=== PATIENT | male | born 1935 | race Caucasian/White ===

== ENCOUNTER → 2017-01-17 | Outpatient (CLI) | payer OTHER ==
[~2017-01-17] MED LIST: ADVIN25/60 INH; ALBUAER19 INH; ASPEC81 PO; ATOR80TA PO; ATV/1 PO; CALCTAB5 PO; CHOL1000 PO; CLX20 PO; CMD/25 PO; CMD5 PO; CRDCD120 PO; CYAN100020 PO; DOCU-94 PO; GLIP5TAB11 PO; GLUCTAB7 PO; HYDC25 PO; LISI-461 PO; LVQ750 PO; METO50TA16 PO; MULT-513 PO; OPTIRAY 320 IV PRN; OXGN; PRD20 PO; PRLSR20 PO
--- NOTE | 2017-01-17 12:42 | DIAGNOSTIC IMAGING REPORT ---
CT OF THE CHEST WITH IV CONTRAST CLINICAL HISTORY: COPD with emphysema. COMPARISON STUDY: Chest CT September 05, 2015 and chest radiograph November 08, 2015. TECHNIQUE: Following IV administration of 120 mL of Optiray-320, helical axial images of the chest were obtained. Sagittal and coronal reconstructions were viewed as well as maximal intensity projections on an independent 3-D workstation. A dose lowering technique was utilized adhering to the principles of ALARA. CT DOSE: 1386.00 mGy.cm FINDINGS: The heart is moderately enlarged. Mild dilatation of the ascending aorta, measuring 4.2 cm is unchanged. There is no thoracic aortic dissection. There is extensive coronary artery calcification. A few prominent aortopulmonary window lymph nodes measuring up to 1.2 cm are noted. These are unchanged. No pneumothorax or pleural effusion is present. Lungs are suboptimally assessed due to respiratory motion. Groundglass left lower lobe opacity favors atelectasis although a mild infectious process could appear similar. There is diffuse bronchial wall thickening with extensive secretions throughout the airways, most prevalent within the left mainstem bronchus and left lower lobe segmental bronchi with multifocal mucus plugging. Bony thorax is unremarkable. Several left renal cysts are noted. There is probable fatty infiltration of the liver. A sebaceous cyst within the right lower back is noted. IMPRESSION: 1. Diffuse bronchial wall thickening with multifocal secretions throughout the airways, most extensive within the left mainstem bronchus and left lower lobe segmental bronchi. Airway wall thickening, most evident with the left mainstem bronchus is nonspecific. 2. Mild left lower lobe opacity which favors atelectasis. 3. Moderate cardiomegaly and extensive coronary artery calcification. Electronically signed by: Victoriano Valiente M.D. 01/17/2017 12:41 PM Dictated Date/Time: 01/17/2017 10:19 AM
== END | disposition home or self-care (01) ==
LOC: C.CTS 09:41
PROVIDERS: ATTEND Internal Medicine Pulmonary Disease
DX: J43.9 Emphysema, unspecified (principal); I51.7 Cardiomegaly; I25.10 Atherosclerotic heart disease of native coronary artery without angina pectoris

== ENCOUNTER 2017-02-04 13:57 | Emergency (ER) | payer OTHER ==
[~2017-02-04] VITALS: Ht 182.9 cm; Wt 143.0 kg
[~2017-02-04 13:57] MED LIST changes: -OPTIRAY 320 IV PRN
[2017-02-04 14:00] VITALS: Ht 182.9 cm; Wt 143.0 kg
--- NOTE | 2017-02-04 15:43 | EMERGENCY ROOM VISIT NOTE ---
History First contact with patient: 15:33 Chief Complaint: SWELLING TO EXTREMITY Stated Complaint: LEFT FOOT/ANKLE SEVERELY SWOLLEN, SEEPING BLISTER History of Present Illness The patient is a 81 year old male who presents to the Emergency Room by private vehicle with left foot pain for the last 1-2 days. He denies any trauma but noticed intermittent aching/sharp pain on the lateral side of his distal fibula with associated ecchymosis. 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 His daughter called his orthopedic surgeon who recommended calling his PCP who recommended going to the ER because it was purple. His apparently saw some seeping of his ankle with a blister but this was not noted by other family members who are currently here in the ER. His ankle is normally swollen and he is unclear whether it is worse than normal. His usual mobility is poor and he used furniture around the house to help him get around. Uses wheelchair outside the house. Lives with his . They have an aid that helps out around 6 hour/day. Gets his INR checked at home and his daughter mentions they frequently need to change his dose. Review of Systems Constitutional: No fever, No chills ENT: No hearing loss Respiratory: + cough, + dyspnea on exertion (chronic), No sputum, No wheezing Cardiovascular: + edema (worse on left than right), No chest pain, No orthopnea, No PND, No claudication, No palpitations Abdomen: + nausea, + diarrhea, No pain, No vomiting, No constipation, No GI bleeding Musculoskeletal: + joint pain (as per HPI) Genitourinary - Male: No hematuria, No dysuria, No urinary frequency, No urinary urgency, No urinary retention Neurologic: + memory loss (for years), No balance problems Integumentary: + rash (dry skin on arms with sebhorreic keratosis), + color change (purple ankle) Past Medical/Surgical History Medical Problems: (1) Anxiety (2) CAD (coronary artery disease) (3) Current use of director long term care anticoagulation (4) Dementia (5) DM2 (diabetes mellitus, type 2) (6) HLD (hyperlipidemia) (7) HTN (hypertension) (8) Irritable Bowel Syndrome (9) Pulmonary embolism Surgical Problems: (1) H/O angioplasty (2) H/O hernia repair (3) S/P surgical manipulation of ankle joint Family History Hypertension Social History Smoking Status: Never Smoker Alcohol Use: occasionally Marital Status: Housing Status: lives with significant other () Occupation Status: retired Current/Historical Medications Scheduled Albuterol Inhaler (Ventolin Inhaler), 2 PUFFS INH QID Aspirin (Aspirin EC Low Dose), 81 MG PO DAILY Atorvastatin Calcium (Lipitor), 1 TAB PO HS Calcium (Caltrate), 600 MG PO DAILY Cholecalciferol (Vitamin D3), 5,000 UNITS PO DAILY Citalopram (Celexa *), 20 MG PO DAILY Cyanocobalamin (Vitamin B12), 1 TAB PO DAILY Diltiazem Hcl Cd (Cardizem Cd *), 120 MG PO DAILY Docusate Sodium (Colace), 1 CAP PO BID Fluticasone Prop/Salmeterol (Advair Diskus 250/50 60 Dose), 1 PUFFS INH BID Glipizide (Glucotrol), 0.5 TAB PO BIDM Vvgaicisfby-Msqlzylffoa-Csb C- (Glucosamine Chondroitin), 1 TAB PO DAILY Home O2 Therapy (Oxygen), 3 LITER NA CONTINOUS Hydrochlorothiazide (Hctz *), 12.5 MG PO DAILY Levofloxacin (Levofloxacin), 750 MG PO DAILY@22 Lisinopril (Zestril), 10 MG PO DAILY Metoprolol Tartrate (Lopressor) (Lopressor), 50 MG PO BID Multivitamins/Minerals (Mvi With Minerals), 1 TAB PO DAILY Omeprazole (Prilosec), 20 MG PO BID Prednisone (Prednisone), 20 MG PO UD Warfarin Sod (Coumadin), 2.5 MG PO WK Warfarin Sod (Coumadin), 5 MG PO 6XWK Scheduled PRN Lorazepam (Ativan), 1 MG PO BID PRN for Anxiety/Agitation Physical Exam Vital Signs Date Time Temp Pulse Resp B/P (MAP) Pulse Ox O2 Delivery O2 Flow Rate FiO2 02/04/17 18:18 36.7 81 18 140/89 93 02/04/17 17:57 81 18 140/89 93 Room Air 02/04/17 17:18 69 20 113/82 96 Nasal Cannula 2.5 02/04/17 14:00 36.7 103 22 150/110 89 Room Air Physical Exam General Appearance: no apparent distress, + obese Eyes: normal inspection, PERRL, EOMI Neck: supple Respiratory/Chest: chest non-tender, lungs clear, normal breath sounds, no respiratory distress, no accessory muscle use Cardiovascular: regular rate, rhythm, no murmur, normal peripheral pulses ( left PT/DP confirmed on doppler) Abdomen / GI: normal bowel sounds, non tender, soft Back: no CVA tenderness Extremities: normal capillary refill, + pedal edema (marked peripheral pitting edema L (3+) > R (1+)), + pertinent finding (ecchymosis and pain on palpation over 7-8cm distal lateral fibula) Neurologic/Psych: counseling services manager II-XII nml as tested, alert, oriented x 3, + sensory deficit (stocking sensation loss (below knees b/l)), + pertinent finding (hip/ knee/ankle flexion and extension power 5/5 bilaterally) Medical Decision & Procedures ER Provider Diagnostic Interpretation: LEFT LOWER EXTREMITY VENOUS DOPPLER CLINICAL HISTORY: Left leg pain and swelling. COMPARISON STUDY: Bilateral lower extremity venous Doppler August 14, 2007. TECHNIQUE: Sonography of the deep venous system of the left lower extremity was performed. Compression and augmentation were evaluated. FINDINGS: The common femoral, superficial femoral and popliteal veins were compressible. Augmentation was normal. Flow was shown within the deep calf vessels although calf vessels were suboptimally assessed on this exam. IMPRESSION: No evidence of deep venous thrombus within the left lower extremity although calf vessels suboptimally assessed on this exam. Electronically signed by: Victoriano Valiente M.D. 02/04/2017 5:06 PM Dictated Date/Time: 02/04/2017 5:05 PM LEFT TIBIA/FIBULA 2 VIEWS ROUTINE, LEFT ANKLE MIN 3 VIEWS ROUTINE HISTORY: 81 years-old Male lower third lateral left leg pain and ecchymosis COMPARISON: None available TECHNIQUE: 2 views of the left tibia and fibula and 3 views of the left ankle FINDINGS: TIBIA/FIBULA: Chondrocalcinosis involves the medial, lateral and patellofemoral compartments. 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 There is no acute fracture or dislocation. The bones are mildly demineralized. Dense material is noted within the suprapatellar region with small moderate joint effusion. Soft tissue edema involves the entire imaged lower extremity. ANKLE: Lateral plate and screw fusion hardware involves the distal fibula with 2 cannulated screws present within the medial malleolus. Hardware appears intact without complication. No acute fracture or dislocation is identified. Mild to moderate generative changes involve the tibiotalar joint with dorsal spurring of the talonavicular articulation. There is extensive soft tissue swelling involving the imaged lower extremity and ankle with small ankle joint effusion. IMPRESSION: 1. No acute bony abnormality of the left tibia/fibula or ankle. 2. Extensive soft tissue swelling of the imaged left lower extremity with small to moderate knee joint effusion. 3. Prior ORIF of the left ankle with degenerative changes of the left knee and ankle. The above report was generated using voice recognition software. It may contain grammatical, syntax or spelling errors. Electronically signed by: Edmundo Delgadillo M.D. 02/04/2017 4:59 PM Dictated Date/Time: 02/04/2017 4:55 PM Laboratory Results 02/04/17 15:55 Red Blood Count 4.71, Mean Corpuscular Volume 93.6, Mean Corpuscular Hemoglobin 29.9, Mean Corpuscular Hemoglobin Concent 32.0, Mean Platelet Volume 11.1, Neutrophils (%) (Auto) 49.4, Lymphocytes (%) (Auto) 37.3, Monocytes (%) (Auto) 7.4, Eosinophils (%) (Auto) 5.1, Basophils (%) (Auto) 0.6, Neutrophils # (Auto) 4.92, Lymphocytes # (Auto) 3.72, Monocytes # (Auto) 0.74, Eosinophils # (Auto) 0.51, Basophils # (Auto) 0.06 02/04/17 15:55 Test 02/04/17 15:55 White Blood Count 9.97 K/uL (4.8-10.8) Red Blood Count 4.71 M/uL (4.7-6.1) Hemoglobin 14.1 g/dL (14.0-18.0) Hematocrit 44.1 % (42-52) Mean Corpuscular Volume 93.6 fL (80-100) Mean Corpuscular Hemoglobin 29.9 pg (25-34) Mean Corpuscular Hemoglobin Concent 32.0 g/dl (32-36) Platelet Count 230 K/uL (130-400) Mean Platelet Volume 11.1 fL (7.4-10.4) Neutrophils (%) (Auto) 49.4 % Lymphocytes (%) (Auto) 37.3 % Monocytes (%) (Auto) 7.4 % Eosinophils (%) (Auto) 5.1 % Basophils (%) (Auto) 0.6 % Neutrophils # (Auto) 4.92 K/uL (1.4-6.5) Lymphocytes # (Auto) 3.72 K/uL (1.2-3.4) Monocytes # (Auto) 0.74 K/uL (0.11-0.59) Eosinophils # (Auto) 0.51 K/uL (0-0.5) Basophils # (Auto) 0.06 K/uL (0-0.2) RDW Standard Deviation 53.9 fL (36.4-46.3) RDW Coefficient of Variation 15.7 % (11.5-14.5) Immature Granulocyte % (Auto) 0.2 % Immature Granulocyte # (Auto) 0.02 K/uL (0.00-0.02) Erythrocyte Sedimentation Rate 48 mm/hr (0-14) Prothrombin Time 31.0 SECONDS (9.0-12.0) Prothromb Time International Ratio 2.8 (0.9-1.1) Activated Partial Thromboplast Time 43.7 SECONDS (21.0-31.0) Partial Thromboplastin Ratio 1.7 Anion Gap 6.0 mmol/L (3-11) Est Creatinine Clear Calc Drug Dose 60.7 ml/min Estimated GFR () 54.2 Estimated GFR (Non- 46.8 BUN/Creatinine Ratio 16.4 (10-20) Calcium Level 10.0 mg/dl (8.5-10.1) Total Bilirubin 0.2 mg/dl (0.2-1) Aspartate Amino Transf (AST/SGOT) 23 U/L (15-37) Alanine Aminotransferase (ALT/SGPT) 25 U/L (12-78) Alkaline Phosphatase 66 U/L (45-117) C-Reactive Protein 2.31 mg/dl (0-0.29) Total Protein 7.7 gm/dl (6.4-8.2) Albumin 3.1 gm/dl (3.4-5.0) Globulin 4.6 gm/dl (2.5-4.0) Albumin/Globulin Ratio 0.7 (0.9-2) ED Course 15:35 History and physical examination was performed by myself 16:10 Patient was discussed with Dr Khanna who separately performed history and examination 17:25 Patient re-examined - he was pain free and did not wish any medication. Labs and Imaging were reviewed with the patient, his daughter and aid. All questions were answered and they were happy with the plan to discharge home. Medical Decision Prior records reviewed and summarized as above. Triage Nursing notes reviewed. Additional history obtained from patient. The patient's history was concerning for swelling and redness of the skin. Differential diagnosis: Etiologies such as cellulitis, abscess, osteomyelitis, MRSA infection, DVT, necrotizing fasciitis, dermatitis, drug eruption, as well as others were entertained.. Physical examination: The physical examination was consistent soft tissue injury / ankle sprain. ER treatment provided: None On reassessment the patient had no pain Diagnostics interpreted by me: The labs revealed elevated inflammatory markers but otherwise were unremarkable. Imaging studies: X-rays as above revealed no fracture. Small to moderate knee effusion is likely chronic as his knee examination was benign US doppler of left leg did not reveal a DVT This appears to be isolated soft tissue injury or ankle sprain. His elevated inflammatory markers are unlikely related to his presenting complaint but were taken as a baseline in case he becomes worse or develops an infection. Given a normal WBC, no fevers and examination is not consistent with cellulitis this is thought to be less likely at this time but he was advised to follow up with his PCP. By the evaluation outlined above emergent etiologies such as abscess, osteomyelitis, necrotizing fasciitis, DVT, as well as others were deemed relatively unlikely. The patient and his daughter were informed about the findings as listed above. All questions were answered and they were pleased with the treatment. Return instructions were outlined and the patient was discharged in stable condition. Referral: The patient was referred back to his primary care physician for follow-up in 3 to 5 days for a recheck of the current condition. Medication Reconcilliation Current Medication List: was personally reviewed by me Blood Pressure Screening Patient's blood pressure: Elevated blood pressure Blood pressure disposition: Elevated BP felt to be situational, Referred to PCP Impression Primary Impression: Left ankle sprain Additional Impression: HTN (hypertension) Departure Information Dispostion Home / Self-Care Condition FAIR Referrals Matthew Payne M.D. (PCP) Patient Instructions My [facility] Additional Instructions Take Tylenol as directed and as needed for pain. Use rest, ice and elevation. Begin to slowly put more weight on your foot and increase your activity as tolerated. Please follow up with your PCP in the next 3-5 days for a recheck of your condition. Resident Tracking Resident Involvement: Resident Care Provided Care Provided: Adult ED Problem Qualifiers Primary Impression: Left ankle sprain Encounter type: initial encounter Involved ligament of ankle: unspecified ligament Qualified Codes: S93.402A - Sprain of unspecified ligament of left ankle, initial encounter Additional Impression: HTN (hypertension) Hypertension type: essential hypertension Qualified Codes: I10 - Essential ( primary) hypertension
[2017-02-04 16:16] LABS: BASO % 0.6 %; BASO ABS # 0.06 K/uL (0-0.2); COMPLETE YES; EOS % 5.1 %; HEMATOCRIT 44.1 % (42-52); IG% 0.2 %; LYMPH % 37.3 %; LYMPH ABS # 3.72 K/uL (1.2-3.4); MEAN CELL VOLUME 93.6 fL (80-100); MEAN CORPUSCULAR HEMOGLOBIN 29.9 pg (25-34); MEAN PLATELET VOLUME 11.1 fL (7.4-10.4); MONO % 7.4 %; NEUT % 49.4 %; PLATELET COUNT 230 K/uL (130-400); RED BLOOD COUNT 4.71 M/uL (4.7-6.1); WHITE BLOOD COUNT 9.97 K/uL (4.8-10.8)
[2017-02-04 16:30] LABS: INR 2.8 (0.9-1.1); PARTIAL THROMBOPLASTIN RATIO 1.7
[2017-02-04 16:36] LABS: BUN/CREATININE RATIO 16.4 (10-20); CREATININE 1.4 mg/dl (0.60-1.40); POTASSIUM 4.2 mmol/L (3.5-5.1)
[2017-02-04 16:39] LABS: ALB/GLOB RATIO 0.7 (0.9-2)
--- NOTE | 2017-02-04 17:00 | DIAGNOSTIC IMAGING REPORT ---
LEFT TIBIA/FIBULA 2 VIEWS ROUTINE, LEFT ANKLE MIN 3 VIEWS ROUTINE HISTORY: 81 years-old Male lower third lateral left leg pain and ecchymosis COMPARISON: None available TECHNIQUE: 2 views of the left tibia and fibula and 3 views of the left ankle FINDINGS: TIBIA/FIBULA: Chondrocalcinosis involves the medial, lateral and patellofemoral compartments. 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 There is no acute fracture or dislocation. The bones are mildly demineralized. Dense material is noted within the suprapatellar region with small moderate joint effusion. Soft tissue edema involves the entire imaged lower extremity. ANKLE: Lateral plate and screw fusion hardware involves the distal fibula with 2 cannulated screws present within the medial malleolus. Hardware appears intact without complication. No acute fracture or dislocation is identified. Mild to moderate generative changes involve the tibiotalar joint with dorsal spurring of the talonavicular articulation. There is extensive soft tissue swelling involving the imaged lower extremity and ankle with small ankle joint effusion. IMPRESSION: 1. No acute bony abnormality of the left tibia/fibula or ankle. 2. Extensive soft tissue swelling of the imaged left lower extremity with small to moderate knee joint effusion. 3. Prior ORIF of the left ankle with degenerative changes of the left knee and ankle. The above report was generated using voice recognition software. It may contain grammatical, syntax or spelling errors. Electronically signed by: Edmundo Delgadillo M.D. 02/04/2017 4:59 PM Dictated Date/Time: 02/04/2017 4:55 PM
--- NOTE | 2017-02-04 17:07 | DIAGNOSTIC IMAGING REPORT ---
LEFT LOWER EXTREMITY VENOUS DOPPLER CLINICAL HISTORY: Left leg pain and swelling. COMPARISON STUDY: Bilateral lower extremity venous Doppler August 14, 2007. TECHNIQUE: Sonography of the deep venous system of the left lower extremity was performed. Compression and augmentation were evaluated. FINDINGS: The common femoral, superficial femoral and popliteal veins were compressible. Augmentation was normal. Flow was shown within the deep calf vessels although calf vessels were suboptimally assessed on this exam. IMPRESSION: No evidence of deep venous thrombus within the left lower extremity although calf vessels suboptimally assessed on this exam. Electronically signed by: Victoriano Valiente M.D. 02/04/2017 5:06 PM Dictated Date/Time: 02/04/2017 5:05 PM
[2017-02-04 18:18] VITALS: BP 140/89; PULSE 81; TEMP 36.7; O2SAT 93
--- NOTE | 2017-02-04 22:18 | EMERGENCY ROOM VISIT NOTE ---
History Report prepared by Scribe: Alba Borden Under the Supervision of: Dr. Juan M Khanna D.O. First contact with patient: 15:33 Chief Complaint: SWELLING TO EXTREMITY Stated Complaint: LEFT FOOT/ANKLE SEVERELY SWOLLEN, SEEPING BLISTER History of Present Illness The patient is an 81 year old male who presents to the Emergency Room with complaints of worsening pain and swelling to his left lower extremity. He reports the swelling started 1 to 2 days ago and rates his current discomfort as a 7/10. Movement and palpation worsens his discomfort. The patient underwent surgery on his left ankle approximately [address] Neves at [facility]. He denies any recent trauma to the area. His daughter reports the patient fell 2 weeks ago, but he did not go to the ED afterwards. The patient has a history of DM, DVT's, hypertension and CAD. He wears 2 L NC chronically. He is on daily Coumadin and his family states he has been taking all of his medications regularly. He has decreased sensation in his left foot, but states this is chronic. Pt denies headache, change in vision, fevers, chest pain, shortness of breath, abdominal pain, nausea, vomiting, diarrhea, pain with urination, and melena. Source of History: patient, family Onset: 1 to 2 days [employer] Position: ankle (left), foot (left) Symptom Intensity: 7/10 Timing: worsening Modifying Factors (Worsening): movement, other (palpation) Associated Symptoms: No fevers, No headache, No chest pain, No SOB, No nausea, No vomiting, No abdominal pain, No melena, No diarrhea, No urinary symptoms Review of Systems See HPI for pertinent positives & negatives. A total of 10 systems reviewed and were otherwise negative. Past Medical & Surgical Medical Problems: (1) Anxiety (2) CAD (coronary artery disease) (3) Current use of shelter anticoagulation (4) Dementia (5) DM2 (diabetes mellitus, type 2) (6) HLD (hyperlipidemia) (7) HTN (hypertension) (8) Irritable Bowel Syndrome (9) Pulmonary embolism Surgical Problems: (1) H/O angioplasty (2) H/O hernia repair (3) S/P surgical manipulation of ankle joint Family History Hypertension Social History Smoking Status: Never Smoker Alcohol Use: occasionally Drug Use: none Marital Status: Housing Status: lives with significant other () Occupation Status: retired Current/Historical Medications Scheduled Albuterol Inhaler (Ventolin Inhaler), 2 PUFFS INH QID Aspirin (Aspirin EC Low Dose), 81 MG PO DAILY Atorvastatin Calcium (Lipitor), 1 TAB PO HS Calcium (Caltrate), 600 MG PO DAILY Cholecalciferol (Vitamin D3), 5,000 UNITS PO DAILY Citalopram (Celexa *), 20 MG PO DAILY Cyanocobalamin (Vitamin B12), 1 TAB PO DAILY Diltiazem Hcl Cd (Cardizem Cd *), 120 MG PO DAILY Docusate Sodium (Colace), 1 CAP PO BID Fluticasone Prop/Salmeterol (Advair Diskus 250/50 60 Dose), 1 PUFFS INH BID Glipizide (Glucotrol), 0.5 TAB PO BIDM [facility]kdarphhj-Ynufuibmjhw-[facility] C- (Glucosamine Chondroitin), 1 TAB PO DAILY Home O2 Therapy (Oxygen), 3 LITER NA CONTINOUS Hydrochlorothiazide (Hctz *), 12.5 MG PO DAILY Levofloxacin (Levofloxacin), 750 MG PO DAILY@22 Lisinopril (Zestril), 10 MG PO DAILY Metoprolol Tartrate (Lopressor) (Lopressor), 50 MG PO BID Multivitamins/Minerals (Mvi With Minerals), 1 TAB PO DAILY Omeprazole (Prilosec), 20 MG PO BID Prednisone (Prednisone), 20 MG PO UD Warfarin Sod (Coumadin), 2.5 MG PO WK Warfarin Sod (Coumadin), 5 MG PO 6XWK Scheduled PRN Lorazepam (Ativan), 1 MG PO BID PRN for Anxiety/Agitation Allergies Coded Allergies: Morphine (Unverified Adverse Reaction, Severe, becomes wild and combative , 09/01/15) Physical Exam Vital Signs Date Time Temp Pulse Resp B/P (MAP) Pulse Ox O2 Delivery O2 Flow Rate FiO2 02/04/17 18:18 36.7 81 18 140/89 93 02/04/17 17:57 81 18 140/89 93 Room Air 02/04/17 17:18 69 20 113/82 96 Nasal Cannula 2.5 02/04/17 14:00 36.7 103 22 150/110 89 Room Air Physical Exam GENERAL: Patient is sitting up in bed, morbidly obese, chronically ill appearing , on 2 L NC chronically. EYE EXAM: normal conjunctiva, PERRL and EOM's grossly intact OROPHARYNX: no exudate, no erythema, lips, buccal mucosa, and tongue normal and mucous membranes are moist NECK: supple, no nuchal rigidity, no adenopathy, non-tender LUNGS: Diminished lung sounds bilaterally. Normal chest wall mechanics HEART: Heart sounds are distant, no murmurs, S1 normal and S2 normal ABDOMEN: abdomen soft, non-tender, normo-active bowel sounds, no masses, no rebound or guarding. BACK: Back is symmetrical on inspection and there is no deformity, no midline tenderness, no CVA tenderness. SKIN: no rashes and no bruising UPPER EXTREMITIES: upper extremities are grossly normal. LOWER EXTREMITIES: Mild pitting edema. Left leg is larger than right. Bruising on left distal tibia, tracking to the ankle. Old incisions in place over medial malleolus. DP and PT are 1/4 by Doppler. Moderate pain with palpation over lateral malleolus. NEURO EXAM: Normal sensorium, cranial nerves II-XII grossly intact, no weakness of the upper extremities or lower extremities. Medical Decision & Procedures ER Provider Diagnostic Interpretation: Radiology results as stated below per my review and the radiologist's interpretation: LEFT TIBIA/FIBULA 2 VIEWS ROUTINE, LEFT ANKLE MIN 3 VIEWS ROUTINE HISTORY: 81 years-old Male lower third lateral left leg pain and ecchymosis COMPARISON: None available TECHNIQUE: 2 views of the left tibia and fibula and 3 views of the left ankle FINDINGS: TIBIA/FIBULA: Chondrocalcinosis involves the medial, lateral and patellofemoral compartments. 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 There is no acute fracture or dislocation. The bones are mildly demineralized. Dense material is noted within the suprapatellar region with small moderate joint effusion. Soft tissue edema involves the entire imaged lower extremity. ANKLE: Lateral plate and screw fusion hardware involves the distal fibula with 2 cannulated screws present within the medial malleolus. Hardware appears intact without complication. No acute fracture or dislocation is identified. Mild to moderate generative changes involve the tibiotalar joint with dorsal spurring of the talonavicular articulation. There is extensive soft tissue swelling involving the imaged lower extremity and ankle with small ankle joint effusion. IMPRESSION: 1. No acute bony abnormality of the left tibia/fibula or ankle. 2. Extensive soft tissue swelling of the imaged left lower extremity with small to moderate knee joint effusion. 3. Prior ORIF of the left ankle with degenerative changes of the left knee and ankle. The above report was generated using voice recognition software. It may contain grammatical, syntax or spelling errors. Electronically signed by: Edmundo Delgadillo M.D. 02/04/2017 4:59 PM LEFT LOWER EXTREMITY VENOUS DOPPLER CLINICAL HISTORY: Left leg pain and swelling. COMPARISON STUDY: Bilateral lower extremity venous Doppler August 14, 2007. TECHNIQUE: Sonography of the deep venous system of the left lower extremity was performed. Compression and augmentation were evaluated. FINDINGS: The common femoral, superficial femoral and popliteal veins were compressible. Augmentation was normal. Flow was shown within the deep calf vessels although calf vessels were suboptimally assessed on this exam. IMPRESSION: No evidence of deep venous thrombus within the left lower extremity although calf vessels suboptimally assessed on this exam. Electronically signed by: Victoriano Valiente M.D. 02/04/2017 5:06 PM Laboratory Results 02/04/17 15:55 Red Blood Count 4.71, Mean Corpuscular Volume 93.6, Mean Corpuscular Hemoglobin 29.9, Mean Corpuscular Hemoglobin Concent 32.0, Mean Platelet Volume 11.1, Neutrophils (%) (Auto) 49.4, Lymphocytes (%) (Auto) 37.3, Monocytes (%) (Auto) 7.4, Eosinophils (%) (Auto) 5.1, Basophils (%) (Auto) 0.6, Neutrophils # (Auto) 4.92, Lymphocytes # (Auto) 3.72, Monocytes # (Auto) 0.74, Eosinophils # (Auto) 0.51, Basophils # (Auto) 0.06 02/04/17 15:55 Test 02/04/17 15:55 White Blood Count 9.97 K/uL (4.8-10.8) Red Blood Count 4.71 M/uL (4.7-6.1) Hemoglobin 14.1 g/dL (14.0-18.0) Hematocrit 44.1 % (42-52) Mean Corpuscular Volume 93.6 fL (80-100) Mean Corpuscular Hemoglobin 29.9 pg (25-34) Mean Corpuscular Hemoglobin Concent 32.0 g/dl (32-36) Platelet Count 230 K/uL (130-400) Mean Platelet Volume 11.1 fL (7.4-10.4) Neutrophils (%) (Auto) 49.4 % Lymphocytes (%) (Auto) 37.3 % Monocytes (%) (Auto) 7.4 % Eosinophils (%) (Auto) 5.1 % Basophils (%) (Auto) 0.6 % Neutrophils # (Auto) 4.92 K/uL (1.4-6.5) Lymphocytes # (Auto) 3.72 K/uL (1.2-3.4) Monocytes # (Auto) 0.74 K/uL (0.11-0.59) Eosinophils # (Auto) 0.51 K/uL (0-0.5) Basophils # (Auto) 0.06 K/uL (0-0.2) RDW Standard Deviation 53.9 fL (36.4-46.3) RDW Coefficient of Variation 15.7 % (11.5-14.5) Immature Granulocyte % (Auto) 0.2 % Immature Granulocyte # (Auto) 0.02 K/uL (0.00-0.02) Erythrocyte Sedimentation Rate 48 mm/hr (0-14) Prothrombin Time 31.0 SECONDS (9.0-12.0) Prothromb Time International Ratio 2.8 (0.9-1.1) Activated Partial Thromboplast Time 43.7 SECONDS (21.0-31.0) Partial Thromboplastin Ratio 1.7 Anion Gap 6.0 mmol/L (3-11) Est Creatinine Clear Calc Drug Dose 60.7 ml/min Estimated GFR () 54.2 Estimated GFR (Non- 46.8 BUN/Creatinine Ratio 16.4 (10-20) Calcium Level 10.0 mg/dl (8.5-10.1) Total Bilirubin 0.2 mg/dl (0.2-1) Aspartate Amino Transf (AST/SGOT) 23 U/L (15-37) Alanine Aminotransferase (ALT/SGPT) 25 U/L (12-78) Alkaline Phosphatase 66 U/L (45-117) C-Reactive Protein 2.31 mg/dl (0-0.29) Total Protein 7.7 gm/dl (6.4-8.2) Albumin 3.1 gm/dl (3.4-5.0) Globulin 4.6 gm/dl (2.5-4.0) Albumin/Globulin Ratio 0.7 (0.9-2) Laboratory results per my review. ED Course ED COURSE: Vital signs were reviewed and showed the patient is hypoxic and tachycardic. The patients medical record was reviewed The above diagnostic studies were performed and reviewed. ED treatments and interventions as stated above. 1612: The patient was evaluated in room B8. A complete history and physical examination was performed. 1730: Upon reevaluation, the patient is feeling well and resting comfortably. I discussed my findings with the patient and he understands and agrees with the treatment plan. Based on the patients age, coexisting illnesses, exam and lab findings the decision to treat as an outpatient was made. The patient remained stable while under my care. The patient appeared well at the time of discharge. Medical Decision Differential diagnosis includes etiologies such as cellulitis, abscess, MRSA infection, DVT, necrotizing fasciitis, dermatitis, drug eruption, as well as others were entertained. Patient is an 81-year-old male who presents the ER for swelling of the left lower extremity and bruising on the left lateral ankle. He is on Coumadin. Good pulses. He is neurologically intact. Was hypoxic in triage as he was off his chronic 2 L nasal cannula. Vitals are unremarkable. Patient was seen independently of Dr. Feliciano. CBC and BMP along with LFTs and bilirubin was unremarkable. Sed and CRP were slightly elevated likely secondary the unknown trauma that caused the bruising of his left ankle. INR was therapeutic at 2.8. X-rays show no acute fracture. Duplex shows no clots. Patient was updated bedside discharged follow-up with PCP for bruising on his left lateral ankle. There is no induration or significant erythema to suggest cellulitis. Discussed with Pt concerning signs and symptoms to watch out for. Pt was instructed to follow up with their PCP and discussed with the patient their option to return to the ED at anytime for persistent or worsening symptoms. The appropriate anticipatory guidance and out-patient management, including indications for return to the emergency department, were explained at length to the patient and understood. Medication Reconcilliation Current Medication List: was personally reviewed by me Blood Pressure Screening Patient's blood pressure: Elevated blood pressure Blood pressure disposition: Referred to PCP Impression Primary Impression: Left ankle sprain Additional Impression: HTN (hypertension) Scribe Attestation The scribe's documentation has been prepared under my direction and personally reviewed by me in its entirety. I confirm that the note above accurately reflects all work, treatment, procedures, and medical decision making performed by me. Departure Information Dispostion Home / Self-Care Referrals Matthew Payne M.D. (PCP) Patient Instructions My [facility] Additional Instructions Take Tylenol as directed and as needed for pain. Use rest, ice and elevation. Begin to slowly put more weight on your foot and increase your activity as tolerated. Please follow up with your PCP in the next 3-5 days for a recheck of your condition. Problem Qualifiers Primary Impression: Left ankle sprain Encounter type: initial encounter Involved ligament of ankle: unspecified ligament Qualified Codes: S93.402A - Sprain of unspecified ligament of left ankle, initial encounter Additional Impression: HTN (hypertension) Hypertension type: essential hypertension Qualified Codes: I10 - Essential ( primary) hypertension
== END 2017-02-04 18:19 | disposition home or self-care (01) ==
LOC: C.EDB 13:59
DX: S93.402A Sprain of unspecified ligament of left ankle, initial encounter (principal); X58.XXXA Exposure to other specified factors, initial encounter; I10 Essential (primary) hypertension; M25.462 Effusion, left knee; L82.1 Other seborrheic keratosis; R60.0 Localized edema; F41.9 Anxiety disorder, unspecified; I25.10 Atherosclerotic heart disease of native coronary artery without angina pectoris; F03.90 Unspecified dementia, unspecified severity, without behavioral disturbance, psychotic disturbance, mood disturbance, and anxiety; E11.9 Type 2 diabetes mellitus without complications; E78.5 Hyperlipidemia, unspecified; K58.9 Irritable bowel syndrome, unspecified; Z86.711 Personal history of pulmonary embolism; Z86.718 Personal history of other venous thrombosis and embolism; Z79.01 Long term (current) use of anticoagulants; Z79.82 Long term (current) use of aspirin; Z79.4 Long term (current) use of insulin; Z99.81 Dependence on supplemental oxygen

== ENCOUNTER 2017-12-30 12:21 | Inpatient (IN) | payer OTHER ==
[~2017-12-30] VITALS: Ht 182.9 cm; Wt 127.5 kg
[~2017-12-30 12:21] MED LIST changes: -ADVIN25/60 INH; -ALBUAER19 INH; -ASPEC81 PO; +ASPI-320 PO; -ATV/1 PO; -CHOL1000 PO; -CMD/25 PO; -CRDCD120 PO; -CYAN100020 PO; +DILT-213 PO; -DOCU-94 PO; -HYDC25 PO; +HYDR25TA5 PO; +IPRA-64 INH; +KFL500 PO; +KLN5X PO; -LISI-461 PO; +LISI20TA3 PO; -LVQ750 PO; +MRLP527 PO; -OXGN; -PRD20 PO; +PRVHFAIN INH
[2017-12-30] MEDS ORDERED: SODIUM CHLORIDE 0.9% 500ML 500 ML IV STA (13:05)
--- NOTE | 2017-12-30 13:17 | EMERGENCY ROOM VISIT NOTE ---
History Report prepared by Edouardibmyra: Alba Borden Under the Supervision of: Dr. Fer Dozier M.D. First contact with patient: 12:59 Chief Complaint: ILLNESS Stated Complaint: AMS History of Present Illness The patient is an 82 year old male who presents to the Emergency Room with complaints of an altered mental status. He was brought to the ED via ALS and is accompanied by his daughter. His daughter reports about a week and a half ago, the patient started urinating himself, which he normally does not do. She notes he was recently placed on a diuretic. Home nursing tried to place a catheter earlier today but states "it got stuck". The nurse was able to send a urine sample to his doctors office and told his family no urinary infection was seen. His daughter notes the patient has been increasingly weak and has been in bed for at least 5 days. He has not left his bed to use the bathroom or eat and complains of pain with any movement. The daughter believes he has had difficulty staying asleep and states when she checks on him, "his eyes are half open". He does wear O2 at home, but she notes he has been "pulling it off". She admits his stool has been soft and his temperature last night was around 99.9. She denies any recent nausea or vomiting. 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 His daughter notes he has complained of bilateral leg pain recently. 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 A total of 10 systems reviewed and were otherwise negative. Past Medical & Surgical Medical Problems: (1) Anxiety (2) CAD (coronary artery disease) (3) Current use of alf anticoagulation (4) Dementia (5) DM2 (diabetes mellitus, type 2) (6) HLD (hyperlipidemia) (7) HTN (hypertension) (8) Irritable Bowel Syndrome (9) Pulmonary embolism Surgical Problems: (1) H/O angioplasty (2) H/O hernia repair (3) S/P surgical manipulation of ankle joint Family History Hypertension Social History Smoking Status: Never Smoker Alcohol Use: occasionally Drug Use: none Marital Status: Housing Status: lives with significant other Occupation Status: retired Current/Historical Medications Scheduled Arformoterol Tartrate (Brovana), 15 MCG INH BID Aspirin (Aspirin Ec), 81 MG PO DAILY Atorvastatin (Lipitor), 80 MG PO HS Calcium (Calcium), 600 MG PO DAILY Cholecalciferol (Vitamin D), 5,000 UNITS PO DAILY Citalopram Hydrobromide (Celexa), 20 MG PO DAILY Citalopram Hydrobromide (Celexa), 10 MG PO DAILY Diltiazem Hcl Coated Beads (Cardizem Cd), 120 MG PO DAILY Fluticasone Prop/Salmeterol (Advair Diskus 250/50 60 Dose), 1 PUFF INH Q12 Glipizide (Glipizide), 2.5 MG PO BID Home O2 Therapy (Oxygen), 2 LITERS NA PRN Hydrochlorothiazide (Hydrochlorothiazide), 12.5 MG PO DAILY Lisinopril (Lisinopril), 20 MG PO DAILY Metoprolol Tartrate (Lopressor) (Lopressor), 50 MG PO BID Multiple Vitamins W/ Minerals (Multivitamin Adults 50+), 1 TAB PO DAILY Pantoprazole (Protonix), 40 MG PO DAILY Polyethylene (Miralax), 17 GM PO DAILY Warfarin Sod (Coumadin), 2.5 MG PO MWF Warfarin Sodium (Coumadin), 5 MG PO 4XWK Scheduled PRN Clonazepam (Klonopin), 0.5 MG PO BID PRN for Anxiety Cyclobenzaprine Hcl (Flexeril), 5 MG PO TID PRN for Muscle Spasms Docusate Sodium (Colace), 100 MG PO UD PRN for Constipation Furosemide (Lasix), 20 MG PO DAILY PRN for EDEMA Ipratropium-Albuterol (Duoneb), 1 TREATMENT INH Q6 PRN for CONGESTION/DYSPNEA Allergies Coded Allergies: Morphine (Unverified Adverse Reaction, Severe, becomes wild and combative , 12/30/17) Physical Exam Vital Signs Date Time Temp Pulse Resp B/P (MAP) Pulse Ox O2 Delivery O2 Flow Rate FiO2 12/30/17 15:38 73 20 122/96 93 12/30/17 13:30 92 Nasal Cannula 2.0 12/30/17 13:13 68 12/30/17 12:48 36.7 77 22 174/109 90 Room Air Physical Exam GENERAL: Patient is in no acute distress. HEENT: No acute trauma, normocephalic atraumatic, mucous membranes dry, no nasal congestion, no scleral icterus. NECK: No stridor, no adenopathy, no meningismus, trachea is midline. LUNGS: Diminished breath sounds bilaterally, breath sounds are equal, no wheezes or rhonchi, no respiratory distress. HEART: Distant heart tones, rhythm seems regular, no obvious murmur. ABDOMEN: Soft, nontender, bowel sounds positive, no hernias, no peritonitis. GROIN: No cellulitic rash seen. EXTREMITIES: No cyanosis, mild bilateral pedal edema, full range of motion of all the joints without pain or difficulty, no signs for acute trauma. NEUROLOGIC: Oriented x 3, no acute motor or sensory deficits, no focal weakness. SKIN: No rash, no jaundice, no diaphoresis. Medical Decision & Procedures ER Provider Diagnostic Interpretation: Radiology results as stated below per my review and radiologist interpretation: CT HEAD WITHOUT CONTRAST (CT) CLINICAL HISTORY: Altered mental status. Confusion. COMPARISON STUDY: No previous studies for comparison. TECHNIQUE: Axial CT of the brain is performed from the vertex to the skull base. IV contrast was not administered for this examination. A dose lowering technique was utilized adhering to the principles of ALARA. CT DOSE: 638.56 mGycm FINDINGS: No intra or extra-axial mass lesions are visualized. There is no CT evidence of acute cortical infarction. There is no evidence of midline shift. There is no acute hemorrhage. No calvarial fractures are visualized. There are minor white matter hypodensities likely on a small vessel basis. There are atrophic changes present. There is mild ventricular dilatation which is felt to be secondary to volume loss. There is no evidence of acute sinusitis IMPRESSION: No acute intracranial findings Electronically signed by: Taye Roland M.D. 12/30/2017 2:47 PM CHEST ONE VIEW PORTABLE CLINICAL HISTORY: confusion dyspnea COMPARISON STUDY: 11/04/2017 FINDINGS: Small parenchymal infiltrate left base. Lungs otherwise are clear. Diaphragms are smooth. IMPRESSION: Small parenchymal infiltrate left base. The above report was generated using voice recognition software. It may contain grammatical, syntax or spelling errors. Electronically signed by: Vito Mcgregor M.D. 12/30/2017 4:20 PM Laboratory Results 12/30/17 13:25 Red Blood Count 5.02, Mean Corpuscular Volume 89.0, Mean Corpuscular Hemoglobin 29.7, Mean Corpuscular Hemoglobin Concent 33.3, Mean Platelet Volume 10.8, Neutrophils (%) (Auto) 65.3, Lymphocytes (%) (Auto) 20.1, Monocytes (%) (Auto) 13.5, Eosinophils (%) (Auto) 0.7, Basophils (%) (Auto) 0.2, Neutrophils # (Auto ) 9.27, Lymphocytes # (Auto) 2.86, Monocytes # (Auto) 1.91, Eosinophils # (Auto ) 0.10, Basophils # (Auto) 0.03 12/30/17 13:25 12/30/17 14:25 Test 12/30/17 13:25 12/30/17 13:48 12/30/17 14:12 12/30/17 14:24 White Blood Count 14.20 K/uL (4.8-10.8) Red Blood Count 5.02 M/uL (4.7-6.1) Hemoglobin 14.9 g/dL (14.0-18.0) Hematocrit 44.7 % (42-52) Mean Corpuscular Volume 89.0 fL (80-100) Mean Corpuscular Hemoglobin 29.7 pg (25-34) Mean Corpuscular Hemoglobin Concent 33.3 g/dl (32-36) Platelet Count 273 K/uL (130-400) Mean Platelet Volume 10.8 fL (7.4-10.4) Neutrophils (%) (Auto) 65.3 % Lymphocytes (%) (Auto) 20.1 % Monocytes (%) (Auto) 13.5 % Eosinophils (%) (Auto) 0.7 % Basophils (%) (Auto) 0.2 % Neutrophils # (Auto) 9.27 K/uL (1.4-6.5) Lymphocytes # (Auto) 2.86 K/uL (1.2-3.4) Monocytes # (Auto) 1.91 K/uL (0.11-0.59) Eosinophils # (Auto) 0.10 K/uL (0-0.5) Basophils # (Auto) 0.03 K/uL (0-0.2) RDW Standard Deviation 52.6 fL (36.4-46.3) RDW Coefficient of Variation 16.1 % (11.5-14.5) Immature Granulocyte % (Auto) 0.2 % Immature Granulocyte # (Auto) 0.03 K/uL (0.00-0.02) Anion Gap 5.0 mmol/L (3-11) Est Creatinine Clear Calc Drug Dose 49.5 ml/min Estimated GFR () 46.2 Estimated GFR (Non- 39.8 BUN/Creatinine Ratio 23.0 (10-20) Calcium Level 11.0 mg/dl (8.5-10.1) Total Bilirubin 1.0 mg/dl (0.2-1) Alanine Aminotransferase (ALT/SGPT) 19 U/L (12-78) Alkaline Phosphatase 93 U/L (45-117) Troponin I 0.024 ng/ml (0-0.045) Total Protein 9.7 gm/dl (6.4-8.2) Albumin 3.1 gm/dl (3.4-5.0) Globulin 6.6 gm/dl (2.5-4.0) Albumin/Globulin Ratio 0.5 (0.9-2) Thyroid Stimulating Hormone (TSH) 3.050 uIu/ml (0.300-4.500) Venous Blood pH 7.39 (7.36-7.41) Venous Blood Partial Pressure CO2 55 mmHg (38.0-50.0) Venous Blood Partial Pressure O2 21 mmHg Venous Blood HCO3 33 mmol/L Venous Blood Oxygen Saturation < 60.0 % Venous Blood Base Excess 5.9 mEq/L Ammonia < 10.0 umol/L (11-32) Lactic Acid Level 0.9 mmol/L (0.4-2.0) Prothrombin Time 39.5 SECONDS (9.0-12.0) Prothromb Time International Ratio 3.9 (0.9-1.1) Activated Partial Thromboplast Time 55.1 SECONDS (21.0-31.0) Partial Thromboplastin Ratio 2.1 Test 12/30/17 14:25 12/30/17 14:55 Magnesium Level 2.4 mg/dl (1.8-2.4) Aspartate Amino Transf (AST/SGOT) 13 U/L (15-37) Urine Color DK YELLOW Urine Appearance CLEAR (CLEAR) Urine pH 5.0 (4.5-7.5) Urine Specific [place] 1.027 (1.000-1.030) Urine Protein 1+ (NEG) Urine Glucose (UA) NEG (NEG) Urine Ketones NEG (NEG) Urine Occult Blood NEG (NEG) Urine Nitrite NEG (NEG) Urine Bilirubin NEG (NEG) Urine Urobilinogen NEG (NEG) Urine Leukocyte Esterase NEG (NEG) Urine WBC (Auto) 1-5 /hpf (0-5) Urine RBC (Auto) 0-4 /hpf (0-4) Urine Hyaline Casts (Auto) 10-30 /lpf (0-5) Urine Epithelial Cells (Auto) 10-20 /lpf (0-5) Urine Bacteria (Auto) NEG (NEG) Urine Pathogenic Casts 0-3 GRANULAR CASTS /lpf (0) Laboratory results reviewed by me. Medications Administered Medications (Trade) Dose Ordered Sig/Kenan Route Start Time Stop Time Status Last Admin Dose Admin Sodium Chloride 500 ml @ 999 mls/hr Q31M STAT IV 12/30/17 13:05 12/30/17 13:35 DC 12/30/17 13:30 999 MLS/HR Ceftriaxone Sodium (Rocephin Inj) 1 gm NOW STAT IV 12/30/17 15:01 12/30/17 15:02 DC 12/30/17 15:26 1 GM ECG Per My Interpretation Indication: altered mental status Rate (beats per minute): 66 Rhythm: normal sinus Findings: other (No ST elevation, no PVC) ED Course 1301: The patient was evaluated in room B12B. A complete history and physical exam was performed. 1305: NSS 500 ml @ 999 mls/hr IV. 1500: I reevaluated the patient. He is resting comfortably. Nursing informs me they believe his urine is infected based on the look of it. 1501: Rocephin 1 gm IV. 1554: I discussed the patients case with Georgia Dupont PA-C, [facility] Hospitalist. The patient will be further evaluated. 1600: I reevaluated the patient. I discussed my recommendation he remain in the hospital for further evaluation and management and he verbalized complete understanding and agreement. Medical Decision The differential diagnoses considered include: dehydration, medication reaction , dysrhythmia, [place], electrolyte imbalance, anemia, CO2 retention, liver or kidney failure, UTI, intracranial bleeding. There is a mild leukocytosis at 14,000, this is consistent possibly with infection or just the stress of his situation. No concerning anemia. Renal panel testing shows evidence for dehydration with a elevation to the creatinine. No evidence for hepatitis. The patient appeared to be in a euthyroid state. Ammonia level was not elevated. EKG showed a normal sinus rhythm, no acute ischemia. Cardiac enzyme testing 1 is not consistent with acute cardiac injury. Chest x-ray showed a left base infiltrate or atelectasis , no CHF. Brain CT showed no acute bleed or mass-effect. Urinalysis does not show evidence for infection. Blood and urine cultures are pending. Lactic acid level was not elevated making sepsis less likely. VBG does not show acidosis, there was some mild CO2 retention. On exam, the patient did demonstrate some confusion, he was awake, he was not toxic or febrile. Patient received IV saline, he received IV ceftriaxone as antibiotic coverage. The patient presents with a change in mental status, weakness. He is not able to care for himself in his current condition. He was just started on a diuretic and certainly, this could have led to some dehydration. Infection is a possibility as well as his chest x-ray was possibly consistent with pneumonia- he has not been coughing and there has been no respiratory complaints. I do not think the patient is stable for discharge, he needs further care and workup in the hospital. I did speak with case management, the on-call hospitalist was consulted. I spoke to the patient and his family. Medication Reconcilliation Current Medication List: was personally reviewed by me Blood Pressure Screening Patient's blood pressure: Elevated blood pressure Blood pressure disposition: Elevated BP felt to be situational Consults Time Called: [phone] Consulting Physician: Georgia Dupont PA-C, [facility] Returned Call: [phone] I discussed the patients case with Georgia Dupont PA-C, [facility] Hospitalist. The patient will be further evaluated. Impression Primary Impression: Change in mental status Additional Impressions: Dehydration Acute renal failure Weakness Scribe Attestation The scribe's documentation has been prepared under my direction and personally reviewed by me in its entirety. I confirm that the note above accurately reflects all work, treatment, procedures, and medical decision making performed by me. Departure Information Dispostion Being Evaluated By Hospitalist Referrals [facility],Home Health (PCP) Patient Instructions My [facility] Problem Qualifiers
[2017-12-30 13:52] LABS: BASO % 0.2 %; BASO ABS # 0.03 K/uL (0-0.2); EOS % 0.7 %; HEMATOCRIT 44.7 % (42-52); HEMOGLOBIN 14.9 g/dL (14.0-18.0); IG# 0.03 K/uL (0.00-0.02); LYMPH % 20.1 %; LYMPH ABS # 2.86 K/uL (1.2-3.4); MEAN CORPUSCULAR HEMOGLOBIN 29.7 pg (25-34); MEAN CORPUSCULAR HGB CONC 33.3 g/dl (32-36); MEAN PLATELET VOLUME 10.8 fL (7.4-10.4); MONO % 13.5 %; MONO ABS # 1.91 K/uL (0.11-0.59); NEUT % 65.3 %; NEUT ABS # 9.27 K/uL (1.4-6.5); PLATELET COUNT 273 K/uL (130-400); RED CELL DISTRIBUTION WIDTH CV 16.1 % (11.5-14.5); RED CELL DISTRIBUTION WIDTH SD 52.6 fL (36.4-46.3)
[2017-12-30 14:19] LABS: ALBUMIN 3.1 gm/dl (3.4-5.0); CREATININE 1.59 mg/dl (0.60-1.40)
[2017-12-30 14:27] LABS: TOTAL PROTEIN 9.7 gm/dl (6.4-8.2)
--- NOTE | 2017-12-30 14:48 | DIAGNOSTIC IMAGING REPORT ---
CT HEAD WITHOUT CONTRAST (CT) CLINICAL HISTORY: Altered mental status. Confusion. COMPARISON STUDY: No previous studies for comparison. TECHNIQUE: Axial CT of the brain is performed from the vertex to the skull base. IV contrast was not administered for this examination. A dose lowering technique was utilized adhering to the principles of ALARA. CT DOSE: 638.56 mGycm FINDINGS: No intra or extra-axial mass lesions are visualized. There is no CT evidence of acute cortical infarction. There is no evidence of midline shift. There is no acute hemorrhage. No calvarial fractures are visualized. There are minor white matter hypodensities likely on a small vessel basis. There are atrophic changes present. There is mild ventricular dilatation which is felt to be secondary to volume loss. There is no evidence of acute sinusitis IMPRESSION: No acute intracranial findings Electronically signed by: Taye Roland M.D. 12/30/2017 2:47 PM Dictated Date/Time: 12/30/2017 2:45 PM
[2017-12-30] MEDS ORDERED: MRLP17X PO (14:53)
[2017-12-30] MEDS ORDERED: PANT40TA PO (14:53)
[2017-12-30] MEDS ORDERED: ATOR80TA PO (14:53)
[2017-12-30] MEDS ORDERED: ARFO15NE INH (14:53)
[2017-12-30] MEDS ORDERED: METO50TA16 PO (14:53)
[2017-12-30] MEDS ORDERED: WARF5TAB90 PO (14:53)
[2017-12-30] MEDS ORDERED: CITA20TA9 PO (14:53)
[2017-12-30] MEDS ORDERED: ADVIN25/60 INH (14:53)
[2017-12-30] MEDS ORDERED: LISI-726 PO (14:53)
[2017-12-30] MEDS ORDERED: MULT-916 PO (14:53)
[2017-12-30] MEDS ORDERED: CITA10TA8 PO (14:53)
[2017-12-30] MEDS ORDERED: KLN/5 PO (14:53)
[2017-12-30] MEDS ORDERED: DOCU-94 PO (14:53)
[2017-12-30] MEDS ORDERED: HYDR25TA5 PO (14:53)
[2017-12-30] MEDS ORDERED: CYCL5TAB PO (14:53)
[2017-12-30] MEDS ORDERED: FURO-85 PO (14:53)
[2017-12-30] MEDS ORDERED: IPRA-64 INH (14:53)
[2017-12-30] MEDS ORDERED: CMD5 PO (14:53)
[2017-12-30] MEDS ORDERED: ASPI81TA28 PO (14:53)
[2017-12-30] MEDS ORDERED: OXGN (14:53)
[2017-12-30] MEDS ORDERED: CALC600T37 PO (14:53)
[2017-12-30] MEDS ORDERED: CHOL1TAB42 PO (14:53)
[2017-12-30] MEDS ORDERED: DILT120C51 PO (14:53)
[2017-12-30] MEDS ORDERED: GLC5 PO (14:53)
[2017-12-30] MEDS ORDERED: CEFTRIAXONE SOD INJ 1 GM ADDVIAL IV STA (15:01)
[2017-12-30 15:09] LABS: INR 3.9 (0.9-1.1)
[2017-12-30 15:11] LABS: POTASSIUM 4.1 mmol/L (3.5-5.1)
[2017-12-30 15:11] LABS: PTT PATIENT 55.1 SECONDS (21.0-31.0)
--- NOTE | 2017-12-30 16:21 | DIAGNOSTIC IMAGING REPORT ---
CHEST ONE VIEW PORTABLE CLINICAL HISTORY: confusion dyspnea COMPARISON STUDY: 11/04/2017 FINDINGS: Small parenchymal infiltrate left base. Lungs otherwise are clear. Diaphragms are smooth. IMPRESSION: Small parenchymal infiltrate left base. The above report was generated using voice recognition software. It may contain grammatical, syntax or spelling errors. Electronically signed by: Vito Mcgregor M.D. 12/30/2017 4:20 PM Dictated Date/Time: 12/30/2017 4:20 PM
[2017-12-30] MEDS ORDERED: ALBUT/IPRATROP 3MG/0.5MG NEB 3 ML VIAL INH PRN (17:15)
[2017-12-30] MEDS ORDERED: CLONAZEPAM 0.5 MG TAB PO PRN (17:15)
[2017-12-30] MEDS ORDERED: CARBOHYDRATES FOR HYPOGLYCEMIA PO PRN (17:30)
[2017-12-30] MEDS ORDERED: GLUCAGON FOR INJ 1 MG VIAL SQ PRN (17:30)
[2017-12-30] MEDS ORDERED: DEXTROSE 50% 50 ML SYR IV PRN (17:30)
[2017-12-30] MEDS ORDERED: GLUCOSE 40% GEL 15 GM TUBE PO PRN (17:30)
[2017-12-30] MEDS ORDERED: GLUCOSE 10 TABS/TUBE PO PRN (17:30)
--- NOTE | 2017-12-30 17:48 | History and Physical ---
History & Physical Date & Time of Service: Dec 30, 2017 at 16:54 Chief Complaint: AMS Primary Care Physician: Jose Miguel Montalvo MD History of Present Illness Source: patient, family, hospital records 82 y/o male with a history of dementia presents to the ED today with progressive confusion. The majority of the history was provided by the daughter , Judy, at bedside with whom patient lives. Pt has had ongoing issues with pedal edema for which he was apparently started on Lasix 20 mg daily one week ago. Within two days, pt developed progressive confusion with visual hallucinations and incoherent speech. In addition, he has been wearing a diaper due to fecal and urinary incontinence. Patient was to have a catheter placed last week by home nursing due to difficulty with urination but nurse apparently unable to place and told daughter that the urine "smelled like a UTI. " The family collected a sample on Saturday (3 days ago) which was apparently negative for infection. He was constipated last week and took Miralax five days ago - has had incontinence and fecal smearing since then. This morning, daughter noted a small amount of bright blood in the diaper that she thinks came from his rectum but not mixed in with stool. His appetite has been decreased and he is complaining of nausea but no vomiting noted. Yesterday had a temperature of 99.9F but temperature normal today. Possible chills described as "gets cold easily." Pt has been in bed for the past five days due to weakness and fatigue. No change in chronic cough. No new complaints of pain. Past Medical/Surgical History Medical Problems: (1) Acute pain of left lower extremity (2) Anxiety (3) CAD (coronary artery disease) (4) Cellulitis of left lower extremity (5) CHF (congestive heart failure) (6) Current use of usp anticoagulation (7) Dementia (8) DM2 (diabetes mellitus, type 2) (9) HLD (hyperlipidemia) (10) HTN (hypertension) (11) Hypoxia (12) Irritable Bowel Syndrome (13) Left ankle sprain (14) Left ankle sprain (15) Lower extremity edema (16) Pneumonia (17) Pulmonary embolism (18) Respiratory failure (19) Sepsis Surgical Problems: (1) H/O angioplasty (2) H/O hernia repair (3) S/P surgical manipulation of ankle joint Family History Hypertension Social History Smoking Status: Never Smoker Drug Use: none Marital Status: Housing status: lives with family (patient and moved in with daughter 1 1/ 2 months ago) Occupational Status: retired Immunizations History of Influenza Vaccine: N/A Influenza Vaccine Date: Mar 29, 2005 History of Tetanus Vaccine?: Yes History of Pneumococcal: Yes Pneumococcal Date: Aug 17, 2000 History of Hepatitis B Vaccine: Yes Allergies Coded Allergies: Morphine (Unverified Adverse Reaction, Severe, becomes wild and combative , 12/30/17) Home Medications Scheduled Arformoterol Tartrate (Brovana), 15 MCG INH BID Aspirin (Aspirin Ec), 81 MG PO DAILY Atorvastatin (Lipitor), 80 MG PO HS Calcium (Calcium), 600 MG PO DAILY Cholecalciferol (Vitamin D), 5,000 UNITS PO DAILY Citalopram Hydrobromide (Celexa), 20 MG PO DAILY Citalopram Hydrobromide (Celexa), 10 MG PO DAILY Diltiazem Hcl Coated Beads (Cardizem Cd), 120 MG PO DAILY Fluticasone Prop/Salmeterol (Advair Diskus 250/50 60 Dose), 1 PUFF INH Q12 Glipizide (Glipizide), 2.5 MG PO BID Home O2 Therapy (Oxygen), 2 LITERS NA PRN Hydrochlorothiazide (Hydrochlorothiazide), 12.5 MG PO DAILY Lisinopril (Lisinopril), 20 MG PO DAILY Metoprolol Tartrate (Lopressor) (Lopressor), 50 MG PO BID Multiple Vitamins W/ Minerals (Multivitamin Adults 50+), 1 TAB PO DAILY Pantoprazole (Protonix), 40 MG PO DAILY Polyethylene (Miralax), 17 GM PO DAILY Warfarin Sod (Coumadin), 2.5 MG PO MWF Warfarin Sodium (Coumadin), 5 MG PO [id number] Scheduled PRN Clonazepam (Klonopin), 0.5 MG PO BID PRN for Anxiety Cyclobenzaprine Hcl (Flexeril), 5 MG PO TID PRN for Muscle Spasms Docusate Sodium (Colace), 100 MG PO UD PRN for Constipation Furosemide (Lasix), 20 MG PO DAILY PRN for EDEMA Ipratropium-Albuterol (Duoneb), 1 TREATMENT INH Q6 PRN for CONGESTION/DYSPNEA Review of Systems Limited due to patient confusion Constitutional: + chills, + weakness, + fatigue Respiratory: + cough (chronic) Cardiovascular: + edema (chronic issue - improved since Lasix started last week ), No chest pain Abdomen: + nausea, + problem reported (fecal incontinence (frequent smears in diaper)), No vomiting Musculoskeletal: + swelling Genitourinary - Male: + urinary incontinence, No hematuria Neurologic: + weakness, + problem reported (confusion, visual hallucinations) Psychiatric: + problem reported Endocrine: + fatigue Hematologic / Lymphatic: + clotting problems (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) Physical Exam Vital Signs Date Time Temp Pulse Resp B/P (MAP) Pulse Ox O2 Delivery O2 Flow Rate FiO2 12/30/17 15:38 73 20 122/96 93 12/30/17 13:30 92 Nasal Cannula 2.0 12/30/17 13:13 68 12/30/17 12:48 36.7 77 22 174/109 90 Room Air General Appearance: WD/WN, no apparent distress Head: normocephalic, atraumatic Eyes: PERRL, sclerae normal, + pertinent finding (left lower lid with crusted drainage, minimal conjunctival injection) ENT: pharynx normal, + pertinent finding (multiple dental caries) Neck: supple Respiratory/Chest: no respiratory distress, no accessory muscle use, + decreased breath sounds (diminished throughout) Cardiovascular: regular rate, rhythm Abdomen/GI: normal bowel sounds, non tender, soft Extremities/Musculoskelatal: no calf tenderness, + swelling (trace to 1+) Neurologic/Psych: alert, + disoriented (difficulty answering questions, not oriented to place or time) Skin: + pertinent finding (stasis changes on bilateral LE) Diagnostics Laboratory Results Results Past 24 Hours Test 12/30/17 13:25 12/30/17 13:48 12/30/17 14:12 12/30/17 14:24 Range/Units White Blood Count 14.20 4.8-10.8 K/uL Red Blood Count 5.02 4.7-6.1 M/uL Hemoglobin 14.9 14.0-18.0 g/dL Hematocrit 44.7 42-52 % Mean Corpuscular Volume 89.0 80-100 fL Mean Corpuscular Hemoglobin 29.7 25-34 pg Mean Corpuscular Hemoglobin Concent 33.3 32-36 g/dl Platelet Count 273 130-400 K/uL Mean Platelet Volume 10.8 7.4-10.4 fL Neutrophils (%) (Auto) 65.3 % Lymphocytes (%) (Auto) 20.1 % Monocytes (%) (Auto) 13.5 % Eosinophils (%) (Auto) 0.7 % Basophils (%) (Auto) 0.2 % Neutrophils # (Auto) 9.27 1.4-6.5 K/uL Lymphocytes # (Auto) 2.86 1.2-3.4 K/uL Monocytes # (Auto) 1.91 0.11-0.59 K/uL Eosinophils # (Auto) 0.10 0-0.5 K/uL Basophils # (Auto) 0.03 0-0.2 K/uL RDW Standard Deviation 52.6 36.4-46.3 fL RDW Coefficient of Variation 16.1 11.5-14.5 % Immature Granulocyte % (Auto) 0.2 % Immature Granulocyte # (Auto) 0.03 0.00-0.02 K/uL Sodium Level 134 136-145 mmol/L Potassium Level 3.5-5.1 mmol/L Chloride Level 97 98-107 mmol/L Carbon Dioxide Level 31 21-32 mmol/L Anion Gap 5.0 3-11 mmol/L Blood Urea Nitrogen 37 7-18 mg/dl Creatinine 1.59 0.60-1.40 mg/dl Est Creatinine Clear Calc Drug Dose 49.5 ml/min Estimated GFR () 46.2 Estimated GFR (Non- 39.8 BUN/Creatinine Ratio 23.0 10-20 Random Glucose 105 70-99 mg/dl Calcium Level 11.0 8.5-10.1 mg/dl Magnesium Level 1.8-2.4 mg/dl Total Bilirubin 1.0 0.2-1 mg/dl Aspartate Amino Transf (AST/SGOT) 15-37 U/L Alanine Aminotransferase (ALT/SGPT) 19 12-78 U/L Alkaline Phosphatase 93 45-117 U/L Troponin I 0.024 0-0.045 ng/ml Total Protein 9.7 6.4-8.2 gm/dl Albumin 3.1 3.4-5.0 gm/dl Globulin 6.6 2.5-4.0 gm/dl Albumin/Globulin Ratio 0.5 0.9-2 Thyroid Stimulating Hormone (TSH) 3.050 0.300-4.500 uIu/ml Venous Blood pH 7.39 7.36-7.41 Venous Blood Partial Pressure CO2 55 38.0-50.0 mmHg Venous Blood Partial Pressure O2 21 mmHg Venous Blood HCO3 33 mmol/L Venous Blood Oxygen Saturation < 60.0 % Venous Blood Base Excess 5.9 mEq/L Ammonia < 10.0 11-32 umol/L Lactic Acid Level 0.9 0.4-2.0 mmol/L Prothrombin Time 39.5 9.0-12.0 SECONDS Prothromb Time International Ratio 3.9 0.9-1.1 Activated Partial Thromboplast Time 55.1 21.0-31.0 SECONDS Partial Thromboplastin Ratio 2.1 Test 12/30/17 14:25 12/30/17 14:55 Range/Units Potassium Level 4.1 3.5-5.1 mmol/L Magnesium Level 2.4 1.8-2.4 mg/dl Aspartate Amino Transf (AST/SGOT) 13 15-37 U/L Urine Color DK YELLOW Urine Appearance CLEAR CLEAR Urine pH 5.0 4.5-7.5 Urine Specific [place] 1.027 1.000-1.030 Urine Protein 1+ NEG Urine Glucose (UA) NEG NEG Urine Ketones NEG NEG Urine Occult Blood NEG NEG Urine Nitrite NEG NEG Urine Bilirubin NEG NEG Urine Urobilinogen NEG NEG Urine Leukocyte Esterase NEG NEG Urine WBC (Auto) 1-5 0-5 /hpf Urine RBC (Auto) 0-4 0-4 /hpf Urine Hyaline Casts (Auto) 10-30 0-5 /lpf Urine Epithelial Cells (Auto) 10-20 0-5 /lpf Urine Bacteria (Auto) NEG NEG Urine Pathogenic Casts 0-3 GRANULAR CASTS 0 /lpf Microbiology Results 12/30/17 Blood Culture, Received Pending 12/30/17 Blood Culture, Received Pending 12/30/17 Urine Culture, Dora Batch Pending Diagnostic Radiology Chest X-ray 12/30/17 - IMPRESSION: Small parenchymal infiltrate left base. CT Head 12/30/17 - IMPRESSION: No acute intracranial findings Impression Assessment and Plan 82 y/o with history of dementia, diabetes, DVT/PE, chronic anticoagulation, CAD , asthma with oxygen dependence who presents to the ED with progressive confusion x 5 days as well as urinary and fecal incontinence. 1. Change in mental status - likely multifactorial including dehydration, potential infection, SAI in the setting of underlying dementia - Await final blood and urine cultures - Empiric ceftriaxone 1 g IV daily pending cultures - IVF as below - follow labs 2. Dehydration with SAI - started on Lasix last week, limited oral intake - HOLD diuretics and follow electrolytes - Gentle IVF with NSS at 75 ml/hr x 3 liters - Repeat PRP in AM 3. Diabetes mellitus, type 2 - Last A1c was 8.1, done 11/05/17 - HOLD Glipizide for now. Will cover with SSI - BSG ACHS - Diabetic diet 4. History of DVT/PE - INR today 3.8 - HOLD warfarin tonight - Recheck INR in AM 5. Asthma - on home O2 at 2 liters at baseline but limited compliance, stable at present - Continue O2 as tolerated - Continue home nebs/inhalers including DuoNeb treatments PRN 6. Hypertension/CAD - Continue Lopressor, Cardizem CD - HOLD Lisinopril due to SAI - monitor BP for now 7. Chronic peripheral edema - HOLD diuretics and monitor - Daily weights, I's and O's 8. Consult early childhood services coordinator for discharge planning due to advanced age, recent rehab stay at [facility]. 9. Code Status - Full resuscitation Case reviewed with admitting physician Dr. Marce Pleitez, PA-C The patient was seen and examined in medical floor He was admitted with acute confusion with history of dementia The history is taken from the daughter He denies to any symptoms except some right hip pain Due to examination in the medical floor he was not having any complaints On examination No apparent distress Pleasantly confused Hemodynamically stable Chest-decreased breath sounds both sites without any wheezing and/or crackles Heart-S1-S2 regular, no murmur appreciated Abdomen-benign, nontender, no organomegaly Extremities-no edema NEIGHBORHOOD AIDE-alert and awake Disoriented in time, and place Admission labs and imaging studies reviewed Has acute delirium likely secondary to UTI and/or dehydration with acute Started on intravenous ceftriaxone and IV fluid Agree with assessment and plan as outlined above Dr. Gris Zheng Resuscitation Status VTE Prophylaxis Will order VTE Prophylaxis: Yes Social Service Consult >80 yr.& Lives Alone
[2017-12-30] MEDS: SODIUM CHLORIDE 0.9% 1000ML 1,000 ML IV SCH (18:37)
[2017-12-30 18:44] VITALS: BP 121/73; PULSE 72; TEMP 36.9; O2SAT 96; Ht 182.9 cm; Wt 127.5 kg
[2017-12-30] MEDS: GENTAMICIN SULFATE 0.3% OP SOLN 5 ML BTL OPL SCH (21:10)
[2017-12-30] MEDS: FLUTICASONE/SALMETEROL 250/50 (ADVAIR) 14 PUFF/1 INHALER INH SCH (21:13)
[2017-12-30] MEDS: ATORVASTATIN 40 MG TAB PO SCH (21:13)
[2017-12-30] MEDS: METOPROLOL TARTRATE 50 MG TAB PO SCH (21:13)
[2017-12-30] MEDS: INSULIN ASPART 100 UNITS/ML 3 ML PEN SC SCH (21:20)
[2017-12-30] MEDS: ACETAMINOPHEN 325 MG TAB PO PRN (21:22)
[2017-12-30] MEDS ORDERED: HALOPERIDOL LACTATE 5 MG/ML 1 ML VIAL IM PRN (22:15)
[2017-12-31] VITALS (7 sets, daily range): BP systolic 123–143; BP diastolic 77–93; PULSE 64–76; TEMP 36–37.8; O2SAT 90–96
[2017-12-31] MEDS: HALOPERIDOL 1 MG TAB PO PRN ×2 (06:19→23:39)
[2017-12-31] MEDS: ARFORMOTEROL TART 15MCG/2ML VIAL INH SCH ×2 (07:31→18:54)
[2017-12-31] MEDS: METOPROLOL TARTRATE 50 MG TAB PO SCH ×2 (07:49→20:00)
[2017-12-31] MEDS: GENTAMICIN SULFATE 0.3% OP SOLN 5 ML BTL OPL SCH ×4 (07:49→20:00)
[2017-12-31] MEDS: SODIUM CHLORIDE 0.9% 1000ML 1,000 ML IV SCH ×2 (07:50→20:03)
[2017-12-31] MEDS: CITALOPRAM 20 MG TAB PO SCH (07:50)
[2017-12-31] MEDS: PANTOprazole SOD 40 MG TAB PO SCH (07:51)
[2017-12-31] MEDS: CEROVITE ADV FORMULA TAB PO SCH (07:52)
[2017-12-31] MEDS: DILTIAZEM HCL 120 MG CAPCR PO SCH (07:54)
[2017-12-31] MEDS: FLUTICASONE/SALMETEROL 250/50 (ADVAIR) 14 PUFF/1 INHALER INH SCH ×2 (07:54→20:00)
[2017-12-31] MEDS ORDERED: CITALOPRAM 20 MG TAB PO SCH (08:00)
--- NOTE | 2017-12-31 08:03 | Clinical Documentation Query ---
CLINICAL DOCUMENTATION QUERY 82 year old male who presents to the Emergency Room with complaints of an altered mental status. Query #1/2 In your clinical opinion is this patient being managed for: ( x ) Metabolic encephalopathy m/b AMS and acute delirium in setting UTI. ( ) Not Agree ( ) Other explanation of clinical findings (No explanation is considered a No Response) ( ) Unable to determine ( ) Need to Discuss (Phone CDS or qliq) (No discussion is considered a No Response) The medical record reflects the following clinical findings, treatment, and risk factors. Clinical Indicators: AMS, delirium Treatment: IVF's, IV Ceftriaxone, Haldol, nursing 1:1 observation . Risk Factors: age, UTI, dehydration, Query #2/2 In your clinical opinion is this patient being managed for: ( x ) Chronic preserved EF CHF ( ) Not Agree ( ) Other explanation of clinical findings (No explanation is considered a No Response) ( ) Unable to determine ( ) Need to Discuss (Phone CDS or qliq) (No discussion is considered a No Response) The medical record reflects the following clinical findings, treatment, and risk factors. Clinical Indicators: On home Lasix Treatment: daily weights, I/O's, Risk Factors: Age, CAD, CHF per past medical hx on H&P. Please clarify and document your clinical opinion in the progress notes and discharge summary. Terms such as "probable", "suspected", "likely", "questionable", "possible", or "still to be ruled out" are acceptable. IF IN AGREEMENT, YOU MUST DOCUMENT ABOVE DIAGNOSTIC STATEMENT IN DAILY PROGRESS NOTES AND DISCHARGE SUMMARY. This document is not part of the patient's record. Thank You, Leobardo Chavez, RN [phone] & via qlicCCITY OF HOPE, [place]
[2017-12-31 08:18] LABS: BASO % 0.3 %; BASO ABS # 0.04 K/uL (0-0.2); EOS % 1.4 %; EOS ABS # 0.17 K/uL (0-0.5); HEMOGLOBIN 13.5 g/dL (14.0-18.0); IG# 0.02 K/uL (0.00-0.02); LYMPH ABS # 3.19 K/uL (1.2-3.4); MEAN CELL VOLUME 89.5 fL (80-100); MEAN CORPUSCULAR HEMOGLOBIN 30.2 pg (25-34); MEAN CORPUSCULAR HGB CONC 33.8 g/dl (32-36); MEAN PLATELET VOLUME 10.8 fL (7.4-10.4); MONO % 11.2 %; MONO ABS # 1.38 K/uL (0.11-0.59); NEUT % 60.9 %; NEUT ABS # 7.49 K/uL (1.4-6.5); PLATELET COUNT 232 K/uL (130-400); RED CELL DISTRIBUTION WIDTH SD 52.6 fL (36.4-46.3); WHITE BLOOD COUNT 12.29 K/uL (4.8-10.8)
[2017-12-31 08:46] LABS: INR 4.3 (0.9-1.1)
[2017-12-31 08:47] LABS: CALCIUM 10.6 mg/dl (8.5-10.1); CREATININE 1.47 mg/dl (0.60-1.40); POTASSIUM 4.1 mmol/L (3.5-5.1)
[2017-12-31] MEDS: INSULIN ASPART 100 UNITS/ML 3 ML PEN SC SCH ×4 (09:15→21:26)
[2017-12-31] MEDS ORDERED: CEFTRIAXONE SOD INJ 1 GM in DEXTROSE 5% ADD-VANTAGE 50ML 50 ML IV SCH (16:00)
[2017-12-31] MEDS: ACETAMINOPHEN 325 MG TAB PO PRN (17:12)
--- NOTE | 2017-12-31 18:49 | Progress Note ---
Internal Med Progress Note Date of Service: Dec 31, 2017. Provider Documentation: SUBJECTIVE: very pleasant elderly male, baseline confusion/dementia No agitation noted Oriented to person only No fever or chills Vitals remained stable OBJECTIVE: Vital Signs-as noted below Exam: General-elderly male, no apparent distress Eyes-sclera nonicteric, pupils bilateral equal reactive to light extraocular muscle intact ENT-moist oral mucosa Neck-no JVD, neck supple, no carotid bruit, trachea midline, no thyromegaly Lungs-clear to auscultate no wheeze or rales Heart-regular S1 and S2 no murmur gallop Abdomen-soft nontender, no organomegaly, active bowel sounds Extremities-no lower extremity edema, no rash or deformity Neuro-no focal neurological deficit, baseline dementia Lab data as noted below. ASSESSMENT & PLAN: MENTAL STATUS CONFUSION/METABOLIC ENCEPHALOPATHY WITH ACUTE DELIRIUM/DUE TO DEHYDRATION /SAI Presented with confusion, altered mental status Underlying baseline dementia Metabolic encephalopathy due to possible urinary tract infection/dehydration/SAI CT head without contrast negative for any acute CVA Mental status improved to approximate baseline with IV fluids and empiric antibiotic with IV Rocephin Continue to monitor Caution for acute delirium/sundowning Observed fall precaution POSSIBLE UTI : presented with urinary symptoms -dysuria /incontinence /foul smelling urine UA -negative for nitrite/leukocyte esterase urine culture -no growth complete empiric abx IV Rocephin for total 3 days CHRONIC CHF WITH DIASTOLIC DYSFUNCTION Recently started with p.o. Lasix 20 mg daily secondary to increased lower extremity edema Presented with volume depletion/AK I Continue to hold Lasix Given gentle IV hydration NSS at 75 mL/h Monitor volume status with daily weight/intake output SAI ON CKD stage III Possible ATN secondary to poor PO intake/dehydration /diuretics tx with ACEI and recent addition of po Lasix Renal function improved with IV fluids Continue to hold diuretics Avoid NSAIDs/contrast studies Monitor PRP TYPE 2 DIABETES Hemoglobin A1c on 11/05/17 was 8.1 Diabetic diet, insulin sliding scale Hold oral hypoglycemics during hospital stay HISTORY OF DVT/PE Was on Coumadin-on hold secondary to elevated INR more than 4 CHRONIC RESPIRATORY FAILURE SECONDARY TO ASTHMA/COPD On 2 L oxygen at home at baseline Respiratory status remains stable Continue home inhalers and DuoNeb's as needed for wheeze or shortness of breath HYPONATREMIA Due to dehydration/infection/UTI/recent treatment with Lasix IV fluids with NSS Lasix kept on hold Follow PRP HISTORY OF CORONARY ARTERY DISEASE: No anginal symptoms Patient is continued with Lopressor, Cardizem CD Lisinopril on hold for SAI CODE STATUS: Full code DVT PROPHYLAXIS INR elevated Coumadin on hold DISPOSITION To be determined PT OT evaluation requested to assess ambulatory dysfunction/fall risk Patient lives with daughter and receives aid service to office of aging Patient was recently at [facility], per family member patient did not get any benefit at rehab, as he confusion was worsened and unable to adjust to rehab secondary to dementia Daughter wants to have patient discharged home with home health home PT Social service consulted for discharge planning Vital Signs: Date Time Temp Pulse Resp B/P (MAP) Pulse Ox O2 Delivery O2 Flow Rate FiO2 12/31/17 23:02 37.8 75 14 143/77 (99) 95 Nasal Cannula 2.0 12/31/17 20:35 37.1 76 18 143/77 (99) 96 Nasal Cannula 2.0 12/31/17 20:10 Nasal Cannula 2.0 12/31/17 20:03 76 143/77 (99) 12/31/17 18:56 66 16 95 Nasal Cannula 2.0 12/31/17 15:49 36.0 65 20 128/93 (105) 92 Nasal Cannula 2.0 123/78 (93) 12/31/17 08:00 Nasal Cannula 2.0 12/31/17 07:45 36.7 64 18 143/84 (103) 96 Nasal Cannula 2.0 12/31/17 07:35 68 18 90 Room Air Lab Results: Results Past 24 Hours Test 12/31/17 07:53 12/31/17 07:58 12/31/17 12:14 12/31/17 17:34 Range/Units White Blood Count 12.29 4.8-10.8 K/uL Red Blood Count 4.47 4.7-6.1 M/uL Hemoglobin 13.5 14.0-18.0 g/dL Hematocrit 40.0 42-52 % Mean Corpuscular Volume 89.5 80-100 fL Mean Corpuscular Hemoglobin 30.2 25-34 pg Mean Corpuscular Hemoglobin Concent 33.8 32-36 g/dl Platelet Count 232 130-400 K/uL Mean Platelet Volume 10.8 7.4-10.4 fL Neutrophils (%) (Auto) 60.9 % Lymphocytes (%) (Auto) 26.0 % Monocytes (%) (Auto) 11.2 % Eosinophils (%) (Auto) 1.4 % Basophils (%) (Auto) 0.3 % Neutrophils # (Auto) 7.49 1.4-6.5 K/uL Lymphocytes # (Auto) 3.19 1.2-3.4 K/uL Monocytes # (Auto) 1.38 0.11-0.59 K/uL Eosinophils # (Auto) 0.17 0-0.5 K/uL Basophils # (Auto) 0.04 0-0.2 K/uL RDW Standard Deviation 52.6 36.4-46.3 fL RDW Coefficient of Variation 16.0 11.5-14.5 % Immature Granulocyte % (Auto) 0.2 % Immature Granulocyte # (Auto) 0.02 0.00-0.02 K/uL Prothrombin Time 44.3 9.0-12.0 SECONDS Prothromb Time International Ratio 4.3 0.9-1.1 Sodium Level 135 136-145 mmol/L Potassium Level 4.1 3.5-5.1 mmol/L Chloride Level 99 98-107 mmol/L Carbon Dioxide Level 30 21-32 mmol/L Anion Gap 6.0 3-11 mmol/L Blood Urea Nitrogen 44 7-18 mg/dl Creatinine 1.47 0.60-1.40 mg/dl Est Creatinine Clear Calc Drug Dose 53.6 ml/min Estimated GFR () 50.8 Estimated GFR (Non- 43.8 BUN/Creatinine Ratio 30.0 10-20 Random Glucose 106 70-99 mg/dl Calcium Level 10.6 8.5-10.1 mg/dl Bedside Glucose 103 106 99 70-99 mg/dl Test 12/31/17 20:09 Range/Units Bedside Glucose 152 70-99 mg/dl
[2017-12-31] MEDS: ATORVASTATIN 40 MG TAB PO SCH (21:26)
[2018-01-01 07:02] VITALS: BP 136/69; PULSE 79; TEMP 36.4; O2SAT 93
[2018-01-01] MEDS: GENTAMICIN SULFATE 0.3% OP SOLN 5 ML BTL OPL SCH ×4 (07:42→19:11)
[2018-01-01] MEDS: DILTIAZEM HCL 120 MG CAPCR PO SCH (07:42)
[2018-01-01] MEDS: METOPROLOL TARTRATE 50 MG TAB PO SCH ×2 (07:43→21:05)
[2018-01-01] MEDS: ARFORMOTEROL TART 15MCG/2ML VIAL INH SCH ×2 (07:43→18:54)
[2018-01-01] MEDS: CITALOPRAM 20 MG TAB PO SCH (07:43)
[2018-01-01] MEDS: CEROVITE ADV FORMULA TAB PO SCH (07:43)
[2018-01-01] MEDS: FLUTICASONE/SALMETEROL 250/50 (ADVAIR) 14 PUFF/1 INHALER INH SCH ×2 (07:43→21:04)
[2018-01-01] MEDS: PANTOprazole SOD 40 MG TAB PO SCH (07:43)
[2018-01-01 07:44] VITALS: PULSE 78; O2SAT 95
[2018-01-01] MEDS: HALOPERIDOL 1 MG TAB PO PRN ×2 (07:48→16:08)
[2018-01-01] MEDS: INSULIN ASPART 100 UNITS/ML 3 ML PEN SC SCH ×4 (09:00→21:04)
[2018-01-01] MEDS: ACETAMINOPHEN 325 MG TAB PO PRN (10:40)
[2018-01-01] MEDS ORDERED: ONDANSETRON INJ 2 MG/ML 2 ML VIAL IV PRN (13:45)
[2018-01-01 14:51] LABS: CREATININE 1.46 mg/dl (0.60-1.40); POTASSIUM 3.7 mmol/L (3.5-5.1)
[2018-01-01 15:29] VITALS: BP 168/70; PULSE 76; TEMP 36.5; O2SAT 96
--- NOTE | 2018-01-01 17:28 | Progress Note ---
Internal Med Progress Note Date of Service: Jan 01, 2018. Provider Documentation: SUBJECTIVE: Very pleasant, no sign of agitation Oriented to person only No fever chills Appetite normal OBJECTIVE: Vital Signs-as noted below Exam: General-elderly male, no apparent distress Eyes-sclera nonicteric, pupils bilateral equal reactive to light extraocular muscle intact ENT-moist oral mucosa Neck-no JVD, neck supple, no carotid bruit, trachea midline, no thyromegaly Lungs-clear to auscultate no wheeze or rales Heart-regular S1 and S2 no murmur gallop Abdomen-soft nontender, no organomegaly, active bowel sounds Extremities-no lower extremity edema, no rash or deformity Neuro-no focal neurological deficit, baseline dementia Lab data as noted below. ASSESSMENT & PLAN: MENTAL STATUS CONFUSION/METABOLIC ENCEPHALOPATHY WITH ACUTE DELIRIUM/DUE TO DEHYDRATION /SAI Presented with confusion, altered mental status Underlying baseline dementia Metabolic encephalopathy due to possible urinary tract infection/dehydration/SAI CT head without contrast negative for any acute CVA Mental status improved to approximate baseline with IV fluids and empiric antibiotic with IV Rocephin Continue to monitor Caution for acute delirium/sundowning Observed fall precaution POSSIBLE UTI : presented with urinary symptoms -dysuria /incontinence /foul smelling urine UA -negative for nitrite/leukocyte esterase urine culture -no growth complete empiric abx IV Rocephin for total 3 days CHRONIC CHF WITH DIASTOLIC DYSFUNCTION Recently started with p.o. Lasix 20 mg daily secondary to increased lower extremity edema Presented with volume depletion/AK I Continue to hold Lasix Given gentle IV hydration NSS at 75 mL/h Monitor volume status with daily weight/intake output SAI ON CKD stage III Possible ATN secondary to poor PO intake/dehydration /diuretics tx with ACEI and recent addition of po Lasix Renal function improved with IV fluids Continue to hold diuretics Avoid NSAIDs/contrast studies Monitor PRP TYPE 2 DIABETES Hemoglobin A1c on 11/05/17 was 8.1 Diabetic diet, insulin sliding scale Hold oral hypoglycemics during hospital stay HISTORY OF DVT/PE Was on Coumadin-on hold secondary to elevated INR more than 4 CHRONIC RESPIRATORY FAILURE SECONDARY TO ASTHMA/COPD On 2 L oxygen at home at baseline Respiratory status remains stable Continue home inhalers and DuoNeb's as needed for wheeze or shortness of breath HYPONATREMIA Due to dehydration/infection/UTI/recent treatment with Lasix IV fluids with NSS Lasix kept on hold Follow PRP HISTORY OF CORONARY ARTERY DISEASE: No anginal symptoms Patient is continued with Amol Smith CD Lisinopril on hold for SAI CODE STATUS: Full code DVT PROPHYLAXIS INR elevated Coumadin on hold DISPOSITION To be determined PT OT evaluation requested to assess ambulatory dysfunction/fall risk Patient lives with daughter and receives aid service to office of aging Patient was recently at [facility], per family member patient did not get any benefit at rehab, as he confusion was worsened and unable to adjust to rehab secondary to dementia Daughter wants to have patient discharged home with home health home PT Social service consulted for discharge planning Plan to discharge home with home health and family support in the next 24-48 hours Vital Signs: Date Time Temp Pulse Resp B/P (MAP) Pulse Ox O2 Delivery O2 Flow Rate FiO2 01/02/18 00:13 36.7 72 16 158/92 (114) 93 Room Air 01/01/18 18:56 78 18 95 Room Air 01/01/18 18:00 Nasal Cannula 2.0 01/01/18 15:29 36.5 76 20 168/70 (102) 96 Room Air 01/01/18 09:12 Room Air 01/01/18 07:44 78 16 95 Room Air 01/01/18 07:02 36.4 79 20 136/69 (91) 93 Room Air Lab Results: Results Past 24 Hours Test 01/01/18 07:55 01/01/18 08:43 01/01/18 11:37 01/01/18 14:24 Range/Units Bedside Glucose 117 127 70-99 mg/dl Prothrombin Time 30.7 9.0-12.0 SECONDS Prothromb Time International Ratio 3.0 0.9-1.1 Sodium Level 133 136-145 mmol/L Potassium Level 3.7 3.5-5.1 mmol/L Chloride Level 100 98-107 mmol/L Carbon Dioxide Level 24 21-32 mmol/L Anion Gap 9.0 3-11 mmol/L Blood Urea Nitrogen 34 7-18 mg/dl Creatinine 1.46 0.60-1.40 mg/dl Est Creatinine Clear Calc Drug Dose 53.7 ml/min Estimated GFR () 51.2 Estimated GFR (Non- 44.2 BUN/Creatinine Ratio 23.3 10-20 Random Glucose 120 70-99 mg/dl Calcium Level 10.0 8.5-10.1 mg/dl Test 01/01/18 17:21 01/01/18 20:28 Range/Units Bedside Glucose 115 131 70-99 mg/dl
[2018-01-01 18:56] VITALS: PULSE 78; O2SAT 95
[2018-01-01] MEDS: ATORVASTATIN 40 MG TAB PO SCH (21:06)
[2018-01-02] VITALS (8 sets, daily range): BP systolic 144–199; BP diastolic 83–121; PULSE 59–83; TEMP 36.3–36.8; O2SAT 93–99
[2018-01-02] MEDS: ARFORMOTEROL TART 15MCG/2ML VIAL INH SCH ×2 (07:12→19:01)
[2018-01-02 07:40] LABS: HEMATOCRIT 37.7 % (42-52); HEMOGLOBIN 12.6 g/dL (14.0-18.0); MEAN CELL VOLUME 87.1 fL (80-100); MEAN CORPUSCULAR HEMOGLOBIN 29.1 pg (25-34); MEAN CORPUSCULAR HGB CONC 33.4 g/dl (32-36); MEAN PLATELET VOLUME 10.6 fL (7.4-10.4); PLATELET COUNT 244 K/uL (130-400); RED CELL DISTRIBUTION WIDTH CV 15.6 % (11.5-14.5); RED CELL DISTRIBUTION WIDTH SD 50.7 fL (36.4-46.3); WHITE BLOOD COUNT 8.85 K/uL (4.8-10.8)
[2018-01-02 07:42] LABS: INR 1.9 (0.9-1.1)
[2018-01-02] MEDS: CEROVITE ADV FORMULA TAB PO SCH (08:14)
[2018-01-02] MEDS: CITALOPRAM 20 MG TAB PO SCH (08:14)
[2018-01-02] MEDS: GENTAMICIN SULFATE 0.3% OP SOLN 5 ML BTL OPL SCH ×4 (08:14→19:05)
[2018-01-02] MEDS: FLUTICASONE/SALMETEROL 250/50 (ADVAIR) 14 PUFF/1 INHALER INH SCH ×2 (08:14→21:01)
[2018-01-02] MEDS: PANTOprazole SOD 40 MG TAB PO SCH (08:14)
[2018-01-02] MEDS: METOPROLOL TARTRATE 50 MG TAB PO SCH ×2 (08:14→21:02)
[2018-01-02 08:15] LABS: CREATININE 1.02 mg/dl (0.60-1.40); POTASSIUM 3.8 mmol/L (3.5-5.1)
[2018-01-02] MEDS: DILTIAZEM HCL 120 MG CAPCR PO SCH (08:15)
[2018-01-02] MEDS: INSULIN ASPART 100 UNITS/ML 3 ML PEN SC SCH ×4 (09:38→21:02)
[2018-01-02] MEDS ORDERED: WARFARIN SOD 2.5 MG TAB PO ONE (17:06)
[2018-01-02] MEDS ORDERED: FUROSEMIDE 20 MG TAB PO PRN (17:15)
[2018-01-02] MEDS ORDERED: DOCUSATE SODIUM 100 MG CAP PO PRN (17:15)
--- NOTE | 2018-01-02 18:43 | Progress Note ---
Internal Med Progress Note Date of Service: Jan 02, 2018. Provider Documentation: SUBJECTIVE: Very pleasantly demented. No fever or chills states that he is feeling fine Not sure where he is and how long he is been here Wondering where is his family pt is reassured, he is in hospital for infection and dehydration- got better with treatment, possible discharge home tomorrow Patient is very happy to return home Asked me to talk to his daughter OBJECTIVE: Vital Signs-as noted below Exam: General-elderly male, no apparent distress, very pleasant, Eyes-sclera nonicteric, pupils bilateral equal reactive to light extraocular muscle intact ENT-moist oral mucosa Neck-no JVD, neck supple, no carotid bruit, trachea midline, no thyromegaly Lungs-clear to auscultate no wheeze or rales Heart-regular S1 and S2 no murmur gallop Abdomen-soft nontender, no organomegaly, active bowel sounds Extremities-no lower extremity edema, no rash or deformity Neuro-no focal neurological deficit, baseline advanced dementia, oriented to person only Lab data as noted below. ASSESSMENT & PLAN: MENTAL STATUS CHANGE/ CONFUSION/METABOLIC ENCEPHALOPATHY WITH ACUTE DELIRIUM/ DUE TO DEHYDRATION /SAI Presented with confusion, altered mental status Has underlying baseline dementia Metabolic encephalopathy due to possible urinary tract infection/dehydration/SAI CT head without contrast negative for any acute CVA Mental status improved to approximate baseline with IV fluids and empiric antibiotic with IV Rocephin Continue to monitor Caution for acute delirium/sundowning Observed fall precaution POSSIBLE UTI : presented with urinary symptoms -dysuria /incontinence /foul smelling urine UA -negative for nitrite/leukocyte esterase urine culture -no growth completed empiric abx IV Rocephin for total 3 days CHRONIC CHF WITH DIASTOLIC DYSFUNCTION Recently started with p.o. Lasix 20 mg daily secondary to increased lower extremity edema Presented with volume depletion/AK I Continue to hold Lasix Given gentle IV hydration NSS at 75 mL/h x1 Patient appears to be volume depleted/dehydration Continue to hold Lasix, SAI ON CKD stage III Possible ATN secondary to poor PO intake/dehydration /diuretics tx with ACEI and recent addition of po Lasix Renal function improved to baseline with IV fluids Continue to hold diuretics-Lasix and HCTZ Avoid NSAIDs/contrast studies TYPE 2 DIABETES Hemoglobin A1c on 11/05/17 was 8.1 Diabetic diet, insulin sliding scale Hold oral hypoglycemics during hospital stay HISTORY OF DVT/PE Was on Coumadin-has been on hold for elevated INR INR 1.9 today Coumadin resumed CHRONIC RESPIRATORY FAILURE SECONDARY TO ASTHMA/COPD On 2 L oxygen at home at baseline Respiratory status remains stable Continue home inhalers and DuoNeb's as needed for wheeze or shortness of breath HYPONATREMIA Due to dehydration/infection/UTI/recent treatment with Lasix/HCTZ Sodium level improved with IV fluids NSS Has baseline hyponatremia, Increased risk of dehydration, poor p.o. intake will consider to discontinue HCTZ and Lasix Continue ACEI for chronic diastolic heart failure Will be followed up by his family doctor Adjustments /addition of diuretics in future as needed HISTORY OF CORONARY ARTERY DISEASE: No anginal symptoms Patient is continued with Lopressor, Cardizem CD Lisinopril resumed as renal function improved to baseline CODE STATUS: Full code DVT PROPHYLAXIS Coumadin DISPOSITION Long discussions with patient's daughter and case management Daughter Judy wants to patient return home with home health has caregivers and aides daughter requests script for Hospital bed and Nehemias lift script will be given to Social service for referral to [facility] plan is to discharge pt home with family arrangements for home health is made already Vital Signs: Date Time Temp Pulse Resp B/P (MAP) Pulse Ox O2 Delivery O2 Flow Rate FiO2 01/03/18 13:12 36.7 70 18 94 Nasal Cannula 01/03/18 08:00 Room Air 01/03/18 07:20 36.7 70 18 174/74 (107) 94 Room Air 01/03/18 07:10 70 18 94 Room Air 01/03/18 00:10 36.3 77 20 155/87 (109) 94 Room Air 01/03/18 00:00 Room Air 01/02/18 19:01 68 18 94 Room Air 01/02/18 16:00 Room Air 01/02/18 15:44 36.3 63 18 144/84 (104) 94 Room Air Lab Results: Results Past 24 Hours Test 01/02/18 17:02 01/02/18 20:16 01/03/18 07:52 01/03/18 12:00 Range/Units Bedside Glucose 108 107 104 102 70-99 mg/dl
[2018-01-02] MEDS: ACETAMINOPHEN 325 MG TAB PO PRN (19:06)
[2018-01-02] MEDS: CYCLOBENZAPRINE HCL 5 MG TAB PO PRN (21:02)
[2018-01-02] MEDS: ATORVASTATIN 40 MG TAB PO SCH (21:02)
[2018-01-03 00:10] VITALS: BP 155/87; PULSE 77; TEMP 36.3; O2SAT 94
[2018-01-03] MEDS: HALOPERIDOL 1 MG TAB PO PRN (02:03)
[2018-01-03 07:10] VITALS: PULSE 70; O2SAT 94
[2018-01-03] MEDS: ARFORMOTEROL TART 15MCG/2ML VIAL INH SCH (07:10)
[2018-01-03 07:20] VITALS: BP 174/74; PULSE 70; TEMP 36.7; O2SAT 94
[2018-01-03] MEDS ORDERED: CALCIUM 600MG + VIT D 400 IU TAB PO SCH (08:00)
[2018-01-03] MEDS ORDERED: ASPIRIN 81 MG ECTAB PO SCH (08:00)
[2018-01-03] MEDS ORDERED: LISINOPRIL 20 MG TAB PO SCH (08:00)
[2018-01-03] MEDS ORDERED: CHOLECALCIFEROL 1000 INTER.UNIT TAB PO SCH (08:00)
[2018-01-03] MEDS: CITALOPRAM 20 MG TAB PO SCH (08:35)
[2018-01-03] MEDS: PANTOprazole SOD 40 MG TAB PO SCH (08:35)
[2018-01-03] MEDS: CEROVITE ADV FORMULA TAB PO SCH (08:35)
[2018-01-03] MEDS: CYCLOBENZAPRINE HCL 5 MG TAB PO PRN (08:36)
[2018-01-03] MEDS: METOPROLOL TARTRATE 50 MG TAB PO SCH (08:36)
[2018-01-03] MEDS: FLUTICASONE/SALMETEROL 250/50 (ADVAIR) 14 PUFF/1 INHALER INH SCH (08:37)
[2018-01-03] MEDS: DILTIAZEM HCL 120 MG CAPCR PO SCH (08:37)
[2018-01-03] MEDS: GENTAMICIN SULFATE 0.3% OP SOLN 5 ML BTL OPL SCH ×3 (08:38→14:55)
[2018-01-03] MEDS: INSULIN ASPART 100 UNITS/ML 3 ML PEN SC SCH ×2 (08:59→12:53)
--- NOTE | 2018-01-03 12:16 | Discharge Instructions ---
Discharge Instructions Date of Service Jan 03, 2018. Admission Reason for Admission: Acute Renal Failure,Change In Mental Status,Dehydr Discharge Discharge Diagnosis / Problem: ACUTE RENAL FAILURE /HYPONATREMIA /CONFUSION Discharge Goals Goal(s): Decrease discomfort, Improve function, Increase independence, Improve disease control, Therapeutic intervention Activity Recommendations Activity Limitations: as noted below ( TOLERATED ) . Instructions / Follow-Up Instructions / Follow-Up HOSPITAL FOLLOW UP WITH DR CHERRY ON January @ 12: 45 PM Current Hospital Diet Patient's current hospital diet: Diabetes Type 2 Diet, AHA Diet (Heart Healthy) Discharge Diet Recommended Diet: AHA Diet (Heart Healthy), Diabetes Type 2 Diet Pending Studies Studies pending at discharge: no Laboratory Results Hemoglobin A1c Test 11/05/17 06:16 Range/Units Estimated Average Glucose 186 mg/dl Hemoglobin A1c 8.1 H 4.5-5.6 % Medical Emergencies . Who to Call and When: Medical Emergencies: If at any time you feel your situation is an emergency, please call 911 immediately. . Non-Emergent Contact Non-Emergency issues call your: Primary Care Provider . . "Provider Documentation" section prepared by Albina Wilkerson. .
[2018-01-03] MEDS ORDERED: DILT240C57 PO (12:27)
--- NOTE | 2018-01-03 12:34 | Progress Note ---
Progress Note Date of Service Jan 03, 2018. Progress Note ATTENDING NOTE Patient needs a hospital bed and a Nehemias lift for positioning and transfer Patient is bedbound and needs frequent repositioning, - unable to position himself -Needs immediate and frequent change of body position to prevent pressure ulcers Albina Wilkerson MD
[2018-01-03 13:12] VITALS: BP 174/74; PULSE 70; TEMP 36.7; O2SAT 94
[2018-01-03] MEDS ORDERED: DILTIAZEM HCL 120 MG CAPCR PO ONE (13:30)
--- NOTE | 2018-01-03 15:17 | Discharge Summary ---
Discharge Summary Date of Service Jan 03, 2018. Discharge Summary Admission Date: Dec 30, 2017 at 16:53 Discharge Date: Jan 03, 2018 Discharge Disposition: Home with services Principal Diagnosis: ACUTE RENAL FAILURE /HYPONATREMIA /CONFUSION Procedures: IMAGING 1. CT head without contrast FINDINGS: No intra or extra-axial mass lesions are visualized. There is no CT evidence of acute cortical infarction. There is no evidence of midline shift. There is no acute hemorrhage. No calvarial fractures are visualized. There are minor white matter hypodensities likely on a small vessel basis. There are atrophic changes present. There is mild ventricular dilatation which is felt to be secondary to volume loss. There is no evidence of acute sinusitis IMPRESSION: No acute intracranial findings 2. Chest x-ray Impression: Small parenchymal infiltrate on the left base Medication Reconciliation New Medications: Diltiazem Hcl Coated Beads (Cardizem Cd) 240 Mg Cap 1 CAP PO DAILY for 30 Days, #30 CAP 5 Refills Continued Medications: Arformoterol Tartrate (Brovana) 15 Mcg/2 Ml Neb 15 MCG INH BID Aspirin (Aspirin Ec) 81 Mg Tab 81 MG PO DAILY Atorvastatin (Lipitor) 80 Mg Tab 80 MG PO HS Calcium (Calcium) 600 Mg Tab 600 MG PO DAILY Cholecalciferol (Vitamin D) 5,000 Unit Tab 5000 UNITS PO DAILY Citalopram Hydrobromide (Celexa) 20 Mg Tab 20 MG PO DAILY TAKE IN ADDITION TO ONE 10 MG TABLET TO = 30 MG PER DOSE. Citalopram Hydrobromide (Celexa) 10 Mg Tab 10 MG PO DAILY TAKE IN ADDITION TO ONE 20 MG TABLET TO = 30 MG PER DOSE. Clonazepam (Klonopin) 0.5 Mg Tab 0.5 MG PO BID PRN for Anxiety Cyclobenzaprine Hcl (Flexeril) 5 Mg Tab 5 MG PO TID PRN for Muscle Spasms PRN Docusate Sodium (Colace) 100 Mg Cap 100 MG PO UD PRN for Constipation 1-2 TIMES DAILY NEEDED Fluticasone Prop/Salmeterol (Advair Diskus 250/50 60 Dose) 1 Ea Aerp 1 PUFF INH Q12 Glipizide (Glipizide) 5 Mg Tab 2.5 MG PO BID TAKE 1/2 OF A 5 MG TABLET BY MOUTH TWICE DAILY, 30 MINUTES BEFORE MORNING AND EVENING MEALS. Home O2 Therapy (Oxygen) Gas 2 LITERS NA PRN Ipratropium-Albuterol (Duoneb) 3 Ml Nebu 1 TREATMENT INH Q6 PRN for CONGESTION/DYSPNEA Lisinopril (Lisinopril) 20 Mg Tab 20 MG PO DAILY Metoprolol Tartrate (Lopressor) (Lopressor) 50 Mg Tab 50 MG PO BID Multiple Vitamins W/ Minerals (Multivitamin Adults 50+) 1 Tab Tab 1 TAB PO DAILY Pantoprazole (Protonix) 40 Mg Tab 40 MG PO DAILY Polyethylene (Miralax) 17 Gm Pow 17 GM PO DAILY DISSOLVE 1/2 TABLESPOON IN 8 OUNCES OF WATER OR JUICE. Warfarin Sod (Coumadin) 5 Mg Tab 2.5 MG PO MWF 1/2 OF A 5 MG TABLET ON M,W,F Warfarin Sodium (Coumadin) 5 Mg Tab 5 MG PO 4XWK SUN, TUES, TH, SAT Discontinued Medications: Diltiazem Hcl Coated Beads (Cardizem Cd) 120 Mg Cap 120 MG PO DAILY Furosemide (Lasix) 20 Mg Tab 20 MG PO DAILY PRN for EDEMA Hydrochlorothiazide (Hydrochlorothiazide) 25 Mg Tab 12.5 MG PO DAILY 1/2 OF A 25 MG TABLET Admission Information HPI (per Admitting provider): 82 y/o male with a history of dementia presents to the ED today with progressive confusion. The majority of the history was provided by the daughter , Judy, at bedside with whom patient lives. Pt has had ongoing issues with pedal edema for which he was apparently started on Lasix 20 mg daily one week ago. Within two days, pt developed progressive confusion with visual hallucinations and incoherent speech. In addition, he has been wearing a diaper due to fecal and urinary incontinence. Patient was to have a catheter placed last week by home nursing due to difficulty with urination but nurse apparently unable to place and told daughter that the urine "smelled like a UTI. " The family collected a sample on Saturday (3 days ago) which was apparently negative for infection. He was constipated last week and took Miralax five days ago - has had incontinence and fecal smearing since then. This morning, daughter noted a small amount of bright blood in the diaper that she thinks came from his rectum but not mixed in with stool. His appetite has been decreased and he is complaining of nausea but no vomiting noted. Yesterday had a temperature of 99.9F but temperature normal today. Possible chills described as "gets cold easily." Pt has been in bed for the past five days due to weakness and fatigue. No change in chronic cough. No new complaints of pain. Physical Exam (per Admitting): General Appearance: WD/WN, no apparent distress Head: normocephalic, atraumatic Eyes: PERRL, sclerae normal, + pertinent finding (left lower lid with crusted drainage, minimal conjunctival injection) ENT: pharynx normal, + pertinent finding (multiple dental caries) Neck: supple Respiratory/Chest: no respiratory distress, no accessory muscle use, + decreased breath sounds (diminished throughout) Cardiovascular: regular rate, rhythm Abdomen/GI: normal bowel sounds, non tender, soft Extremities/Musculoskelatal: no calf tenderness, + swelling (trace to 1+) Neurologic/Psych: alert, + disoriented (difficulty answering questions, not oriented to place or time) Skin: + pertinent finding (stasis changes on bilateral LE) Hospital Course Very pleasant elderly gentleman, comfortable, no fever chills, no cough Eager to be discharged home Lengthy discussion with daughter Judy over phone Understands patient can decline rapidly at home, will be difficult to provide adequate care including transport by herself Daughter request for a Nehemias lift, hospital bed, as patient at baseline nonambulatory/bedbound/unable to change position/transfer High risk for pressure ulcer development without supportive equipment and family involvement for 24 7 Exam: General-elderly male, no apparent distress, very pleasant, Eyes-sclera nonicteric, pupils bilateral equal reactive to light extraocular muscle intact ENT-moist oral mucosa Neck-no JVD, neck supple, no carotid bruit, trachea midline, no thyromegaly Lungs-clear to auscultate no wheeze or rales Heart-regular S1 and S2 no murmur gallop Abdomen-soft nontender, no organomegaly, active bowel sounds Extremities-no lower extremity edema, no rash or deformity Neuro-no focal neurological deficit, baseline advanced dementia, oriented to person only Date Time Temp Pulse Resp B/P (MAP) Pulse Ox O2 Delivery O2 Flow Rate FiO2 01/03/18 13:12 36.7 70 18 94 Nasal Cannula 01/03/18 08:00 Room Air 01/03/18 07:20 36.7 70 18 174/74 (107) 94 Room Air 01/03/18 07:10 70 18 94 Room Air MENTAL STATUS CHANGE/ CONFUSION/METABOLIC ENCEPHALOPATHY WITH ACUTE DELIRIUM/ DUE TO DEHYDRATION /SAI Resolved, mental status at approximate baseline Presented with confusion, altered mental status Has underlying baseline dementia Metabolic encephalopathy due to possible urinary tract infection/dehydration/SAI CT head without contrast negative for any acute CVA Mental status improved to approximate baseline with IV fluids and empiric antibiotic with IV Rocephin Patient is very pleasant cooperative Family wants patient to be discharged home with family support Prescription for Nehemias lift and hospital bed given to residential case manager POSSIBLE UTI : presented with urinary symptoms -dysuria /incontinence /foul smelling urine UA -negative for nitrite/leukocyte esterase urine culture -no growth completed empiric abx IV Rocephin for total 3 days CHRONIC CHF WITH DIASTOLIC DYSFUNCTION Recently started with p.o. Lasix 20 mg daily secondary to increased lower extremity edema Presented with volume depletion/AK I Continue to hold Lasix Given gentle IV hydration NSS at 75 mL/h x1 Patient appears to be volume depleted/dehydration Lasix discontinued SAI ON CKD stage III Possible ATN secondary to poor PO intake/dehydration /diuretics tx with ACEI and recent addition of po Lasix Renal function improved to baseline with IV fluids Continue to hold diuretics-Lasix and HCTZ Avoid NSAIDs/contrast studies TYPE 2 DIABETES Hemoglobin A1c on 11/05/17 was 8.1 Diabetic diet, insulin sliding scale Hold oral hypoglycemics during hospital stay HISTORY OF DVT/PE Was on Coumadin-has been on hold for elevated INR INR 1.9 today Coumadin resumed CHRONIC RESPIRATORY FAILURE SECONDARY TO ASTHMA/COPD On 2 L oxygen at home at baseline Respiratory status remains stable Continue home inhalers and DuoNeb's as needed for wheeze or shortness of breath HYPONATREMIA Due to dehydration/infection/UTI/recent treatment with Lasix/HCTZ Sodium level improved with IV fluids NSS Has baseline hyponatremia, Increased risk of dehydration, poor p.o. intake will consider to discontinue HCTZ and Lasix Continue ACEI for chronic diastolic heart failure Will be followed up by his family doctor Adjustments /addition of diuretics in future as needed HISTORY OF CORONARY ARTERY DISEASE: No anginal symptoms Patient is continued with Lopressor, Cardizem CD Lisinopril resumed as renal function improved to baseline CODE STATUS: Full code DVT PROPHYLAXIS Coumadin DISPOSITION Long discussions with patient's daughter and case management Daughter Judy wants to patient return home with home health has caregivers and aides daughter requests script for Hospital bed and Nehemias lift script will be given to Social service for referral to [facility] plan is to discharge pt home with family arrangements for home health is made already Total time spent on discharge = 40 mins This includes examination of the patient, discharge planning, medication reconciliation, and communication with other providers. Discharge Instructions Discharge Instructions Date of Service Jan 03, 2018. Admission Reason for Admission: Acute Renal Failure,Change In Mental Status,Dehydr Discharge Discharge Diagnosis / Problem: ACUTE RENAL FAILURE /HYPONATREMIA /CONFUSION Discharge Goals Goal(s): Decrease discomfort, Improve function, Increase independence, Improve disease control, Therapeutic intervention Activity Recommendations Activity Limitations: as noted below ( TOLERATED ) . Instructions / Follow-Up Instructions / Follow-Up HOSPITAL FOLLOW UP WITH DR CHERRY ON January @ 12: 45 PM Current Hospital Diet Patient's current hospital diet: Diabetes Type 2 Diet, AHA Diet (Heart Healthy) Discharge Diet Recommended Diet: AHA Diet (Heart Healthy), Diabetes Type 2 Diet Pending Studies Studies pending at discharge: no Laboratory Results Hemoglobin A1c Test 11/05/17 06:16 Range/Units Estimated Average Glucose 186 mg/dl Hemoglobin A1c 8.1 H 4.5-5.6 % Medical Emergencies . Who to Call and When: Medical Emergencies: If at any time you feel your situation is an emergency, please call 911 immediately. . Non-Emergent Contact Non-Emergency issues call your: Primary Care Provider . . "Provider Documentation" section prepared by Albina Wilkerson. .
[2018-01-03] MEDS ORDERED: WARFARIN SOD 2.5 MG TAB PO SCH (16:00)
[2018-01-04] MEDS ORDERED: DILTIAZEM HCL 240 MG CAPCR PO SCH (08:00)
== END 2018-01-03 15:35 | disposition home health service (06) | DRG 682 ==
LOC: EDBD 12:21 → C.EDB 12:22 → C.MS4W 16:53 → EDBEDREQ 16:58 → ENRESERV 17:10
PROVIDERS: ADMIT Internal Medicine; ATTEND Hospitalist
DX: N17.0 Acute kidney failure with tubular necrosis (principal); G93.41 Metabolic encephalopathy; N39.0 Urinary tract infection, site not specified; E87.1 Hypo-osmolality and hyponatremia; J96.10 Chronic respiratory failure, unspecified whether with hypoxia or hypercapnia; I13.0 Hypertensive heart and chronic kidney disease with heart failure and stage 1 through stage 4 chronic kidney disease, or unspecified chronic kidney disease; Z99.81 Dependence on supplemental oxygen; F03.90 Unspecified dementia, unspecified severity, without behavioral disturbance, psychotic disturbance, mood disturbance, and anxiety; I50.9 Heart failure, unspecified; E11.22 Type 2 diabetes mellitus with diabetic chronic kidney disease; N18.3 Chronic kidney disease, stage 3 (moderate); J44.9 Chronic obstructive pulmonary disease, unspecified; I25.10 Atherosclerotic heart disease of native coronary artery without angina pectoris; R60.0 Localized edema; Z86.711 Personal history of pulmonary embolism; Z86.718 Personal history of other venous thrombosis and embolism; Z79.01 Long term (current) use of anticoagulants; Z79.82 Long term (current) use of aspirin; Z79.84 Long term (current) use of oral hypoglycemic drugs; Z79.899 Other long term (current) drug therapy; Z88.5 Allergy status to narcotic agent

== ENCOUNTER 2019-03-17 11:15 | Inpatient (IN) ==
[2019-03-17] MEDS ORDERED: PIPERACILLIN/TAZOBACTAM 4.5 GM/120 ML BAG IV ONE (11:26)
[2019-03-17] MEDS ORDERED: PIPERACILL/TAZOBAC CONSULT ACTIVE PRN ×2 (11:26→14:59)
[2019-03-17] MEDS ORDERED: ONDANSETRON INJ 2 MG/ML 2 ML VIAL IV PRN (11:30)
[2019-03-17] MEDS ORDERED: KETOROLAC 30 MG/ML VIAL IV STA (11:30)
[2019-03-17] MEDS ORDERED: ONDANSETRON INJ 2 MG/ML 2 ML VIAL ONE (11:32)
[2019-03-17 11:40] LABS: Basophils # (auto) 0.01 K/uL (0-0.2); Basophils % (auto) 0.2 %; Eosinophils # (auto) 0.03 K/uL (0-0.5); Eosinophils % (auto) 0.7 %; Hematocrit (blood only) 42.6 % (42-52); Hemoglobin 14.1 g/dL (14.0-18.0); Immature Granulocytes # (auto) 0.01 K/uL (0.00-0.02); Immature Granulocytes % (auto) 0.2 %; Lymphocytes # (auto) 1.05 K/uL (1.2-3.4); Lymphocytes % (auto) 25.1 %; Mean Corpuscular Hemoglobin 29.4 pg (25-34); Mean Corpuscular Hgb Conc 33.1 g/dL (32-36); Mean Corpuscular Volume 88.9 fL (80-100); Mean Platelet Volume 10.9 fL (7.4-10.4); Monocytes # (auto) 0.02 K/uL (0.11-0.59); Monocytes % (auto) 0.5 %; Neutrophils # (auto) 3.07 K/uL (1.4-6.5); Neutrophils % (auto) 73.3 %; Platelet Count 113 K/uL (130-400); RDW Coefficient of Variation 17.4 % (11.5-14.5); RDW Standard Deviation 57.2 fL (36.4-46.3); Red Blood Count 4.79 M/uL (4.7-6.1); White Blood Count 4.19 K/uL (4.8-10.8)
--- NOTE | 2019-03-17 11:42 | XRay Report ---
XR chest 1V portable HISTORY: 83 years-old Male Sepsis sepsis COMPARISON: Chest radiograph 12/30/2017 TECHNIQUE: Portable AP view of the chest FINDINGS: Study is limited secondary to positioning. The patient's chin partially obscures the lung apices. Pat ient is also slightly rotated. Cardiac silhouette is enlarged. Mild pulmonary vascular congestion. Ca lcified plaque of the thoracic aorta arch. No pneumothorax minimal ill-defined bibasilar patchy opaci ties. No large pleural effusion or overt pulmonary edema. Degenerative changes of the shoulders and s pine. Chondrocalcinosis of the right shoulder. IMPRESSION: 1. Cardiomegaly with mild pulmonary vascular congestion. 2. Minimal subsegmental bibasilar opacities favor atelectasis with pneumonitis considered less likely . The above report was generated using voice recognition software. It may contain grammatical, syntax o r spelling errors. Electronically signed by: Edmundo Delgadillo M.D. 03/17/2019 11:41 AM
[2019-03-17 11:50] LABS: iSTAT Creatinine 1.6 mg/dl (0.6-1.3); iSTAT Hemoglobin 15.3 g/dl (14.0-18.0); iSTAT Ionized Calcium 1.27 mmol/l (1.12-1.32); iSTAT Potassium 3.6 mEq/L (3.3-5.0)
[2019-03-17 11:52] LABS: INR 2.9 (0.9-1.1); Partial Thromboplastin Ratio 1.5; Partial Thromboplastin Time 39.7 Seconds (21.0-31.0); Prothrombin Time 27.8 Seconds (9.0-12.0)
[2019-03-17 11:59] LABS: Alanine Aminotransferase 16 U/L (12-78); Albumin Level 3.5 gm/dl (3.4-5.0); Aspartate Aminotransferase 17 U/L (15-37); BUN Creatinine Ratio 18.6 (10-20); Blood Urea Nitrogen 31 mg/dl (7-18); Calcium 10.4 mg/dl (8.5-10.1); Carbon Dioxide 23 mmol/L (21-32); Chloride 102 mmol/L (98-107); Est GFR (African American) 44.2; Est GFR (Non-African American) 38.1; Glucose 147 mg/dl (70-99); Potassium 3.5 mmol/L (3.5-5.1); Sodium 136 mmol/L (136-145)
[2019-03-17 12:01] LABS: Base Excess ABG -2.9 mEq/L (-9-1.8); HCO3 ABG 21 mmol/L (19-24); Oxygen Saturation ABG 99.3 % (90-95); PCO2 ABG 33 mmHg (35-46); PO2 ABG 161 mm/Hg (80-95); pH ABG 7.42 (7.35-7.45)
[2019-03-17 12:02] LABS: Albumin Globulin Ratio 0.7 (0.9-2); Alkaline Phosphatase 81 U/L (45-117); Bilirubin,Total 0.9 mg/dl (0.2-1); Globulin 5.4 gm/dl (2.5-4.0); Total Protein 8.9 gm/dl (6.4-8.2)
[2019-03-17 12:11] LABS: Allen Test Pos (Pos)
[2019-03-17 12:17] LABS: Appearance Urine Cloudy (Clear); Color Urine Red; Protein Urine Positive (Negative); Sulfosalicylic Acid Urine Positive (Negative)
[2019-03-17 12:24] LABS: Bacteria Urine 3+ (Negative); RBC Urine >30 /hpf (0-4); WBC Urine >30 /hpf (0-5)
--- NOTE | 2019-03-17 12:39 | CT Scan Report ---
CT head/brain wo con CLINICAL HISTORY: Acute change in mental status. Patient on Coumadin. COMPARISON STUDY: 12/30/2017 TECHNIQUE: Axial CT of the brain is performed from the vertex to the skull base. IV contrast was not administered for this examination. A dose lowering technique was utilized adhering to the principles of ALARA. CT DOSE: 4047.34 mGy.cm FINDINGS: No intra or extra-axial mass lesions are visualized. There is no CT evidence of acute cortical infarc tion. There is no evidence of midline shift. There is no acute hemorrhage. No calvarial fractures ar e visualized. There are patchy white matter hypodensities likely on a small vessel basis. There is persistent ventricular dilatation which is likely secondary to volume loss. There is no evidence of acute sinusitis IMPRESSION: No acute intracranial findings Electronically signed by: Taye Roland M.D. 03/17/2019 12:38 PM
--- NOTE | 2019-03-17 12:51 | CT Scan Report ---
CT SCAN OF THE ABDOMEN AND PELVIS WITHOUT CONTRAST CLINICAL HISTORY: abd pain and fever COMPARISON STUDY: None TECHNIQUE: CT scan of the abdomen and pelvis was performed from the lung bases to the proximal femurs . Images are reviewed in the axial, sagittal, and coronal planes. IV contrast was not administered fo r this examination. A dose lowering technique was utilized adhering to the principles of ALARA. CT DOSE: FINDINGS: Lower chest: There are dependent atelectatic changes. There is a trace pericardial effusion. Liver: The unenhanced liver is normal in size, contour, and attenuation. There is no intrahepatic joce iary ductal dilatation. Gallbladder: Unremarkable. Spleen: The spleen is enlarged measuring 15.4 cm Pancreas: Unremarkable. Adrenal glands: Unremarkable. Kidneys: There are bilateral renal masses statistically representing cysts although accurate characte rization is difficult given the noncontrast nature of this examination. There is minimal fullness of each renal collecting system. There is no ureteral dilatation and no ureteral calculi are visualized. Bowel: There are no transition zones indicate bowel obstruction. There is no evidence of acute divert iculitis. The appendix appears normal. Peritoneum: There is no intraperitoneal free air or abdominal ascites. Vasculature: The abdominal aorta is normal in course and caliber. Adenopathy: Iliac chain lymph nodes are the upper limits of normal in size. Pelvic viscera: There is an indwelling Blunt catheter Skeletal structures: No destructive osseous lesions are seen. IMPRESSION: 1. No evidence of bowel obstruction. No evidence of free air 2. Normal appendix. No evidence of acute diverticulitis 3. Splenomegaly 4. Iliac chain lymph nodes the upper limits of normal in size 5. Bilateral renal masses likely representing cysts although accurate characterization is limited on this noncontrast study Electronically signed by: Taye Roland M.D. 03/17/2019 12:50 PM
[2019-03-17] MEDS ORDERED: SODIUM CHLORIDE 0.9% 1000ML 1,000 ML IV SCH (14:00)
--- NOTE | 2019-03-17 14:09 | History & Physical Report ---
Date of Service March 17, 2019 Assessment & Plan (1) Sepsis: (2) Acute UTI: -admit to telemetry -patient presenting from home with altered mental status and cloudy/bloody/foul smelling urine -in the ED, febrile at 41.2, HR 160s, lactate 4.9; WBC 4.1K, BP relatively stable -U/A suggests UTI; patient has chronic stafford in place -in the ED, received IV ketorolac and IV zosyn; was cooled with ice packs to the axilla and cool cloths -start IVF, monitor resp status closely -trend lactate -continue zosyn, adjust per culture results (3) Respiratory failure: -patient presenting with resp distress requiring BiPap -CXR showing mild congestion; no clear infiltrate or consolidation -monitor volume status closely -wean BiPap as able -PE unlikely given therapeutic INR (4) Atrial flutter with rapid ventricular response: (5) Left bundle branch block: -likely induced by acute illness/sepsis -cardio consult, input appreciated (6) Gross hematuria: -likely due to acute UTI -hold Coumadin -hgb stable -urology consult (7) SAI (acute kidney injury): -baseline creat ~ 1.1 -up to 1.6 today -likely prerenal due to sepsis/acute illness -IVF, follow renal functions, avoid nephrotoxic as able (8) History of pulmonary embolism: -on Coumadin, INR 2.9 -holding coumadin as above (9) CAD (coronary artery disease): -minimally elevated trop, likely due to sepsis/acute illness -EKG changes as above -cardio consult (10) Anxiety: -resume citalopram when able (11) DVT prophylaxis: -SCDs due to hematuria History of Present Illness Chief Complaint: altered mental status Primary Care Provider: Sujata Person MD 83 year old male who was brought to the ED for evaluation of altered mental status. History is currently unobtainable from the patient. History is obtained from and daughter who are at the bedside. Patient did not sleep well last night and was up frequently. This morning patient was much more confused than his baseline. He also appeared to be short of breath. Patient has a chronic stafford in place and urine was noted to be very red/bloody. Patient was then brought to the ED for further evaluation. Any further history is unobtainable from the patient. At baseline, he is mostly bed bound. He is only oriented to self at baseline. In the ED, patient is found to have rectal temp 41.2, tachycardic in the 160s, and is respiratory distress. He was placed on BiPap. U/A suggests UTI. He was given IV Zosyn, IV ketorolac. Allergies Allergy/AdvReac Type Severity Reaction Status Date / Time morphine AdvReac Severe becomes Unverified 12/30/17 14:53 wild and combative Home Medications Home Medications Medication Instructions Recorded Confirmed Type aspirin [Aspir-81] 81 mg PO DAILY 03/17/19 03/17/19 History calcium carbonate [Calcium 600] 600 mg PO DAILY 03/17/19 03/17/19 History citalopram 10 mg PO DAILY 03/17/19 03/17/19 History citalopram 20 mg PO DAILY 03/17/19 03/17/19 History clonazepam 0.5 mg PO BID PRN 03/17/19 03/17/19 History clonazepam 1 mg PO HS 03/17/19 03/17/19 History ipratropium-albuterol 3 ml INHALATION Q6H PRN 03/17/19 03/17/19 History tramadol 50 mg PO Q6H PRN 03/17/19 03/17/19 History warfarin 2.5 mg PO MOWEFR 03/17/19 03/17/19 History warfarin 5 mg PO SUTUTHSA 03/17/19 03/17/19 History Past Med/Surg History Medical History Chronic diastolic CHF (congestive heart failure) (Chronic) COPD (chronic obstructive pulmonary disease) (Chronic) Anticoagulated on Coumadin (Chronic) Dementia (Chronic) Pulmonary embolism (Chronic) Anxiety (Chronic) HTN (hypertension) (Chronic) CAD (coronary artery disease) (Chronic) 1999 - inferior lateral wall [place] s/p thrombolytic therapy, implantable angioplasty 1st diagonal HLD (hyperlipidemia) (Chronic) DM2 (diabetes mellitus, type 2) (Chronic) Surgical History H/O angioplasty (Chronic) "1999 [place] " H/O hernia repair (Chronic) S/P surgical manipulation of ankle joint (Chronic) Family History Sister Arthritis Social History Preferred Language: Indonesian Communication Ability: Unable Cardiac Nurse Specialist Required: Voice Beliefs That Will Affect Care: None Current Living Situation: Spouse and Family Other Information That Helps Us Care for You: No Feels Safe at Home: Yes Safety Concerns: Feels Safe At This Time Smoking Status: Former smoker Tobacco Type: pipe ; Do You Dip or Chew Tobacco: No ; Second Hand Exposure: No ; Hx Alcohol Use: No Hx Substance Use: No Review of Systems Review of Systems: Unobtainable due to reduced consciousness Physical Exam Constitutional: WD/WN, vitals as above + ill appearing and + obese; no acute distress Eyes: PERRL, conjunctivae normal, anicteric sclerae ENMT: external ear and nose normal, oropharynx normal Respiratory: normal respiratory effort; no respiratory distress Auscultation: + diminished lung sounds on BiPap Cardiovascular: Rate/Rhythm: regular rhythm and + tachycardic Vessels: normal peripheral pulses Extremities: no edema Gastrointestinal (Abdomen): normal bowel sounds, soft, nontender, no hepatosplenomegaly Musculoskeletal: Extremities: + abnormal strength (weak throughout, patient has difficulty following commands); no cyanosis and no clubbing Skin: no rashes, warm and dry Neurologic: lethargic, arouses to loud verbal and tactile stimuli, does not follow commands Psychiatric: Orientation: oriented to person; + not alert, + not oriented to place and + not oriented to time Genitourinary: stafford in place draining dark red colored urine Results & Data Vital Signs (Past 12 Hours) Vital Signs Temp Pulse Pulse Resp BP Pulse Ox 03/17/19 13:20 132 H 22 97 03/17/19 13:15 134 H 23 132/93 97 03/17/19 13:10 135 H 22 98 03/17/19 13:00 136 H 31 H 136/90 96 03/17/19 12:51 136 H 127/86 95 03/17/19 12:50 139 H 96 03/17/19 12:49 140 H 85/73 L 96 03/17/19 12:46 142 H 20 95/46 L 97 03/17/19 12:40 139 H 31 H 95 03/17/19 12:37 140 H 16 141/104 H 96 03/17/19 12:15 157 H 35 H 150/101 H 03/17/19 12:13 157 H 38 H 03/17/19 12:00 160 H 50 H 148/101 H 96 03/17/19 11:55 168 H 36 H 96 03/17/19 11:54 165 H 39 H 146/108 H 96 03/17/19 11:45 160 H 48 H 164/95 H 88 L 03/17/19 11:40 160 H 44 H 96 03/17/19 11:39 41.2 C H 161 H 40 H 150/112 H 89 L 03/17/19 11:31 169 H 42 H 137/120 H 89 L 03/17/19 11:20 147 H 42 H 150/112 H 91 Code Status & VTE Plan Code Status Patient is a DNR as per discussion with patient's and daughter who are at the bedside. VTE Prophylaxis Plan VTE Prophylaxis will be ordered: Yes Supervising Physician Co-Signing Physician Notes I have seen and evaluated the patient with LUISITO Castro and agree with the assessment and plan as stated above with the following exceptions. 83 yo M with h/o dementia and chronic indwelling stafford catheter presented to the ER via EMS after family saw him become disoriented overnight. He arrived with high fevers and severe sepsis secondary to a urinary source. He was severely hyperthermic with a T max of 41.2. He was cooled with mist/fan and ice packs successfully. He was expectantly altered, and was on BIPAP on my evaluation in the ER secondary to increased work of breathing. He also had some changes in rhythm from sinus tachycardia initially when EMS saw him, then later developing new onset atrial flutter and new onset LBBB. Troponin was very mildly elevated likely related to demand ischemia in the setting of sepsis. Per ER provider he did not meet [place] criteria for STEMI. He was started on Zosyn. Physical exam otherwise revealed clear lungs to auscultation, S1/2 heard without evidence of murmur, warm and diaphoretic skin and some suprapubic discomfort without evidence of distension. Stafford was exchanged in the ER by nursing staff. He was admitted to the PCU after code status reviewed with and daughter. The patient is a DNR/DNI and they did not want any pressor support. He was notably a Hospice patient 9 months ago, only taken off because his health issues plateaued. He currently lives with his and daughter in his daughter's home and is mostly bedbound, although he can transfer to a wheelchair. Daughter, and nurses aids take care of him in his hospital bed. His baseline mental status is reported to be that he knows his name and birthday, but doesn't always know where he is or the time/date. Cont treatment for sepsis as above including Zosyn and NSS. Support with BIPAP as needed. He was re-evaluated in two hours on the floor and was improved. Pulse was down to low 100s and arrhythmia with LBBB resolved to sinus tachycardia. Mental status was improved with resolution of hyperthermia. Trial off BIPAP after fluids are complete. Re-evaluated later and doing well off BIPAP. Oxygenating on his baseline 2Lpm. Heart rate is in the 80s and he is sinus rhythm. Failed a bedside swallow with water, so speech consult requested. NSS started, continue to trend lactate which has improved. Cont to trend troponin. Muna Donovan DO (1) Respiratory failure Chronicity: unspecified Respiratory failure complication: unspecified whether with hypoxia or hypercapnia Qualified Code(s): J96.90 - Respiratory failure, unspecified, unspecified whether with hypoxia or hypercapnia (2) Sepsis Sepsis acute organ dysfunction status: unspecified Sepsis type: sepsis due to unspecified organism Qualified Code(s): A41.9 - Sepsis, unspecified organism
[2019-03-17] MEDS ORDERED: ACETAMINOPHEN 325 MG TAB PO PRN (14:16)
--- NOTE | 2019-03-17 15:37 | Cardiology Consultation ---
Date of Consultation March 17, 2019 Assessment & Plan (1) Atrial flutter with rapid ventricular response: Patient is an elderly 83-year-old male with progressive dementia now bedbound with indwelling Blunt catheter presented with signs and symptoms of acute sepsis, tachycardia fever with gross hematuria. Initial rhythm demonstrated sinus tachycardia versus probable atrial flutter with rate related left bundle branch block. Since resuscitation as she has begun atrial flutter has resolved patient now in sinus tachycardia rate 100 with resolve of left bundle branch block configuration. Patient chronically anticoagulated for past history of DVT pulmonary embolus Recommendations: Treat underlying sepsis process. Records reflect the use of metoprolol and diltiazem as outpatient would likely resume both as blood pressure allows. IV metoprolol at 5 mg every 4 hours may be given if patient unable to take p.o. medications in the interim EKG ordered to reassess QRS and ST segments now with left bundle branch block has resolved Need for anticoagulation for atrial flutter not addressed due tof chronic anticoagulation for PE (2) Left bundle branch block: (3) Sepsis: (4) Gross hematuria: (5) CAD (coronary artery disease): History of Present Illness Reason for Consultation: Transient atrial flutter, sepsis Requesting Physician: Dr. Donovan Attending Physician: Muna Donovan, History of Present Illness An 83-year-old male with complex history which includes 1. Coronary artery disease, status post inferior lateral wall myocardial infarction, status post thrombolytic therapy, angioplasty of the first diagonal in January 2000. 2. Hypertension. 3. Hyperlipidemia. 4. Obesity. 5. Chronic obstructive lung disease. With past oxygen supplementation 6. Pulmonary embolism on chronic Coumadin therapy. 7. Dementia Patient presents this admission per discussion with and review of records with notable decline change in urine and mentation over the past 1 to 2 weeks. His overall health status has declined substantially over the past 1 to 2 years is now essentially bedbound with indwelling Blunt catheter. This morning Blunt catheter was noted to be draining blood and dark urine patient confused. Was brought to the emergency room was found to have significant elevated temperature and tachycardia. Patient is chronically disoriented and currently on BiPAP and unable to offer any additional information. confirms above complaints notes previously on oxygen supplementation though is discontinued as patient was unable to comply with nocturnal oximetry to confirm need. Till recent illness was able to take medications Initial rhythm in the ER revealed possible atrial flutter with 2 1 AV conduction with rate related left bundle branch block. After fluid and oxygen supplementation support with BiPAP rate is slowed from 160s to 105 with left bundle branch block resolving atrial flutter returning to sinus rhythm Patient denies any current complaints though history is unreliable Allergies Allergy/AdvReac Type Severity Reaction Status Date / Time morphine AdvReac Severe becomes Unverified 12/30/17 14:53 wild and combative Home Medications Home Medications Medication Instructions Recorded Confirmed Type aspirin [Aspir-81] 81 mg PO DAILY 03/17/19 03/17/19 History calcium carbonate [Calcium 600] 600 mg PO DAILY 03/17/19 03/17/19 History citalopram 10 mg PO DAILY 03/17/19 03/17/19 History citalopram 20 mg PO DAILY 03/17/19 03/17/19 History clonazepam 0.5 mg PO BID PRN 03/17/19 03/17/19 History clonazepam 1 mg PO HS 03/17/19 03/17/19 History ipratropium-albuterol 3 ml INHALATION Q6H PRN 03/17/19 03/17/19 History tramadol 50 mg PO Q6H PRN 03/17/19 03/17/19 History warfarin 2.5 mg PO MOWEFR 03/17/19 03/17/19 History warfarin 5 mg PO SUTUTHSA 03/17/19 03/17/19 History Patient History Medical History COPD (chronic obstructive pulmonary disease) (Chronic) Anticoagulated on Coumadin (Chronic) Dementia (Chronic) Pulmonary embolism (Chronic) Anxiety (Chronic) HTN (hypertension) (Chronic) CAD (coronary artery disease) (Chronic) 1999 - inferior lateral wall [place] s/p thrombolytic therapy, implantable angioplasty 1st diagonal HLD (hyperlipidemia) (Chronic) DM2 (diabetes mellitus, type 2) (Chronic) CAD (coronary artery disease) CHF (congestive heart failure) Diabetes HLD (hyperlipidemia) HTN (hypertension) Pulmonary embolism Surgical History H/O angioplasty (Chronic) "1999[place] " H/O hernia repair (Chronic) S/P surgical manipulation of ankle joint (Chronic) H/O angioplasty Social History Preferred Language: Yi Communication Ability: Unable Mechanical Test Technician Required: Voice Beliefs That Will Affect Care: None Current Living Situation: Spouse and Family Other Information That Helps Us Care for You: No Feels Safe at Home: Yes Safety Concerns: Feels Safe At This Time Smoking Status: Unknown if ever smoked Hx Alcohol Use: No Hx Substance Use: No Review of Systems Review of Systems: All systems reviewed & are unremarkable except as noted in HPI & below Physical Exam Constitutional: + ill appearing and + obese On BiPAP Neck: + thick neck Respiratory: Auscultation: + diminished lung sounds Cardiovascular: Rate/Rhythm: regular rate and regular rhythm Distant heart sounds Gastrointestinal (Abdomen): normal bowel sounds, soft, nontender, no hepatosplenomegaly Neurologic: Patient on BiPAP Results & Data Vital Signs (Past 12 Hours) Vital Signs Temp Pulse Pulse Resp BP BP Pulse Ox 03/17/19 14:41 38.4 C H 03/17/19 14:27 39.2 C H 121 H 16 116/83 93 03/17/19 14:16 16 03/17/19 13:20 132 H 22 97 03/17/19 13:15 134 H 23 132/93 97 03/17/19 13:10 135 H 22 98 03/17/19 13:00 136 H 31 H 136/90 96 03/17/19 12:51 136 H 127/86 95 03/17/19 12:50 139 H 96 03/17/19 12:49 140 H 85/73 L 96 03/17/19 12:46 142 H 20 95/46 L 97 03/17/19 12:40 139 H 31 H 95 03/17/19 12:37 140 H 16 141/104 H 96 03/17/19 12:15 157 H 35 H 150/101 H 03/17/19 12:13 157 H 38 H 03/17/19 12:00 160 H 50 H 148/101 H 96 03/17/19 11:55 168 H 36 H 96 03/17/19 11:54 165 H 39 H 146/108 H 96 03/17/19 11:45 160 H 48 H 164/95 H 88 L 03/17/19 11:40 160 H 44 H 96 03/17/19 11:39 41.2 C H 161 H 40 H 150/112 H 89 L 03/17/19 11:31 169 H 42 H 137/120 H 89 L 03/17/19 11:20 147 H 42 H 150/112 H 91 Laboratory Results Laboratory Results - last 24 hr 03/17/19 03/17/19 03/17/19 11:30 11:30 11:30 WBC 4.19 L RBC 4.79 Hgb 14.1 POC Hgb Hct 42.6 POC Hct MCV 88.9 MCH 29.4 MCHC 33.1 RDW Std Deviation 57.2 H RDW Coeff of Irvin 17.4 H Plt Count 113 L MPV 10.9 H Immature Gran % (Auto) 0.2 Neut % (Auto) 73.3 Lymph % (Auto) 25.1 [place] % (Auto) 0.5 Eos % (Auto) 0.7 Baso % (Auto) 0.2 Immature Gran # (Auto) 0.01 Neut # (Auto) 3.07 Lymph # (Auto) 1.05 L [place] # (Auto) 0.02 L Eos # (Auto) 0.03 Baso # (Auto) 0.01 PT 27.8 H POC INR INR 2.9 H APTT 39.7 H PTT Ratio 1.5 ABG pH ABG pCO2 ABG pO2 ABG HCO3 ABG O2 Saturation ABG Base Excess Tushar Test Barometric Pressure Oxygen Given POC Sodium Sodium 136 POC Potassium Potassium 3.5 POC Chloride Chloride 102 Carbon Dioxide 23 POC Total CO2 Anion Gap 11.0 POC Anion Gap POC BUN BUN 31 H Creatinine 1.64 H POC Creatinine Est Cr Clr Drug Dosing Not Reportable Est GFR ( Amer) 44.2 Est GFR (Non-Af Amer) 38.1 BUN/Creatinine Ratio 18.6 Glucose 147 H POC Glucose (other) Lactate Calcium 10.4 H POC Ioniz Calcium Grace Total Bilirubin 0.9 AST 17 ALT 16 Alkaline Phosphatase 81 Total Creatine Kinase POC Troponin I Troponin I Total Protein 8.9 H Albumin 3.5 Globulin 5.4 H Albumin/Globulin Ratio 0.7 L Urine Color Urine Appearance Urine pH Ur Specific [place] Urine Protein Urine Glucose (UA) Urine Ketones Urine Blood Urine Nitrite Urine Bilirubin Urine Urobilinogen Ur Leukocyte Esterase Urine RBC Urine WBC Ur Epithelial Cells Urine Bacteria 03/17/19 03/17/19 03/17/19 11:30 11:30 11:35 WBC RBC Hgb POC Hgb 15.3 Hct POC Hct 45 MCV MCH MCHC RDW Std Deviation RDW Coeff of Irvin Plt Count MPV Immature Gran % (Auto) Neut % (Auto) Lymph % (Auto) [place] % (Auto) Eos % (Auto) Baso % (Auto) Immature Gran # (Auto) Neut # (Auto) Lymph # (Auto) [place] # (Auto) Eos # (Auto) Baso # (Auto) PT POC INR INR APTT PTT Ratio ABG pH ABG pCO2 ABG pO2 ABG HCO3 ABG O2 Saturation ABG Base Excess Tushar Test Barometric Pressure Oxygen Given POC Sodium 138 Sodium POC Potassium 3.6 Potassium POC Chloride 102 Chloride Carbon Dioxide POC Total CO2 23 L Anion Gap POC Anion Gap 18.0 POC BUN 30 H BUN Creatinine POC Creatinine 1.6 H Est Cr Clr Drug Dosing Est GFR ( Amer) Est GFR (Non-Af Amer) BUN/Creatinine Ratio Glucose POC Glucose (other) 147 H Lactate 4.9 H* Calcium POC Ioniz Calcium Grace 1.27 Total Bilirubin AST ALT Alkaline Phosphatase Total Creatine Kinase 76 POC Troponin I Troponin I 0.084 H* Total Protein Albumin Globulin Albumin/Globulin Ratio Urine Color Urine Appearance Urine pH Ur Specific [place] Urine Protein Urine Glucose (UA) Urine Ketones Urine Blood Urine Nitrite Urine Bilirubin Urine Urobilinogen Ur Leukocyte Esterase Urine RBC Urine WBC Ur Epithelial Cells Urine Bacteria 03/17/19 03/17/19 03/17/19 11:37 11:45 11:48 WBC RBC Hgb POC Hgb Hct POC Hct MCV MCH MCHC RDW Std Deviation RDW Coeff of Irvin Plt Count MPV Immature Gran % (Auto) Neut % (Auto) Lymph % (Auto) [place] % (Auto) Eos % (Auto) Baso % (Auto) Immature Gran # (Auto) Neut # (Auto) Lymph # (Auto) [place] # (Auto) Eos # (Auto) Baso # (Auto) PT POC INR 2.5 H INR APTT PTT Ratio ABG pH 7.42 ABG pCO2 33 L ABG pO2 161 H ABG HCO3 21 ABG O2 Saturation 99.3 H ABG Base Excess -2.9 Tushar Test Pos Barometric Pressure 739.1 Oxygen Given 9L POC Sodium Sodium POC Potassium Potassium POC Chloride Chloride Carbon Dioxide POC Total CO2 Anion Gap POC Anion Gap POC BUN BUN Creatinine POC Creatinine Est Cr Clr Drug Dosing Est GFR ( Amer) Est GFR (Non-Af Amer) BUN/Creatinine Ratio Glucose POC Glucose (other) Lactate Calcium POC Ioniz Calcium Grace Total Bilirubin AST ALT Alkaline Phosphatase Total Creatine Kinase POC Troponin I 0.05 H Troponin I Total Protein Albumin Globulin Albumin/Globulin Ratio Urine Color Urine Appearance Urine pH Ur Specific [place] Urine Protein Urine Glucose (UA) Urine Ketones Urine Blood Urine Nitrite Urine Bilirubin Urine Urobilinogen Ur Leukocyte Esterase Urine RBC Urine WBC Ur Epithelial Cells Urine Bacteria 03/17/19 11:58 WBC RBC Hgb POC Hgb Hct POC Hct MCV MCH MCHC RDW Std Deviation RDW Coeff of Irvin Plt Count MPV Immature Gran % (Auto) Neut % (Auto) Lymph % (Auto) [place] % (Auto) Eos % (Auto) Baso % (Auto) Immature Gran # (Auto) Neut # (Auto) Lymph # (Auto) [place] # (Auto) Eos # (Auto) Baso # (Auto) PT POC INR INR APTT PTT Ratio ABG pH ABG pCO2 ABG pO2 ABG HCO3 ABG O2 Saturation ABG Base Excess Tushar Test Barometric Pressure Oxygen Given POC Sodium Sodium POC Potassium Potassium POC Chloride Chloride Carbon Dioxide POC Total CO2 Anion Gap POC Anion Gap POC BUN BUN Creatinine POC Creatinine Est Cr Clr Drug Dosing Est GFR ( Amer) Est GFR (Non-Af Amer) BUN/Creatinine Ratio Glucose POC Glucose (other) Lactate Calcium POC Ioniz Calcium Grace Total Bilirubin AST ALT Alkaline Phosphatase Total Creatine Kinase POC Troponin I Troponin I Total Protein Albumin Globulin Albumin/Globulin Ratio Urine Color Red Urine Appearance Cloudy A Urine pH Ur Specific [place] 1.020 Urine Protein Positive H Urine Glucose (UA) Urine Ketones Urine Blood Urine Nitrite Urine Bilirubin Urine Urobilinogen Ur Leukocyte Esterase Urine RBC >30 H Urine WBC >30 H Ur Epithelial Cells 5-10 H Urine Bacteria 3+ H (1) Sepsis Sepsis acute organ dysfunction status: unspecified Sepsis type: sepsis due to unspecified organism Qualified Code(s): A41.9 - Sepsis, unspecified organism
[2019-03-17 15:38] LABS: Troponin I 0.084 ng/ml (0-0.045)
[2019-03-17] MEDS ORDERED: METOPROLOL TARTRATE 1 MG/ML VIAL IV ONE (17:18)
[2019-03-17] MEDS: PIPERACILLIN/TAZOBACTAM 4.5 GM in DEXTROSE 5% 100 ML IV SCH (17:19)
--- NOTE | 2019-03-17 18:21 | Emergency Department Note ---
Entered by Teddy Bhatt acting as a scribe for History of Present Illness General Chief complaint: Respiratory Distress Stated complaint: sepsis Time Seen by Provider: 03/17/19 11:22 Source: family and EMS Mode of arrival: EMS History of Present Illness Provider complaint: fever and respiratory distress Onset (ago): hour(s) 2 Location: head Severity: moderate Pain Consistency: + constant Quality: + other (SOB, fever of 106) The patient is an 83 y/o male with a past medical history of dementia, PE, CHF, HTN, CAD, HLD, and DM2, who presents to the emergency department via EMS from home for fever and respiratory distress that began two hours ago. EMS states that the patient was checked on by home nurse at 7 and was observed to be okay but upon a reevaluation at 10 the patient had a fever and blood in his Blunt catheter. EMS reports that they recorded a temperature of 102.8 F, a blood sugar of 144, and they believe he is AMS since he was unable to answer their questions which the home nurse states he is normally able to do. He was given rectal Tylenol 1 g prior to arrival by EMS. The patient was unable to answer questions due to his clinical condition. Fever of 106F recorded in the ED upon arrival. The patients daughter states that the patient has been having episodes of shakes recently which has happened in the past. She notes he is on warfarin for his history of blood clots in the legs. She reports that the breathing has been bad for a little while, with cough as well. She notes that the patient has been sleeping a lot the past couple of weeks. The daughter states that they did not know he had a fever until this morning though they note he was complaining of right-sided abdominal. His daughter states that he is DNR/DNI. The HPI and ROS is limited secondary to altered mental status. Home Medications Home Medications Medication Instructions Recorded Confirmed Type aspirin [Aspir-81] 81 mg PO DAILY 03/17/19 03/17/19 History calcium carbonate [Calcium 600] 600 mg PO DAILY 03/17/19 03/17/19 History citalopram 10 mg PO DAILY 03/17/19 03/17/19 History citalopram 20 mg PO DAILY 03/17/19 03/17/19 History clonazepam 0.5 mg PO BID PRN 03/17/19 03/17/19 History clonazepam 1 mg PO HS 03/17/19 03/17/19 History ipratropium-albuterol 3 ml INHALATION Q6H PRN 03/17/19 03/17/19 History tramadol 50 mg PO Q6H PRN 03/17/19 03/17/19 History warfarin 2.5 mg PO MOWEFR 03/17/19 03/17/19 History warfarin 5 mg PO SUTUTHSA 03/17/19 03/17/19 History Allergies Allergy/AdvReac Type Severity Reaction Status Date / Time morphine AdvReac Severe becomes Unverified 12/30/17 14:53 wild and combative Past Med/Surg History Medical History Chronic diastolic CHF (congestive heart failure) (Chronic) COPD (chronic obstructive pulmonary disease) (Chronic) Anticoagulated on Coumadin (Chronic) Dementia (Chronic) Pulmonary embolism (Chronic) Anxiety (Chronic) HTN (hypertension) (Chronic) CAD (coronary artery disease) (Chronic) 2000 - inferior lateral wall [place] s/p thrombolytic therapy, implantable angioplasty 1st diagonal HLD (hyperlipidemia) (Chronic) DM2 (diabetes mellitus, type 2) (Chronic) Surgical History H/O angioplasty (Chronic) "1999 [place] " H/O hernia repair (Chronic) S/P surgical manipulation of ankle joint (Chronic) Family History Sister Arthritis Social History Preferred Language: Bol[place]ian Communication Ability: Unable 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 Physical Exam Vital Signs Vital Signs - 24 hr 03/17/19 11:20 03/17/19 11:31 03/17/19 11:39 Temperature 41.2 C H Temperature Source Rectal Rectal Temperature - Source 2 Sepsis Recent Fever Within 48 Hours Yes Sepsis New/Unexplained Change in Mental Status No Sepsis Action Taken by Nursing Physician Notified Oxygen Flow Rate - Titration 4 Pulse Oximetry Post Tiitration 94 Pulse Rate 147 H 169 H 161 H Pulse Rate [Right Finger] Pulse Rate from SpO2 Sensor 148 H 165 H Respiratory Rate 42 H 42 H 40 H Respiratory Effort / Characteristics Labored Short of Breath Respiratory Depth Shallow Respiratory Pattern Blood Pressure 150/112 H 137/120 H 150/112 H Blood Pressure Mean 124 125 124 Blood Pressure Position Sitting Pulse Oximetry 91 89 L 89 L Oxygen Delivery Method Oxymask Oxygen Flow Rate 0 Fraction of Inspired Oxygen 03/17/19 11:40 03/17/19 11:45 03/17/19 11:54 Temperature Temperature Source Rectal Temperature - Source 2 Sepsis Recent Fever Within 48 Hours Sepsis New/Unexplained Change in Mental Status Sepsis Action Taken by Nursing Oxygen Flow Rate - Titration Pulse Oximetry Post Tiitration Pulse Rate 160 H 165 H Pulse Rate [Right Finger] 160 H Pulse Rate from SpO2 Sensor 153 H 165 H Respiratory Rate 44 H 48 H 39 H Respiratory Effort / Characteristics Labored Short of Breath Respiratory Depth Respiratory Pattern Blood Pressure 164/95 H 146/108 H Blood Pressure Mean 118 120 Blood Pressure Position Pulse Oximetry 96 88 L 96 Oxygen Delivery Method High Flow Nasal Cannula Oxygen Flow Rate 40 Fraction of Inspired Oxygen 80 03/17/19 11:55 03/17/19 12:00 03/17/19 12:13 Temperature Temperature Source Rectal Temperature - Source 2 Sepsis Recent Fever Within 48 Hours Sepsis New/Unexplained Change in Mental Status Sepsis Action Taken by Nursing Oxygen Flow Rate - Titration Pulse Oximetry Post Tiitration Pulse Rate 168 H 160 H 157 H Pulse Rate [Right Finger] Pulse Rate from SpO2 Sensor 159 H Respiratory Rate 36 H 50 H 38 H Respiratory Effort / Characteristics Short of Breath Respiratory Depth Respiratory Pattern Tachypnea Blood Pressure 148/101 H Blood Pressure Mean 116 Blood Pressure Position Pulse Oximetry 96 96 Oxygen Delivery Method Oxygen Flow Rate Fraction of Inspired Oxygen 50 03/17/19 12:15 03/17/19 12:37 03/17/19 12:40 Temperature Temperature Source Rectal Temperature - Source 2 Sepsis Recent Fever Within 48 Hours Sepsis New/Unexplained Change in Mental Status Sepsis Action Taken by Nursing Oxygen Flow Rate - Titration Pulse Oximetry Post Tiitration Pulse Rate 157 H 140 H 139 H Pulse Rate [Right Finger] Pulse Rate from SpO2 Sensor 140 H 141 H Respiratory Rate 35 H 16 31 H Respiratory Effort / Characteristics Respiratory Depth Respiratory Pattern Blood Pressure 150/101 H 141/104 H Blood Pressure Mean 117 116 Blood Pressure Position Pulse Oximetry 96 95 Oxygen Delivery Method Oxygen Flow Rate Fraction of Inspired Oxygen 03/17/19 12:46 03/17/19 12:49 03/17/19 12:50 Temperature Temperature Source Rectal Temperature - Source 2 40.4 C H Sepsis Recent Fever Within 48 Hours Sepsis New/Unexplained Change in Mental Status Sepsis Action Taken by Nursing Oxygen Flow Rate - Titration Pulse Oximetry Post Tiitration Pulse Rate 142 H 140 H 139 H Pulse Rate [Right Finger] Pulse Rate from SpO2 Sensor 143 H 141 H 135 H Respiratory Rate 20 Respiratory Effort / Characteristics Respiratory Depth Respiratory Pattern Blood Pressure 95/46 L 85/73 L Blood Pressure Mean 62 77 Blood Pressure Position Pulse Oximetry 97 96 96 Oxygen Delivery Method Oxygen Flow Rate Fraction of Inspired Oxygen 03/17/19 12:51 03/17/19 13:00 03/17/19 13:10 Temperature Temperature Source Rectal Temperature - Source 2 Sepsis Recent Fever Within 48 Hours Sepsis New/Unexplained Change in Mental Status Sepsis Action Taken by Nursing Oxygen Flow Rate - Titration Pulse Oximetry Post Tiitration Pulse Rate 136 H 136 H 135 H Pulse Rate [Right Finger] Pulse Rate from SpO2 Sensor 115 H 131 H 134 H Respiratory Rate 31 H 22 Respiratory Effort / Characteristics Respiratory Depth Respiratory Pattern Blood Pressure 127/86 136/90 Blood Pressure Mean 99 105 Blood Pressure Position Pulse Oximetry 95 96 98 Oxygen Delivery Method BiPAP BiPAP BiPAP Oxygen Flow Rate Fraction of Inspired Oxygen 03/17/19 13:15 03/17/19 13:20 Temperature Temperature Source Rectal Temperature - Source 2 Sepsis Recent Fever Within 48 Hours Sepsis New/Unexplained Change in Mental Status Sepsis Action Taken by Nursing Oxygen Flow Rate - Titration Pulse Oximetry Post Tiitration Pulse Rate 134 H 132 H Pulse Rate [Right Finger] Pulse Rate from SpO2 Sensor 128 H 133 H Respiratory Rate 23 22 Respiratory Effort / Characteristics Respiratory Depth Respiratory Pattern Blood Pressure 132/93 Blood Pressure Mean 106 Blood Pressure Position Pulse Oximetry 97 97 Oxygen Delivery Method BiPAP BiPAP Oxygen Flow Rate Fraction of Inspired Oxygen The physical exam is limited due to the patient's condition. Constitutional: Vital signs reviewed. Patient is in severe respiratory dist ress. Eyes: Pupils are equal round reactive to light. Conjunctiva are noninjected. HENT: Normocephalic atraumatic. Respiratory: Tachypneic with rhonchi bilaterally. Breath sounds are equal bilaterally. Cardiovascular: Tachycardic. Heart rate 150. GI: Soft, nondistended and nontender. Bowel sounds are present. Blunt catheter with gross blood. Musculoskeletal: No CVA tenderness. Integumentary: No cyanosis. Neurological: The patient is nonverbal. Psychiatric: Unable to assess. Course 1120: Past medical records reviewed. The patient was evaluated in room B01. A complete history and physical exam was performed. 1156: I checked on the patient, he is on BiPAP and has ice in the axial and groin. INR is 2.5. 1251: I reassessed the patient, heart rate is 130s stable blood pressure, repeated EKG aflutter rate 135, LBBB, no PVC. Discussed results with family. Breathing is improved, still febrile at 104, using evaporative cooling to see if it will bring down the heart rate. 1259: I spoke with Susan Santiago [facility] hospitalist. Recommend speaking with ICU [facility] for further management. 1400: I spoke with Dr. Donovan and does not feel the patient needs the ICU but will be admitted Administered Medications Piperacillin Sod/Tazobactam (Sod 4.5 gm/ Dextrose) 120 mls @ 30 mls/hr IV Q8H [facility]; Protocol Stop: 03/19/19 17:59 Last Admin: 03/17/19 17:19 Dose: 30 mls/hr Documented by: [id number] Discontinued Medications Piperacillin Sod/Tazobactam Sod (Zosyn) 4.5 gm in 120 mls @ 240 mls/hr IV NOW ONE Stop: 03/17/19 11:55 Last Infusion: 03/17/19 12:30 Dose: 0 mls/hr Documented by: [id number] Admin: 03/17/19 11:56 Dose: 240 mls/hr Documented by: [id number] Sodium Chloride (Nss 1000ml) 1,000 mls @ 500 mls/hr IV .Q2H ANNE Stop: 03/17/19 15:59 Last Infusion: 03/17/19 16:34 Dose: 0 mls/hr Documented by: [id number] Admin: 03/17/19 14:19 Dose: 500 mls/hr Documented by: [id number] Ketorolac Tromethamine (Toradol) 10 mg IV NOW STA Stop: 03/17/19 11:31 Last Admin: 03/17/19 13:34 Dose: Not Given Documented by: [id number] Metoprolol Tartrate (Lopressor) 5 mg IV ONE ONE Stop: 03/17/19 17:19 Last Admin: 03/17/19 17:29 Dose: 5 mg Documented by: [id number] Ondansetron HCl (Zofran) 4 mg IV Q4H PRN PRN Reason: Nausea Stop: 04/16/19 11:29 Last Admin: 03/17/19 11:52 Dose: 4 mg Documented by: [id number] Ondansetron HCl (Zofran) Confirm Administered Dose 4 mg .ROUTE .STK-MED ONE Stop: 03/17/19 11:33 Last Admin: 03/17/19 11:52 Dose: Not Given Documented by: [id number] Medical Decision Making Differential Diagnosis Differential Diagnosis: sepsis, UTI, respiratory failure, ARDS, Pneumonia, A fib/flutter. Medical Records Attestation: I reviewed the patient's medical records. The patient was admitted in December 2017 for renal failure and hyponatremia Home Medications Current Medication List: was personally reviewed by me Laboratory Data Attestation: I reviewed the patient's lab results. Result diagrams: 03/17/19 11:30 03/17/19 11:30 Lab Results 03/17/19 03/17/19 03/17/19 Range/Units 11:30 11:30 11:30 WBC 4.19 L (4.8-10.8) K/uL RBC 4.79 (4.7-6.1) M/uL Hgb 14.1 (14.0-18.0) g/dL POC Hgb (14.0-18.0) g/dl Hct 42.6 (42-52) % POC Hct (42-52) % MCV 88.9 (80-100) fL MCH 29.4 (25-34) pg MCHC 33.1 (32-36) g/dL RDW Std Deviation 57.2 H (36.4-46.3) fL RDW Coeff of Irvin 17.4 H (11.5-14.5) % Plt Count 113 L (130-400) K/uL MPV 10.9 H (7.4-10.4) fL Immature Gran % (Auto) 0.2 % Neut % (Auto) 73.3 % Lymph % (Auto) 25.1 % [place] % (Auto) 0.5 % Eos % (Auto) 0.7 % Baso % (Auto) 0.2 % Immature Gran # (Auto) 0.01 (0.00-0.02) K/uL Neut # (Auto) 3.07 (1.4-6.5) K/uL Lymph # (Auto) 1.05 L (1.2-3.4) K/uL [place] # (Auto) 0.02 L (0.11-0.59) K/uL Eos # (Auto) 0.03 (0-0.5) K/uL Baso # (Auto) 0.01 (0-0.2) K/uL PT 27.8 H (9.0-12.0) Seconds POC INR (0.9-1.1) INR 2.9 H (0.9-1.1) APTT 39.7 H (21.0-31.0) Seconds PTT Ratio 1.5 ABG pH (7.35-7.45) ABG pCO2 (35-46) mmHg ABG pO2 (80-95) mm/Hg ABG HCO3 (19-24) mmol/L ABG O2 Saturation (90-95) % ABG Base Excess (-9-1.8) mEq/L Tushar Test (Pos) Barometric Pressure mm/Hg Oxygen Given POC Sodium (135-144) mEq/L Sodium 136 (136-145) mmol/L POC Potassium (3.3-5.0) mEq/L Potassium 3.5 (3.5-5.1) mmol/L POC Chloride (101-112) mEq/L Chloride 102 (98-107) mmol/L Carbon Dioxide 23 (21-32) mmol/L POC Total CO2 (24-31) mEq/l Anion Gap 11.0 (3-11) POC Anion Gap (16-25) mmol/L POC BUN (7-18) mg/dl BUN 31 H (7-18) mg/dl Creatinine 1.64 H (0.6-1.4) mg/dl POC Creatinine (0.6-1.3) mg/dl Est Cr Clr Drug Dosing Not Reportable Est GFR ( Amer) 44.2 Est GFR (Non-Af Amer) 38.1 BUN/Creatinine Ratio 18.6 (10-20) Glucose 147 H (70-99) mg/dl POC Glucose (other) (70-99) mg/dl Lactate (0.4-2.0) mmol/L Calcium 10.4 H (8.5-10.1) mg/dl POC Ioniz Calcium Grace (1.12-1.32) mmol/l Total Bilirubin 0.9 (0.2-1) mg/dl AST 17 (15-37) U/L ALT 16 (12-78) U/L Alkaline Phosphatase 81 (45-117) U/L Total Creatine Kinase (39-308) U/L POC Troponin I (0-0.045) ng/ml Troponin I (0-0.045) ng/ml Total Protein 8.9 H (6.4-8.2) gm/dl Albumin 3.5 (3.4-5.0) gm/dl Globulin 5.4 H (2.5-4.0) gm/dl Albumin/Globulin Ratio 0.7 L (0.9-2) Urine Color Urine Appearance (Clear) Urine pH (4.5-7.5) Ur Specific [place] (1.000-1.030) Urine Protein (Negative) Urine Glucose (UA) (Negative) Urine Ketones (Negative) Urine Blood (Negative) Urine Nitrite (Negative) Urine Bilirubin (Negative) Urine Urobilinogen (Negative) Ur Leukocyte Esterase (Negative) Urine RBC (0-4) /hpf Urine WBC (0-5) /hpf Ur Epithelial Cells (0-5) /lpf Urine Bacteria (Negative) 03/17/19 03/17/19 03/17/19 Range/Units 11:30 11:30 11:35 WBC (4.8-10.8) K/uL RBC (4.7-6.1) M/uL Hgb (14.0-18.0) g/dL POC Hgb 15.3 (14.0-18.0) g/dl Hct (42-52) % POC Hct 45 (42-52) % MCV (80-100) fL MCH (25-34) pg MCHC (32-36) g/dL RDW Std Deviation (36.4-46.3) fL RDW Coeff of Irvin (11.5-14.5) % Plt Count (130-400) K/uL MPV (7.4-10.4) fL Immature Gran % (Auto) % Neut % (Auto) % Lymph % (Auto) % [place] % (Auto) % Eos % (Auto) % Baso % (Auto) % Immature Gran # (Auto) (0.00-0.02) K/uL Neut # (Auto) (1.4-6.5) K/uL Lymph # (Auto) (1.2-3.4) K/uL [place] # (Auto) (0.11-0.59) K/uL Eos # (Auto) (0-0.5) K/uL Baso # (Auto) (0-0.2) K/uL PT (9.0-12.0) Seconds POC INR (0.9-1.1) INR (0.9-1.1) APTT (21.0-31.0) Seconds PTT Ratio ABG pH (7.35-7.45) ABG pCO2 (35-46) mmHg ABG pO2 (80-95) mm/Hg ABG HCO3 (19-24) mmol/L ABG O2 Saturation (90-95) % ABG Base Excess (-9-1.8) mEq/L Tushar Test (Pos) Barometric Pressure mm/Hg Oxygen Given POC Sodium 138 (135-144) mEq/L Sodium (136-145) mmol/L POC Potassium 3.6 (3.3-5.0) mEq/L Potassium (3.5-5.1) mmol/L POC Chloride 102 (101-112) mEq/L Chloride (98-107) mmol/L Carbon Dioxide (21-32) mmol/L POC Total CO2 23 L (24-31) mEq/l Anion Gap (3-11) POC Anion Gap 18.0 (16-25) mmol/L POC BUN 30 H (7-18) mg/dl BUN (7-18) mg/dl Creatinine (0.6-1.4) mg/dl POC Creatinine 1.6 H (0.6-1.3) mg/dl Est Cr Clr Drug Dosing Est GFR ( Amer) Est GFR (Non-Af Amer) BUN/Creatinine Ratio (10-20) Glucose (70-99) mg/dl POC Glucose (other) 147 H (70-99) mg/dl Lactate 4.9 H* (0.4-2.0) mmol/L Calcium (8.5-10.1) mg/dl POC Ioniz Calcium Grace 1.27 (1.12-1.32) mmol/l Total Bilirubin (0.2-1) mg/dl AST (15-37) U/L ALT (12-78) U/L Alkaline Phosphatase (45-117) U/L Total Creatine Kinase 76 (39-308) U/L POC Troponin I (0-0.045) ng/ml Troponin I 0.084 H* (0-0.045) ng/ml Total Protein (6.4-8.2) gm/dl Albumin (3.4-5.0) gm/dl Globulin (2.5-4.0) gm/dl Albumin/Globulin Ratio (0.9-2) Urine Color Urine Appearance (Clear) Urine pH (4.5-7.5) Ur Specific [place] (1.000-1.030) Urine Protein (Negative) Urine Glucose (UA) (Negative) Urine Ketones (Negative) Urine Blood (Negative) Urine Nitrite (Negative) Urine Bilirubin (Negative) Urine Urobilinogen (Negative) Ur Leukocyte Esterase (Negative) Urine RBC (0-4) /hpf Urine WBC (0-5) /hpf Ur Epithelial Cells (0-5) /lpf Urine Bacteria (Negative) 03/17/19 03/17/19 03/17/19 Range/Units 11:37 11:45 11:48 WBC (4.8-10.8) K/uL RBC (4.7-6.1) M/uL Hgb (14.0-18.0) g/dL POC Hgb (14.0-18.0) g/dl Hct (42-52) % POC Hct (42-52) % MCV (80-100) fL MCH (25-34) pg MCHC (32-36) g/dL RDW Std Deviation (36.4-46.3) fL RDW Coeff of Irvin (11.5-14.5) % Plt Count (130-400) K/uL MPV (7.4-10.4) fL Immature Gran % (Auto) % Neut % (Auto) % Lymph % (Auto) % [place] % (Auto) % Eos % (Auto) % Baso % (Auto) % Immature Gran # (Auto) (0.00-0.02) K/uL Neut # (Auto) (1.4-6.5) K/uL Lymph # (Auto) (1.2-3.4) K/uL [place] # (Auto) (0.11-0.59) K/uL Eos # (Auto) (0-0.5) K/uL Baso # (Auto) (0-0.2) K/uL PT (9.0-12.0) Seconds POC INR 2.5 H (0.9-1.1) INR (0.9-1.1) APTT (21.0-31.0) Seconds PTT Ratio ABG pH 7.42 (7.35-7.45) ABG pCO2 33 L (35-46) mmHg ABG pO2 161 H (80-95) mm/Hg ABG HCO3 21 (19-24) mmol/L ABG O2 Saturation 99.3 H (90-95) % ABG Base Excess -2.9 (-9-1.8) mEq/L Tushar Test Pos (Pos) Barometric Pressure 739.1 mm/Hg Oxygen Given 9L POC Sodium (135-144) mEq/L Sodium (136-145) mmol/L POC Potassium (3.3-5.0) mEq/L Potassium (3.5-5.1) mmol/L POC Chloride (101-112) mEq/L Chloride (98-107) mmol/L Carbon Dioxide (21-32) mmol/L POC Total CO2 (24-31) mEq/l Anion Gap (3-11) POC Anion Gap (16-25) mmol/L POC BUN (7-18) mg/dl BUN (7-18) mg/dl Creatinine (0.6-1.4) mg/dl POC Creatinine (0.6-1.3) mg/dl Est Cr Clr Drug Dosing Est GFR ( Amer) Est GFR (Non-Af Amer) BUN/Creatinine Ratio (10-20) Glucose (70-99) mg/dl POC Glucose (other) (70-99) mg/dl Lactate (0.4-2.0) mmol/L Calcium (8.5-10.1) mg/dl POC Ioniz Calcium Grace (1.12-1.32) mmol/l Total Bilirubin (0.2-1) mg/dl AST (15-37) U/L ALT (12-78) U/L Alkaline Phosphatase (45-117) U/L Total Creatine Kinase (39-308) U/L POC Troponin I 0.05 H (0-0.045) ng/ml Troponin I (0-0.045) ng/ml Total Protein (6.4-8.2) gm/dl Albumin (3.4-5.0) gm/dl Globulin (2.5-4.0) gm/dl Albumin/Globulin Ratio (0.9-2) Urine Color Urine Appearance (Clear) Urine pH (4.5-7.5) Ur Specific [place] (1.000-1.030) Urine Protein (Negative) Urine Glucose (UA) (Negative) Urine Ketones (Negative) Urine Blood (Negative) Urine Nitrite (Negative) Urine Bilirubin (Negative) Urine Urobilinogen (Negative) Ur Leukocyte Esterase (Negative) Urine RBC (0-4) /hpf Urine WBC (0-5) /hpf Ur Epithelial Cells (0-5) /lpf Urine Bacteria (Negative) 03/17/19 Range/Units 11:58 WBC (4.8-10.8) K/uL RBC (4.7-6.1) M/uL Hgb (14.0-18.0) g/dL POC Hgb (14.0-18.0) g/dl Hct (42-52) % POC Hct (42-52) % MCV (80-100) fL MCH (25-34) pg MCHC (32-36) g/dL RDW Std Deviation (36.4-46.3) fL RDW Coeff of Irvin (11.5-14.5) % Plt Count (130-400) K/uL MPV (7.4-10.4) fL Immature Gran % (Auto) % Neut % (Auto) % Lymph % (Auto) % [place] % (Auto) % Eos % (Auto) % Baso % (Auto) % Immature Gran # (Auto) (0.00-0.02) K/uL Neut # (Auto) (1.4-6.5) K/uL Lymph # (Auto) (1.2-3.4) K/uL [place] # (Auto) (0.11-0.59) K/uL Eos # (Auto) (0-0.5) K/uL Baso # (Auto) (0-0.2) K/uL PT (9.0-12.0) Seconds POC INR (0.9-1.1) INR (0.9-1.1) APTT (21.0-31.0) Seconds PTT Ratio ABG pH (7.35-7.45) ABG pCO2 (35-46) mmHg ABG pO2 (80-95) mm/Hg ABG HCO3 (19-24) mmol/L ABG O2 Saturation (90-95) % ABG Base Excess (-9-1.8) mEq/L Tushar Test (Pos) Barometric Pressure mm/Hg Oxygen Given POC Sodium (135-144) mEq/L Sodium (136-145) mmol/L POC Potassium (3.3-5.0) mEq/L Potassium (3.5-5.1) mmol/L POC Chloride (101-112) mEq/L Chloride (98-107) mmol/L Carbon Dioxide (21-32) mmol/L POC Total CO2 (24-31) mEq/l Anion Gap (3-11) POC Anion Gap (16-25) mmol/L POC BUN (7-18) mg/dl BUN (7-18) mg/dl Creatinine (0.6-1.4) mg/dl POC Creatinine (0.6-1.3) mg/dl Est Cr Clr Drug Dosing Est GFR ( Amer) Est GFR (Non-Af Amer) BUN/Creatinine Ratio (10-20) Glucose (70-99) mg/dl POC Glucose (other) (70-99) mg/dl Lactate (0.4-2.0) mmol/L Calcium (8.5-10.1) mg/dl POC Ioniz Calcium [place] (1.12-1.32) mmol/l Total Bilirubin (0.2-1) mg/dl AST (15-37) U/L ALT (12-78) U/L Alkaline Phosphatase (45-117) U/L Total Creatine Kinase (39-308) U/L POC Troponin I (0-0.045) ng/ml Troponin I (0-0.045) ng/ml Total Protein (6.4-8.2) gm/dl Albumin (3.4-5.0) gm/dl Globulin (2.5-4.0) gm/dl Albumin/Globulin Ratio (0.9-2) Urine Color Red Urine Appearance Cloudy A (Clear) Urine pH (4.5-7.5) Ur Specific [place] 1.020 (1.000-1.030) Urine Protein Positive H (Negative) Urine Glucose (UA) (Negative) Urine Ketones (Negative) Urine Blood (Negative) Urine Nitrite (Negative) Urine Bilirubin (Negative) Urine Urobilinogen (Negative) Ur Leukocyte Esterase (Negative) Urine RBC >30 H (0-4) /hpf Urine WBC >30 H (0-5) /hpf Ur Epithelial Cells 5-10 H (0-5) /lpf Urine Bacteria 3+ H (Negative) Imaging Data Radiologist's Impression: Radiology results as stated below per my review and the radiologist's interpretation: XR chest 1V portable HISTORY: 83 years-old Male Sepsis sepsis COMPARISON: Chest radiograph 12/30/2017 TECHNIQUE: Portable AP view of the chest FINDINGS: Study is limited secondary to positioning. The patient's chin partially obscures the lung apices. Patient is also slightly rotated. Cardiac silhouette is enlarged. Mild pulmonary vascular congestion. Calcified plaque of the thoracic aorta arch. No pneumothorax minimal ill-defined bibasilar patchy opacities. No large pleural effusion or overt pulmonary edema. Degenerative changes of the shoulders and spine. Chondrocalcinosis of the right shoulder. IMPRESSION: 1. Cardiomegaly with mild pulmonary vascular congestion. 2. Minimal subsegmental bibasilar opacities favor atelectasis with pneumonitis considered less likely. The above report was generated using voice recognition software. It may contain grammatical, syntax or spelling errors. Electronically signed by: Edmundo Delgadillo M.D. 03/17/2019 11:[address] SCAN OF THE ABDOMEN AND PELVIS WITHOUT CONTRAST CLINICAL HISTORY: abd pain and fever COMPARISON STUDY: None TECHNIQUE: CT scan of the abdomen and pelvis was performed from the lung bases to the proximal femurs. Images are reviewed in the axial, sagittal, and coronal planes. IV contrast was not administered for this examination. A dose lowering technique was utilized adhering to the principles of ALARA. CT DOSE: FINDINGS: Lower chest: There are dependent atelectatic changes. There is a trace pericardial effusion. Liver: The unenhanced liver is normal in size, contour, and attenuation. There is no intrahepatic biliary ductal dilatation. Gallbladder: Unremarkable. Spleen: The spleen is enlarged measuring 15.4 cm Pancreas: Unremarkable. Adrenal glands: Unremarkable. Kidneys: There are bilateral renal masses statistically representing cysts although accurate characterization is difficult given the noncontrast nature of this examination. There is minimal fullness of each renal collecting system. There is no ureteral dilatation and no ureteral calculi are visualized. Bowel: There are no transition zones indicate bowel obstruction. There is no evidence of acute diverticulitis. The appendix appears normal. Peritoneum: There is no intraperitoneal free air or abdominal ascites. Vasculature: The abdominal aorta is normal in course and caliber. Adenopathy: Iliac chain lymph nodes are the upper limits of normal in size. Pelvic viscera: There is an indwelling Blunt catheter Skeletal structures: No destructive osseous lesions are seen. IMPRESSION: 1. No evidence of bowel obstruction. No evidence of free air 2. Normal appendix. No evidence of acute diverticulitis 3. Splenomegaly 4. Iliac chain lymph nodes the upper limits of normal in size 5. Bilateral renal masses likely representing cysts although accurate characterization is limited on this noncontrast study Electronically signed by: Taye Roland M.D. 03/17/2019 12:[address] head/brain wo con CLINICAL HISTORY: Acute change in mental status. Patient on Coumadin. COMPARISON STUDY: 12/30/2017 TECHNIQUE: Axial CT of the brain is performed from the vertex to the skull base. IV contrast was not administered for this examination. A dose lowering technique was utilized adhering to the principles of ALARA. CT DOSE: 4047.34 mGy.cm FINDINGS: No intra or extra-axial mass lesions are visualized. There is no CT evidence of acute cortical infarction. There is no evidence of midline shift. There is no acute hemorrhage. No calvarial fractures are visualized. There are patchy white matter hypodensities likely on a small vessel basis. There is persistent ventricular dilatation which is likely secondary to volume loss. There is no evidence of acute sinusitis IMPRESSION: No acute intracranial findings Electronically signed by: Taye Roland M.D. 03/17/2019 12:38 PM ECG Data Attestation: I personally reviewed and interpreted this ECG as follows: Indication: altered mental status Rate (beats per minute): 150 Rhythm: atrial flutter Findings: + LBBB; no PVC Additional Comments: Repeat EKG at 1256 atrial flutter Rate 135 LBBB, PVC Blood Pressure Blood Pressure Findings: Elevated blood pressure Blood Pressure Disposition: Referred to patients primary care provider MDM Narrative I did evaluate the patient immediately on arrival as noted above. I did obtain history from the patient's daughter as well as EMS due to his condition. He is in respiratory distress with tachycardia. Rectal temperature was taken here and was 106. He had been given Tylenol rectally prior to arrival. We cannot give him NSAIDs due to his history of Coumadin use. Ice packs were placed in his axilla and groin in the room was cold. IV access was established. The patient was placed on a continuous inspector plating. I did order and personally review the patient's 12-lead EKG as described above. He appears to have sinus tachycardia versus a flutter. EMS showed me that her EKGs that were taken pre hospital. Initial EKG showed sinus tachycardia. Second EKG shows sinus tachycardia with a left bundle branch block. Our EKG here shows a rate of 150 with a left bundle branch block. I did not treat his heart rate at this time because I felt it was likely secondary to his high fever. His blood pressure was elevated on arrival. I did order blood cultures. I did order immediately Zosyn IV for sepsis. I did order BiPAP for the patient. I did order and personally reviewed the images of the patient's chest x-ray as described above. There is no evidence of an infection. I did order a urine analysis. This is difficult to interpret due to the blood. I did order and review the patient's b lood work as noted in the electronic medical record. His white count is 4.19. He is not anemic. Platelet count is slightly low. INR is 2.9. ABG does not show acidosis. His PCO2 is 33. Troponin is slightly elevated at 0.05. His creatinine is elevated as well at 1.6. I did order a CT of the head, abdomen and pelvis. I did review the images myself as well as the radiology report as described above. There is no evidence of acute intracranial process. Abdominal CT shows splenomegaly but no evidence of acute process or appendicitis. I did reevaluate the patient multiple times. I did discuss the test results with the patient and family. His heart rate did come down to the 130s. Repeat twelve- lead EKG shows a flutter with a left bundle branch block. There is no signs of STEMI her [place] criteria. His temperature is still elevated. I did have the nurse try a of the operative cooling with a fan and water mist. I did discuss the case with the hospitalist and case investigator. They did request a speak to the plant controller. I did speak to Dr. Guerra. I did later speak to Dr. Donovan who stated that he likely did not need the ICU. The patient did have significant improvement of his respiratory status with BiPAP. Impression & Plan Sepsis, Respiratory failure, Acute UTI, Atrial flutter with rapid ventricular r esponse, Elevated troponin, Anticoagulated on Coumadin, Gross hematuria Critical Care Time Critical Care Time: Yes Total Critical Care Time: 40 I have personally spent approximately 40 minutes of critical care time in the direct management of this patient. This includes bedside care, interpretation of diagnostic studies, and testing, discussion with consultants, patient, and family members, and other required patient management activities. This 40 minutes is in excess of all separately billable procedures. Discharge Plan Visit Data *Final* Discharge Date/Time: 03/17/19 13:46 Chief Complaint: Respiratory Distress Stated Complaint: sepsis ED Provider: Chavez Traore Discharge Problem: Sepsis, Respiratory failure, Acute UTI, Atrial flutter with rapid ventricular response, Elevated troponin, Anticoagulated on Coumadin, Gross hematuria Patient Disposition: Being Evaluated by Hospitalist Discharge Instructions Interventions: ED Discharge Assessment Last Done: 03/17/19 13:46 Discharge Problem: Sepsis Qualifiers: Sepsis type: sepsis due to unspecified organism Sepsis acute organ dysfunction status: unspecified Qualified Code(s): A41.9 - Sepsis, unspecified organism Respiratory failure Qualifiers: Chronicity: unspecified Respiratory failure complication: unspecified whether with hypoxia or hypercapnia Qualified Code(s): J96.90 - Respiratory failure, unspecified, unspecified whether with hypoxia or hypercapnia The scribe's documentation has been prepared under my direction and personally reviewed by me in its entirety. I confirm that the note above accurately reflects all work, treatment, procedures, and medical decision making performed by me.
[2019-03-17] MEDS: SODIUM CHLORIDE 0.9% 1000ML 1,000 ML IV SCH (23:22)
[2019-03-18] MEDS: PIPERACILLIN/TAZOBACTAM 4.5 GM in DEXTROSE 5% 100 ML IV SCH ×3 (03:44→17:13)
[2019-03-18 06:26] LABS: Hematocrit (blood only) 37.1 % (42-52); Mean Corpuscular Hemoglobin 28.4 pg (25-34); Mean Corpuscular Hgb Conc 32.3 g/dL (32-36); Mean Corpuscular Volume 87.9 fL (80-100); Mean Platelet Volume 10.9 fL (7.4-10.4); Platelet Count 152 K/uL (130-400); RDW Coefficient of Variation 17.7 % (11.5-14.5); RDW Standard Deviation 57.5 fL (36.4-46.3); Red Blood Count 4.22 M/uL (4.7-6.1)
[2019-03-18 06:45] LABS: BUN Creatinine Ratio 21.8 (10-20); Calcium 9.3 mg/dl (8.5-10.1); Creatinine Clr Calc Pharmacy 48.8 ml/min; Est GFR (African American) 45.8; Est GFR (Non-African American) 39.6
--- NOTE | 2019-03-18 08:27 | Urology Consultation ---
Date of Consultation March 18, 2019 Assessment & Plan (1) Acute UTI: 83yo M with multiple comorbidities, admitted with sepsis, indwelling stafford catheter, suspected UTI. Unable to obtain any medical history from patient, not unexpected based upon baseline cognitive status. No family members at bedside this AM. Will contact family later today to discuss stafford catheter management history, etc. Per nursing, pt is on hospice. Will need to confirm this as this will help determine aggressiveness of intervention if status changes. Plan to maintain indwelling catheter for now. OKay irrigate with 60-120cc sterile water qshift PRN sediment/clotting. Encouraged that gross hematuria has resolved, likely due to infectious cystitis, chronic stafford irritation, and anticoagulant use. CT imaging reveals no sign of obstruction - no need for urgent surgical evaluation. Will continue to monitor with primary service. No indication for urgent surgical intervention at this time, thank you for the consultation. History of Present Illness Reason for Consultation: chronic indwelling catheter, gross hematuria, UTI Requesting Physician: Dr. Donovan Attending Physician: Muna Donovan, DO History of Present Illness 83 year old male with PMHx dementia, COPD, CHF, PE on coumadin, chronic indwelling catheter admitted through [facility] ED for evaluation of AMS. Baseline only oriented to self, and mostly bedbound. Per family he was more confused than his baseline, as well as SOB. Found to be severely septic, with HR 160s, Rectal Temp 41.2 Pt has a chronic catheter, noted to have bright red hematuria as well. We were consulted to assist in stafford management, UTI. CT imaging reviewed - stable bilateral renal cysts, no obstruction or significant hydronephrosis. UA suspicious for UTI. BCx prelim pos for gram neg bacilli UC&S pending This AM, stafford draining yellow, cloudy with moderate sediment. Pt unable to answer questions related to medical history. Oriented to self, and answers "yes" to knowing he is in the hospital. Able to follow simple commands. Unsure who manages his catheter, or reason for hospitalization. No family members at bedside. Allergies Allergy/AdvReac Type Severity Reaction Status Date / Time morphine AdvReac Severe becomes Unverified 12/30/17 14:53 wild and combative Home Medications Home Medications Medication Instructions Recorded Confirmed Type aspirin [Aspir-81] 81 mg PO DAILY 03/17/19 03/17/19 History calcium carbonate [Calcium 600] 600 mg PO DAILY 03/17/19 03/17/19 History citalopram 10 mg PO DAILY 03/17/19 03/17/19 History citalopram 20 mg PO DAILY 03/17/19 03/17/19 History clonazepam 0.5 mg PO BID PRN 03/17/19 03/17/19 History clonazepam 1 mg PO HS 03/17/19 03/17/19 History ipratropium-albuterol 3 ml INHALATION Q6H PRN 03/17/19 03/17/19 History tramadol 50 mg PO Q6H PRN 03/17/19 03/17/19 History warfarin 2.5 mg PO MOWEFR 03/17/19 03/17/19 History warfarin 5 mg PO SUTUTHSA 03/17/19 03/17/19 History Patient History Medical History Chronic diastolic CHF (congestive heart failure) (Chronic) COPD (chronic obstructive pulmonary disease) (Chronic) Anticoagulated on Coumadin (Chronic) Dementia (Chronic) Pulmonary embolism (Chronic) Anxiety (Chronic) HTN (hypertension) (Chronic) CAD (coronary artery disease) (Chronic) 1999 - inferior lateral wall [place] s/p thrombolytic therapy, implantable angioplasty 1st diagonal HLD (hyperlipidemia) (Chronic) DM2 (diabetes mellitus, type 2) (Chronic) Surgical History H/O angioplasty (Chronic) "1999 [place] " H/O hernia repair (Chronic) S/P surgical manipulation of ankle joint (Chronic) Family History Sister Arthritis Social History Preferred Language: Latvian Communication Ability: Unable Cyberathlete Required: Voice Beliefs That Will Affect Care: None Current Living Situation: Spouse and Family Other Information That Helps Us Care for You: No Feels Safe at Home: Yes Safety Concerns: Feels Safe At This Time Smoking Status: Former smoker Tobacco Type: pipe ; Do You Dip or Chew Tobacco: No ; Second Hand Exposure: No ; Hx Alcohol Use: No Hx Substance Use: No Review of Systems Review of Systems: Unobtainable due to cognitive status Physical Exam Constitutional: + disheveled; no acute distress and not ill appearing Eyes: no nystagmus ENMT: Ears: + hearing impairment Mouth: + poor dentition Neck: trachea midline Respiratory: no respiratory distress and no cough Cardiovascular: Vessels: no JVD Chest (Breasts): Chest: normal inspection of chest Gastrointestinal (Abdomen): Inspection/Auscultation: abdomen not distended and no abdominal edema Percussion/Palpation: abdomen soft; abdomen nontender Musculoskeletal: Head/Neck/Chest: normocephalic and head atraumatic Skin: no rashes, warm and dry Neurologic: awake and + confused; not obtunded Psychiatric: Orientation: alert and oriented x 3 Eye Contact: good eye contact Affect: no depressed affect Genitourinary: no CVA tenderness stafford intact, draining yellow cloudy with moderate sediment. meatus without erosion mild bloody discharge from tip of penis. Lymphatic: no lymphadenopathy and no lymphedema Results & Data Vital Signs (Past 12 Hours) Vital Signs Temp Pulse Pulse Pulse Resp BP Pulse Ox 03/18/19 07:57 36.5 C 83 14 114/71 95 03/18/19 06:04 94 03/18/19 03:49 36.7 C 78 20 138/80 100 03/18/19 00:43 75 03/17/19 23:33 36.8 C 66 24 110/75 95 PG Care Time/CCT Total # of Minutes Spent Total Time Spent with Patient: Total time spent is greater than 50% in coordination of care (as documented) at patient's floor/unit and/or counseling patient:
[2019-03-18] MEDS ORDERED: LORazepam 0.25 MG/0.5 ML VIAL IV PRN (08:34)
--- NOTE | 2019-03-18 09:04 | Cardiology Progress Note ---
Date of Service March 18, 2019 Assessment & Plan (1) Left bundle branch block: Will sign off call for any questionsRate related in the setting of acute tachycardia sepsis/atrial flutter. No further recurrence. EKG this morning without profound ischemia. Troponins elevated likely on the basis of demand ischemia in the setting of acute sepsis. Recommendations. Treat underlying sepsis process is already being performed. Would resume beta-eder once able to take p.o. meds. Outpatient list variable question use of metoprolol and diltiazem prior to admission. Would resume at least metoprolol Continue chronic anticoagulation with warfarin given past history of PE DVT and transient atrial arrhythmia on presentation IV metoprolol may be used if unable to take p.o. in the interim Will sign off. Call with any questions (2) Sepsis: (3) Atrial flutter with rapid ventricular response: Patient is an elderly 83-year-old male with progressive dementia now bedbound with indwelling Blunt catheter presented with signs and symptoms of acute sepsis, tachycardia fever with gross hematuria. Initial rhythm demonstrated sinus tachycardia versus probable atrial flutter with rate related left bundle branch block. Since resuscitation as she has b egun atrial flutter has resolved patient now in sinus tachycardia rate 100 with resolve of left bundle branch block configuration. Patient chronically anticoagulated for past history of DVT pulmonary embolus Recommendations: Treat underlying sepsis process. Records reflect the use of metoprolol and diltiazem as outpatient . IV metoprolol at 5 mg every 4 hours may be given if patient unable to take p.o. medications in the interim (4) Gross hematuria: (5) CAD (coronary artery disease): Subjective Patient seen and examined, chart, medications, telemetry reviewed. Patient awake and conversant, oriented to person. Denies any acute complaints. Telemetry reveals sinus rhythm with resolve of left bundle branch block. Blood and urine cultures growing gram-negative bacilli Troponins elevated since admission. Possible demand based ischemia versus artifactual elevation in the setting of sepsis and acute renal insufficiency. Physical Exam Constitutional: + ill appearing and + obese Neck: + thick neck Respiratory: Auscultation: + diminished lung sounds Cardiovascular: Rate/Rhythm: regular rate and regular rhythm Gastrointestinal (Abdomen): normal bowel sounds, soft, nontender, no hepatosplenomegaly Results & Data Vital Signs (Past 12 Hours) Vital Signs Temp Pulse Pulse Pulse Resp BP Pulse Ox 03/18/19 07:57 36.5 C 83 14 114/71 95 03/18/19 06:04 94 03/18/19 03:49 36.7 C 78 20 138/80 100 03/18/19 00:43 75 03/17/19 23:33 36.8 C 66 24 110/75 95 (1) Sepsis Sepsis acute organ dysfunction status: unspecified Sepsis type: sepsis due to unspecified organism Qualified Code(s): A41.9 - Sepsis, unspecified organism
[2019-03-18 09:15] LABS: Partial Thromboplastin Ratio 1.9; Prothrombin Time 36.3 Seconds (9.0-12.0)
[2019-03-18] MEDS: SODIUM CHLORIDE 0.9% 1000ML 1,000 ML IV SCH (09:16)
[2019-03-18 09:17] LABS: INR 3.9 (0.9-1.1)
[2019-03-18 09:18] LABS: Partial Thromboplastin Time 52.1 Seconds (21.0-31.0)
--- NOTE | 2019-03-18 10:11 | Infectious Disease Consult ---
Date of Consultation March 18, 2019 Assessment & Plan (1) Sepsis: continue abx, follow culture results, will repeat blood cultures. lactate, temp improving on abx. urology following. History of Present Illness Attending Physician: Muna Donovan DO pt admitted with change in mental status and bleeding from chronic stafford cath. UA in ER > 30 wbc + 3 bacteria, found to have temp as high as 41.2 in ER. started on zosyn, tolerating well. fevers improved. remains confused, unable to answer any questions regarding ROS. wbc 4 in ER, now 16. Lactate improved from 2.5 to 1.1, troponin mildly elevated, cardio following. evaluated by urology this am. CT abd - b/l renal cysts. cxr, ct head negative, Urine and blood cultures now + for GNR, ID pending. Creat 1.5. pt is awake and oriented to self, unable to provide ROS. Allergies Allergy/AdvReac Type Severity Reaction Status Date / Time morphine AdvReac Severe becomes Unverified 12/30/17 14:53 wild and combative Home Medications Home Medications Medication Instructions Recorded Confirmed Type aspirin [Aspir-81] 81 mg PO DAILY 03/17/19 03/17/19 History calcium carbonate [Calcium 600] 600 mg PO DAILY 03/17/19 03/17/19 History citalopram 10 mg PO DAILY 03/17/19 03/17/19 History citalopram 20 mg PO DAILY 03/17/19 03/17/19 History clonazepam 0.5 mg PO BID PRN 03/17/19 03/17/19 History clonazepam 1 mg PO HS 03/17/19 03/17/19 History ipratropium-albuterol 3 ml INHALATION Q6H PRN 03/17/19 03/17/19 History tramadol 50 mg PO Q6H PRN 03/17/19 03/17/19 History warfarin 2.5 mg PO MOWEFR 03/17/19 03/17/19 History warfarin 5 mg PO SUTUTHSA 03/17/19 03/17/19 History Patient History Medical History Chronic diastolic CHF (congestive heart failure) (Chronic) COPD (chronic obstructive pulmonary disease) (Chronic) Anticoagulated on Coumadin (Chronic) Dementia (Chronic) Pulmonary embolism (Chronic) Anxiety (Chronic) HTN (hypertension) (Chronic) CAD (coronary artery disease) (Chronic) 1999 - inferior lateral wall [place] s/p thrombolytic therapy, implantable angioplasty 1st diagonal HLD (hyperlipidemia) (Chronic) DM2 (diabetes mellitus, type 2) (Chronic) Surgical History H/O angioplasty (Chronic) "1999 [place] " H/O hernia repair (Chronic) S/P surgical manipulation of ankle joint (Chronic) Family History Sister Arthritis Social History Preferred Language: Jordanian Communication Ability: Unable Counter Stitcher Required: Voice Beliefs That Will Affect Care: None Current Living Situation: Spouse and Family Other Information That Helps Us Care for You: No Feels Safe at Home: Yes Safety Concerns: Feels Safe At This Time Smoking Status: Former smoker Tobacco Type: pipe ; Do You Dip or Chew Tobacco: No ; Second Hand Exposure: No ; Hx Alcohol Use: No Hx Substance Use: No Review of Systems Review of Systems: Unobtainable due to cognitive status Physical Exam Constitutional: WD/WN, vitals as above Eyes: PERRL, conjunctivae normal, anicteric sclerae ENMT: external ear and nose normal, oropharynx normal Neck: normal visual inspection Respiratory: normal respiratory effort, lungs clear to auscultation Cardiovascular: RRR, no murmur, no edema Gastrointestinal (Abdomen): normal bowel sounds, soft, nontender, no hepatosp lenomegaly Musculoskeletal: no cyanosis or clubbing, extremities motor strength 5/5 Skin: no rashes, warm and dry Psychiatric: Orientation: oriented to person Apperance: appropriately dressed; not disheveled Results & Data Vital Signs (Past 12 Hours) Vital Signs Temp Pulse Pulse Pulse Resp BP Pulse Ox 03/18/19 07:57 36.5 C 83 14 114/71 95 03/18/19 06:19 83 03/18/19 06:04 94 03/18/19 03:49 36.7 C 78 20 138/80 100 03/18/19 00:43 75 03/17/19 23:33 36.8 C 66 24 110/75 95 Laboratory Results Microbiology 03/17/19 11:53 Blood Aerobic Blood Culture - Preliminary Gram negative bacilli 03/17/19 11:53 Blood Anaerobic Blood Culture - Preliminary Gram negative bacilli 03/17/19 11:30 Blood Aerobic Blood Culture - Preliminary Gram negative bacilli 03/17/19 11:30 Blood Anaerobic Blood Culture - Preliminary Gram negative bacilli 03/17/19 11:58 Urine,Straight Cath Urine Culture - Preliminary Gram negative bacilli PG Care Time/CCT Total # of Minutes Spent Total Time Spent with Patient: Total time spent is greater than 50% in coordination of care (as documented) at patient's floor/unit and/or counseling patient: (1) Sepsis Sepsis acute organ dysfunction status: unspecified Sepsis type: sepsis due to unspecified organism Qualified Code(s): A41.9 - Sepsis, unspecified organism
[2019-03-18] MEDS ORDERED: ALBUT/IPRATROP 3MG/0.5MG NEB 3 ML VIAL INH PRN (15:01)
[2019-03-18] MEDS ORDERED: TRAMADOL HCL 50 MG TABLET PO PRN (15:01)
--- NOTE | 2019-03-18 15:08 | Hospitalist Progress Note ---
Date of Service March 18, 2019 Assessment & Plan (1) Metabolic encephalopathy: Resolved to baseline mental status after infection controlled overnight (2) Infection associated with indwelling urinary catheter: UTI with sepsis likely due to chronic stafford catheter (3) Gram-negative bacteremia: (4) Sepsis: Urine source with gram negative bacteremia noted. Cont broad spectrum Zosyn as he is clnically improved and resuscitated from a sepsis standpoint. ID consulted. (5) Respiratory failure: -patient presenting with resp distress requiring BiPap -CXR showing mild congestion; no clear infiltrate or consolidation -releated to sepsis and severe hyperthermia -improved to baseline today after resuscitation overnight (6) Atrial flutter with rapid ventricular response: 2/2 sepsis, resolved. (7) Left bundle branch block: 2/2 sepsis and acute infection, resolved. (8) Gross hematuria: -likely due to acute UTI in setting of coumadin use -hold Coumadin -hgb stable -urology consult (9) SAI (acute kidney injury): -baseline creat ~ 1.1 -up to 1.6 today -likely prerenal vs ATN due to sepsis/acute illness -IVF, follow renal functions, avoid nephrotoxic as able (10) History of pulmonary embolism: -on Coumadin, INR >3.9 today, no further hematuria noted. -holding coumadin as above (11) Demand ischemia: secondary to hemodynamic instability in sepsis. Trop trended down. Not consistent with ACS. Appreciate cards recs. (12) Anxiety: resume Celexa nad Clonazepam (13) DVT prophylaxis: SCDs, no chemoprophy as INR 3.9 DNR/DNI Dispo-to med/surg Muna Donovan DO [facility] Hospitalist Subjective Doing well today Mentating at baseline afebrile tolerating PO with mods per speech therapy urine has cleared some discomfort in his abdomen, however, he is currently having a BM on the bedpan daughter at bedside Review of Systems Review of Systems: All systems reviewed & are unremarkable except as noted in HPI & below (dementia noted with poor understanding of medical issues. ) Physical Exam Physical Exam: CONSTITUTIONAL: WNWD, vitals as above, generally well- appearing EYES: normal conjunctivae, no scleral icterus, no fundoscopic abnormality ENT: MMM RESPIRATORY: clear to auscultation bilaterally, no crackles, rales or wheezes, normal respiratory effort CARDIOVASCULAR: regular rate and rhythm, S1 and 2 heard without murmurs, gallops or rubs, no JVD, no peripheral edema GASTROINTESTINAL: normal bowel sounds, soft, nontender, nondistended MUSCULOSKELETAL: strength 5/5 throughout, head is normocephalic and atraumatic SKIN: warm and dry NEUROLOGIC: N 2-12 grossly intact, no sensory deficit, normal cognition, normal speech, baseline mental status PSYCHIATRIC: alert cooperative and oriented to person, place and time. Results & Data Vital Signs (Past 12 Hours) Vital Signs Temp Pulse Pulse Pulse Resp BP Pulse Ox 03/18/19 11:02 36.5 C 83 16 125/78 96 03/18/19 07:57 36.5 C 83 14 114/71 95 03/18/19 06:19 83 03/18/19 06:04 94 03/18/19 03:49 36.7 C 78 20 138/80 100 Laboratory Results Short CBC 03/18/19 Range/Units 05:46 WBC 16.00 H D (4.8-10.8) K/uL Hgb 12.0 L (14.0-18.0) g/dL Hct 37.1 L (42-52) % Plt Count 152 (130-400) K/uL BMP 03/18/19 05:46 Sodium 140 Potassium 4.0 Chloride 108 H Carbon Dioxide 27 BUN 35 H Creatinine 1.59 H Glucose 111 H Calcium 9.3 Cardiac Enzymes 03/17/19 03/17/19 03/17/19 Range/Units 11:30 16:19 22:10 Total Creatine Kinase 76 (39-308) U/L Troponin I 0.084 H* 0.853 H* 1.030 H* (0-0.045) ng/ml 03/18/19 03/18/19 Range/Units 07:15 12:52 Total Creatine Kinase (39-308) U/L Troponin I 0.827 H* 0.792 H* (0-0.045) ng/ml Medications Administered Current Inpatient Medications Acetaminophen (Tylenol) 650 mg PO Q4H PRN PRN Reason: Pain or Fever Stop: 04/16/19 14:15 Albuterol (Duoneb) 3 ml INH Q6H PRN PRN Reason: Shortness Of Breath Stop: 04/17/19 15:00 Citalopram Hydrobromide (Celexa) 20 mg PO DAILY [facility] Stop: 04/18/19 08:59 Clonazepam (Klonopin) 1 mg PO HS ANNE Stop: 04/17/19 20:59 Piperacillin Sod/Tazobactam (Sod 4.5 gm/ Dextrose) 120 mls @ 30 mls/hr IV Q8H ANNE; Protocol Stop: 03/19/19 17:59 Last Infusion: 03/18/19 13:25 Dose: Infused Documented by: Miscellaneous Information (Consult) 1 ea N/A UD PRN PRN Reason: Consult Stop: 04/16/19 14:58 Non-Formulary Medication (Citalopram) 10 mg PO DAILY ANNE Stop: 04/18/19 08:59 Tramadol HCl (Ultram) 50 mg PO Q6H PRN PRN Reason: Pain Stop: 04/17/19 15:00 (1) Respiratory failure Chronicity: unspecified Respiratory failure complication: unspecified whether with hypoxia or hypercapnia Qualified Code(s): J96.90 - Respiratory failure, unspecified, unspecified whether with hypoxia or hypercapnia (2) Sepsis Sepsis acute organ dysfunction status: unspecified Sepsis type: sepsis due to unspecified organism Qualified Code(s): A41.9 - Sepsis, unspecified organism
[2019-03-18] MEDS ORDERED: clonazePAM 0.5 MG TAB PO PRN (16:36)
[2019-03-18] MEDS ORDERED: clonazePAM 0.5 MG TAB PO STA (16:36)
[2019-03-18] MEDS ORDERED: clonazePAM 1 MG TAB PO SCH (21:00)
[2019-03-19] MEDS: PIPERACILLIN/TAZOBACTAM 4.5 GM in DEXTROSE 5% 100 ML IV SCH ×2 (02:04→10:23)
[2019-03-19] MEDS ORDERED: FUROSEMIDE 60 MG in SYRINGE 0 ML IV STA (03:51)
[2019-03-19] MEDS ORDERED: LABETALOL HCL IV 5 MG/ML 20ML IV STA (04:20)
[2019-03-19 04:34] LABS: Hematocrit (blood only) 41.8 % (42-52); Hemoglobin 13.9 g/dL (14.0-18.0); Mean Corpuscular Hemoglobin 29.3 pg (25-34); Mean Corpuscular Hgb Conc 33.3 g/dL (32-36); Mean Corpuscular Volume 88.2 fL (80-100); Mean Platelet Volume 10.8 fL (7.4-10.4); Platelet Count 197 K/uL (130-400); RDW Coefficient of Variation 17.7 % (11.5-14.5); RDW Standard Deviation 57.6 fL (36.4-46.3); Red Blood Count 4.74 M/uL (4.7-6.1); White Blood Count 18.88 K/uL (4.8-10.8)
[2019-03-19 04:52] LABS: BUN Creatinine Ratio 19.2 (10-20); Calcium 9.2 mg/dl (8.5-10.1); Creatinine Clr Calc Pharmacy 51.1 ml/min; Est GFR (African American) 48.4; Est GFR (Non-African American) 41.8; Magnesium 2.1 mg/dl (1.8-2.4); Potassium 3.8 mmol/L (3.5-5.1)
[2019-03-19] MEDS ORDERED: XOPENEX/ATROVENT 1.25mg/0.5MG NEB COMBO NEB PRN (04:52)
[2019-03-19] MEDS ORDERED: XOPENEX/ATROVENT 1.25mg/0.5MG NEB COMBO NEB STA (04:52)
[2019-03-19] MEDS ORDERED: CARBOHYDRATES FOR HYPOGLYCEMIA PO PRN (04:54)
[2019-03-19] MEDS ORDERED: DEXTROSE 50% 50 ML SYRINGE IV PRN (04:54)
[2019-03-19] MEDS ORDERED: GLUCOSE 10 TABS/TUBE PO PRN (04:54)
[2019-03-19] MEDS ORDERED: GLUCOSE 40% GEL 15 GM TUBE PO PRN (04:54)
[2019-03-19] MEDS ORDERED: GLUCAGON FOR INJ 1 MG VIAL SQ PRN (04:54)
[2019-03-19 04:55] LABS: Partial Thromboplastin Ratio 1.8
[2019-03-19] MEDS ORDERED: LEVALBUTEROL 1.25MG/0.5ML NEB INH PRN (05:00)
[2019-03-19] MEDS ORDERED: IPRATROPIUM BROMIDE NEB SOLN 0.02% 2.5 ML VIAL INH PRN (05:00)
[2019-03-19 05:03] LABS: Base Excess ABG -5.1 mEq/L (-9-1.8); HCO3 ABG 21 mmol/L (19-24); Oxygen Saturation ABG 96.5 % (90-95); PCO2 ABG 41 mmHg (35-46); PO2 ABG 90 mm/Hg (80-95); pH ABG 7.32 (7.35-7.45)
[2019-03-19 05:05] LABS: Allen Test Pos (Pos)
[2019-03-19 05:06] LABS: Partial Thromboplastin Time 47.8 Seconds (21.0-31.0)
[2019-03-19] MEDS ORDERED: POTASSIUM CHLORIDE 20 MEQ TABCR PO STA (05:11)
[2019-03-19] MEDS ORDERED: IPRATROPIUM BROMIDE NEB SOLN 0.02% 2.5 ML VIAL INH ONE (05:15)
[2019-03-19] MEDS ORDERED: INSULIN GLARGINE SOLOSTAR 100 UNITS/ML 3 ML PEN SQ ONE (05:15)
[2019-03-19] MEDS ORDERED: LEVALBUTEROL 1.25MG/0.5ML NEB INH ONE (05:15)
[2019-03-19] MEDS: INSULIN ASPART 100 UNITS/ML 3 ML PEN SC SCH ×4 (05:41→21:17)
[2019-03-19 06:13] LABS: ALC (manual) 5.93 K/uL (1.2-3.4); ANC (manual) 11.84 K/uL (1.4-6.5); Eosinophils # (manual) 0.32 K/uL (0-0.5); Eosinophils % (manual) 1.7 %; Lymphocytes # (manual) 0.96 K/uL (1.2-3.4); Lymphocytes % (manual) 5.1 %; Monocytes # (manual) 0.79 K/uL (0.11-0.59); Monocytes % (manual) 4.2 %; Neutrophils # (manual) 11.84 K/uL (1.4-6.5); Neutrophils % (manual) 62.7 %; RBC Morphology Unremarkable; Reactive Lymphocytes # (manual) 4.97 K/uL; Reactive Lymphocytes % (manual) 26.3 %
[2019-03-19] MEDS: METOPROLOL TARTRATE 25 MG TAB PO SCH ×4 (06:15→22:56)
[2019-03-19] MEDS ORDERED: methylPREDNISolone 20 MG in SYRINGE 0 ML IV ONE (06:15)
--- NOTE | 2019-03-19 08:24 | XRay Report ---
XR chest 1V portable CLINICAL HISTORY: 83 years-old Male presenting with sob. TECHNIQUE: Portable upright AP view of the chest was obtained. COMPARISON: 03/17/2019. FINDINGS: Atherosclerosis of the aortic arch. Cardiac silhouette enlarged. Diffuse added density of the right l lavonne in comparison to the left. Bibasilar opacities increased from prior, markedly increased on the ri ght. Small right pleural effusion may be present. No pneumothorax. Degenerative changes of the thorac ic spine. Upper abdomen normal. IMPRESSION: 1. Significant interval increase in bilateral infiltrates greater on the right concerning for multif ocal pneumonia. Asymmetric pulmonary edema or aspiration considered less likely. 2. Cardiomegaly. Electronically signed by: Marco Ram M.D. 03/19/2019 8:22 AM
[2019-03-19] MEDS ORDERED: POTASSIUM CHLORIDE 20 MEQ TABCR PO ONE (08:45)
--- NOTE | 2019-03-19 08:52 | Hospitalist Progress Note ---
Date of Service March 19, 2019 Assessment & Plan (1) Respiratory failure: Initially presented with acute respiratory failure improved with BIPAP support. IVF for resuscitation given and overnight he decompensated again, this time related to sepsis resuscitation efforts. Second dose of Lasix noted with persistent oxygen needs, output only 600cc into stafford and persistent rales on exam. (2) Acute diastolic (congestive) heart failure: related to resuscitation with IVF during the treatment of sepsis. Cont Lasix as above. Gave some potassium supplementation, also. Monitor for continued improvement today. (3) Metabolic encephalopathy: worsened confusion with episode of increased hypoxia overnight (4) Infection associated with indwelling urinary catheter: Klebsiella UTI with sepsis likely due to chronic stafford catheter (5) Gram-negative bacteremia: 2/2 Klebsiella pneumonia-related to urine source (6) Sepsis: Urine source with gram negative bacteremia noted. Cont broad spectrum Zosyn as he is clinically improved and resuscitated from a sepsis standpoint. ID consulted. (7) Atrial flutter with rapid ventricular response: 2/2 sepsis, resolved. (8) Left bundle branch block: 2/2 sepsis and acute infection, resolved. (9) Gross hematuria: -likely due to acute UTI in setting of coumadin use -hold Coumadin -hgb stable -urology consult (10) SAI (acute kidney injury): -baseline creat ~ 1.1, initially increased related to sepsis infection and hemodynamic instability. Now will likely increase with Lasix on board. Will cont to monitor BMP (11) History of pulmonary embolism: -on Coumadin, no further hematuria noted. -holding coumadin as above (12) Demand ischemia: secondary to hemodynamic instability in sepsis. Trop trended down. Not consistent with ACS. Appreciate cards recs. (13) Anxiety: resume Celexa and Clonazepam (14) DVT prophylaxis: SCDs, no chemoprophy with supratherapeutic INR and elevated PTT this am. DNR/DNI Dispo-telemetry Muna Donovan DO [facility] Hospitalist Subjective Doing better this am after fluid overload overnight. Pt was resuscitated from sepsis-->increased work of breathing with hypoxia overnight Pulmonary edema on xray Transferred back to telemetry and placed on increased oxygen support with BIPAP Improved this morning, was able to come off BIPAP after only a few hours-->also received Lasix around 0300 and had 600 out into [place] Eating this morning-->feels like he ate too much still on increased oxygen support, but no respiratory distress noted Reports abdominal discomfort that is chronic-->abdominal exam was normal and pt had CT scan s/p this admission that was unremarkable. Review of Systems Review of Systems: All systems reviewed & are unremarkable except as noted in HPI & below (noted patient is confused with baseline dementia, but denies pain, SOB or other issues except as noted in HPI) Physical Exam Physical Exam: CONSTITUTIONAL: WNWD, vitals as above, generally well- appearing EYES: normal conjunctivae, no scleral icterus ENT: MMM, poor dentition RESPIRATORY: +rales in right lung isabel, clear in upper left lung field with some scattered rhonchi at bases heard but not consistently, normal respiratory effort on an increased amount of oxygen supplementation via nasal canula. CARDIOVASCULAR: regular rate and rhythm, S1 and 2 heard without murmurs, gallops or rubs, no JVD, no peripheral edema GASTROINTESTINAL: normal bowel sounds, soft, nontender, nondistended MUSCULOSKELETAL: moves all extremities easily but generally is very deconditioned, head is normocephalic and atraumatic SKIN: warm and dry NEUROLOGIC: CN 2-12 grossly intact, no sensory deficit, confused, thinks he is at rehab and that he is tired because he was just out with his . Results & Data Vital Signs (Past 12 Hours) Vital Signs Temp Pulse Pulse Pulse Resp BP BP 03/19/19 06:21 92 H 36 H 03/19/19 06:16 92 H 36 H 03/19/19 04:47 03/19/19 04:44 37.1 C 97 H 40 H 128/90 03/19/19 04:11 114 H 36 H 03/19/19 03:45 145 H 48 H 220/148 H 231/150 H 03/18/19 22:37 36.7 C 95 H 20 157/98 H Pulse Ox Pulse Ox 03/19/19 06:21 98 03/19/19 06:16 98 03/19/19 04:47 94 03/19/19 04:44 94 03/19/19 04:11 93 03/19/19 03:45 94 03/18/19 22:37 96 Laboratory Results Short CBC 03/19/19 Range/Units 04:13 WBC 18.88 H (4.8-10.8) K/uL Hgb 13.9 L (14.0-18.0) g/dL Hct 41.8 L (42-52) % Plt Count 197 (130-400) K/uL [facility] 03/19/19 04:13 Sodium 139 Potassium 3.8 Chloride 106 Carbon Dioxide 26 BUN 29 H Creatinine 1.52 H Glucose 164 H Calcium 9.2 Cardiac Enzymes 03/18/19 Range/Units 12:52 Troponin I 0.792 H* (0-0.045) ng/ml Diagnostic Findings CXR-official reading not back, +pulmonary edema R>L Medications Administered Short CBC 03/19/19 Range/Units 04:13 WBC 18.88 H (4.8-10.8) K/uL Hgb 13.9 L (14.0-18.0) g/dL Hct 41.8 L (42-52) % Plt Count 197 (130-400) K/uL [facility] 03/19/19 04:13 Sodium 139 Potassium 3.8 Chloride 106 Carbon Dioxide 26 BUN 29 H Creatinine 1.52 H Glucose 164 H Calcium 9.2 Cardiac Enzymes 03/18/19 Range/Units 12:52 Troponin I 0.792 H* (0-0.045) ng/ml (1) Sepsis Sepsis acute organ dysfunction status: unspecified Sepsis type: sepsis due to unspecified organism Qualified Code(s): A41.9 - Sepsis, unspecified organism (2) Respiratory failure Chronicity: unspecified Respiratory failure complication: unspecified whether with hypoxia or hypercapnia Qualified Code(s): J96.90 - Respiratory failure, unspecified, unspecified whether with hypoxia or hypercapnia
[2019-03-19] MEDS ORDERED: NON-FORMULARY MEDICATION (Citalopram 10 MG) PO SCH (09:00)
[2019-03-19] MEDS ORDERED: FUROSEMIDE 40 MG in SYRINGE 0 ML IV ONE (09:00)
--- NOTE | 2019-03-19 09:30 | Hospitalist Progress Note ---
Date of Service March 19, 2019 Assessment & Plan (1) Encephalopathy: hx dementia as per records Multifactorial: Hypoxemic respiratory failure secondary to fluid overload, CHF, ? Aspiration pneumonitis Hypertensive crisis Tachycardia, possible recurrent atrial flutter Benzodiazepine contributory PCU transfer Baseline ABG BiPAP Lasix 1 dose Aspiration precautions Solu-Medrol 1 dose, neb for possible aspiration pneumonitis causing hypoxemia/bronchospasm EKG now RE tachycardia Labetalol 1 dose, initiate Lopressor maintenance Rx as per Cardiology note TTE RE possible CHF Appropriate to hold home clonazepam for now given increased disorientation. Attempted to update patient family over the phone of developments. No answer. Left voice message. Will relay to AM provider. Total critical care time was 35 minutes. Subjective Around 3:45 AM, patient noted by RN to be in respiratory distress. O2 sats 70s. Patient diaphoretic. SBP 240s, cardiac rate 140s. Patient more disoriented than usual as per RN. Physical Exam Physical Exam: GENERAL: uncomfortable, disoriented, hard of hearing, respiratory distress, abdominal breathing, obese SKIN: Pallor, warm HEENT: Sparse hair, pale palpebral conjunctivae, no ptosis, dry buccal mucosa NECK : Supple, short neck, no tenderness CHEST : Rhonchi right greater than the left, expiratory wheezes , no tenderness HEART : Tachycardic , no obvious murmurs ABDOMEN: Some distention, nontender EXTREMITIES : Minimal LE swelling/tenderness, no other conspicuous deformities noted NEUROLOGIC : Disoriented , no facial asymmetry, no other gross focality Results & Data Vital Signs (Past 12 Hours) Vital Signs Temp Pulse Pulse Resp BP BP Pulse Ox 03/19/19 03:45 145 H 48 H 220/148 H 231/150 H 94 03/18/19 22:37 36.7 C 95 H 20 157/98 H 96 Laboratory Results Chest x-ray as per my interpretation: Asymmetric pulmonary congestion right greater than the left, cardiomegaly
[2019-03-19] MEDS: CITALOPRAM 20 MG TAB PO SCH (10:04)
--- NOTE | 2019-03-19 13:40 | Urology Progress Note ---
Date of Service March 19, 2019 Assessment & Plan (1) Infection associated with indwelling urinary catheter: 83yo M with multiple comorbidities, admitted with sepsis, indwelling stafford catheter, UTI BCx and UCS positive for klebsiella, abx management per ID. CT reviewed with Dr. Gaston - appears to have bilateral renal cysts on CT however indeterminate due to lack of IV contrast. If family wishes to further evaluate, we can arrange for nonurgent outpatient ultrasound. Hematuria has resolved. Please change stafford catheter now, per daughter he is due. Discussed plan of care moving forward with daughter. Okay to continue with monthly cath changes however we may recommend cysto, SP tube in the future if this continues to be an issue. Wishes to avoid surgical procedures due to overall medical status presently. Understandable. Thank you for allowing us to participate in the acute care of Mr. Saturday. Please reconsult us with additional questions, concerns or changes in patient status. Subjective 83yo M with multiple comorbidities, admitted with sepsis, indwelling stafford catheter, suspected UTI. Episode of respiratory distress last evening, appears to be stablizing now. stafford draining clear yellow. Discussed stafford management with DaughterJudy via phone. She states stafford catheter was placed approx 1 year ago while patient on hospice due to incontinence. He is now off hospice and stafford changes being managed by PCP. She states he has had 1-2 UTIs in the past but none this severe. She also states he is about due to for cath change. Review of Systems Review of Systems: All systems reviewed & are unremarkable except as noted in HPI & below Physical Exam Physical Exam: A&Ox3 resp rate shallow abd soft, nontender stafford draining clear yellow Results & Data Vital Signs (Past 12 Hours) Vital Signs Temp Pulse Pulse Resp BP BP Pulse Ox 03/19/19 06:21 92 H 36 H 98 03/19/19 06:16 92 H 36 H 98 03/19/19 04:47 03/19/19 04:44 37.1 C 97 H 40 H 128/90 94 03/19/19 04:11 114 H 36 H 93 03/19/19 03:45 145 H 48 H 220/148 H 231/150 H 94 Pulse Ox 03/19/19 06:21 03/19/19 06:16 03/19/19 04:47 94 03/19/19 04:44 03/19/19 04:11 03/19/19 03:45 PG Care Time/CCT Total # of Minutes Spent Total Time Spent with Patient: Total time spent is greater than 50% in coordination of care (as documented) at patient's floor/unit and/or counseling patient:
--- NOTE | 2019-03-19 13:45 | Infectious Disease Progress Nt ---
Date of Service March 19, 2019 Assessment & Plan (1) Sepsis: urine souce, will change to unasyn. repeat cultures pending. will need 14 days of abx from first negative blood culture, can change to po upon d/c to complete course. Subjective pt transferred from ICU, initial blood cultures and urine culture growing K. pneumo, remains on zosyn, tolerating well. afebrile. wbc 18. creat 1.5. Echo negative for veg, repeat blood cultures pending. Results & Data Vital Signs (Past 12 Hours) Vital Signs Temp Pulse Pulse Resp BP BP Pulse Ox 03/19/19 06:21 92 H 36 H 98 03/19/19 06:16 92 H 36 H 98 03/19/19 04:47 03/19/19 04:44 37.1 C 97 H 40 H 128/90 94 03/19/19 04:11 114 H 36 H 93 03/19/19 03:45 145 H 48 H 220/148 H 231/150 H 94 Pulse Ox 03/19/19 06:21 03/19/19 06:16 03/19/19 04:47 94 03/19/19 04:44 03/19/19 04:11 03/19/19 03:45 Laboratory Results Microbiology 03/17/19 11:58 Urine,Straight Cath Urine Culture - Final Klebsiella pneumoniae 03/17/19 11:53 Blood Aerobic Blood Culture - Final Klebsiella pneumoniae 03/17/19 11:53 Blood Anaerobic Blood Culture - Final Klebsiella pneumoniae 03/17/19 11:30 Blood Aerobic Blood Culture - Final Klebsiella pneumoniae 03/17/19 11:30 Blood Anaerobic Blood Culture - Final Klebsiella pneumoniae PG Care Time/CCT Total # of Minutes Spent Total Time Spent with Patient: Total time spent is greater than 50% in coordination of care (as documented) at patient's floor/unit and/or counseling patient: (1) Sepsis Sepsis acute organ dysfunction status: unspecified Sepsis type: sepsis due to unspecified organism Qualified Code(s): A41.9 - Sepsis, unspecified organism
[2019-03-19] MEDS: AMPICILLIN/SULBACTAM SOD 3,000 MG in 0.9 % SODIUM CHLORIDE 100 ML IV SCH ×2 (16:27→21:40)
[2019-03-19] MEDS ORDERED: clonazePAM 0.5 MG TAB PO PRN (18:41)
[2019-03-19 22:47] LABS: Calcium 9.7 mg/dl (8.5-10.1); Creatinine Clr Calc Pharmacy 52.8 ml/min; Est GFR (African American) 51.7; Est GFR (Non-African American) 44.6; Potassium 3.8 mmol/L (3.5-5.1)
[2019-03-19 22:48] LABS: Prothrombin Time 33.6 Seconds (9.0-12.0)
[2019-03-19 22:50] LABS: Albumin Globulin Ratio 0.6 (0.9-2); Bilirubin,Total 0.5 mg/dl (0.2-1); Globulin 4.8 gm/dl (2.5-4.0); Total Protein 7.8 gm/dl (6.4-8.2)
[2019-03-19 22:50] LABS: INR 3.6 (0.9-1.1)
--- NOTE | 2019-03-19 22:59 | CT Scan Report ---
CT head/brain wo con CLINICAL HISTORY: 83 years-old Male with ams. Acutely altered mental status TECHNIQUE: Multiple axial CT images of the head were obtained without contrast. A dose lowering tech nique was utilized adhering to the principles of ALARA. CT DOSE: 687.98 mGy.cm COMPARISON: Head CT 03/17/2019 FINDINGS: No acute intracranial hemorrhage, midline shift, intracranial mass, hydrocephalus, territorial ischem ia or abnormal extra-axial collection. Age-related involutional changes with ex vacuo ventriculomegal y. Patchy white matter hypodensities suggest chronic microvascular ischemic disease. Cerebral vascula r calcifications are noted. The calvarium is intact. Soft tissues and orbits are unremarkable. The paranasal sinuses, mastoid air cells, and middle ear cavities are clear. IMPRESSION: No acute intracranial abnormality. The above report was generated using voice recognition software. It may contain grammatical, syntax o r spelling errors. Electronically signed by: Edmundo Delgadillo M.D. 03/19/2019 10:58 PM
[2019-03-19 23:46] LABS: Base Excess ABG 2.4 mEq/L (-9-1.8); HCO3 ABG 26 mmol/L (19-24); Oxygen Saturation ABG 95.4 % (90-95); PCO2 ABG 35 mmHg (35-46); PO2 ABG 73 mm/Hg (80-95); pH ABG 7.48 (7.35-7.45)
[2019-03-19 23:47] LABS: Allen Test Pos (Pos)
[2019-03-19] MEDS ORDERED: CALCIUM CARBONATE 500 MG CHEWABLE TAB PO STA (23:55)
[2019-03-20] MEDS ORDERED: POTASSIUM CHLORIDE 20 MEQ TABCR PO STA (03:50)
[2019-03-20] MEDS ORDERED: MAGNESIUM SULFATE / D5W 1 GM/100 ML BAG IV ONE (03:50)
[2019-03-20] MEDS: AMPICILLIN/SULBACTAM SOD 3,000 MG in 0.9 % SODIUM CHLORIDE 100 ML IV SCH ×3 (04:04→15:20)
[2019-03-20 04:15] LABS: Basophils # (auto) 0.01 K/uL (0-0.2); Basophils % (auto) 0.1 %; Eosinophils # (auto) 0.02 K/uL (0-0.5); Eosinophils % (auto) 0.2 %; Hematocrit (blood only) 36.2 % (42-52); Hemoglobin 12.1 g/dL (14.0-18.0); Immature Granulocytes # (auto) 0.04 K/uL (0.00-0.02); Immature Granulocytes % (auto) 0.3 %; Lymphocytes # (auto) 2.85 K/uL (1.2-3.4); Lymphocytes % (auto) 22.3 %; Mean Corpuscular Hemoglobin 28.7 pg (25-34); Mean Corpuscular Hgb Conc 33.4 g/dL (32-36); Mean Platelet Volume 10.4 fL (7.4-10.4); Monocytes # (auto) 0.97 K/uL (0.11-0.59); Monocytes % (auto) 7.6 %; Neutrophils # (auto) 8.89 K/uL (1.4-6.5); Neutrophils % (auto) 69.5 %; Platelet Count 192 K/uL (130-400); RDW Coefficient of Variation 17.4 % (11.5-14.5); RDW Standard Deviation 55.6 fL (36.4-46.3); Red Blood Count 4.21 M/uL (4.7-6.1); White Blood Count 12.78 K/uL (4.8-10.8)
[2019-03-20] MEDS: METOPROLOL TARTRATE 25 MG TAB PO SCH ×2 (04:34→20:02)
[2019-03-20 04:35] LABS: BUN Creatinine Ratio 20.6 (10-20); Calcium 9.1 mg/dl (8.5-10.1); Creatinine Clr Calc Pharmacy 53.9 ml/min; Est GFR (African American) 53.5; Est GFR (Non-African American) 46.1; Potassium 3.6 mmol/L (3.5-5.1)
[2019-03-20] MEDS: INSULIN ASPART 100 UNITS/ML 3 ML PEN SC SCH ×4 (08:18→20:03)
[2019-03-20] MEDS: CITALOPRAM 20 MG TAB PO SCH (08:19)
[2019-03-20 11:31] LABS: Prothrombin Time 42.9 Seconds (9.0-12.0)
[2019-03-20 12:52] LABS: INR 4.7 (0.9-1.1)
--- NOTE | 2019-03-20 13:58 | Hospitalist Progress Note ---
Date of Service March 20, 2019 Assessment & Plan (1) Respiratory failure: Acute respiratory failure resolved. Patient is oxygenating at baseline (2) Acute diastolic (congestive) heart failure: Secondary to over resuscitation with sepsis treatment. Resolved. (3) Metabolic encephalopathy: Resolved to baseline with infection under control. (4) Infection associated with indwelling urinary catheter: Klebsiella UTI, continue Blunt per Urology. This was exchanged this admission. Continue Augmentin (5) Gram-negative bacteremia: Zosyn changed to Augmentin per ID recommendations. Patient is doing well and did not fever overnight. (6) Sepsis: Resuscitated. (7) SAI (acute kidney injury): Resolved to baseline. (8) Anxiety: Continue home clonazepam 1 mg nightly and 0.5 every 12 as needed. Per daughter he does very well with clonazepam for anxiety. (9) Dementia: At baseline mental status. Continue reorientation as necessary. Patient is high risk for delirium in the hospitalized setting with an infection. (10) History of pulmonary embolism: On Coumadin at baseline. Currently supratherapeutic INR. We will plan to restart Coumadin once INR trends down. (11) Gross hematuria: Resolved despite supratherapeutic INR. Blunt flushes as needed per urology. Continue monitoring with no plans for cystoscopy at this time. (12) DVT prophylaxis: Supratherapeutic INR persists but is coming down. Hold chemoprophylaxis. Hold warfarin. DNR/DNI Dispo-plan for home when medically stable, likely Saturday. [facility]una [facility] Subjective Mentating at baseline, appears clinically better than yesterday. Oxygenating more baseline lungs are clear to auscultation. Somewhat combative for nursing especially when they try to clean him up or give him medication. He did pull out his IV and at this point IV antibiotic's been switched to p.o. and he should not need an IV. Discussed the situation with his daughter who states that he becomes progressively more delirious was the hospitalization moves forward. She states he responds well to clonazepam which has been re-added to his medication list. He is remains afebrile and hemodynamically stable. Transfer to [facility]. Review of Systems Review of Systems: All systems reviewed & are unremarkable except as noted in HPI & below Physical Exam Physical Exam: CONSTITUTIONAL: WNWD, vitals as above, generally well- appearing EYES: normal conjunctivae, no scleral icterus ENT: MMM, poor dentition RESPIRATORY: clear to auscultation throughout, normal respiratory effort on an increased amount of oxygen supplementation via nasal canula. CARDIOVASCULAR: regular rate and rhythm, S1 and 2 heard without murmurs, gallops or rubs, no JVD, no peripheral edema GASTROINTESTINAL: normal bowel sounds, soft, nontender, nondistended MUSCULOSKELETAL: moves all extremities easily but generally is very deconditioned, head is normocephalic and atraumatic SKIN: warm and dry NEUROLOGIC: CN 2-12 grossly intact, no sensory deficit Results & Data Vital Signs (Past 12 Hours) Vital Signs Temp Pulse Resp BP Pulse Ox 03/20/19 11:24 36.5 C 93 H 18 153/92 H 93 03/20/19 07:23 36.6 C 73 18 153/91 H 96 03/20/19 04:08 36.5 C 77 22 143/90 H 92 Laboratory Results Short CBC 03/20/19 Range/Units 04:00 WBC 12.78 H (4.8-10.8) K/uL Hgb 12.1 L (14.0-18.0) g/dL Hct 36.2 L (42-52) % Plt Count 192 (130-400) K/uL BMP 03/19/19 03/20/19 22:23 04:00 Sodium 137 137 Potassium 3.8 3.6 Chloride 105 104 Carbon Dioxide 26 26 BUN 30 H 29 H Creatinine 1.44 H 1.40 Glucose 128 H 126 H Calcium 9.7 9.1 Liver Function 03/19/19 Range/Units 22:23 Total Bilirubin 0.5 (0.2-1) mg/dl AST 20 (15-37) U/L ALT 21 (12-78) U/L Alkaline Phosphatase 56 (45-117) U/L Albumin 3.0 L (3.4-5.0) gm/dl Medications Administered Current Inpatient Medications Acetaminophen (Tylenol) 650 mg PO Q4H PRN PRN Reason: Pain or Fever Stop: 04/16/19 14:15 Citalopram Hydrobromide (Celexa) 30 mg PO DAILY [facility] Stop: 04/18/19 08:59 Last Admin: 03/20/19 08:19 Dose: 30 mg Documented by: Clonazepam (Klonopin) 0.5 mg PO Q12H PRN PRN Reason: anxiety Stop: 04/18/19 18:44 Clonazepam (Klonopin) 1 mg PO HS [facility] Stop: 04/19/19 20:59 Dextrose (Dextrose 50%) 25 - 50 ml IV UD PRN; Protocol PRN Reason: Hypoglycemia Protocol Stop: 04/18/19 04:53 Glucagon (Glucagen) 1 mg SQ UD PRN; Protocol PRN Reason: Hypoglycemia Protocol Stop: 04/18/19 04:53 Glucose (Glucose 40%) 15 - 30 gm PO UD PRN; Protocol PRN Reason: Hypoglycemia Protocol Stop: 04/18/19 04:53 Glucose (Dex4 Glucose) 4 - 8 tabs PO UD PRN; Protocol PRN Reason: Hypoglycemia Protocol Stop: 04/18/19 04:53 Ampicillin Sodium/Sulbactam Sodium 3,000 mg/ Sodium Chloride 108 mls @ 200 mls/hr IV Q6H ANNE; Protocol Stop: 04/02/19 15:59 Last Infusion: 03/20/19 10:56 Dose: Infused Documented by: Insulin Aspart (Novolog Flexpen) 0 units SC ACHS [facility] Stop: 04/18/19 05:14 Last Admin: 03/20/19 12:02 Dose: Not Given Documented by: Ipratropium Udall (Atrovent 0.02% 0.5mg/2.5ml) 0.5 mg INH Q4H PRN PRN Reason: Shortness Of Breath Or Wheezing Stop: 04/18/19 04:59 Levalbuterol HCl (Xopenex 1.25mg/0.5ml Neb) 1.25 mg INH Q4H PRN PRN Reason: Shortness Of Breath Or Wheezing Stop: 04/18/19 04:59 Metoprolol Tartrate (Lopressor) 12.5 mg PO BID [facility] Stop: 04/19/19 03:59 Last Admin: 03/20/19 04:34 Dose: 12.5 mg Documented by: Miscellaneous (Carbohydrates For Hypoglycemia) 15 - 30 gm PO UD PRN PRN Reason: Hypoglycemia Treatment Stop: 04/18/19 04:53 Tramadol HCl (Ultram) 50 mg PO Q6H PRN PRN Reason: Pain Stop: 04/17/19 15:00 (1) Respiratory failure Chronicity: unspecified Respiratory failure complication: unspecified whether with hypoxia or hypercapnia Qualified Code(s): J96.90 - Respiratory failure, unspecified, unspecified whether with hypoxia or hypercapnia (2) Sepsis Sepsis acute organ dysfunction status: unspecified Sepsis type: sepsis due to unspecified organism Qualified Code(s): A41.9 - Sepsis, unspecified organism
[2019-03-20] MEDS ORDERED: Nursing to Pharmacy Communication ONE (19:45)
[2019-03-20] MEDS: clonazePAM 1 MG TAB PO SCH (19:59)
[2019-03-20] MEDS: AMOXICILLIN/CLAVULANATE 875 MG TAB PO SCH (19:59)
[2019-03-20] MEDS ORDERED: clonazePAM 1 MG TAB PO SCH (21:00)
[2019-03-21] MEDS ORDERED: METOPROLOL TARTRATE 25 MG TAB PO STA (00:59)
[2019-03-21] MEDS ORDERED: PROMETHAZINE HCL 12.5 MG in SODIUM CHLORIDE 0.9% 50 ML IM STA (02:16)
[2019-03-21] MEDS ORDERED: PROMETHAZINE HCL INJ 25 MG/ML 1 ML VIAL IM ONE (02:30)
[2019-03-21 03:00] LABS: Basophils # (auto) 0.02 K/uL (0-0.2); Basophils % (auto) 0.2 %; Eosinophils # (auto) 0.04 K/uL (0-0.5); Eosinophils % (auto) 0.4 %; Hematocrit (blood only) 37.4 % (42-52); Hemoglobin 12.3 g/dL (14.0-18.0); Immature Granulocytes # (auto) 0.04 K/uL (0.00-0.02); Immature Granulocytes % (auto) 0.4 %; Lymphocytes # (auto) 2.88 K/uL (1.2-3.4); Lymphocytes % (auto) 30.4 %; Mean Corpuscular Hemoglobin 28.5 pg (25-34); Mean Corpuscular Hgb Conc 32.9 g/dL (32-36); Mean Corpuscular Volume 86.8 fL (80-100); Mean Platelet Volume 11.2 fL (7.4-10.4); Monocytes # (auto) 0.61 K/uL (0.11-0.59); Monocytes % (auto) 6.4 %; Neutrophils # (auto) 5.89 K/uL (1.4-6.5); Neutrophils % (auto) 62.2 %; Platelet Count 190 K/uL (130-400); RDW Coefficient of Variation 17.2 % (11.5-14.5); RDW Standard Deviation 55.4 fL (36.4-46.3); Red Blood Count 4.31 M/uL (4.7-6.1); White Blood Count 9.48 K/uL (4.8-10.8)
[2019-03-21 03:18] LABS: Prothrombin Time 38.9 Seconds (9.0-12.0)
[2019-03-21 03:29] LABS: INR 4.2 (0.9-1.1)
--- NOTE | 2019-03-21 04:01 | Hospitalist Progress Note ---
Date of Service March 21, 2019 Subjective Patient complaining of periumbilical discomfort and nausea symptoms as per RN. Was very sleepy earlier as per RN. Soft mushy stools as per RN CT head initial read: No acute intracranial hemorrhage, mass-effect, midline shift, hydrocephalus, or acute infarct. Generalized atrophy. CT abdomen pelvis initial read : new small bilateral pleural effusions. Atelectasis. Kidney cysts. New wall thickening second and third portions of the duodenum with surrounding fat stranding which could represent infection/inflammation. Splenomegaly. AP Enteritis rule out C. difficile Stool C. difficile clear liquids for now Will relay to AM provider. Results & Data Vital Signs (Past 12 Hours) Vital Signs Temp Pulse Pulse Resp BP BP Pulse Ox 03/21/19 02:16 91 03/21/19 01:41 77 152/97 H 03/21/19 00:11 158/101 H 03/20/19 22:53 36.5 C 75 25 H 159/104 H 98 03/20/19 19:35 36.4 C L 74 151/99 H 97
[2019-03-21 04:16] LABS: Albumin Level 2.8 gm/dl (3.4-5.0); Calcium 9.1 mg/dl (8.5-10.1); Creatinine Clr Calc Pharmacy 64.6 ml/min; Est GFR (African American) 66.4; Est GFR (Non-African American) 57.3; Magnesium 2.2 mg/dl (1.8-2.4); Potassium 3.8 mmol/L (3.5-5.1)
[2019-03-21 04:19] LABS: Albumin Globulin Ratio 0.6 (0.9-2); Bilirubin,Total 0.5 mg/dl (0.2-1); Globulin 4.7 gm/dl (2.5-4.0); Total Protein 7.5 gm/dl (6.4-8.2)
--- NOTE | 2019-03-21 06:40 | XRay Report ---
XR chest 1V portable HISTORY: 83 years-old Male tachypnea acute tachycardia COMPARISON: Chest radiograph 03/19/2019, CT abdomen and pelvis 03/21/2019. TECHNIQUE: Portable AP view of the chest FINDINGS: Cardiac silhouette is enlarged, unchanged. There is improved aeration of the bilateral lungs from com parison study. Calcified plaque of the thoracic aortic arch. Trace pleural effusions with minimal sub segmental bibasilar opacities. No overt pulmonary edema. General changes of the shoulders and spine. The patient is rotated towards the left. IMPRESSION: 1. Cardiomegaly without overt pulmonary edema. 2. Improved aeration of the lungs from comparison study dated 03/19/2019. 3. Trace pleural effusions with minimal subsegmental bibasilar opacities suggestive of atelectasis. P neumonitis considered less likely. The above report was generated using voice recognition software. It may contain grammatical, syntax o r spelling errors. Electronically signed by: Edmundo Delgadillo M.D. 03/21/2019 6:39 AM
--- NOTE | 2019-03-21 07:27 | CT Scan Report ---
CT head/brain wo con CLINICAL HISTORY: 83 years-old Male with ams. Acutely altered mental status TECHNIQUE: Multiple axial CT images of the head were obtained without contrast. A dose lowering tech nique was utilized adhering to the principles of ALARA. CT DOSE: 614.27 mGy.cm COMPARISON: Head CT 03/19/2019. FINDINGS: No acute intracranial hemorrhage, midline shift, intracranial mass, hydrocephalus, territorial ischem ia or abnormal extra-axial collection. Atrophy with ex vacuo ventriculomegaly. Patchy white matter hy podensities suggest chronic microvascular ischemic disease. The calvarium is intact. The paranasal sinuses, mastoid air cells, and middle ear cavities are clear . IMPRESSION: No acute intracranial abnormality. The above report was generated using voice recognition software. It may contain grammatical, syntax o r spelling errors. Electronically signed by: Edmundo Delgadillo M.D. 03/21/2019 7:25 AM
[2019-03-21] MEDS: AMOXICILLIN/CLAVULANATE 875 MG TAB PO SCH ×2 (08:20→17:48)
[2019-03-21] MEDS: CITALOPRAM 20 MG TAB PO SCH (08:21)
[2019-03-21] MEDS: METOPROLOL TARTRATE 25 MG TAB PO SCH ×2 (08:21→20:14)
--- NOTE | 2019-03-21 08:25 | CT Scan Report ---
ABDOMEN AND PELVIS CT WITHOUT CONTRAST CT DOSE: 2102.88 mGy.cm HISTORY: Acute generalized abdominal pain abd pain TECHNIQUE: Multiaxial CT images of the abdomen and pelvis were performed without contrast. A dose lo wering technique was utilized adhering to the principles of ALARA. COMPARISON STUDY: CT abdomen and pelvis 03/17/2019 FINDINGS: Interval development of trace pleural effusions with mildly progressed bibasilar dependent consolidat flores and groundglass opacities suggestive of probable atelectasis. Study is limited secondary to posit ioning of the patient's upper extremities. There is no pneumatosis or pneumoperitoneum. Imaged inferi or cardiac chambers are enlarged with coronary arterial calcifications. Limited evaluation of the ever id abdominal organs without the use of IV contrast. Within the limitations of the exam, the liver, sp joanna, gallbladder and adrenal glands appear unremarkable. There is mild inflammatory stranding about the duodenum, uncinate process pancreas and pancreaticoduodenal groove. Mild associated duodenal wall thickening. 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 Hypodense lesions of the bilateral kidneys are redemonstrated which are indeterminate on this noncont rast study and statistically would favor probable renal cysts. Mild nonspecific bilateral perinephric stranding. No renal or ureteral calculi or obstructive uropathy. Decompressed urinary bladder with F oley catheter in place. No adnexal mass lesions. Calcified plaque of the abdominal aorta without aneu rysm. No adenopathy. No bowel obstruction. Mild colonic diverticulosis without acute diverticulitis. Normal appendix. Soft tissues are unremarkable. Degenerative changes of the spine, pelvis and hips. H ealed remote left-sided rib fractures. Lumbar levoscoliosis. IMPRESSION: 1. Mild edema/stranding about the duodenum, pancreaticoduodenal groove and uncinate process pancreas is noted with mild associated duodenal wall thickening. Primary infectious or inflammatory duodenitis versus reactive change secondary to developing acute pancreatitis are the differential consideration s. Clinical correlation required. 2. No bowel obstruction. 3. Interval development of trace pleural effusions with progressive bibasilar groundglass and consoli dative opacities suggestive of probable atelectasis. 4. Cardiomegaly. 5. Colonic diverticulosis without acute diverticulitis. 6. Additional findings as above. Electronically signed by: Edmundo Delgadillo M.D. 03/21/2019 8:24 AM
[2019-03-21] MEDS: INSULIN ASPART 100 UNITS/ML 3 ML PEN SC SCH ×4 (08:34→21:23)
--- NOTE | 2019-03-21 09:01 | Gastrointestinal Consultation ---
Date of Consultation March 21, 2019 Assessment & Plan (1) Abdominal pain: (2) Abnormal CT of the abdomen: No abdominal pain now, and no elevation of lipase, therefore does not meet diagnostic criteria for pancreatitis Add Pantoprazole 40 mg by mouth twice daily. No signs of overt GI bleeding, therefore no EGD at present. Advance diet as tolerated. History of Present Illness Reason for Consultation: Duodenal wall thickening, Abdominal pain Attending Physician: Muna Donovan DO History of Present Illness Dalton Patton is an 83 yo CM who presented to the hospital on 03/17 with fevers, SOB, MS change and abdominal pain. He was diagnosed with urosepsis and has been seen by Urology and ID. He remains on IV antibiotics and has a normal WBC today. Due to increased abdominal pain yesterday in the periumbilical region, he underwent a CT abdomen and pelvis and was noted to have duodenal wall thickening and questionable changes of pancreatitis. His Lipase level was normal. Nursing reports that he had a large brown BM this morning and states that his pain has resolved. At the time I saw the patient this AM, he was eating a clear liquid breakfast. He is demented, and cannot provide significant details regarding his health status. He does deny any fevers, chills, nausea, vomiting, or abdominal pain at present. He states that he has not seen any blood in his stools, and this was confirmed with nursing staff. He denies any further complaints. Allergies Allergy/AdvReac Type Severity Reaction Status Date / Time morphine AdvReac Severe becomes Unverified 12/30/17 14:53 wild and combative Home Medications Home Medications Medication Instructions Recorded Confirmed Type aspirin [Aspir-81] 81 mg PO DAILY 03/17/19 03/17/19 History calcium carbonate [Calcium 600] 600 mg PO DAILY 03/17/19 03/17/19 History citalopram 10 mg PO DAILY 03/17/19 03/17/19 History citalopram 20 mg PO DAILY 03/17/19 03/17/19 History clonazepam 0.5 mg PO BID PRN 03/17/19 03/17/19 History clonazepam 1 mg PO HS 03/17/19 03/17/19 History ipratropium-albuterol 3 ml INHALATION Q6H PRN 03/17/19 03/17/19 History tramadol 50 mg PO Q6H PRN 03/17/19 03/17/19 History warfarin 2.5 mg PO MOWEFR 03/17/19 03/17/19 History warfarin 5 mg PO SUTUTHSA 03/17/19 03/17/19 History Patient History Medical History Chronic diastolic CHF (congestive heart failure) (Chronic) COPD (chronic obstructive pulmonary disease) (Chronic) Anticoagulated on Coumadin (Chronic) Dementia (Chronic) Pulmonary embolism (Chronic) Anxiety (Chronic) HTN (hypertension) (Chronic) CAD (coronary artery disease) (Chronic) 1999 - inferior lateral wall [place] s/p thrombolytic therapy, implantable angioplasty 1st diagonal HLD (hyperlipidemia) (Chronic) DM2 (diabetes mellitus, type 2) (Chronic) Surgical History H/O angioplasty (Chronic) "1999 [place] " H/O hernia repair (Chronic) S/P surgical manipulation of ankle joint (Chronic) Family History Sister Arthritis Social History Preferred Language: Citizen Of [place] Communication Ability: Dementia 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: Voice Beliefs That Will Affect Care: None marital status: Current Living Situation: Spouse and Family Other Information That Helps Us Care for You: No Feels Safe at Home: Yes Safety Concerns: Feels Safe At This Time Smoking Status: Former smoker Tobacco Type: pipe ; Do You Dip or Chew Tobacco: No ; Second Hand Exposure: No ; Hx Alcohol Use: No Hx Substance Use: No Review of Systems Review of Systems: Unobtainable due to cognitive status Physical Exam Constitutional: + obese Demented Eyes: PERRL, conjunctivae normal, anicteric sclerae Neck: trachea midline, no thyromegaly Respiratory: Auscultation: + diminished lung sounds Cardiovascular: RRR, no murmur, no edema Gastrointestinal (Abdomen): normal bowel sounds, soft, nontender, no hepatosplenomegaly Skin: no rashes, warm and dry Psychiatric: Orientation: cooperative Insight: + limited insight Results & Data Vital Signs (Past 12 Hours) Vital Signs Temp Pulse Resp BP BP Pulse Ox 03/21/19 08:10 36.4 C L 69 20 157/98 H 98 03/21/19 02:16 91 03/21/19 01:41 77 152/97 H 03/21/19 00:11 158/101 H 03/20/19 22:53 36.5 C 75 25 H 159/104 H 98 PG Care Time/CCT Total # of Minutes Spent Total Time Spent with Patient: Total time spent is greater than 50% in coordination of care (as documented) at patient's floor/unit and/or counseling patient:
[2019-03-21] MEDS: PANTOprazole 40 MG TAB PO SCH ×2 (09:56→20:14)
--- NOTE | 2019-03-21 14:31 | Hospitalist Progress Note ---
Date of Service March 21, 2019 Assessment & Plan (1) Abnormal CT of the abdomen: Thickening of the duodenum seen on CT which was not present on CT abdomen pelvis taken 1 week ago. Therefore, likely acute. Appreciate GI recommendations. (2) Gram-negative bacteremia: Zosyn changed to Augmentin per ID recommendations. Patient is doing well and did not fever overnight. (3) Infection associated with indwelling urinary catheter: Klebsiella UTI, continue Blunt per Urology. This was exchanged this admission. Continue Augmentin (4) Respiratory failure: Acute respiratory failure resolved. Patient is oxygenating at baseline (5) Acute diastolic (congestive) heart failure: Secondary to over resuscitation with sepsis treatment. Resolved. (6) Metabolic encephalopathy: Resolved to baseline with infection under control. (7) Sepsis: Resuscitated. (8) SAI (acute kidney injury): Resolved to baseline. (9) Anxiety: Continue home clonazepam 1 mg nightly and 0.5 every 12 as needed. Per daughter he does very well with clonazepam for anxiety. (10) Dementia: At baseline mental status. Continue reorientation as necessary. Patient is high risk for delirium in the hospitalized setting with an infection. (11) History of pulmonary embolism: On Coumadin at baseline. Currently supratherapeutic INR. We will plan to restart Coumadin once INR trends down. (12) Gross hematuria: Resolved despite supratherapeutic INR. Blunt flushes as needed per urology. Continue monitoring with no plans for cystoscopy at this time. (13) DVT prophylaxis: Supratherapeutic INR persists but is coming down. Hold chemoprophylaxis. Hold warfarin. DNR/DNI Dispo-plan for home when medically stable, likely Saturday. Muna Donovan DO [facility] hospitalist Subjective Doing clinically well today. Mentating at baseline. Tolerating p.o. No delirium is noted. Patient denies any pain especially with thickening of duodenum seen on CT scan overnight. GI consulted, appreciate recommendations. Review of Systems Review of Systems: All systems reviewed & are unremarkable except as noted in HPI & below (Dementia noted.) Physical Exam Physical Exam: CONSTITUTIONAL: obese, vitals as above, generally well- appearing EYES: normal conjunctivae, no scleral icterus ENT: MMM, poor dentition RESPIRATORY: clear to auscultation throughout, normal respiratory effort on an increased amount of oxygen supplementation via nasal canula. CARDIOVASCULAR: regular rate and rhythm, S1 and 2 heard without murmurs, gallops or rubs, no JVD, no peripheral edema GASTROINTESTINAL: normal bowel sounds, soft, nontender, nondistended MUSCULOSKELETAL: moves all extremities easily but generally is very deconditioned, head is normocephalic and atraumatic SKIN: warm and dry NEUROLOGIC: CN 2-12 grossly intact, no sensory deficit Results & Data Vital Signs (Past 12 Hours) Vital Signs Temp Pulse Resp BP Pulse Ox 03/21/19 08:10 36.4 C L 69 20 157/98 H 98 Laboratory Results Short CBC 03/21/19 Range/Units 02:34 WBC 9.48 (4.8-10.8) K/uL Hgb 12.3 L (14.0-18.0) g/dL Hct 37.4 L (42-52) % Plt Count 190 (130-400) K/uL BMP 03/21/19 02:34 Sodium 137 Potassium 3.8 Chloride 105 Carbon Dioxide 26 BUN 26 H Creatinine 1.17 Glucose 94 Calcium 9.1 Liver Function 03/21/19 Range/Units 02:34 Total Bilirubin 0.5 (0.2-1) mg/dl AST 33 (15-37) U/L ALT 38 (12-78) U/L Alkaline Phosphatase 53 (45-117) U/L Albumin 2.8 L (3.4-5.0) gm/dl Medications Administered Current Inpatient Medications Acetaminophen (Tylenol) 650 mg PO Q4H PRN PRN Reason: Pain or Fever Stop: 04/16/19 14:15 Amoxicillin/Clavulanate Potassium (Augmentin 875mg) 1 tab PO BIDM ANNE; Protocol Stop: 04/03/19 16:59 Last Admin: 03/21/19 08:20 Dose: 1 tab Documented by: Citalopram Hydrobromide (Celexa) 30 mg PO DAILY ANNE Stop: 04/18/19 08:59 Last Admin: 03/21/19 08:21 Dose: 30 mg Documented by: Clonazepam (Klonopin) 0.5 mg PO Q12H PRN PRN Reason: anxiety Stop: 04/18/19 18:44 Clonazepam (Klonopin) 1 mg PO HS [facility] Stop: 04/19/19 19:59 Last Admin: 03/20/19 19:59 Dose: 1 mg Documented by: Dextrose (Dextrose 50%) 25 - 50 ml IV UD PRN; Protocol PRN Reason: Hypoglycemia Protocol Stop: 04/18/19 04:53 Glucagon (Glucagen) 1 mg SQ UD PRN; Protocol PRN Reason: Hypoglycemia Protocol Stop: 04/18/19 04:53 Glucose (Glucose 40%) 15 - 30 gm PO UD PRN; Protocol PRN Reason: Hypoglycemia Protocol Stop: 04/18/19 04:53 Glucose (Dex4 Glucose) 4 - 8 tabs PO UD PRN; Protocol PRN Reason: Hypoglycemia Protocol Stop: 04/18/19 04:53 Insulin Aspart (Novolog Flexpen) 0 units SC ACHS ANNE Stop: 04/18/19 05:14 Last Admin: 03/21/19 12:30 Dose: Not Given Documented by: Ipratropium [place] (Atrovent 0.02% 0.5mg/2.5ml) 0.5 mg INH Q4H PRN PRN Reason: Shortness Of Breath Or Wheezing Stop: 04/18/19 04:59 Levalbuterol HCl (Xopenex 1.25mg/0.5ml Neb) 1.25 mg INH Q4H PRN PRN Reason: Shortness Of Breath Or Wheezing Stop: 04/18/19 04:59 Metoprolol Tartrate (Lopressor) 25 mg PO BID [facility] Stop: 04/20/19 08:59 Last Admin: 03/21/19 08:21 Dose: 25 mg Documented by: Miscellaneous (Carbohydrates For Hypoglycemia) 15 - 30 gm PO UD PRN PRN Reason: Hypoglycemia Treatment Stop: 04/18/19 04:53 Pantoprazole Sodium (Protonix) 40 mg PO BID [facility] Stop: 04/20/19 09:29 Last Admin: 03/21/19 09:56 Dose: 40 mg Documented by: Tramadol HCl (Ultram) 50 mg PO Q6H PRN PRN Reason: Pain Stop: 04/17/19 15:00 Last Admin: 03/21/19 01:36 Dose: 50 mg Documented by: (1) Respiratory failure Chronicity: unspecified Respiratory failure complication: unspecified whether with hypoxia or hypercapnia Qualified Code(s): J96.90 - Respiratory failure, unspecified, unspecified whether with hypoxia or hypercapnia (2) Sepsis Sepsis acute organ dysfunction status: unspecified Sepsis type: sepsis due to unspecified organism Qualified Code(s): A41.9 - Sepsis, unspecified organism
[2019-03-21] MEDS: clonazePAM 1 MG TAB PO SCH (20:14)
[2019-03-22 05:44] LABS: Hematocrit (blood only) 40.2 % (42-52); Hemoglobin 12.8 g/dL (14.0-18.0); Mean Corpuscular Hemoglobin 28.1 pg (25-34); Mean Corpuscular Hgb Conc 31.8 g/dL (32-36); Mean Corpuscular Volume 88.2 fL (80-100); Mean Platelet Volume 10.8 fL (7.4-10.4); Platelet Count 188 K/uL (130-400); RDW Coefficient of Variation 17.3 % (11.5-14.5); Red Blood Count 4.56 M/uL (4.7-6.1); White Blood Count 8.18 K/uL (4.8-10.8)
[2019-03-22 06:01] LABS: Prothrombin Time 35.1 Seconds (9.0-12.0)
[2019-03-22 06:12] LABS: INR 3.8 (0.9-1.1)
[2019-03-22 06:18] LABS: BUN Creatinine Ratio 20.2 (10-20); Calcium 9.4 mg/dl (8.5-10.1); Est GFR (African American) 59.6; Est GFR (Non-African American) 51.4; Potassium 3.9 mmol/L (3.5-5.1)
[2019-03-22] MEDS: CITALOPRAM 20 MG TAB PO SCH (07:45)
[2019-03-22] MEDS: AMOXICILLIN/CLAVULANATE 875 MG TAB PO SCH ×2 (07:45→18:07)
[2019-03-22] MEDS: METOPROLOL TARTRATE 25 MG TAB PO SCH ×2 (07:46→20:15)
[2019-03-22] MEDS: PANTOprazole 40 MG TAB PO SCH ×2 (07:46→20:15)
[2019-03-22] MEDS: INSULIN ASPART 100 UNITS/ML 3 ML PEN SC SCH ×4 (08:30→20:55)
[2019-03-22] MEDS ORDERED: INFLUENZA VACCINE HIGH DOSE 65+ 0.5 ML SYR IM ONE (14:00)
[2019-03-22] MEDS ORDERED: INFLUENZA ADMINISTRATION CHARGE ONE (14:00)
[2019-03-22] MEDS: DICYCLOMINE HCL 10 MG CAP PO SCH ×2 (14:01→20:15)
--- NOTE | 2019-03-22 17:33 | Hospitalist Progress Note ---
Date of Service March 22, 2019 Assessment & Plan (1) Abnormal CT of the abdomen: Thickening of the duodenum seen on CT which was not present on CT abdomen pelvis taken 1 week ago. Therefore, likely acute. Appreciate GI recommendations. Protonix started. Bentyl added empirically to try out while inpatient and under close monitoring. (2) Gram-negative bacteremia: Zosyn changed to Augmentin per ID recommendations. Patient is doing well and did not fever overnight. (3) Infection associated with indwelling urinary catheter: Klebsiella UTI, continue Blunt per Urology. This was exchanged this admis danay. Continue Augmentin (4) Metabolic encephalopathy: Resolved to baseline with infection under control. (5) Sepsis: Resuscitated. (6) SAI (acute kidney injury): Resolved to baseline. (7) Anxiety: cont clonazepam per home regimen. (8) Dementia: At baseline mental status. Continue reorientation as necessary. Patient is high risk for delirium in the hospitalized setting with an infection. (9) History of pulmonary embolism: On Coumadin at baseline. Currently supratherapeutic INR. We will plan to restart Coumadin once INR trends down. (10) Gross hematuria: Resolved despite supratherapeutic INR. Blunt flushes as needed per urology. Continue monitoring with no plans for cystoscopy at this time. (11) Renal cysts, acquired, bilateral: Appears to have bilateral renal cysts on CT however indeterminate due to lack of IV contrast per Urology who recommends a nonurgent outpatient ultrasound if family wishes to pursue this. (12) DVT prophylaxis: Supratherapeutic INR persists but is coming down. Hold chemoprophylaxis. Hold warfarin. DNR/DNI Dispo-plan for home when medically stable, likely Saturday. Muna Donovan DO [facility] hospitalist Subjective doing well denies issues except does have diffuse lower abdominal pain when I push on exam no fevers/chills no hematuria Review of Systems Review of Systems: All systems reviewed & are unremarkable except as noted in HPI & below (dementia noted) Physical Exam Physical Exam: CONSTITUTIONAL: obese, vitals as above, generally well- appearing EYES: normal conjunctivae, no scleral icterus ENT: MMM, poor dentition RESPIRATORY: clear to auscultation throughout, normal respiratory effort on an increased amount of oxygen supplementation via nasal canula. CARDIOVASCULAR: regular rate and rhythm, S1 and 2 heard without murmurs, gallops or rubs, no JVD, no peripheral edema GASTROINTESTINAL: normal bowel sounds, soft, generalized tenderness to palpation in lower abdomen, nondistended MUSCULOSKELETAL: moves all extremities easily but generally is very deconditioned, head is normocephalic and atraumatic SKIN: warm and dry NEUROLOGIC: CN 2-12 grossly intact, no sensory deficit, good mood, very positive Results & Data Vital Signs (Past 12 Hours) Vital Signs Temp Pulse Pulse Resp BP BP Pulse Ox 03/22/19 15:56 36.3 C L 65 20 137/84 91 03/22/19 07:48 36.4 C L 67 20 153/97 H 100 03/22/19 07:43 66 147/93 H Laboratory Results Short CBC 03/22/19 Range/Units 05:21 WBC 8.18 (4.8-10.8) K/uL Hgb 12.8 L (14.0-18.0) g/dL Hct 40.2 L (42-52) % Plt Count 188 (130-400) K/uL BMP 03/22/19 05:21 Sodium 138 Potassium 3.9 Chloride 107 Carbon Dioxide 27 BUN 26 H Creatinine 1.28 Glucose 93 Calcium 9.4 Medications Administered Current Inpatient Medications Acetaminophen (Tylenol) 650 mg PO Q4H PRN PRN Reason: Pain or Fever Stop: 04/16/19 14:15 Amoxicillin/Clavulanate Potassium (Augmentin 875mg) 1 tab PO BIDM [facility]; Protocol Stop: 04/03/19 16:59 Last Admin: 03/22/19 07:45 Dose: 1 tab Documented by: Citalopram Hydrobromide (Celexa) 30 mg PO DAILY [facility] Stop: 04/18/19 08:59 Last Admin: 03/22/19 07:45 Dose: 30 mg Documented by: Clonazepam (Klonopin) 0.5 mg PO Q12H PRN PRN Reason: anxiety Stop: 04/18/19 18:44 Clonazepam (Klonopin) 1 mg PO HS [facility] Stop: 04/19/19 19:59 Last Admin: 03/21/19 20:14 Dose: 1 mg Documented by: Dextrose (Dextrose 50%) 25 - 50 ml IV UD PRN; Protocol PRN Reason: Hypoglycemia Protocol Stop: 04/18/19 04:53 Dicyclomine HCl (Bentyl) 10 mg PO TID [facility] Stop: 04/21/19 13:59 Last Admin: 03/22/19 14:01 Dose: 10 mg Documented by: Glucagon (Glucagen) 1 mg SQ UD PRN; Protocol PRN Reason: Hypoglycemia Protocol Stop: 04/18/19 04:53 Glucose (Glucose 40%) 15 - 30 gm PO UD PRN; Protocol PRN Reason: Hypoglycemia Protocol Stop: 04/18/19 04:53 Glucose (Dex4 Glucose) 4 - 8 tabs PO UD PRN; Protocol PRN Reason: Hypoglycemia Protocol Stop: 04/18/19 04:53 Insulin Aspart (Novolog Flexpen) 0 units SC ACHS [facility] Stop: 04/18/19 05:14 Last Admin: 03/22/19 12:43 Dose: 1 units Documented by: Ipratropium [place] (Atrovent 0.02% 0.5mg/2.5ml) 0.5 mg INH Q4H PRN PRN Reason: Shortness Of Breath Or Wheezing Stop: 04/18/19 04:59 Levalbuterol HCl (Xopenex 1.25mg/0.5ml Neb) 1.25 mg INH Q4H PRN PRN Reason: Shortness Of Breath Or Wheezing Stop: 04/18/19 04:59 Metoprolol Tartrate (Lopressor) 25 mg PO BID [facility] Stop: 04/20/19 08:59 Last Admin: 03/22/19 07:46 Dose: 25 mg Documented by: Miscellaneous (Carbohydrates For Hypoglycemia) 15 - 30 gm PO UD PRN PRN Reason: Hypoglycemia Treatment Stop: 04/18/19 04:53 Pantoprazole Sodium (Protonix) 40 mg PO BID [facility] Stop: 04/20/19 09:29 Last Admin: 03/22/19 07:46 Dose: 40 mg Documented by: Tramadol HCl (Ultram) 50 mg PO Q6H PRN PRN Reason: Pain Stop: 04/17/19 15:00 Last Admin: 03/21/19 01:36 Dose: 50 mg Documented by: (1) Sepsis Sepsis acute organ dysfunction status: unspecified Sepsis type: sepsis due to unspecified organism Qualified Code(s): A41.9 - Sepsis, unspecified organism
[2019-03-22] MEDS: clonazePAM 1 MG TAB PO SCH (20:15)
[2019-03-23 05:54] LABS: INR 3.2 (0.9-1.1); Prothrombin Time 30.2 Seconds (9.0-12.0)
[2019-03-23] MEDS: CITALOPRAM 20 MG TAB PO SCH (07:50)
[2019-03-23] MEDS: DICYCLOMINE HCL 10 MG CAP PO SCH ×3 (07:51→20:21)
[2019-03-23] MEDS: PANTOprazole 40 MG TAB PO SCH ×2 (07:51→20:22)
[2019-03-23] MEDS: METOPROLOL TARTRATE 25 MG TAB PO SCH ×2 (07:51→20:21)
[2019-03-23] MEDS: AMOXICILLIN/CLAVULANATE 875 MG TAB PO SCH ×2 (07:51→17:44)
[2019-03-23] MEDS: INSULIN ASPART 100 UNITS/ML 3 ML PEN SC SCH ×4 (08:38→21:24)
--- NOTE | 2019-03-23 11:26 | Gastroenterology Progress Note ---
Date of Service March 23, 2019 Assessment & Plan (1) Abnormal CT of the abdomen: 83 year old male admitted w/ respiratory failure, urinary sepsis developed upper abd pain and nausea during admission w/ CT evidence of edema/stranding about the duodenum, pancreaticoduodenal groove and uncinate process pancreas w/ duodenal wall thickening which is new from CTAP last week. His pain has subsequently resolved, his LFTs and lipase were non-elevated and he is tolerating PO intake. Agree w/ PPI 40 mg twice daily x 1 month then once daily. No current indication for urgent endoscopy. I did try to contact family to discuss goals of care. Can contine diet as tolerated. Thank you for allowing us to participate in the care of this patient. Please call with any acute changes, questions or concerns. Please see addendum below with additional recommendation from my supervising physician. Present on Admission?: Yes Supervising Physician Co-Signing Physician Notes I have performed a history and physical examination of this patient and reviewed the electronic medical record. Specifically, on physical examination there is no significant abdominal tenerness. I have discussed the case with LUISITO Billings. The above note reflects my findings, conclusions, and recommendations. Bhaskar Corado MD Subjective Pt was seen and evaluated, chart reviewed No family at bedside Pt admitted for acute respiratory concerns, urinary sepsis Developed upper abdominal pain, nausea overnight 03/21 CT was ordered Showed Mild edema/stranding about the duodenum, pancreaticoduodenal groove and uncinate process pancreas w/ duodenal wall thickening which is new from CTAP last week. Upper abdominal pain resolved He does note some lower abd cramping which is chronic and unchanged Review of Systems Constitutional: no fever and no fatigue Respiratory: no cough and no dyspnea Cardiovascular: no chest pain and no radiating jaw, neck or arm pain Gastrointestinal: + abdominal pain (lower abd cramping); no nausea, no coffee ground emesis, no blood in stools and no melena Physical Exam Constitutional: + ill appearing (chronically ill); no acute distress Respiratory: normal respiratory effort Cardiovascular: Rate/Rhythm: regular rate Gastrointestinal (Abdomen): Inspection/Auscultation: normal bowel sounds Percussion/Palpation: abdomen soft; no guarding and abdomen not rigid Skin: no rashes, warm and dry Results & Data Vital Signs (Past 12 Hours) Vital Signs Temp Pulse Resp BP Pulse Ox 03/23/19 10:20 36.4 C L 69 16 145/91 H 96
--- NOTE | 2019-03-23 12:04 | Fluoroscopy Report ---
MODIFIED BARIUM SWALLOW CLINICAL HISTORY: assess for aspiration COMPARISON STUDY: None FLUOROSCOPY TIME: 1.7 minutes. TECHNIQUE: A modified barium swallow was performed in conjunction with Speech Pathology. The patient ingested varying consistencies of barium containing material. Video fluoroscopy was performed. FINDINGS: No aspiration was identified within liquids, nectar thick liquids, pudding or crackers with paste. Penetration was noted with nectar thick liquids. Epiglottic inversion was normal. IMPRESSION: 1. No tracheal aspiration identified. 2. Full recommendations by speech pathology to follow. Electronically signed by: Victoriano Valiente M.D. 03/23/2019 12:02 PM
--- NOTE | 2019-03-23 18:54 | Hospitalist Progress Note ---
Date of Service March 23, 2019 Assessment & Plan (1) Abnormal CT of the abdomen: Pain and nausea with repeat CT evidence of possible duodenitis. This pain resolved, LFTs and lipase were not elevated and he is tolerating p.o. without issue. Per GI recommendations PPI 40 mg twice daily for 1 month then once daily. No urgent indication for endoscopy. Continue diet as tolerated. (2) Gram-negative bacteremia: Cont Augmentin for total 14 days including abx given already. (3) Infection associated with indwelling urinary catheter: Klebsiella UTI, continue Stafford per Urology. This was exchanged this ad mission. Continue Augmentin (4) Sepsis: Resuscitated. (5) SAI (acute kidney injury): Resolved to baseline. (6) Anxiety: cont clonazepam per home regimen. (7) Dementia: Delirium today poss 2/2 hospitalization or Bentyl recently started. Bentyl not improving his abdominal pain, so will dc this now and cont with PPI per GI recs. Continue reorientation as necessary. Patient is high risk for delirium in the hospitalized setting with an infection. (8) History of pulmonary embolism: On Coumadin at baseline. Currently therapeutic INR. We will plan to restart Coumadin likely tomorrow. (9) Gross hematuria: Resolved despite supratherapeutic INR. Removed today after he broke off the stafford catheter bag. Cont having it out for now and will replace when he goes home. Continue monitoring with no plans for cystoscopy at this time. (10) Renal cysts, acquired, bilateral: Appears to have bilateral renal cysts on CT however indeterminate due to lack of IV contrast per Urology who recommends a nonurgent outpatient ultrasound if family wishes to pursue this. (11) DVT prophylaxis: Therpaeutic INR Hold chemoprophylaxis. DNR/DNI Dispo-plan for home in am if delirium clears. Muna Donovan DO [facility] Hospitalist Subjective Confused, exhibiting signs of delirium including breaking off his Stafford which has now been removed. I contacted his daughter and updated her. We will try again to transfer home tomorrow. Updated case management with the plan. Review of Systems Review of Systems: Unobtainable due to mental health condition (Delirium in setting of dementia.) Physical Exam Physical Exam: CONSTITUTIONAL: obese, vitals as above, generally well- appearing EYES: normal conjunctivae, no scleral icterus ENT: MMM, poor dentition RESPIRATORY: clear to auscultation throughout, normal respiratory effort on an increased amount of oxygen supplementation via nasal canula. CARDIOVASCULAR: regular rate and rhythm, S1 and 2 heard without murmurs, gallops or rubs, no JVD, no peripheral edema GASTROINTESTINAL: normal bowel sounds, soft, generalized tenderness to palpation in lower abdomen, nondistended MUSCULOSKELETAL: moves all extremities easily but generally is very deconditioned, head is normocephalic and atraumatic SKIN: warm and dry NEUROLOGIC: CN 2-12 grossly intact, no sensory deficit, good mood, very positive Results & Data Vital Signs (Past 12 Hours) Vital Signs Temp Pulse Resp BP Pulse Ox 03/23/19 15:00 36.4 C L 76 16 150/89 H 97 03/23/19 10:20 36.4 C L 69 16 145/91 H 96 Medications Administered Current Inpatient Medications Acetaminophen (Tylenol) 650 mg PO Q4H PRN PRN Reason: Pain or Fever Stop: 04/16/19 14:15 Last Admin: 03/22/19 18:10 Dose: 650 mg Documented by: Amoxicillin/Clavulanate Potassium (Augmentin 875mg) 1 tab PO BIDM [facility]; Protocol Stop: 04/03/19 16:59 Last Admin: 03/23/19 17:44 Dose: 1 tab Documented by: Citalopram Hydrobromide (Celexa) 30 mg PO DAILY [facility] Stop: 04/18/19 08:59 Last Admin: 03/23/19 07:50 Dose: 30 mg Documented by: Clonazepam (Klonopin) 0.5 mg PO Q12H PRN PRN Reason: anxiety Stop: 04/18/19 18:44 Last Admin: 03/23/19 15:00 Dose: 0.5 mg Documented by: Clonazepam (Klonopin) 1 mg PO HS [facility] Stop: 04/19/19 19:59 Last Admin: 03/22/19 20:15 Dose: 1 mg Documented by: Dextrose (Dextrose 50%) 25 - 50 ml IV UD PRN; Protocol PRN Reason: Hypoglycemia Protocol Stop: 04/18/19 04:53 Dicyclomine HCl (Bentyl) 10 mg PO TID [facility] Stop: 04/21/19 13:59 Last Admin: 03/23/19 14:54 Dose: 10 mg Documented by: Glucagon (Glucagen) 1 mg SQ UD PRN; Protocol PRN Reason: Hypoglycemia Protocol Stop: 04/18/19 04:53 Glucose (Glucose 40%) 15 - 30 gm PO UD PRN; Protocol PRN Reason: Hypoglycemia Protocol Stop: 04/18/19 04:53 Glucose (Dex4 Glucose) 4 - 8 tabs PO UD PRN; Protocol PRN Reason: Hypoglycemia Protocol Stop: 04/18/19 04:53 Insulin Aspart (Novolog Flexpen) 0 units SC ACHS ANNE Stop: 04/18/19 05:14 Last Admin: 03/23/19 17:45 Dose: 2 units Documented by: Ipratropium [place] (Atrovent 0.02% 0.5mg/2.5ml) 0.5 mg INH Q4H PRN PRN Reason: Shortness Of Breath Or Wheezing Stop: 04/18/19 04:59 Levalbuterol HCl (Xopenex 1.25mg/0.5ml Neb) 1.25 mg INH Q4H PRN PRN Reason: Shortness Of Breath Or Wheezing Stop: 04/18/19 04:59 Metoprolol Tartrate (Lopressor) 25 mg PO BID ANNE Stop: 04/20/19 08:59 Last Admin: 03/23/19 07:51 Dose: 25 mg Documented by: Miscellaneous (Carbohydrates For Hypoglycemia) 15 - 30 gm PO UD PRN PRN Reason: Hypoglycemia Treatment Stop: 04/18/19 04:53 Pantoprazole Sodium (Protonix) 40 mg PO BID ANNE Stop: 04/20/19 09:29 Last Admin: 03/23/19 07:51 Dose: 40 mg Documented by: Tramadol HCl (Ultram) 50 mg PO Q6H PRN PRN Reason: Pain Stop: 04/17/19 15:00 Last Admin: 03/21/19 01:36 Dose: 50 mg Documented by: (1) Sepsis Sepsis acute organ dysfunction status: unspecified Sepsis type: sepsis due to unspecified organism Qualified Code(s): A41.9 - Sepsis, unspecified organism
[2019-03-23] MEDS: clonazePAM 1 MG TAB PO SCH (20:21)
[2019-03-24] MEDS ORDERED: PROMETHAZINE HCL 12.5 MG in SODIUM CHLORIDE 0.9% 50 ML IV STA (05:39)
[2019-03-24 05:52] LABS: INR 2.7 (0.9-1.1); Prothrombin Time 25.9 Seconds (9.0-12.0)
[2019-03-24] MEDS ORDERED: PROMETHAZINE HCL 25 MG TAB PO PRN (05:57)
[2019-03-24] MEDS ORDERED: PROMETHAZINE HCL INJ 25 MG/ML 1 ML VIAL IM ONE (06:00)
[2019-03-24] MEDS ORDERED: HALOPERIDOL LACTATE 5 MG/ML 1 ML VIAL IM STA (06:13)
[2019-03-24] MEDS: AMOXICILLIN/CLAVULANATE 875 MG TAB PO SCH ×2 (07:41→15:26)
[2019-03-24] MEDS: PANTOprazole 40 MG TAB PO SCH (07:59)
[2019-03-24] MEDS: CITALOPRAM 20 MG TAB PO SCH (08:00)
[2019-03-24] MEDS: METOPROLOL TARTRATE 25 MG TAB PO SCH (08:00)
[2019-03-24] MEDS: INSULIN ASPART 100 UNITS/ML 3 ML PEN SC SCH ×2 (08:31→12:18)
--- NOTE | 2019-03-24 15:55 | Discharge Summary ---
Date of Service March 24, 2019 Admission HPI Per Admitting Provider 83 year old male who was brought to the ED for evaluation of altered mental status. History is currently unobtainable from the patient. History is obtained from and daughter who are at the bedside. Patient did not sleep well last night and was up frequently. This morning patient was much more confused than his baseline. He also appeared to be short of breath. Patient has a chronic stafford in place and urine was noted to be very red/bloody. Patient was then brought to the ED for further evaluation. Any further history is unobtainable from the patient. At baseline, he is mostly bed bound. He is only oriented to self at baseline. In the ED, patient is found to have rectal temp 41.2, tachycardic in the 160s, and is respiratory distress. He was placed on BiPap. U/A suggests UTI. He was given IV Zosyn, IV ketorolac. Admission Exam Per Admitting Provider Constitutional: WD/WN, vitals as above + ill appearing and + obese; no acute distress Eyes: PERRL, conjunctivae normal, anicteric sclerae ENMT: external ear and nose normal, oropharynx normal Respiratory: normal respiratory effort; no respiratory distress Auscultation: + diminished lung sounds on BiPap Cardiovascular: Rate/Rhythm: regular rhythm and + tachycardic Vessels: normal peripheral pulses Extremities: no edema Gastrointestinal (Abdomen): normal bowel sounds, soft, nontender, no hepatosplenomegaly Musculoskeletal: Extremities: + abnormal strength (weak throughout, patient has difficulty following commands); no cyanosis and no clubbing Skin: no rashes, warm and dry Neurologic: lethargic, arouses to loud verbal and tactile stimuli, does not follow commands Psychiatric: Orientation: oriented to person; + not alert, + not oriented to place and + not oriented to time Genitourinary: stafford in place draining dark red colored urine Principal Diagnosis sepsis 2/2 gram negative bacteremia 2/2 Klebsiella catheter-associated UTI Discharge Data Allergies Allergy/AdvReac Type Severity Reaction Status Date / Time morphine AdvReac Severe becomes Unverified 12/30/17 14:53 wild and combative Consultations 03/17/19 13:07 ED Decision to Admit Stat 03/17/19 14:16 Consult Case Management - Discharge Planning Routine 03/17/19 14:44 Consult Cardiology Routine 03/17/19 16:53 Consult Urology Routine 03/18/19 08:32 Consult Infectious Diseases Routine 03/21/19 08:05 Consult Gastroenterology Routine Ordered Studies 03/17/19 11:40 CT abd pelvis wo con Stat CT head/brain wo con Stat 03/19/19 22:06 CT head/brain wo con Urgent 03/21/19 02:20 CT abd pelvis wo con Urgent 03/21/19 03:08 CT head/brain wo con Urgent 03/23/19 11:30 FL video swallow Routine Hospital Course (1) Gram-negative bacteremia: Cont Augmentin for total 14 days including abx given already. (2) Infection associated with indwelling urinary catheter: Klebsiella UTI, continue Stafford per Urology. This was exchanged this admission and then during an episode of hospit-induced delirium, the patient detached the catheter. Once he was more lucid the following day, he declined to have it put back in. As the Stafford is not present for urinary retention, and as he was initially septic as a result of the UTI, I felt this was appropriate to send him home without one in place. Continue Augmentin (3) Abnormal CT of the abdomen: Pain and nausea with repeat CT evidence of possible duodenitis. This pain resolved the following morning, LFTs and lipase were not elevated and he is tolerating p.o. without issue. Per GI recommendations PPI 40 mg twice daily for 1 month then once daily. No urgent indication for endoscopy. Continue diet as tolerated. (4) Sepsis: Resuscitated. Severe hyperthermia on admission. (5) SAI (acute kidney injury): Resolved to baseline. Secondary to sepsis. (6) Anxiety: cont clonazepam per home regimen. (7) Dementia: Delirium 2/2 hospitalization. Bentyl also recent trialed. Bentyl not improving his abdominal pain, so will dc this now and cont with PPI per GI recs. Continue reorientation as necessary. Patient is high risk for delirium in the hospitalized setting with an infection. (8) History of pulmonary embolism: On Coumadin at baseline. Maintained a therapeutic INR throughout admission without getting further warfarin-poss related to abx given. Restarted coumadin on last day here, with instructions to continue his current schedule at home and follow-up with the AC within two weeks. (9) Gross hematuria: Resolved despite supratherapeutic INR on HD2. Urology was consulted. Per family wishes no planned cystoscopy as we have very good reasons for the hematuria, and it resolved quickly. Exchanged a couple of times then was removed after he broke off the stafford catheter bag. Cont having it out for now and will replace when he goes home. Continue monitoring with no plans for cystoscopy at this time. (10) Renal cysts, acquired, bilateral: Appears to have bilateral renal cysts on CT however indeterminate due to lack of IV contrast per Urology who recommends a nonurgent outpatient ultrasound if family wishes to pursue this. PCP to address with patient and family as outpatient. (11) DVT prophylaxis: Therpaeutic INR Hold chemoprophylaxis. DNR/DNI Dispo-plan for home in am if delirium clears. Muna Donovan DO [facility] Hospitalist Total Time Total Time Spent Total Time Spent (In Minutes): 60 Total Time Includes: Examination of the Patient, Discharge Planning, Medication Reconciliation and Communication With Other Providers Discharge Plan Discharge Items Patient Disposition: Home - Home Health Services Reason For Visit: sepsis Discharge Diagnosis: sepsis 2/2 gram negative bacteremia 2/2 Klebsiella catheter-associated UTI Condition on Discharge: Good Activity: Resume your previous activity Non-emergency contact: Primary Care Provider Call non-emergency contact if: you have any medication questions, your symptoms worsen, your pain is not controlled, your pain is worsening, your pain is unusual for you, your pain is concerning for you and you have a fever Follow-up/Referrals: Sujata Person MD [Primary Care Provider] - Diet: Carb Consistent or DM2 Diet Texture: Dental soft (bite-sized) Diet Comment: moist foods Addtl Attending Provider Instructions: Please take all medications as instructed on discharge list below. You are being placed on Protonix 40mg twice daily to take for 30 days, then continue 40mg only once per daily indefinitely. Please continue the entire antibiotic course as prescribed. Please follow-up with your primary care provider (PCP) within one week of discharge to ensure you are doing well overall after you arrive home. Please discuss with them replacement of the Stafford catheter as this was declined at time of discharge. You had some kidney masses that were seen on your CT scan and may need follow-up. Please discuss this further with your PCP. It was a pleasure taking care of you! Please call if you have any questions or problems. You can reach a [facility] Hospitalist on duty at [facility] 24 hours a day by calling [phone]. Take care of yourself. Muna Donovan DO [facility] Hospitalist Pending Studies at Discharge: No Stand-Alone Forms: My [facility] Medications and DC Order Prescriptions: New amoxicillin-pot clavulanate 875-125 mg Tablet 1 tab PO BIDM Qty: 10 RF: 0 pantoprazole 40 mg Tablet,Delayed Release (Dr/Ec) 40 mg PO BID Qty: 60 RF: 0 Continued ipratropium-albuterol 0.5 mg-3 mg(2.5 mg base)/3 mL solution for nebulization 3 ml inhalation Q6H PRN (Reason: Shortness Of Breath) RF: 0 citalopram 10 mg tablet 10 mg PO DAILY RF: 0 clonazepam 1 mg tablet 0.5 mg PO BID PRN (Reason: Anxiety) RF: 0 clonazepam 1 mg tablet 1 mg PO HS RF: 0 aspirin [Aspir-81] 81 mg Tablet,Delayed Release (Dr/Ec) 81 mg PO DAILY RF: 0 tramadol 50 mg tablet 50 mg PO Q6H PRN (Reason: Pain) RF: 0 calcium carbonate [Calcium 600] 600 mg calcium (1,500 mg) Tablet 600 mg PO DAILY RF: 0 citalopram 20 mg tablet 20 mg PO DAILY RF: 0 warfarin 5 mg tablet 2.5 mg PO MOWEFR RF: 0 warfarin 5 mg tablet 5 mg PO SUTUTHSA RF: 0 Discharge Orders: Discharge Order (Routine); Ordered 03/24/19 Ordered By: Muna Donovan Admission Data Admit Date/Time: 03/17/19 13:34 Attending Provider: Muna Donovan Admit Provider: Muna Donovan Primary Care Provider: Sujata Person Other Providers: Alessio Yang ; Svetlana Smith ; Yuniel English ; Antonio Virgen Other Interventions: Discharge Summary Assessment (RN) Last Done: 03/24/19 14:57 DC Date/Time DO NOT enter until pt leaves facility: 03/24/19 16:54
[2019-03-24] MEDS ORDERED: WARFARIN SOD 5 MG TAB PO SCH (16:00)
[2019-03-25] MEDS ORDERED: WARFARIN SOD 2.5 MG TAB PO SCH (16:00)
== END 2019-03-24 16:54 | disposition home health service (06) | DRG 698 ==
LOC: ED 11:15 → 2S 13:34 → 2E 17:15 → 4W 03-18 16:31 → 2S 03-19 04:44 → 4W 03-20 16:19

== ENCOUNTER 2019-05-17 12:53 | Inpatient (IN) ==
[2019-05-17] MEDS ORDERED: ALBUT/IPRATROP 3MG/0.5MG NEB 3 ML VIAL INH STA (13:08)
[2019-05-17] MEDS ORDERED: FUROSEMIDE 40 MG/4 ML VIAL IV STA (13:08)
[2019-05-17] MEDS ORDERED: methylPREDNISolone 125 MG/2 ML VIAL IV STA (13:08)
[2019-05-17] MEDS ORDERED: NITROGLYCERIN 2% OINTMENT 30GM TUBE EXT STA (13:08)
[2019-05-17 13:25] LABS: Basophils # (auto) 0.04 K/uL (0-0.2); Basophils % (auto) 0.5 %; Eosinophils # (auto) 0.32 K/uL (0-0.5); Eosinophils % (auto) 3.9 %; Hematocrit (blood only) 39.1 % (42-52); Hemoglobin 12.3 g/dL (14.0-18.0); Immature Granulocytes # (auto) 0.02 K/uL (0.00-0.02); Immature Granulocytes % (auto) 0.2 %; Lymphocytes # (auto) 1.73 K/uL (1.2-3.4); Lymphocytes % (auto) 21.3 %; Mean Corpuscular Hemoglobin 29.2 pg (25-34); Mean Corpuscular Hgb Conc 31.5 g/dL (32-36); Mean Corpuscular Volume 92.9 fL (80-100); Mean Platelet Volume 11.2 fL (7.4-10.4); Monocytes # (auto) 0.59 K/uL (0.11-0.59); Monocytes % (auto) 7.2 %; Neutrophils # (auto) 5.44 K/uL (1.4-6.5); Neutrophils % (auto) 66.9 %; Platelet Count 189 K/uL (130-400); RDW Coefficient of Variation 17.7 % (11.5-14.5); RDW Standard Deviation 59.6 fL (36.4-46.3); Red Blood Count 4.21 M/uL (4.7-6.1); White Blood Count 8.14 K/uL (4.8-10.8)
--- NOTE | 2019-05-17 13:31 | XRay Report ---
XR chest 1V portable HISTORY: 84 years-old Male Dyspnea acute shortness of breath COMPARISON: Chest radiograph 03/21/2019 TECHNIQUE: Portable AP view of the chest FINDINGS: Cardiac silhouette is enlarged, unchanged. Pulmonary vascular congestion with chronic interstitial co arsening. Calcified plaque of the thoracic aortic arch. Mild left basilar consolidation. Patchy multi focal alveolar opacities are noted throughout the right lung. Suggestion of trace pleural effusions. Degenerative changes of the shoulders and spine. IMPRESSION: 1. Cardiomegaly with bibasilar and asymmetric multifocal right lung alveolar opacities suggestive of asymmetric pulmonary edema versus multifocal pneumonia. 2. Trace pleural effusions suggested. The above report was generated using voice recognition software. It may contain grammatical, syntax o r spelling errors. Electronically signed by: Edmundo Delgadillo M.D. 05/17/2019 1:29 PM
[2019-05-17 13:49] LABS: Albumin Globulin Ratio 0.6 (0.9-2); Albumin Level 2.9 gm/dl (3.4-5.0); BUN Creatinine Ratio 20.2 (10-20); Bilirubin,Total 0.5 mg/dl (0.2-1); Creatinine Clr Calc Pharmacy 60.1 ml/min; Est GFR (African American) 60.3; Total Protein 7.9 gm/dl (6.4-8.2); Troponin I 0.211 ng/ml (0-0.045)
[2019-05-17 13:54] LABS: Partial Thromboplastin Ratio 1.7; Prothrombin Time 70.9 Seconds (9.0-12.0)
[2019-05-17 14:05] LABS: Partial Thromboplastin Time 46.2 Seconds (21.0-31.0)
[2019-05-17] MEDS ORDERED: VANCOMYCIN CONSULT ACTIVE PRN (14:11)
[2019-05-17] MEDS ORDERED: VANCOMYCIN HCL 2,500 MG in SODIUM CHLORIDE 0.9% 500 ML IV ONE (14:11)
[2019-05-17] MEDS ORDERED: CEFEPIME 2,000 MG/20 ML VIAL IV STA (14:11)
[2019-05-17] MEDS ORDERED: PHYTONADIONE 5 MG in SODIUM CHLORIDE 0.9% 50 ML IV ONE (14:23)
[2019-05-17 14:28] LABS: Potassium 4.3 mmol/L (3.5-5.1)
[2019-05-17 14:33] LABS: Magnesium 2.2 mg/dl (1.8-2.4)
[2019-05-17 15:27] LABS: Appearance Urine Clear (Clear); Bacteria Urine Automated Negative (Negative); Bilirubin Urine Negative (Negative); Blood Urine Trace (Negative); Color Urine Yellow; Glucose Urine UA Negative (Negative); Ketones Urine Negative (Negative); Leukocyte Esterase Urine 1+ (Negative); Nitrite Urine Negative (Negative); Protein Urine Trace (Negative); RBC Urine Automated 0-4 /hpf (0-4); Specific Gravity Urine 1.016 (1.000-1.030); Urobilinogen Urine Negative (Negative)
[2019-05-17 15:45] LABS: Calcium Oxalate Crystals Urine Present (None Prsent)
--- NOTE | 2019-05-17 16:10 | CT Scan Report ---
ABDOMEN AND PELVIS CT WITHOUT CONTRAST CT DOSE: 1087.78 mGycm HISTORY: Generalized abdominal pain. TECHNIQUE: Multiaxial CT images of the abdomen and pelvis were performed without contrast. A dose lo wering technique was utilized adhering to the principles of ALARA. COMPARISON STUDY: Abdomen and pelvis CT 03/21/2019. FINDINGS: Small bilateral pleural effusions have increased in the interval. No pneumoperitoneum. No p neumatosis. No suspicious lytic are blastic osseous lesions. Healing/healed left-sided rib fractures remain unchanged. The unenhanced liver, gallbladder, spleen, and adrenal glands are unremarkable. Sta ble bilateral renal hypodense lesions. These are incompletely characterized on this noncontrast study but favor cysts. No renal or ureteral stones. No hydronephrosis. No retroperitoneal lymphadenopathy. Stable 1.5 cm nodule near the body of the pancreas on image 159. 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 Calcified plaque within the no rmal caliber abdominal aorta. Small focus of gas within the bladder. This may be due to prior cathete rization. No bladder wall thickening. Suboptimal evaluation for bowel pathology due to the lack of in travenous and oral contrast. However, there is no definite bowel wall thickening or obstruction. Norm al appendix. IMPRESSION: 1. Increase in size in the small bilateral pleural effusions. 2. No definite bowel wall thickening or obstruction. 3. Small amount of gas within the bladder lumen. This is likely due to prior catheterization. 4. Normal appendix. 5. Stable 1.5 cm nodular density adjacent to the body of the pancreas. This favors a splenic artery a neurysm. 6. Additional findings as described above. Electronically signed by: Nura Zuniga M.D. 05/17/2019 4:09 PM
[2019-05-17] MEDS ORDERED: POLYETHYLENE (MIRALAX) 17 GM PACK PO PRN (16:20)
[2019-05-17] MEDS ORDERED: ACETAMINOPHEN 325 MG TAB PO PRN (16:20)
[2019-05-17] MEDS ORDERED: ONDANSETRON INJ 2 MG/ML 2 ML VIAL IV PRN (16:20)
[2019-05-17] MEDS ORDERED: CARBOHYDRATES FOR HYPOGLYCEMIA PO PRN (17:05)
[2019-05-17] MEDS ORDERED: DEXTROSE 50% 50 ML SYRINGE IV PRN (17:05)
[2019-05-17] MEDS ORDERED: GLUCOSE 40% GEL 15 GM TUBE PO PRN (17:05)
[2019-05-17] MEDS ORDERED: GLUCAGON FOR INJ 1 MG VIAL SQ PRN (17:05)
[2019-05-17] MEDS ORDERED: GLUCOSE 10 TABS/TUBE PO PRN (17:05)
--- NOTE | 2019-05-17 17:26 | History & Physical Report ---
Date of Service May 17, 2019 Assessment & Plan (1) Fluid overload: (2) Pneumonia: (3) Hypoxia: Pt is 84 y/o M with PMH COPD, HTN, dyslipidemia, CAD S/P stent, anxiety, dementia, DM II, h/o PE on Coumadin, chronic Stafford catheter presented to ER with complaint of shortness of breath x 2-3 days. O2 sats in 70's per EMS improved with oxygen via NC. Daughter denies increase in chronic nonproductive cough, denies fever/chills, vomiting, choking. In ER afebrile, P: 101 down to 86, R: 26 down to 20, BP: 142/96, 92% on 4L NC. WBC: 8 CXR: Cardiomegaly with bibasilar and asymmetric multifocal right lung alveolar opacities suggestive of asymmetric pulmonary edema versus multifocal pneumonia. Trace pleural effusions suggested. -Flu swab negative -Blood cultures pending -In ER given cefepime, vancomycin, Solu-Medrol, Lasix 40 mg, Nitropaste -Zosyn, vancomycin -MRSA swab and if negative plan to d/c vancomycin -Supplemental oxygen as needed -Duonebs -Monitor I&O's -Reassess volume status to determine further lasix dosage -CBC, BMP in am (4) Elevated troponin: (5) LBBB (left bundle branch block): Troponin: 0.2. EKG sinus tachycardia, LBBB History LBBB upon initial admission for sepsis in 03/2019. During that admission limited echo secondary to patient noncompliance. EF: 55-60% Probable demand ischemia -Trend troponin -Consider echo if worsening -If increasing troponin consider cardiology consult (6) Chronic indwelling Stafford catheter: History indwelling Stafford, changed monthly with last reported change 04/27/19 -In ER noted decreased urinary output in Stafford bag after lasix given and pt had c/o some abdominal pain. CT abd/pelvis obtained showing Small focus of gas within the bladder, may be due to prior catheterization. -New Stafford cath placed in ER. (7) Supratherapeutic INR: (8) Pulmonary embolism: INR: 8 No signs of bleeding -In ER given vitamin K 5 mg IV -Hold Coumadin -INR in a.m. (9) CAD (coronary artery disease): s/p angioplasty -Continue statin, aspirin (10) DM2 (diabetes mellitus, type 2): A1c: 6.1 on 02/16/19 -Novolog sliding scale per protocol (11) Anxiety: -Continue citalopram, clonazepam (12) Dementia: -Monitor for delirium DVT Prophylaxis -On Coumadin with supratherapeutic INR currently DNR/DNI as per discussion with pt Follows with Dr Schofield for routine care Pt was seen and care coordinated with Dr Donovan. See addendum History of Present Illness Chief Complaint: SOB Primary Care Provider: Marco Schofield MD Pt is 84 y/o M with PMH COPD, HTN, dyslipidemia, CAD S/P stent, anxiety, dementia, DM II, h/o PE on Coumadin, chronic Stafford catheter presented to ER with complaint of shortness of breath x 2-3 days. History obtained from patient's daughter secondary to patient's dementia and altered mental status. Reports patient is primarily bedbound. Patient's daughter reports has noticed patient with increased shortness of breath for the past 2 to 3 days. She thinks there has been some weight gain. Reports patient with chronic BLE edema however thinks that has been improved since he has had a hospital bed at home. Reports chronic nonproductive cough and does not believe there is been increasing cough. Denies any known choking or aspiration. Patient had not been complaining of any chest pain however today he did request to go to ER secondary to shortness of breath. She reports patient with confusion at baseline however increased confusion past couple of days. Today oxygen saturations reported in the 70s per EMS and improved with oxygen via NC and duoneb. Daughter reports is been trying to get patient home oxygen and recently did home night pulse ox study however do not have results yet. Daughter reports that patient recently had his INR checked outpatient and was to have his Coumadin dosing adjusted however she reports did not get message until today and had been continuing his higher doses of Coumadin. Denies any noted epistaxis, hematuria, melena, hematochezia. Patient with chronic indwelling Stafford catheter. She reports that was last changed around 04/27/2019. Reports patient with BM last night which was small hard BM. States patient has been eating and drinking normally. Patient with recent admission to hospital 03/17/2019-03/24/2019 for sepsis, gram-negative bacteremia, Klebsiella UTI with indwelling catheter, SAI. Denies any noted fever/chills, diaphoresis, N/V/D, syncope, rhinorrhea, abdominal pain, rashes. In ER noted decreased urinary output in Stafford bag after lasix given and pt had c/o some abdominal pain. CT abd/pelvis obtained showing Small focus of gas within the bladder, may be due to prior catheterization. New Stafford cath placed in ER. Allergies Allergy/AdvReac Type Severity Reaction Status Date / Time morphine AdvReac Severe becomes Unverified 05/17/19 13:33 wild and combative Home Medications Home Medications Medication Instructions Recorded Confirmed Type aspirin [Aspir-81] 81 mg PO QAM 03/17/19 05/17/19 History calcium carbonate [Calcium 600] 600 mg PO QAM 03/17/19 05/17/19 History citalopram 20 mg PO QAM 03/17/19 05/17/19 History clonazepam 0.5 mg PO BID PRN 03/17/19 05/17/19 History clonazepam 1 mg PO QAM 03/17/19 05/17/19 History ipratropium-albuterol 3 ml INHALATION Q6H PRN 03/17/19 05/17/19 History warfarin 2.5 mg PO UD 03/17/19 05/17/19 History warfarin 5 mg PO UD 03/17/19 05/17/19 History trazodone 25 mg PO HS 04/24/19 05/17/19 History atorvastatin 40 mg PO UD 05/17/19 05/17/19 History clonazepam 0.5 mg PO HS 05/17/19 05/17/19 History pantoprazole 40 mg PO QAM 05/17/19 05/17/19 History tramadol 50 mg PO BID 05/17/19 05/17/19 History Past Med/Surg History Medical History (Updated 05/17/19 @ 17:38 by Berta Escobar PA-C) Anticoagulated on Coumadin (Chronic) Anxiety (Chronic) CAD (coronary artery disease) (Chronic) 2000 - inferior lateral wall TN s/p thrombolytic therapy, implantable angioplasty 1st diagonal Chronic diastolic CHF (congestive heart failure) (Chronic) COPD (chronic obstructive pulmonary disease) (Chronic) Dementia (Chronic) DM2 (diabetes mellitus, type 2) (Chronic) HLD (hyperlipidemia) (Chronic) HTN (hypertension) (Chronic) LBBB (left bundle branch block) Pulmonary embolism (Chronic) Surgical History H/O angioplasty (Chronic) "1999 [facility] " H/O hernia repair (Chronic) S/P surgical manipulation of ankle joint (Chronic) Family History Sister Arthritis Social History Preferred Language: Sudanese Communication Ability: Dementia 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: No Beliefs That Will Affect Care: None marital status: Current Living Situation: Spouse and Family Current Living Situation Comment: LIVES WITH DAUGHTER Other Information That Helps Us Care for You: No Feels Safe at Home: Yes Safety Concerns: Feels Safe At This Time Smoking Status: Current every day smoker Tobacco Type: pipe ; Second Hand Exposure: No ; Hx Alcohol Use: No Hx Substance Use: No Review of Systems Review of Systems: All systems reviewed & are unremarkable except as noted in HPI & below Physical Exam Physical Exam: General: chronic ill appearing, obese, +lethargic elderly male Head: normocephalic, atraumatic Eyes: PERRL, EOM's intact, conjunctiva non-injected, anicteric ENT: normal inspection external ears, nose, mucous membranes moist Neck: supple, trachea midline Lungs: On 4L O2 via NC with O2 sats: 91%, no retractions or accessory muscle use, +rales bases CV: RRR, no murmur, 1-2+ pretibial edema BLE Abd: normal BS, soft, no apparnet tenderness to palpation; Stafford cath in place Ext: no cyanosis, no apparent calf tenderness Neuro: Alert but somnolent, oriented to person and place, no focal deficits noted, cooperative, pleasant Skin: warm, dry Results & Data Vital Signs (Past 12 Hours) Vital Signs Temp Pulse Pulse Resp BP BP Pulse Ox 05/17/19 17:08 81 05/17/19 16:17 36.2 C L 79 18 137/87 91 05/17/19 15:00 88 16 137/94 90 05/17/19 14:45 85 16 133/86 92 05/17/19 14:30 36.5 C 86 20 128/91 92 05/17/19 14:07 88 22 113/73 93 05/17/19 13:19 36.5 C 101 H 26 H 142/96 H 80 L 05/17/19 13:17 94 H 20 91 Laboratory Results Short CBC 05/17/19 05/17/19 Range/Units 13:15 13:15 WBC 8.14 (4.8-10.8) K/uL Hgb 12.3 L (14.0-18.0) g/dL Hct 39.1 L (42-52) % Plt Count 189 (130-400) K/uL Troponin I 0.211 H* (0-0.045) ng/ml BMP 05/17/19 05/17/19 13:15 14:05 Sodium 138 Potassium 4.3 Chloride 107 Carbon Dioxide 26 BUN 25 H Creatinine 1.26 Glucose 111 H Calcium 9.0 Cardiac Enzymes 05/17/19 Range/Units 13:15 Troponin I 0.211 H* (0-0.045) ng/ml Liver Function 05/17/19 05/17/19 Range/Units 13:15 14:05 Total Bilirubin 0.5 (0.2-1) mg/dl AST 16 (15-37) U/L ALT 18 (12-78) U/L Alkaline Phosphatase 75 (45-117) U/L Albumin 2.9 L (3.4-5.0) gm/dl Urine 05/17/19 Range/Units 15:10 Urine Color Yellow Urine Appearance Clear (Clear) Urine pH 5.0 (4.5-7.5) Ur Specific [place] 1.016 (1.000-1.030) Urine Protein Trace H (Negative) Urine Glucose (UA) Negative (Negative) Diagnostic Findings CXR: IMPRESSION: 1. Cardiomegaly with bibasilar and asymmetric multifocal right lung alveolar opacities suggestive of asymmetric pulmonary edema versus multifocal pneumonia. 2. Trace pleural effusions suggested. CT ABD/PELVIS: IMPRESSION: 1. Increase in size in the small bilateral pleural effusions. 2. No definite bowel wall thickening or obstruction. 3. Small amount of gas within the bladder lumen. This is likely due to prior catheterization. 4. Normal appendix. 5. Stable 1.5 cm nodular density adjacent to the body of the pancreas. This favors a splenic artery aneurysm. 6. Additional findings as described above. Code Status & VTE Plan VTE Prophylaxis Plan VTE Prophylaxis will be ordered: Yes Supervising Physician Co-Signing Physician Notes I have seen and examined the patient and have discussed the case with the provider above. I agree with the assessment and plan as stated with the following exceptions. 84 yo M with acute worsening hypoxia admitted for pneumonia and CHF exacerbation. He has had a good response to Lasix with approximately 2L out this afternoon. The patient is demented so history is limited, but he states that he had a fever a few days back which resolved and he felt fine prior to today. He cannot recall the events of the day for me. He currently denies any pain or coughing and states that his breathing is better, although he doesn't appear convinced of that. He is otherwise hungry and thinks it is morning time, but ROS is otherwise negative. Physical reveals a regular heart rate and rhythm, with diffuse rales on lung auscultation throughout all isabel. There is also coarse rhonchi heard. He is able to sit up only with assistance and is obese and deconditioned. No manolo peripheral edema is noted. He is pleasant and is in no acute distress. Stafford catheter is in place. Agree with the plan above with diuretics as needed--would hold on any further until tomorrow's reassessment of his volume status with great response this evening. He is notably about 10kg up in weight from his visit in Mar 2019. Aspiration risk is there but unable to get the full story 2/2 dementia. Cont Zosyn for pneumonia pending clinical improvement and blood culture results. Vanc stopped after MRSA negative. Trend INR in am after vitamin K 5 IV given--no bleeding noted today but patient reports some gross hematuria 4 days ago into stafford bag. DO [place] (1) Pneumonia Laterality: unspecified laterality Lung location: unspecified part of lung Pneumonia type: due to unspecified organism Qualified Code(s): J18.9 - Pneumonia, unspecified organism
[2019-05-17 17:39] LABS: Influenza A virus by PCR Neg for Influ A (Neg); Influenza B virus by PCR Neg for Influ B (Neg)
--- NOTE | 2019-05-17 17:49 | Pharmacy Report ---
Pharmacy Abx Initial Consult - Date of Service May 17, 2019 - Pharmacy Dosing Scope Date of Consult: 05/17/19 Consultation requested by: Dr. Donovan Pharmacy is consulted to initiate Vancomycin IV dosing therapy, order appropriate labs and adjust drug dose/frequency. - Subjective The patient is a 84 year old M admitted on 05/17/19 14:34. - Objective Height: 6 ft Weight: 127 kg Vital Signs (Past 12hrs): Vital Signs Temp Pulse Pulse Resp BP BP Pulse Ox 05/17/19 17:08 81 05/17/19 16:17 36.2 C L 79 18 137/87 91 05/17/19 15:00 88 16 137/94 90 05/17/19 14:45 85 16 133/86 92 05/17/19 14:30 36.5 C 86 20 128/91 92 05/17/19 14:07 88 22 113/73 93 05/17/19 13:19 36.5 C 101 H 26 H 142/96 H 80 L 05/17/19 13:17 94 H 20 91 Lab Results (24hrs): Laboratory Tests (24 Hours) 05/17/19 05/17/19 13:15 13:15 WBC 8.14 Neut # (Auto) 5.44 Creatinine 1.26 Est Cr Clr Drug Dosing 60.1 Micro Results: 05/17/19 15:10 Urine Culture - Pending Urine,Clean Catch 05/17/19 14:05 Aerobic Blood Culture - Pending Blood Anaerobic Blood Culture - Pending 05/17/19 14:05 Aerobic Blood Culture - Pending Blood Anaerobic Blood Culture - Pending - Risk Factors for Resistance * Hospitalization for 48 hours or more within the past 90 days * Hospitalized from 03/17/19-03/24/19 for Gram Negative Sepsis secondary to UTI with chronic stafford catheter * History of infection with a multidrug-resistant organism: * K. pneumoniae in Urine and Blood: 03/17/19 * P. aeruginosa in Urine: 04/24/19 * Antimicrobial use within the last 90 days: * Augmentin, Cefdinir, Ciprofloxacin * Cefepime, Ceftriaxone, Unasyn, Zosyn - Assessment & Plan Assessment 84 year old M admitted to [facility] on 05/17/19 secondary to SOB * Reports chronic nonproductive cough with chronic b/l lower extremity edema and suspected recent weight gain * Denied any aspiration, increased confusion over past days * EMS reprots O2 sats in the 70s upon arrival, INR supratherapeutic (could be secondary to interaction with Cipro) * Chronic indwelling stafford catheter last changed around 04/27/19 * Patient afebrile, normotensive, O2 sats in low 90s on 4 L NC upon arrival to ED * WBCs 8,140; SCr 1.26 (approximately baseline); eCrCl 60.1 mL/min * CXR showed "cardiomegaly w/ bibasilar and asymmetric multifocal R lung alveolar opacities suggestive of pulm edema vs multifocal pna" * Patient received 2 g IV Cefepime and Vancomycin LD in ED before transferring to floor Plan IV Vancomycin for treatment of pneumonia Vancomycin IV * Estimated PK Parameters: Vd 0.55 L/kg, Karl 0.0542 hr-1, t1/2 12.8 hrs * Loading dose: 2500 mg (20 mg/kg) * Maintenance dose: 1250 mg IV (10 mg/kg) every 14 hours * Goal trough level for pneumonia: 15 to 20 mcg/mL * Trough level ordered for 05/19/19 @ 0930 prior to the 3rd maintenance dose given patient's likelihood of accumulating * A less than traditional dose and extended dosing interval have been selected due to likelihood of drug accumulation in obese patient. Pharmacy will continue to follow and will adjust dose/frequency as necessary. Thank you.
[2019-05-17] MEDS ORDERED: PIPERACILL/TAZOBAC CONSULT ACTIVE PRN (18:23)
[2019-05-17] MEDS ORDERED: PIPERACILLIN/TAZOBACTAM 4.5 GM in DEXTROSE 5% 100 ML IV ONE (19:00)
[2019-05-17] MEDS: ALBUT/IPRATROP 3MG/0.5MG NEB 3 ML VIAL NEB SCH (19:05)
--- NOTE | 2019-05-17 20:28 | Emergency Department Note ---
Entered by Saima Frias acting as a scribe for ED Provider Note CHIEF COMPLAINT: Shortness of breath HISTORY OF PRESENT ILLNESS: The patient is a 84 year old male who presents to the Emergency Room with complaints of shortness of breath that has been going on for the past several days.EMS reported that his oxygen saturation was in the 70s when they arrived. He was put on oxygen, which he does not normally wear at home. In addition to difficulty breathing, the patient has noticed weight gain as well as increased edema in his legs. He also complains of dizziness and a cough without sputum. The patient is on Coumadin and has a catheter inserted. His daughter noted that he has been increasingly confused lately. She notes decreased urinary output as well. History is limited secondary to patients dementia and confusion. The patient was diagnosed with UTI at [facility] on 04/24/19. He was treated with Omnicef, however, culture revealed pseudomonas, so he was switched to Cipro. Pt denies LOC, headache, fevers, chills, diaphoresis, visual changes, neck pain, chest pain, nausea, vomiting, back pain, melena, hematochezia, urinary symptoms, numbness, weakness, lymphadenopathy, rash, or other complaints. The daughter stated that the patient is DNR. REVIEW OF SYSTEMS: See HPI for pertinent positives and negatives. A total of ten systems were revi ewed and were otherwise negative. PMHx/PSHx: CHF PE Type 2 Diabetes mellitus Dementia UTI SOCIAL HISTORY: Patient lives at home. PHYSICAL EXAM: GENERAL: Awake, alert, well-appearing, in no distress HENT: Normocephalic, atraumatic. Oropharynx unremarkable. EYES: PERRL. Normal conjunctiva. Sclera non-icteric. NECK: Inspection normal. Non-tender. Supple. No nuchal rigidity. FROM. No masses. RESPIRATORY: Course breath sounds. Scattered rales bilaterally. Increased respiratory effort. CARDIAC: Normal rate. Normal rhythm. No murmurs. No rubs. Extremities warm and well perfused. Pulses equal. No JVD. GI: Soft, non-distended. No tenderness to palpation. No rebound or guarding. No masses. RECTAL: Deferred. MUSCULOSKELETAL: Atraumatic. Chest examination reveals no tenderness. The back is symmetrical on inspection without obvious abnormality. There is no CVA tenderness to palpation. No joint edema. LOWER EXTREMITIES: Calves are equal size bilaterally and non-tender. No edema. No discoloration. NEURO: Altered sensorium. No sensory or motor deficits noted. SKIN: No rash or jaundice noted. EMERGENCY DEPARTMENT COURSE: 1308: Past medical records reviewed. The patient was evaluated in room C09, and a complete history and physical examination were performed. 1423: I spoke to Dr. Donovan, [facility] hospitalist, who agreed to take over care of the patient. The patient and daughter verbally expressed understanding and agreement of the treatment plan. The patient will be evaluated for further treatment. MEDICAL DECISION MAKING: C9 Prior records/ancillary studies reviewed. Triage Nursing notes reviewed and agree them. Additional history obtained from the family. The patient's history was concerning for shortness of breath. Differential diagnosis: Etiologies such as pneumonia, COPD, reactive airway disease, CHF, cardiac ischemia, pulmonary embolism, pneumothorax, musculoskeletal, infections, gastrointestinal, as well as others were entertained. Physical examination: The patient had peripheral edema and hypoxia. Increased work of breathing. ER treatment provided: Supplemental oxygen IV Lasix 40 mg Nitropaste DuoNeb IV Solu-Medrol On reassessment the patient felt better. IV vancomycin IV cefepime IV vitamin K Diagnostic interpretation by me: The electrocardiogram was concerning for a left bundle branch block which appeared new. The patient has not had any chest pain today and he and family deny any recent chest pain complaints. The labs revealed a mild anemia on CBC. Chemistry panel was unremarkable. Troponin was elevated. Blood cultures pending. Imaging studies: Chest x-ray concerning for cardiomegaly and pulmonary edema with an atypical pattern raising concern for possible right-sided infiltrate. The patient has findings concerning for CHF as well as possible pneumonia. He has a supratherapeutic INR and therefore PE seems unlikely. He was treated as above and will need further management in the hospital. Consultation: A [facility] The case was discussed and diagnostics were reviewed. The patient was evaluated in the ER for further treatment. IMPRESSION: Hypoxia Shortness of breath Acute EKG changes New LBBB CHF Pneumonia Elevated troponin Supratherapeutic INR PLAN: Admit CRITICAL CARE I have personally spent 35 minutes of critical care time in the direct management of this patient. This includes bedside care, interpretation of diagnostic studies, and testing, discussion with consultants, patient, and family members, and other required patient management activities. This 35 minutes is in excess of all separately billable procedures. The scribe's documentation has been prepared under my direction and personally reviewed by me in its entirety. I confirm that the note above accurately reflects all work, treatment, procedures, and medical decision making performed by me. Impression & Plan Hypoxia, Elevated troponin, CHF (congestive heart failure), Shortness of breath, Acute electrocardiogram changes, New onset left bundle branch block (LBBB), Pneumonia, Supratherapeutic INR Past Med/Surg History Medical History (Updated 05/17/19 @ 17:38 by Berta Escobar PA-C) Anticoagulated on Coumadin (Chronic) Anxiety (Chronic) CAD (coronary artery disease) (Chronic) 2000 - inferior lateral wall PR s/p thrombolytic therapy, implantable angioplasty 1st diagonal Chronic diastolic CHF (congestive heart failure) (Chronic) COPD (chronic obstructive pulmonary disease) (Chronic) Dementia (Chronic) DM2 (diabetes mellitus, type 2) (Chronic) HLD (hyperlipidemia) (Chronic) HTN (hypertension) (Chronic) LBBB (left bundle branch block) Pulmonary embolism (Chronic) Surgical History H/O angioplasty (Chronic) "1999 [facility] " H/O hernia repair (Chronic) S/P surgical manipulation of ankle joint (Chronic) Family History Sister Arthritis Social History Preferred Language: Welsh Communication Ability: Dementia Clinical Safety Specialist Required: No Beliefs That Will Affect Care: None marital status: Current Living Situation: Spouse and Family Current Living Situation Comment: LIVES WITH DAUGHTER Other Information That Helps Us Care for You: No Feels Safe at Home: Yes Safety Concerns: Feels Safe At This Time Smoking Status: Current every day smoker Tobacco Type: pipe ; Second Hand Exposure: No ; Hx Alcohol Use: No Hx Substance Use: No Results & Data Vital Signs Vital Signs - 24 hr 05/17/19 13:17 05/17/19 13:19 05/17/19 14:07 Temperature 36.5 C Temperature Source Oral Pulse Rate 101 H Pulse Rate [Right Finger] 94 H 88 Respiratory Rate 20 26 H 22 Respiratory Effort / Characteristics Spontaneous Accessory Muscle Use Respiratory Depth Shallow Normal Respiratory Pattern Tachypnea Blood Pressure 142/96 H Blood Pressure [Right Arm] 113/73 Blood Pressure Mean 111 Blood Pressure Mean [Right Arm] 86 Blood Pressure Position Lying Blood Pressure Position [Right Arm] Lying Pulse Oximetry 91 80 L 93 Oxygen Delivery Method Nasal Cannula Room Air Nasal Cannula Nasal Cannula Oxygen Flow Rate 4 0 4 Sepsis Recent Fever Within 48 Hours No Sepsis Action Taken by Nursing No Action Required Oxygen Flow Rate - Titration 4 Pulse Oximetry Post Tiitration 92 05/17/19 14:30 Temperature 36.5 C Temperature Source Axillary Pulse Rate Pulse Rate [Right Finger] 86 Respiratory Rate 20 Respiratory Effort / Characteristics Non-Labored Spontaneous Respiratory Depth Normal Respiratory Pattern Blood Pressure Blood Pressure [Right Arm] 128/91 Blood Pressure Mean Blood Pressure Mean [Right Arm] 103 Blood Pressure Position Blood Pressure Position [Right Arm] Lying Pulse Oximetry 92 Oxygen Delivery Method Nasal Cannula Oxygen Flow Rate 4 Sepsis Recent Fever Within 48 Hours Sepsis Action Taken by Nursing Oxygen Flow Rate - Titration Pulse Oximetry Post Tiitration Home Medications Current Medication List: was personally reviewed by me Laboratory Data Attestation: I reviewed the patient's lab results. Result diagrams: 05/17/19 13:15 05/17/19 14:05 Lab Results 05/17/19 05/17/19 05/17/19 Range/Units 13:15 13:15 13:15 WBC 8.14 (4.8-10.8) K/uL RBC 4.21 L (4.7-6.1) M/uL Hgb 12.3 L (14.0-18.0) g/dL Hct 39.1 L (42-52) % MCV 92.9 (80-100) fL MCH 29.2 (25-34) pg MCHC 31.5 L (32-36) g/dL RDW Std Deviation 59.6 H (36.4-46.3) fL RDW Coeff of Irvin 17.7 H (11.5-14.5) % Plt Count 189 (130-400) K/uL MPV 11.2 H (7.4-10.4) fL Immature Gran % (Auto) 0.2 % Neut % (Auto) 66.9 % Lymph % (Auto) 21.3 % Duchesne % (Auto) 7.2 % Eos % (Auto) 3.9 % Baso % (Auto) 0.5 % Immature Gran # (Auto) 0.02 (0.00-0.02) K/uL Neut # (Auto) 5.44 (1.4-6.5) K/uL Lymph # (Auto) 1.73 (1.2-3.4) K/uL Duchesne # (Auto) 0.59 (0.11-0.59) K/uL Eos # (Auto) 0.32 (0-0.5) K/uL Baso # (Auto) 0.04 (0-0.2) K/uL PT 70.9 H (9.0-12.0) Seconds INR 8.0 H* (0.9-1.1) APTT 46.2 H* (21.0-31.0) Seconds PTT Ratio 1.7 Sodium (136-145) mmol/L Potassium (3.5-5.1) mmol/L Chloride (98-107) mmol/L Carbon Dioxide (21-32) mmol/L Anion Gap (3-11) BUN (7-18) mg/dl Creatinine (0.6-1.4) mg/dl Est Cr Clr Drug Dosing ml/min Est GFR ( Amer) Est GFR (Non-Af Amer) BUN/Creatinine Ratio (10-20) Glucose (70-99) mg/dl Calcium (8.5-10.1) mg/dl Magnesium Cancelled Total Bilirubin (0.2-1) mg/dl AST (15-37) U/L ALT (12-78) U/L Alkaline Phosphatase (45-117) U/L Troponin I (0-0.045) ng/ml NT-Pro-B Natriuret Pep Cancelled Total Protein (6.4-8.2) gm/dl Albumin (3.4-5.0) gm/dl Globulin (2.5-4.0) gm/dl Albumin/Globulin Ratio (0.9-2) 05/17/19 05/17/19 Range/Units 13:15 14:05 WBC (4.8-10.8) K/uL RBC (4.7-6.1) M/uL Hgb (14.0-18.0) g/dL Hct (42-52) % MCV (80-100) fL MCH (25-34) pg MCHC (32-36) g/dL RDW Std Deviation (36.4-46.3) fL RDW Coeff of Irvin (11.5-14.5) % Plt Count (130-400) K/uL MPV (7.4-10.4) fL Immature Gran % (Auto) % Neut % (Auto) % Lymph % (Auto) % Duchesne % (Auto) % Eos % (Auto) % Baso % (Auto) % Immature Gran # (Auto) (0.00-0.02) K/uL Neut # (Auto) (1.4-6.5) K/uL Lymph # (Auto) (1.2-3.4) K/uL Duchesne # (Auto) (0.11-0.59) K/uL Eos # (Auto) (0-0.5) K/uL Baso # (Auto) (0-0.2) K/uL PT (9.0-12.0) Seconds INR (0.9-1.1) APTT (21.0-31.0) Seconds PTT Ratio Sodium 138 (136-145) mmol/L Potassium 4.3 (3.5-5.1) mmol/L Chloride 107 (98-107) mmol/L Carbon Dioxide 26 (21-32) mmol/L Anion Gap 5.0 (3-11) BUN 25 H (7-18) mg/dl Creatinine 1.26 (0.6-1.4) mg/dl Est Cr Clr Drug Dosing 60.1 ml/min Est GFR ( Amer) 60.3 Est GFR (Non-Af Amer) 52.0 BUN/Creatinine Ratio 20.2 H (10-20) Glucose 111 H (70-99) mg/dl Calcium 9.0 (8.5-10.1) mg/dl Magnesium 2.2 Total Bilirubin 0.5 (0.2-1) mg/dl AST 16 (15-37) U/L ALT 18 (12-78) U/L Alkaline Phosphatase 75 (45-117) U/L Troponin I 0.211 H* (0-0.045) ng/ml NT-Pro-B Natriuret Pep 1759 Total Protein 7.9 (6.4-8.2) gm/dl Albumin 2.9 L (3.4-5.0) gm/dl Globulin 5.0 H (2.5-4.0) gm/dl Albumin/Globulin Ratio 0.6 L (0.9-2) Administered Medications Albuterol (Duoneb) 3 ml NEB QIDR ANNE Stop: 06/16/19 18:59 Last Admin: 05/17/19 19:05 Dose: 3 ml Documented by: [id number] Discontinued Medications Albuterol (Duoneb) 3 ml INH NOW STA Stop: 05/17/19 13:09 Last Admin: 05/17/19 13:17 Dose: 3 ml Documented by: [id number] Furosemide (Lasix) 40 mg IV NOW STA Stop: 05/17/19 13:09 Last Admin: 05/17/19 13:58 Dose: 40 mg Documented by: [id number] Cefepime HCl (Maxipime) 2,000 mg in 20 mls @ 5 mls/min IV NOW STA; Protocol Stop: 05/17/19 14:14 Last Admin: 05/17/19 15:18 Dose: 5 mls/min Documented by: [id number] Vancomycin HCl 2,500 mg/ (Sodium Chloride) 550 mls @ 200 mls/hr IV NOW ONE Stop: 05/17/19 16:55 Last Infusion: 05/17/19 19:18 Dose: 0 mls/hr Documented by: [id number] Admin: 05/17/19 16:33 Dose: 200 mls/hr Documented by: [id number] Phytonadione 5 mg/ Sodium (Chloride) 50.5 mls @ 101 mls/hr IV ONE ONE Stop: 05/17/19 14:52 Last Infusion: 05/17/19 15:06 Dose: 0 mls/hr Documented by: [id number] Admin: 05/17/19 14:35 Dose: 101 mls/hr Documented by: [id number] Piperacillin Sod/Tazobactam (Sod 4.5 gm/ Dextrose) 120 mls @ 200 mls/hr IV NOW ONE; Protocol Stop: 05/17/19 19:35 Last Infusion: 05/17/19 20:07 Dose: 0 mls/hr Documented by: [id number] Admin: 05/17/19 19:31 Dose: 200 mls/hr Documented by: [id number] Methylprednisolone (Solumedrol) 125 mg IV NOW STA Stop: 05/17/19 13:09 Last Admin: 05/17/19 13:58 Dose: 125 mg Documented by: [id number] Nitroglycerin (Nitro-Bid 2%) 0.5 inch EXT NOW STA Stop: 05/17/19 13:09 Last Admin: 05/17/19 13:58 Dose: 0.5 inch Documented by: [id number] Imaging Data Radiologist's Impression: Radiology results as stated below per my review and the radiologist's interpretation: XR chest 1V portable HISTORY: 84 years-old Male Dyspnea acute shortness of breath COMPARISON: Chest radiograph 03/21/2019 TECHNIQUE: Portable AP view of the chest FINDINGS: Cardiac silhouette is enlarged, unchanged. Pulmonary vascular congestion with chronic interstitial coarsening. Calcified plaque of the thoracic aortic arch. Mild left basilar consolidation. Patchy multifocal alveolar opacities are noted throughout the right lung. Suggestion of trace pleural effusions. Degenerative changes of the shoulders and spine. IMPRESSION: 1. Cardiomegaly with bibasilar and asymmetric multifocal right lung alveolar opacities suggestive of asymmetric pulmonary edema versus multifocal pneumonia. 2. Trace pleural effusions suggested. The above report was generated using voice recognition software. It may contain grammatical, syntax or spelling errors. Electronically signed by: Edmundo Delgadillo M.D. 05/17/2019 1:29 PM ECG Data Attestation: I personally reviewed and interpreted this ECG as follows: Indication: + SOB/dyspnea Rate (beats per minute): 102 Rhythm: sinus tachycardia ECG [place]: + Left axis deviation ECG ST segments: no ST depression and no ST elevation ECG Findings: no PVCs Comparison ECG Date: from (03/19/19) Change: the following changes noted (LBBB is new) Blood Pressure Blood Pressure Findings: Normal blood pressure Blood Pressure Disposition: further management by hospitalist Discharge Plan Visit Data *Final* Discharge Date/Time: 05/17/19 15:26 Chief Complaint: Shortness of Breath/Dyspnea Stated Complaint: sob ED Provider: Kyaw Issa Discharge Problem: Hypoxia, Elevated troponin, CHF (congestive heart failure), Shortness of breath, Acute electrocardiogram changes, New onset left bundle branch block (LBBB), Pneumonia, Supratherapeutic INR Patient Disposition: Admitted As Inpatient Discharge Instructions Interventions: ED Discharge Assessment Last Done: 05/17/19 15:26 Discharge Problem: CHF (congestive heart failure) Qualifiers: Heart failure type: unspecified Heart failure chronicity: unspecified Qualified Code(s): I50.9 - Heart failure, unspecified Pneumonia Qualifiers: Pneumonia type: due to unspecified organism Laterality: unspecified laterality Lung location: unspecified part of lung Qualified Code(s): J18.9 - Pneumonia, unspecified organism The scribe's documentation has been prepared under my direction and personally reviewed by me in its entirety. I confirm that the note above accurately reflects all work, treatment, procedures, and medical decision making performed by me.
[2019-05-17] MEDS: INSULIN ASPART 100 UNITS/ML 3 ML PEN SC SCH (20:50)
[2019-05-17] MEDS: TRAZODONE HCL 50 MG TAB PO SCH (20:55)
[2019-05-17] MEDS ORDERED: clonazePAM 0.5 MG TAB PO SCH (21:00)
[2019-05-17] MEDS ORDERED: clonazePAM 0.5 MG TAB PO PRN (21:00)
[2019-05-17] MEDS: PIPERACILLIN/TAZOBACTAM 4.5 GM in DEXTROSE 5% 100 ML IV SCH (23:46)
[2019-05-18] MEDS ORDERED: VANCOMYCIN HCL 1,250 MG in SODIUM CHLORIDE 0.9% 250 ML IV SCH (06:00)
[2019-05-18] MEDS: ALBUT/IPRATROP 3MG/0.5MG NEB 3 ML VIAL NEB SCH ×4 (07:01→19:10)
[2019-05-18 08:02] LABS: Hematocrit (blood only) 37.1 % (42-52); Hemoglobin 11.6 g/dL (14.0-18.0); Mean Corpuscular Hemoglobin 28.6 pg (25-34); Mean Corpuscular Hgb Conc 31.3 g/dL (32-36); Mean Corpuscular Volume 91.4 fL (80-100); Mean Platelet Volume 10.9 fL (7.4-10.4); Platelet Count 207 K/uL (130-400); RDW Coefficient of Variation 17.6 % (11.5-14.5); RDW Standard Deviation 59.7 fL (36.4-46.3); Red Blood Count 4.06 M/uL (4.7-6.1); White Blood Count 6.14 K/uL (4.8-10.8)
[2019-05-18 08:12] LABS: INR 1.5 (0.9-1.1); Prothrombin Time 15.4 Seconds (9.0-12.0)
[2019-05-18] MEDS: PIPERACILLIN/TAZOBACTAM 4.5 GM in DEXTROSE 5% 100 ML IV SCH ×3 (08:12→23:35)
[2019-05-18] MEDS: PANTOprazole 40 MG TAB PO SCH (08:13)
[2019-05-18] MEDS: ASPIRIN 81 MG ECTAB PO SCH (08:13)
[2019-05-18] MEDS: CITALOPRAM 20 MG TAB PO SCH (08:14)
[2019-05-18] MEDS: INSULIN ASPART 100 UNITS/ML 3 ML PEN SC SCH ×4 (08:14→20:57)
[2019-05-18 08:42] LABS: Creatinine Clr Calc Pharmacy 53.1 ml/min; Est GFR (African American) 52.2; Potassium 4.3 mmol/L (3.5-5.1)
--- NOTE | 2019-05-18 11:21 | Hospitalist Progress Note ---
Date of Service May 18, 2019 Assessment & Plan (1) Fluid overload: (2) Hypoxia: (3) Pneumonia: Pt is 84 y/o M with PMH COPD, HTN, dyslipidemia, CAD S/P stent, anxiety, dementia, DM II, h/o PE on Coumadin, chronic Blunt catheter presented to ER with complaint of shortness of breath x 2-3 days. O2 sats in 70's per EMS improved with oxygen via NC. Daughter denies increase in chronic nonproductive cough, denies fever/chills, vomiting, choking. In ER afebrile, P: 101 down to 86, R: 26 down to 20, BP: 142/96, 92% on 4L NC. WBC: 8 CXR: Cardiomegaly with bibasilar and asymmetric multifocal right lung alveolar opacities suggestive of asymmetric pulmonary edema versus multifocal pneumonia. Trace pleural effusions suggested. -Flu swab negative -Blood cultures- pending -In ER given cefepime, vancomycin, Solu-Medrol, Lasix 40 mg, Nitropaste -Zosyn, vancomycin, then vancomycin stopped as MRSA swab negative -Supplemental oxygen as needed -Duonebs -Monitor I&O's -Reassess volume status to determine further lasix dosage -currently he feels well, he is sitting up in bed, eating, comfortable, in the afternoon he is able to ambulate without much difficulty, will cont. to monitor -CBC, BMP in am (4) Elevated troponin: (5) LBBB (left bundle branch block): History LBBB upon initial admission for sepsis in 03/2019. During that admission limited echo secondary to patient noncompliance. EF: 55-60% Troponin: 0.2. EKG sinus tachycardia, LBBB Most likely due to demand ischemia -Trend troponin - downtrending -would consider echo if worsening -If increasing troponin consider cardiology consult (6) Chronic indwelling Blunt catheter: History indwelling Blunt, changed monthly with last reported change 04/27/19 -In ER noted decreased urinary output in Blunt bag after lasix given and pt had c/o some abdominal pain. CT abd/pelvis obtained showing Small focus of gas within the bladder, may be due to prior catheterization. -New Blunt cath placed in ER. Elevated Cr - will cont. to monitor - will try to avoid nephrotoxic agents - received vanco and zosyn which could poss. worsen renal function (7) Supratherapeutic INR: INR: 8 No signs of bleeding -In ER given vitamin K 5 mg IV -Hold Coumadin -INR this AM 1.5 - hx of PE over at least 1 yr ago, will cont. coumadin -Clarified patient's Coumadin dose, takes 5 mg Saturday/ Saturday/ Saturday, and 2.5 mg Saturday/ / Saturday/ Saturday (per anticoagulation clinic) (8) Pulmonary embolism: - hx of PE over at least 1 yr ago, will cont. coumadin -Clarified patient's Coumadin dose, takes 5 mg Saturday/ Saturday/ Saturday, and 2.5 mg Saturday/ / Saturday/ Saturday (per anticoagulation clinic) (9) CAD (coronary artery disease): s/p angioplasty -Continue statin, aspirin (10) DM2 (diabetes mellitus, type 2): A1c: 6.1 on 02/16/19 -Novolog sliding scale per protocol (11) Anxiety: -Continue citalopram, clonazepam (12) Dementia: -Monitor for delirium DVT Prophylaxis -On Coumadin with supratherapeutic INR on admission, now INR 1.5, will restart his home coumadin DNR/DNI as per discussion with pt Follows with Dr Schofield for routine care Subjective Patient sitting up in bed, eating, in no acute distress and comfortable. He does not recall what brought him to the hospital however he says that he feels well. He is oriented to himself and place, he is not aware of his lung condition for which he is hospitalized. Denies any fevers, chills, chest pain, shortness of breath, abdominal pain, nausea or vomiting. Denies any palpitations, dizziness or lightheadedness. History on admission provided by patient's daughter. Patient cannot confirm his medications with me, says that his family is handling his medications. INR elevated yesterday on admission, 8, now down to 1.5 after vitamin K given Update: Updated per his RN, in the afternoon patient did not have much trouble with ambulation was able to get up from bed without much difficulty. Review of Systems Review of Systems: All systems reviewed & are unremarkable except as noted in HPI & below Constitutional: no fever and no chills Respiratory: no cough, no dyspnea and no pain on inspiration Cardiovascular: no chest pain and no palpitations Gastrointestinal: no abdominal pain, no nausea and no vomiting Physical Exam Physical Exam: General: obese male sitting up in bed, eating, in no acute distress, comfortable Head: normocephalic, atraumatic Eyes: PERRL, EOMI, conjunctiva non-injected, anicteric ENT: normal inspection external ears, nose, mucous membranes moist Neck: supple, trachea midline Lungs: no retractions or accessory muscle use, +rales bases CV: RRR, no murmur, 1+ edema BLE Abd: normal BS, soft, obese,nontender; Blunt cath in place Ext: no cyanosis, no apparent calf tenderness, moves extremities spontaneously Neuro: Alert,oriented to person and place, no focal deficits noted, cooperative, pleasant Skin: warm, dry Results & Data Vital Signs (Past 12 Hours) Vital Signs Temp Pulse Pulse Resp BP Pulse Ox 05/18/19 11:12 92 H 20 90 05/18/19 10:52 84 05/18/19 07:56 36.6 C 91 H 19 133/82 91 05/18/19 07:04 82 18 91 05/18/19 04:13 36.3 C L 98 H 20 145/52 H 92 05/17/19 23:30 36.5 C 97 H 17 126/84 93 Laboratory Results 05/18/19 05/18/19 05/18/19 Range/Units 07:49 07:49 07:49 WBC 6.14 (4.8-10.8) K/uL RBC 4.06 L (4.7-6.1) M/uL Hgb 11.6 L (14.0-18.0) g/dL Hct 37.1 L (42-52) % MCV 91.4 (80-100) fL MCH 28.6 (25-34) pg MCHC 31.3 L (32-36) g/dL RDW Std Deviation 59.7 H (36.4-46.3) fL RDW Coeff of Irvin 17.6 H (11.5-14.5) % Plt Count 207 (130-400) K/uL MPV 10.9 H (7.4-10.4) fL Immature Gran % (Auto) % Neut % (Auto) % Lymph % (Auto) % Meagher % (Auto) % Eos % (Auto) % Baso % (Auto) % Immature Gran # (Auto) (0.00-0.02) K/uL Neut # (Auto) (1.4-6.5) K/uL Lymph # (Auto) (1.2-3.4) K/uL Meagher # (Auto) (0.11-0.59) K/uL Eos # (Auto) (0-0.5) K/uL Baso # (Auto) (0-0.2) K/uL PT 15.4 H (9.0-12.0) Seconds INR 1.5 H (0.9-1.1) APTT (21.0-31.0) Seconds PTT Ratio Sodium 141 (136-145) mmol/L Potassium 4.3 (3.5-5.1) mmol/L Chloride 106 (98-107) mmol/L Carbon Dioxide 31 (21-32) mmol/L Anion Gap 4.0 (3-11) BUN 28 H (7-18) mg/dl Creatinine 1.42 H (0.6-1.4) mg/dl Est Cr Clr Drug Dosing 53.1 ml/min Est GFR ( Amer) 52.2 Est GFR (Non-Af Amer) 45.0 BUN/Creatinine Ratio 20.0 (10-20) Glucose 139 H (70-99) mg/dl POC Glucose (70-99) Calcium 10.0 (8.5-10.1) mg/dl Magnesium Total Bilirubin (0.2-1) mg/dl AST (15-37) U/L ALT (12-78) U/L Alkaline Phosphatase (45-117) U/L Troponin I (0-0.045) ng/ml NT-Pro-B Natriuret Pep Total Protein (6.4-8.2) gm/dl Albumin (3.4-5.0) gm/dl Globulin (2.5-4.0) gm/dl Albumin/Globulin Ratio (0.9-2) Urine Color Urine Appearance (Clear) Urine pH (4.5-7.5) Ur Specific Maskell (1.000-1.030) Urine Protein (Negative) Urine Glucose (UA) (Negative) Urine Ketones (Negative) Urine Blood (Negative) Urine Nitrite (Negative) Urine Bilirubin (Negative) Urine Urobilinogen (Negative) Ur Leukocyte Esterase (Negative) Urine WBC (Auto) (0-5) /hpf Urine RBC (Auto) (0-4) /hpf U Hyaline Cast (Auto) (0-5) /lpf U Epithel Cells (Auto) (0-5) /lpf Urine Bacteria (Auto) (Negative) Urine Crystals Calcium Oxalate Crystal (None Prsent) Nasal Screen MRSA (PCR) (Negative) Influenza Type A (PCR) (Neg) Influenza Type B (PCR) (Neg) 05/18/19 05/18/19 05/17/19 Range/Units 07:28 00:19 20:26 WBC (4.8-10.8) K/uL RBC (4.7-6.1) M/uL Hgb (14.0-18.0) g/dL Hct (42-52) % MCV (80-100) fL MCH (25-34) pg MCHC (32-36) g/dL RDW Std Deviation (36.4-46.3) fL RDW Coeff of Irvin (11.5-14.5) % Plt Count (130-400) K/uL MPV (7.4-10.4) fL Immature Gran % (Auto) % Neut % (Auto) % Lymph % (Auto) % Meagher % (Auto) % Eos % (Auto) % Baso % (Auto) % Immature Gran # (Auto) (0.00-0.02) K/uL Neut # (Auto) (1.4-6.5) K/uL Lymph # (Auto) (1.2-3.4) K/uL Meagher # (Auto) (0.11-0.59) K/uL Eos # (Auto) (0-0.5) K/uL Baso # (Auto) (0-0.2) K/uL PT (9.0-12.0) Seconds INR (0.9-1.1) APTT (21.0-31.0) Seconds PTT Ratio Sodium (136-145) mmol/L Potassium (3.5-5.1) mmol/L Chloride (98-107) mmol/L Carbon Dioxide (21-32) mmol/L Anion Gap (3-11) BUN (7-18) mg/dl Creatinine (0.6-1.4) mg/dl Est Cr Clr Drug Dosing ml/min Est GFR ( Amer) Est GFR (Non-Af Amer) BUN/Creatinine Ratio (10-20) Glucose (70-99) mg/dl POC Glucose 150 H 141 H (70-99) Calcium (8.5-10.1) mg/dl Magnesium Total Bilirubin (0.2-1) mg/dl AST (15-37) U/L ALT (12-78) U/L Alkaline Phosphatase (45-117) U/L Troponin I 0.195 H* (0-0.045) ng/ml NT-Pro-B Natriuret Pep Total Protein (6.4-8.2) gm/dl Albumin (3.4-5.0) gm/dl Globulin (2.5-4.0) gm/dl Albumin/Globulin Ratio (0.9-2) Urine Color Urine Appearance (Clear) Urine pH (4.5-7.5) Ur Specific Maskell (1.000-1.030) Urine Protein (Negative) Urine Glucose (UA) (Negative) Urine Ketones (Negative) Urine Blood (Negative) Urine Nitrite (Negative) Urine Bilirubin (Negative) Urine Urobilinogen (Negative) Ur Leukocyte Esterase (Negative) Urine WBC (Auto) (0-5) /hpf Urine RBC (Auto) (0-4) /hpf U Hyaline Cast (Auto) (0-5) /lpf U Epithel Cells (Auto) (0-5) /lpf Urine Bacteria (Auto) (Negative) Urine Crystals Calcium Oxalate Crystal (None Prsent) Nasal Screen MRSA (PCR) (Negative) Influenza Type A (PCR) (Neg) Influenza Type B (PCR) (Neg) 05/17/19 05/17/19 05/17/19 Range/Units 18:50 18:00 17:03 WBC (4.8-10.8) K/uL RBC (4.7-6.1) M/uL Hgb (14.0-18.0) g/dL Hct (42-52) % MCV (80-100) fL MCH (25-34) pg MCHC (32-36) g/dL RDW Std Deviation (36.4-46.3) fL RDW Coeff of Irvin (11.5-14.5) % Plt Count (130-400) K/uL MPV (7.4-10.4) fL Immature Gran % (Auto) % Neut % (Auto) % Lymph % (Auto) % Meagher % (Auto) % Eos % (Auto) % Baso % (Auto) % Immature Gran # (Auto) (0.00-0.02) K/uL Neut # (Auto) (1.4-6.5) K/uL Lymph # (Auto) (1.2-3.4) K/uL Meagher # (Auto) (0.11-0.59) K/uL Eos # (Auto) (0-0.5) K/uL Baso # (Auto) (0-0.2) K/uL PT (9.0-12.0) Seconds INR (0.9-1.1) APTT (21.0-31.0) Seconds PTT Ratio Sodium (136-145) mmol/L Potassium (3.5-5.1) mmol/L Chloride (98-107) mmol/L Carbon Dioxide (21-32) mmol/L Anion Gap (3-11) BUN (7-18) mg/dl Creatinine (0.6-1.4) mg/dl Est Cr Clr Drug Dosing ml/min Est GFR ( Amer) Est GFR (Non-Af Amer) BUN/Creatinine Ratio (10-20) Glucose (70-99) mg/dl POC Glucose (70-99) Calcium (8.5-10.1) mg/dl Magnesium Total Bilirubin (0.2-1) mg/dl AST (15-37) U/L ALT (12-78) U/L Alkaline Phosphatase (45-117) U/L Troponin I 0.220 H* (0-0.045) ng/ml NT-Pro-B Natriuret Pep Total Protein (6.4-8.2) gm/dl Albumin (3.4-5.0) gm/dl Globulin (2.5-4.0) gm/dl Albumin/Globulin Ratio (0.9-2) Urine Color Urine Appearance (Clear) Urine pH (4.5-7.5) Ur Specific Maskell (1.000-1.030) Urine Protein (Negative) Urine Glucose (UA) (Negative) Urine Ketones (Negative) Urine Blood (Negative) Urine Nitrite (Negative) Urine Bilirubin (Negative) Urine Urobilinogen (Negative) Ur Leukocyte Esterase (Negative) Urine WBC (Auto) (0-5) /hpf Urine RBC (Auto) (0-4) /hpf U Hyaline Cast (Auto) (0-5) /lpf U Epithel Cells (Auto) (0-5) /lpf Urine Bacteria (Auto) (Negative) Urine Crystals Calcium Oxalate Crystal (None Prsent) Nasal Screen MRSA (PCR) Negative (Negative) Influenza Type A (PCR) Neg for Influ A (Neg) Influenza Type B (PCR) Neg for Influ B (Neg) 05/17/19 05/17/19 05/17/19 Range/Units 16:39 15:10 14:05 WBC (4.8-10.8) K/uL RBC (4.7-6.1) M/uL Hgb (14.0-18.0) g/dL Hct (42-52) % MCV (80-100) fL MCH (25-34) pg MCHC (32-36) g/dL RDW Std Deviation (36.4-46.3) fL RDW Coeff of Irvin (11.5-14.5) % Plt Count (130-400) K/uL MPV (7.4-10.4) fL Immature Gran % (Auto) % Neut % (Auto) % Lymph % (Auto) % Meagher % (Auto) % Eos % (Auto) % Baso % (Auto) % Immature Gran # (Auto) (0.00-0.02) K/uL Neut # (Auto) (1.4-6.5) K/uL Lymph # (Auto) (1.2-3.4) K/uL Meagher # (Auto) (0.11-0.59) K/uL Eos # (Auto) (0-0.5) K/uL Baso # (Auto) (0-0.2) K/uL PT (9.0-12.0) Seconds INR (0.9-1.1) APTT (21.0-31.0) Seconds PTT Ratio Sodium (136-145) mmol/L Potassium 4.3 (3.5-5.1) mmol/L Chloride (98-107) mmol/L Carbon Dioxide (21-32) mmol/L Anion Gap (3-11) BUN (7-18) mg/dl Creatinine (0.6-1.4) mg/dl Est Cr Clr Drug Dosing ml/min Est GFR ( Amer) Est GFR (Non-Af Amer) BUN/Creatinine Ratio (10-20) Glucose (70-99) mg/dl POC Glucose 139 H (70-99) Calcium (8.5-10.1) mg/dl Magnesium 2.2 Total Bilirubin (0.2-1) mg/dl AST 16 (15-37) U/L ALT (12-78) U/L Alkaline Phosphatase (45-117) U/L Troponin I (0-0.045) ng/ml NT-Pro-B Natriuret Pep Total Protein (6.4-8.2) gm/dl Albumin (3.4-5.0) gm/dl Globulin (2.5-4.0) gm/dl Albumin/Globulin Ratio (0.9-2) Urine Color Yellow Urine Appearance Clear (Clear) Urine pH 5.0 (4.5-7.5) Ur Specific Maskell 1.016 (1.000-1.030) Urine Protein Trace H (Negative) Urine Glucose (UA) Negative (Negative) Urine Ketones Negative (Negative) Urine Blood Trace H (Negative) Urine Nitrite Negative (Negative) Urine Bilirubin Negative (Negative) Urine Urobilinogen Negative (Negative) Ur Leukocyte Esterase 1+ H (Negative) Urine WBC (Auto) 10-30 H (0-5) /hpf Urine RBC (Auto) 0-4 (0-4) /hpf U Hyaline Cast (Auto) 1-5 (0-5) /lpf U Epithel Cells (Auto) 10-20 H (0-5) /lpf Urine Bacteria (Auto) Negative (Negative) Urine Crystals Not Reportable Calcium Oxalate Crystal Present A (None Prsent) Nasal Screen MRSA (PCR) (Negative) Influenza Type A (PCR) (Neg) Influenza Type B (PCR) (Neg) 05/17/19 05/17/19 05/17/19 Range/Units 13:15 13:15 13:15 WBC 8.14 (4.8-10.8) K/uL RBC 4.21 L (4.7-6.1) M/uL Hgb 12.3 L (14.0-18.0) g/dL Hct 39.1 L (42-52) % MCV 92.9 (80-100) fL MCH 29.2 (25-34) pg MCHC 31.5 L (32-36) g/dL RDW Std Deviation 59.6 H (36.4-46.3) fL RDW Coeff of Irvin 17.7 H (11.5-14.5) % Plt Count 189 (130-400) K/uL MPV 11.2 H (7.4-10.4) fL Immature Gran % (Auto) 0.2 % Neut % (Auto) 66.9 % Lymph % (Auto) 21.3 % Meagher % (Auto) 7.2 % Eos % (Auto) 3.9 % Baso % (Auto) 0.5 % Immature Gran # (Auto) 0.02 (0.00-0.02) K/uL Neut # (Auto) 5.44 (1.4-6.5) K/uL Lymph # (Auto) 1.73 (1.2-3.4) K/uL Meagher # (Auto) 0.59 (0.11-0.59) K/uL Eos # (Auto) 0.32 (0-0.5) K/uL Baso # (Auto) 0.04 (0-0.2) K/uL PT 70.9 H (9.0-12.0) Seconds INR 8.0 H* (0.9-1.1) APTT 46.2 H* (21.0-31.0) Seconds PTT Ratio 1.7 Sodium 138 (136-145) mmol/L Potassium (3.5-5.1) mmol/L Chloride 107 (98-107) mmol/L Carbon Dioxide 26 (21-32) mmol/L Anion Gap 5.0 (3-11) BUN 25 H (7-18) mg/dl Creatinine 1.26 (0.6-1.4) mg/dl Est Cr Clr Drug Dosing 60.1 ml/min Est GFR ( Amer) 60.3 Est GFR (Non-Af Amer) 52.0 BUN/Creatinine Ratio 20.2 H (10-20) Glucose 111 H (70-99) mg/dl POC Glucose (70-99) Calcium 9.0 (8.5-10.1) mg/dl Magnesium Total Bilirubin 0.5 (0.2-1) mg/dl AST (15-37) U/L ALT 18 (12-78) U/L Alkaline Phosphatase 75 (45-117) U/L Troponin I 0.211 H* (0-0.045) ng/ml NT-Pro-B Natriuret Pep 1759 Total Protein 7.9 (6.4-8.2) gm/dl Albumin 2.9 L (3.4-5.0) gm/dl Globulin 5.0 H (2.5-4.0) gm/dl Albumin/Globulin Ratio 0.6 L (0.9-2) Urine Color Urine Appearance (Clear) Urine pH (4.5-7.5) Ur Specific Maskell (1.000-1.030) Urine Protein (Negative) Urine Glucose (UA) (Negative) Urine Ketones (Negative) Urine Blood (Negative) Urine Nitrite (Negative) Urine Bilirubin (Negative) Urine Urobilinogen (Negative) Ur Leukocyte Esterase (Negative) Urine WBC (Auto) (0-5) /hpf Urine RBC (Auto) (0-4) /hpf U Hyaline Cast (Auto) (0-5) /lpf U Epithel Cells (Auto) (0-5) /lpf Urine Bacteria (Auto) (Negative) Urine Crystals Calcium Oxalate Crystal (None Prsent) Nasal Screen MRSA (PCR) (Negative) Influenza Type A (PCR) (Neg) Influenza Type B (PCR) (Neg) 05/17/19 Range/Units 13:15 WBC (4.8-10.8) K/uL RBC (4.7-6.1) M/uL Hgb (14.0-18.0) g/dL Hct (42-52) % MCV (80-100) fL MCH (25-34) pg MCHC (32-36) g/dL RDW Std Deviation (36.4-46.3) fL RDW Coeff of Irvin (11.5-14.5) % Plt Count (130-400) K/uL MPV (7.4-10.4) fL Immature Gran % (Auto) % Neut % (Auto) % Lymph % (Auto) % Meagher % (Auto) % Eos % (Auto) % Baso % (Auto) % Immature Gran # (Auto) (0.00-0.02) K/uL Neut # (Auto) (1.4-6.5) K/uL Lymph # (Auto) (1.2-3.4) K/uL Meagher # (Auto) (0.11-0.59) K/uL Eos # (Auto) (0-0.5) K/uL Baso # (Auto) (0-0.2) K/uL PT (9.0-12.0) Seconds INR (0.9-1.1) APTT (21.0-31.0) Seconds PTT Ratio Sodium (136-145) mmol/L Potassium (3.5-5.1) mmol/L Chloride (98-107) mmol/L Carbon Dioxide (21-32) mmol/L Anion Gap (3-11) BUN (7-18) mg/dl Creatinine (0.6-1.4) mg/dl Est Cr Clr Drug Dosing ml/min Est GFR ( Amer) Est GFR (Non-Af Amer) BUN/Creatinine Ratio (10-20) Glucose (70-99) mg/dl POC Glucose (70-99) Calcium (8.5-10.1) mg/dl Magnesium Cancelled Total Bilirubin (0.2-1) mg/dl AST (15-37) U/L ALT (12-78) U/L Alkaline Phosphatase (45-117) U/L Troponin I (0-0.045) ng/ml NT-Pro-B Natriuret Pep Cancelled Total Protein (6.4-8.2) gm/dl Albumin (3.4-5.0) gm/dl Globulin (2.5-4.0) gm/dl Albumin/Globulin Ratio (0.9-2) Urine Color Urine Appearance (Clear) Urine pH (4.5-7.5) Ur Specific Maskell (1.000-1.030) Urine Protein (Negative) Urine Glucose (UA) (Negative) Urine Ketones (Negative) Urine Blood (Negative) Urine Nitrite (Negative) Urine Bilirubin (Negative) Urine Urobilinogen (Negative) Ur Leukocyte Esterase (Negative) Urine WBC (Auto) (0-5) /hpf Urine RBC (Auto) (0-4) /hpf U Hyaline Cast (Auto) (0-5) /lpf U Epithel Cells (Auto) (0-5) /lpf Urine Bacteria (Auto) (Negative) Urine Crystals Calcium Oxalate Crystal (None Prsent) Nasal Screen MRSA (PCR) (Negative) Influenza Type A (PCR) (Neg) Influenza Type B (PCR) (Neg) (1) Pneumonia Laterality: unspecified laterality Lung location: unspecified part of lung Pneumonia type: due to unspecified organism Qualified Code(s): J18.9 - Pneumonia, unspecified organism
[2019-05-18] MEDS ORDERED: WARFARIN SOD 5 MG TAB PO SCH (16:00)
[2019-05-18] MEDS: TRAZODONE HCL 50 MG TAB PO SCH (20:54)
[2019-05-18] MEDS ORDERED: methylPREDNISolone 40 MG in SYRINGE 0 ML IV STA (21:17)
--- NOTE | 2019-05-18 21:33 | XRay Report ---
XR chest 1V portable CLINICAL HISTORY: wheezes COMPARISON STUDY: 05/17/2019 FINDINGS: The heart is enlarged. There is radiographic evidence of pulmonary emphysema. There are sma ll pleural effusions. There is improving pulmonary edema. There is no lobar consolidation.[ IMPRESSION: Cardiomegaly and improving asymmetric pulmonary edema pattern. Small bilateral pleural ef fusions. Electronically signed by: Taye Roland M.D. 05/18/2019 9:32 PM
[2019-05-19] MEDS ORDERED: FUROSEMIDE 60 MG in SYRINGE 0 ML IV ONE (00:06)
[2019-05-19] MEDS ORDERED: XOPENEX/ATROVENT 1.25mg/0.5MG NEB COMBO NEB STA (00:06)
[2019-05-19] MEDS ORDERED: IPRATROPIUM BROMIDE NEB SOLN 0.02% 2.5 ML VIAL INH STA (00:07)
[2019-05-19] MEDS ORDERED: LEVALBUTEROL 1.25MG/0.5ML NEB INH STA (00:08)
[2019-05-19] MEDS ORDERED: methylPREDNISolone 20 MG in SYRINGE 0 ML IV STA (00:18)
[2019-05-19] MEDS ORDERED: MAGNESIUM SULFATE / D5W 1 GM/100 ML BAG IV ONE (00:18)
[2019-05-19] MEDS ORDERED: HYDROmorphone INJ 0.5 MG/0.5 ML SYR IV PRN (00:20)
[2019-05-19] MEDS ORDERED: LABETALOL HCL IV 5 MG/ML 20ML IV STA (00:23)
[2019-05-19] MEDS ORDERED: OLANZapine 10 MG/2.1 ML SDV IM PRN (00:24)
[2019-05-19] MEDS: IPRATROPIUM BROMIDE NEB SOLN 0.02% 2.5 ML VIAL INH SCH ×6 (00:31→23:13)
[2019-05-19] MEDS: LEVALBUTEROL 1.25MG/0.5ML NEB INH SCH ×6 (00:32→23:13)
[2019-05-19] MEDS ORDERED: MoRPHine SULFATE 2 MG/ML CARP ONE (00:35)
[2019-05-19 00:45] LABS: iSTAT Allen Test Pass; iSTAT Arterial Blood Gas HCO3 31 meg/L (19-24); iSTAT Arterial Blood Gas pCO2 93 mmHg (35-46); iSTAT Arterial Blood Gas pH 7.13 (7.35-7.45); iSTAT Arterial Blood Gas pO2 282 mmHg (80-95); iSTAT Carbon Dioxide 34 mEq/l (24-31); iSTAT FiO2 100 %; iSTAT Site L Radial
[2019-05-19 00:53] LABS: Basophils # (auto) 0.01 K/uL (0-0.2); Basophils % (auto) 0.1 %; Eosinophils # (auto) 0.02 K/uL (0-0.5); Eosinophils % (auto) 0.1 %; Hematocrit (blood only) 42.1 % (42-52); Hemoglobin 13.1 g/dL (14.0-18.0); Immature Granulocytes # (auto) 0.04 K/uL (0.00-0.02); Immature Granulocytes % (auto) 0.3 %; Lymphocytes # (auto) 2.59 K/uL (1.2-3.4); Lymphocytes % (auto) 18.8 %; Mean Corpuscular Hemoglobin 28.9 pg (25-34); Mean Corpuscular Hgb Conc 31.1 g/dL (32-36); Mean Corpuscular Volume 92.7 fL (80-100); Monocytes # (auto) 0.46 K/uL (0.11-0.59); Monocytes % (auto) 3.3 %; Neutrophils # (auto) 10.63 K/uL (1.4-6.5); Neutrophils % (auto) 77.4 %; Platelet Count 255 K/uL (130-400); RDW Coefficient of Variation 17.8 % (11.5-14.5); RDW Standard Deviation 60.5 fL (36.4-46.3); Red Blood Count 4.54 M/uL (4.7-6.1); White Blood Count 13.75 K/uL (4.8-10.8)
[2019-05-19] MEDS ORDERED: RACEPINEPHRINE 2.25% NEBU SOLN 0.5 ML VIAL NEB STA (00:53)
[2019-05-19 01:07] LABS: INR 1.3 (0.9-1.1); Partial Thromboplastin Ratio 0.9; Partial Thromboplastin Time 23.2 Seconds (21.0-31.0); Prothrombin Time 13.3 Seconds (9.0-12.0)
[2019-05-19 01:09] LABS: Albumin Level 3.4 gm/dl (3.4-5.0); BUN Creatinine Ratio 20.3 (10-20); Calcium 9.5 mg/dl (8.5-10.1); Creatinine Clr Calc Pharmacy 41.9 ml/min; Est GFR (African American) 39.2; Est GFR (Non-African American) 33.8; Magnesium 2.3 mg/dl (1.8-2.4); Potassium 4.4 mmol/L (3.5-5.1)
[2019-05-19 01:15] LABS: Albumin Globulin Ratio 0.7 (0.9-2); Bilirubin,Total 0.5 mg/dl (0.2-1); Total Protein 8.4 gm/dl (6.4-8.2); Troponin I 0.22 ng/ml (0-0.045)
[2019-05-19] MEDS ORDERED: INSULIN GLARGINE SOLOSTAR 100 UNITS/ML 3 ML PEN SC STA (01:17)
--- NOTE | 2019-05-19 01:18 | Hospitalist Progress Note ---
Date of Service May 19, 2019 Assessment & Plan (1) Respiratory failure with hypoxia and hypercapnia: Multifactorial : Pulmonary congestion Possible COPD exacerbation secondary to bilateral pneumonia Respiratory acidosis secondary to above History of PE on Coumadin, INR subtherapeutic post vitamin K administration on admission BiPAP Recheck ABG Lasix 1 dose Solu-Medrol, neb treatment Continue Zosyn IV Heparin well INR less than 2 on Coumadin ADDENDUM : 05/19. 320AM Made aware by RN of increased agitation on the BiPAP requiring physical hold/restraints. Patient's family updated of developments over the phone. Patient DNR status reaffirmed. Patient's daughter (Ms. Judy Vera) agreeable to keeping BiPAP off if patient will have to be restrained to keep mask on. She is aware that patient's respiratory acidosis may worsen off the BiPAP leading to further clinical deterioration and . Continue current medical therapy. Will relay to AM provider. Subjective Code purple called around 12 AM. Sudden onset respiratory stress, abdominal breathing as per RN. Patient complaining of chest, abdominal pressure. Early last night around 9 PM, patient given Solu-Medrol and breathing treatment for coarse breath sounds and occasional wheezes. Chest x-ray at that time showed cardiomegaly and improving asymmetric pulmonary edema pattern. Small bilateral pleural effusions. Diminished lung sounds post steroid and neb administration as per RN note. Physical Exam Physical Exam: GENERAL: Obese, demented, respiratory distress SKIN: Pallor , warm HEENT: Pale palpebral conjunctivae, no ptosis, dry buccal mucosa, NRBM NECK : Supple, short neck, no tenderness CHEST : Bilateral rhonchi, expiratory wheezes, no tenderness HEART : Tachycardic , no obvious murmurs ABDOMEN: Some distention, nontender EXTREMITIES : Bilateral LE swelling, no other conspicuous deformities noted NEUROLOGIC : Demented, no facial asymmetry, no other gross focality Results & Data Vital Signs (Past 12 Hours) Vital Signs Temp Pulse Pulse Resp BP BP Pulse Ox 05/19/19 00:54 93 H 05/19/19 00:53 130/86 05/19/19 00:48 144 H 27 H 95 05/19/19 00:32 137 H 27 H 05/19/19 00:20 146 H 204/143 H 05/19/19 00:16 143 H 228/133 H 05/18/19 23:18 104 H 05/18/19 19:12 36.8 C 98 H 23 121/74 94 05/18/19 19:10 83 20 95 05/18/19 16:09 98 H 05/18/19 15:31 36.7 C 99 H 20 121/75 94 05/18/19 14:39 97 H 18 94
[2019-05-19] MEDS: INSULIN ASPART 100 UNITS/ML 3 ML PEN SC SCH ×5 (01:45→21:04)
[2019-05-19 02:39] LABS: Appearance Urine Clear (Clear); Bilirubin Urine Negative (Negative); Blood Urine Negative (Negative); Color Urine Colorless; Glucose Urine UA Negative (Negative); Ketones Urine Negative (Negative); Leukocyte Esterase Urine 1+ (Negative); Nitrite Urine Negative (Negative); Protein Urine Negative (Negative); Specific Gravity Urine 1.015 (1.000-1.030); Urobilinogen Urine Negative (Negative)
[2019-05-19] MEDS: Heparin IV Standard *NO* Bolus IV SCH ×4 (03:11→03:37)
[2019-05-19] MEDS: HEPARIN SODIUM/DEXTROSE 25,000 UNITS/500 ML BAG IV SCH ×2 (03:11→15:52)
[2019-05-19] MEDS ORDERED: HALOPERIDOL LACTATE 5 MG/ML 1 ML VIAL IM STA (03:25)
[2019-05-19 04:02] LABS: Bacteria Urine 1+ (Negative); RBC Urine 0-4 /hpf (0-4)
[2019-05-19] MEDS ORDERED: ALBUMIN 25% 50 ML IV ONE (04:25)
[2019-05-19 04:35] LABS: Base Excess VBG 2.2 mEq/L; pH VBG 7.38 (7.36-7.41)
[2019-05-19] MEDS ORDERED: XOPENEX/ATROVENT 1.25mg/0.5MG NEB COMBO NEB SCH (06:00)
[2019-05-19] MEDS ORDERED: methylPREDNISolone 40 MG in SYRINGE 0 ML IV SCH ×2 (06:15→09:00)
[2019-05-19 06:57] LABS: BUN Creatinine Ratio 22.9 (10-20); Calcium 9.5 mg/dl (8.5-10.1); Creatinine Clr Calc Pharmacy 43.4 ml/min; Est GFR (African American) 41.1; Est GFR (Non-African American) 35.5; Potassium 4.2 mmol/L (3.5-5.1)
[2019-05-19 07:03] LABS: Troponin I 0.417 ng/ml (0-0.045)
--- NOTE | 2019-05-19 07:23 | XRay Report ---
XR chest 1V portable HISTORY: respiratory distress COMPARISON: Chest 05/18/2019. FINDINGS: No pneumothorax. The heart remains enlarged. There is right greater than left interstitial and vascular thickening with hazy airspace opacities. This has progressed in the interval and likely represents asymmetric pulmonary edema.. Small bilateral pleural effusions have increased in size. IMPRESSION: Interval progression of the asymmetric pulmonary edema and small bilateral pleural effusions. Electronically signed by: Nura Zuniga M.D. 05/19/2019 7:22 AM
--- NOTE | 2019-05-19 07:45 | Hospitalist Progress Note ---
Date of Service May 19, 2019 Assessment & Plan (1) Fluid overload: (2) Hypoxia: Pt is 84 y/o M with PMH COPD, HTN, dyslipidemia, CAD S/P stent, anxiety, dementia, DM II, h/o PE on Coumadin, chronic Blunt catheter presented to ER with complaint of shortness of breath x 2-3 days. O2 sats in 70's per EMS improved with oxygen via NC. Daughter denies increase in chronic nonproductive cough, denies fever/chills, vomiting, choking. In ER afebrile, P: 101 down to 86, R: 26 down to 20, BP: 142/96, 92% on 4L NC. WBC: 8 CXR: Cardiomegaly with bibasilar and asymmetric multifocal right lung alveolar opacities suggestive of asymmetric pulmonary edema versus multifocal pneumonia. Trace pleural effusions suggested. -Flu swab negative -Blood cultures pending -In ER given cefepime, vancomycin, Solu-Medrol, Lasix 40 mg, Nitropaste -Zosyn, vancomycin -MRSA swab and if negative plan to d/c vancomycin -Supplemental oxygen as needed -Ac -Monitor I&O's -Reassess volume status to determine further lasix dosage (received 60 IV lasix at midnight, now Cr remains elevated at 1.7) - pt may need cpap/bipap over night but does not tolerate any mask on his face (discussed w/ family - they confirm prior OS - cont. to monitor CBC, BMP (3) Pneumonia: Pt is 84 y/o M with PMH COPD, HTN, dyslipidemia, CAD S/P stent, anxiety, dementia, DM II, h/o PE on Coumadin, chronic Blunt catheter presented to ER with complaint of shortness of breath x 2-3 days. O2 sats in 70's per EMS improved with oxygen via NC. Daughter denies increase in chronic nonproductive cough, denies fever/chills, vomiting, choking. In ER afebrile, P: 101 down to 86, R: 26 down to 20, BP: 142/96, 92% on 4L NC. WBC: 8 CXR: Cardiomegaly with bibasilar and asymmetric multifocal right lung alveolar opacities suggestive of asymmetric pulmonary edema versus multifocal pneumonia. Trace pleural effusions suggested. -Flu swab negative -Blood cultures- pending -In ER given cefepime, vancomycin, Solu-Medrol, Lasix 40 mg, Nitropaste -Zosyn, vancomycin, then vancomycin stopped as MRSA swab negative -Supplemental oxygen as needed -Duonebs -Monitor I&O's -Reassess volume status to determine further lasix dosage -currently he feels well/ at baseline, received 60 IV lasix at midnight, Cr remains elevated), will cont. to monitor -cont. to monitor CBC, BMP (4) Elevated troponin: (5) LBBB (left bundle branch block): History LBBB upon initial admission for sepsis in 03/2019. During that admission limited echo secondary to patient noncompliance. EF: 55-60% Troponin: 0.2. EKG sinus tachycardia, LBBB Most likely due to demand ischemia -Trend troponin - downtrending initially, then after incident overnight troponin elevated again, no chest pain, pt is on IV heparin d/t subtherap. INR -would consider echo if worsening -If increasing troponin consider cardiology consult (6) Chronic indwelling Blunt catheter: History indwelling Blunt, changed monthly with last reported change 04/27/19 -In ER noted decreased urinary output in Blunt bag after lasix given and pt had c/o some abdominal pain. CT abd/pelvis obtained showing Small focus of gas within the bladder, may be due to prior catheterization. -New Blunt cath placed in ER. Elevated Cr - will cont. to monitor - will try to avoid nephrotoxic agents - received vanco and zosyn which could poss. worsen renal function - poss. 2/2 UTI, hx of chronic catheter and recent urinary infx ? UTI - denies urinary symptoms but pt has dementia/unreliable hx - ucltx - posit. for Corynbact. sensitivities pending - currently on zosyn, will cont. for now -received dose of vanco in ED (7) Supratherapeutic INR: INR: 8 No signs of bleeding -In ER given vitamin K 5 mg IV, held coumadin -INR this AM 1.5 - hx of PE over at least 1 yr ago, will cont. coumadin -Clarified patient's Coumadin dose, takes 5 mg Saturday/ Saturday/ Saturday, and 2.5 mg Saturday/ / Saturday/ Saturday (per anticoagulation clinic) - hypoxic incident overnight, given subtherap. INR pt was started on IV heparin, d/c when INR therap. and cont. home coumadin (8) Pulmonary embolism: - hx of PE over at least 1 yr ago, will cont. coumadin -Clarified patient's Coumadin dose, takes 5 mg Saturday/ Saturday/ Saturday, and 2.5 mg Saturday/ / Saturday/ Saturday (per anticoagulation clinic) (9) CAD (coronary artery disease): s/p angioplasty -Continue statin, aspirin (10) DM2 (diabetes mellitus, type 2): A1c: 6.1 on 02/16/19 -Novolog sliding scale per protocol (11) Anxiety: -Continue citalopram, clonazepam (12) Dementia: -Monitor for delirium DVT Prophylaxis -On Coumadin with supratherapeutic INR on admission, then INR 1.5, home coumadin restarted and currently on IV heparin DNR/DNI as per discussion with pt Follows with Dr Schofield for routine care Subjective Yesterday, pt somfortable in no distress, eating by himself w/o any difficulty and also able to ambulate in the afternoon yesteday. Overnight, however pt developed resp. failure. CXR obtained, no incr. pulm. edema. ABG significant for resp. acidosis and BiPAP provided however pt became agitated and didn't tolerate it. Dr. Archer at night discussed with the family, not to cont. BiPAP (even if pt worsens clinically). Urine cltx - positive for Corynbact. This morning pt is somnolent but easily arousable,answers questions relatively appropriately (underlying dementia). Daughter and present at the bedside. Discussed pt's past med. hx - hospice d/t heart failure/ pt graduated hospice. Also discussed concern for SHARAN and his nocturnal hypoxia- daughter says he could not tolerate sleep study and had to tape pulse ox on him, does not tolerate any mask/cpap. Update: Pt evaluated again in the afternoon - he is awake sitting up in bed, comfortable in no distress, communicative, daughter and again at the bedside. They say that he even ate a little and seemed doing much better. Review of Systems Review of Systems: Unobtainable due to cognitive status and Unobtainable due to reduced consciousness pt is somnolent, arousable but doesn't answer most of questions (also has underlying dementia) Constitutional: no fever and no chills Respiratory: + cough Physical Exam Physical Exam: General: obese male lying in bed, in no acute distress, comfortable Head: normocephalic, atraumatic Eyes: PERRL, EOMI, conjunctiva non-injected, anicteric sclerae ENT: normal inspection external ears, nose, mucous membranes moist Neck: supple, trachea midline Lungs: no retractions or accessory muscle use, + bibasil. rhonchi/crackles CV: RRR, no murmur, 1+ edema BLE Abd: normal BS, soft, obese,nontender; Blunt cath in place Ext: no cyanosis, no apparent calf tenderness, moves extremities spontaneously Neuro: somnolent but arousable, no focal deficits noted, cooperative, pleasant Skin: warm, dry Results & Data Vital Signs (Past 12 Hours) Vital Signs Pulse Pulse Resp BP BP Pulse Ox 05/19/19 06:16 102 H 18 90 05/19/19 04:18 103 H 28 H 94 05/19/19 00:54 93 H 05/19/19 00:53 130/86 05/19/19 00:48 144 H 27 H 95 05/19/19 00:32 137 H 27 H 05/19/19 00:20 146 H 204/143 H 05/19/19 00:16 143 H 228/133 H 05/18/19 23:18 104 H (1) Pneumonia Laterality: unspecified laterality Lung location: unspecified part of lung Pneumonia type: due to unspecified organism Qualified Code(s): J18.9 - Pneumonia, unspecified organism
[2019-05-19] MEDS: PIPERACILLIN/TAZOBACTAM 4.5 GM in DEXTROSE 5% 100 ML IV SCH ×2 (08:48→15:52)
[2019-05-19] MEDS ORDERED: VANCOMYCIN TROUGH SCH (09:30)
[2019-05-19 09:40] LABS: Partial Thromboplastin Ratio 1.3; Partial Thromboplastin Time 35.9 Seconds (21.0-31.0)
[2019-05-19] MEDS: ATORVASTATIN 40 MG TAB PO SCH ×2 (10:42→12:16)
[2019-05-19] MEDS: CITALOPRAM 20 MG TAB PO SCH ×2 (10:42→12:16)
[2019-05-19] MEDS: PANTOprazole 40 MG TAB PO SCH ×2 (10:42→12:16)
[2019-05-19] MEDS: ASPIRIN 81 MG ECTAB PO SCH ×2 (10:42→12:16)
[2019-05-19] MEDS ORDERED: Nursing to Pharmacy Communication ONE (10:48)
[2019-05-19] MEDS ORDERED: HEPARIN IV BOLUS 8,000 UNITS in SYRINGE 0 ML IV STA (10:48)
[2019-05-19] MEDS ORDERED: WARFARIN SOD 2.5 MG TAB PO SCH (16:00)
[2019-05-19 17:04] LABS: Partial Thromboplastin Ratio 3.3
[2019-05-19 17:15] LABS: Partial Thromboplastin Time 89.8 Seconds (21.0-31.0)
[2019-05-19] MEDS: TRAZODONE HCL 50 MG TAB PO SCH ×2 (21:20→23:47)
[2019-05-20 00:05] LABS: Partial Thromboplastin Ratio 2.3
[2019-05-20 00:10] LABS: Partial Thromboplastin Time 61.8 Seconds (21.0-31.0)
[2019-05-20] MEDS: PIPERACILLIN/TAZOBACTAM 4.5 GM in DEXTROSE 5% 100 ML IV SCH ×3 (00:54→17:34)
[2019-05-20] MEDS: LEVALBUTEROL 1.25MG/0.5ML NEB INH SCH (03:30)
[2019-05-20] MEDS ORDERED: OLANZAPINE 2.5 MG TAB PO STA (03:31)
[2019-05-20] MEDS: IPRATROPIUM BROMIDE NEB SOLN 0.02% 2.5 ML VIAL INH SCH (03:31)
[2019-05-20] MEDS: HEPARIN SODIUM/DEXTROSE 25,000 UNITS/500 ML BAG IV SCH ×2 (03:44→12:26)
[2019-05-20] MEDS ORDERED: HYDROmorphone INJ 1 MG/ML SYRINGE IV STA (04:21)
--- NOTE | 2019-05-20 04:38 | Communication Note ---
Date of Service: May 20, 2019 Patient noted to be in marked discomfort and distress as per RN. Will not wear BiPAP. Patient daughter updated over the phone of developments. Patient to be transitioned to comfort care as per daughter's decision. Dilaudid and Ativan PRN DC all other medications. Will relay to AM provider.
[2019-05-20] MEDS ORDERED: SCOPOLAMINE 1.5 MG TDSY TD PRN (04:42)
[2019-05-20] MEDS ORDERED: LORazepam 1 MG/2 ML VIAL IV PRN (04:42)
[2019-05-20] MEDS: CHECK SCOPOLAMINE PATCH PLACEMENT SCH ×2 (07:51→15:04)
[2019-05-20 08:05] LABS: Partial Thromboplastin Ratio 0.9; Partial Thromboplastin Time 25.6 Seconds (21.0-31.0)
[2019-05-20] MEDS: HYDROmorphone INJ 1 MG/ML SYRINGE IV PRN ×3 (09:03→23:43)
[2019-05-20] MEDS ORDERED: PIPERACILL/TAZOBAC CONSULT ACTIVE PRN (09:05)
[2019-05-20] MEDS ORDERED: PIPERACILLIN/TAZOBACTAM 3.375 GM in DEXTROSE 5% 100 ML IV SCH (09:15)
[2019-05-20] MEDS ORDERED: FUROSEMIDE 40 MG in SYRINGE 0 ML IV ONE (09:15)
[2019-05-20 10:06] LABS: C Reactive Protein < 0.29 mg/dl (0-0.29)
[2019-05-20 10:30] LABS: Est GFR (Non-African American) 36.2
[2019-05-20] MEDS ORDERED: HEPARIN IV BOLUS 8,000 UNITS in SYRINGE 0 ML IV ONE (12:30)
--- NOTE | 2019-05-20 13:46 | Palliative Care Consultation ---
Date of Consultation May 20, 2019 Assessment & Plan (1) Goals of care, counseling/discussion: -84 year old male patient with PMH chronic heart failure, COPD, HTN, dyslipidemia, CAD S/P stent, anxiety, dementia, DM II, h/o PE on Coumadin, chronic Blunt catheter presented to ED with c/o shortness of breath x 2-3 days. CXR was suggestive of pneumonia with some pulmonary edema. He is on IV furosemide and abx. Patient had elevated troponin-- likely demand ischemia per cardiology. proBNP normal. This patient has a rather complex history-- was last in hospital in March for sepsis and respiratory failure. This admission, patient was trialed on bipap for possible SHARAN, did not tolerate well. He has dementia and is generally in poor health at baseline. Patient has actually been on and off hospice care since November 2018-- he was admitted to hospice for chronic heart failure. Patient kept improving and had a prolonged prognosis, so he was discharged from hospice care. Now, family states they are okay with reasonably treating him for what may be reversible, but do not want heroic measures. Palliative care is consulted to follow along during hospitalization to assist with planning and establishing goals of care. -Saw patient this morning in room 244. He was extremely drowsy as he had just been giving some IV medication to calm him down so he could have the bipap mask placed. No family at bedside. -Will need to see if patient does in fact improve with IV abx, bipap, and diuresis, to effectively assess his new baseline. If he is truly showing signs of irreversible decline, it may be the right time to reinstate hospice care. -I will follow along and engage with family as appropriate. -At this time, care is being managed by cardiology and hospitalist. -Patient is minimally able to get out of bed at home, mostly bed-bound. He is currently completely bedbound here in the hospital. -PPS 30%. (2) Respiratory failure with hypoxia and hypercapnia: (3) Fluid overload: (4) COPD (chronic obstructive pulmonary disease): History of Present Illness Attending Physician: Isra Olivares MD History of Present Illness This 84 year old male patient with PMH chronic heart failure, COPD, HTN, dyslipidemia, CAD S/P stent, anxiety, dementia, DM II, h/o PE on Coumadin, chronic Blunt catheter presented to ED with c/o shortness of breath x 2-3 days. CXR was suggestive of pneumonia with some pulmonary edema. He is on IV furosemide and abx. Patient had elevated troponin-- likely demand ischemia per cardiology. proBNP normal. This patient has a rather complex history-- was last in hospital in March for sepsis and respiratory failure. This admission, patient was trialed on Bipap for possible SHARAN, did not tolerate well. He has dementia and is generally in poor health at baseline. Patient has actually been on and off hospice care since November 2018-- he was admitted to hospice for chronic heart failure. Patient kept improving and had a prolonged prognosis, so he was discharged from hospice care. Now, family states they are okay with reasonably treating him for what may be reversible, but do not want heroic measures. Palliative care is consulted to follow along during hospitalization to assist with planning and establishing goals of care. Thank you kindly for this consult. Palliative care team will follow as needed. Allergies Allergy/AdvReac Type Severity Reaction Status Date / Time morphine AdvReac Severe becomes Unverified 05/17/19 13:33 wild and combative Home Medications Home Medications Medication Instructions Recorded Confirmed Type aspirin [Aspir-81] 81 mg PO QAM 03/17/19 05/17/19 History calcium carbonate [Calcium 600] 600 mg PO QAM 03/17/19 05/17/19 History citalopram 20 mg PO QAM 03/17/19 05/17/19 History clonazepam 0.5 mg PO BID PRN 03/17/19 05/17/19 History clonazepam 1 mg PO QAM 03/17/19 05/17/19 History ipratropium-albuterol 3 ml INHALATION Q6H PRN 03/17/19 05/17/19 History warfarin 2.5 mg PO UD 03/17/19 05/17/19 History warfarin 5 mg PO UD 03/17/19 05/17/19 History trazodone 25 mg PO HS 04/24/19 05/17/19 History atorvastatin 40 mg PO UD 05/17/19 05/17/19 History clonazepam 0.5 mg PO HS 05/17/19 05/17/19 History pantoprazole 40 mg PO QAM 05/17/19 05/17/19 History tramadol 50 mg PO BID 12/08/19 12/08/19 History Patient History Medical History Anticoagulated on Coumadin (Chronic) Anxiety (Chronic) CAD (coronary artery disease) (Chronic) 2000 - inferior lateral wall PA s/p thrombolytic therapy, implantable angioplasty 1st diagonal Chronic diastolic CHF (congestive heart failure) (Chronic) COPD (chronic obstructive pulmonary disease) (Chronic) Dementia (Chronic) DM2 (diabetes mellitus, type 2) (Chronic) Goals of care, counseling/discussion HLD (hyperlipidemia) (Chronic) HTN (hypertension) (Chronic) LBBB (left bundle branch block) Pulmonary embolism (Chronic) Surgical History H/O angioplasty (Chronic) "1999 [facility] " H/O hernia repair (Chronic) S/P surgical manipulation of ankle joint (Chronic) Family History Sister Arthritis Social History Preferred Language: [place] Communication Ability: Impaired 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 Beliefs That Will Affect Care: None marital status: Current Living Situation: Spouse and Family Current Living Situation Comment: LIVES WITH DAUGHTER Other Information That Helps Us Care for You: No Feels Safe at Home: Yes Safety Concerns: Feels Safe At This Time Smoking Status: Current every day smoker Tobacco Type: pipe ; Second Hand Exposure: No ; Hx Alcohol Use: No Hx Substance Use: No Review of Systems Review of Systems: Unobtainable due to cognitive status Physical Exam Constitutional: + ill appearing and + obese; no acute distress ENMT: external ear and nose normal, oropharynx normal Respiratory: + labored breathing Auscultation: + diminished lung sounds and + crackles Cardiovascular: Rate/Rhythm: regular rate Extremities: + edema (trace BLE) Gastrointestinal (Abdomen): Inspection/Auscultation: + abdomen distended (obesely distended) and normal bowel sounds Percussion/Palpation: abdomen sof t Neurologic: + not awake (lethargic/drowsy) Results & Data Vital Signs (Past 12 Hours) Vital Signs Temp Pulse Pulse Resp BP Pulse Ox 05/20/19 13:08 62 16 95 05/20/19 09:10 75 14 95 05/20/19 03:50 142 H 38 H 91 05/20/19 03:31 119 H 26 H 92 05/20/19 03:00 36.8 C 100 H 20 164/125 H 95 Time Spent Midlevel 50 minutes with >50% of the time spent at bedside with patient and physician discussing patient's condition and plan of care.
[2019-05-20] MEDS: LORazepam 0.25 MG/0.5 ML VIAL IV PRN (15:04)
[2019-05-20] MEDS: ALBUT/IPRATROP 3MG/0.5MG NEB 3 ML VIAL NEB SCH ×2 (15:13→22:29)
--- NOTE | 2019-05-20 16:04 | Cardiology Consultation ---
Date of Consultation May 20, 2019 Assessment & Plan (1) Respiratory failure with hypoxia and hypercapnia: (2) Acute diastolic (congestive) heart failure: (3) Elevated troponin: (4) Hypoxia: (5) SAI (acute kidney injury): (6) Mitral regurgitation: Complex 84-year-old patient with underlying dementia admitted with acute hypoxic respiratory failure. Cardiac consultation requested due to mildly elevated troponin in the setting of toxic respiratory failure, acute diastolic heart failure, and acute renal insufficiency. I suspect troponin elevation secondary to demand ischemia. No regional wall motion abnormality per echocardiogram. His ECG demonstrates a left bundle branch block which was noted to be rate related during most recent hospitalization. There is no evidence of recurrent atrial flutter. IV heparin initiated due to subtherapeutic INR. Patient x-ray notes asymmetric pulmonary edema as well as right lower lobe infiltrate. Recommend titration of diuretic therapy, Lasix 60 mg twice daily. Add low-dose metoprolol, 12.5 mg twice daily due to recent history of atrial flutter. If patient unable to take oral medication, will utilize Lopressor 2.5 mg every 6 hours. History of Present Illness Reason for Consultation: Elevated troponin. Requesting Physician: Dr. Olivares Attending Physician: Irsa Olivares MD History of Present Illness 84-year-old patient admitted 05/17/2019 with volume overload, pneumonia, and hypoxia. Patient treated with antibiotics and IV diuretic therapy. Cardiac consultation requested today due to mildly elevated troponin. Patient seen and examined the bedside. Received Ativan and narcotics earlier today due to agitation. He is comfortable on BiPAP. Oxygen saturation is 96% on 40% FiO2. Arouses to verbal stimuli. Patient unable to answer questions appropriately. Has history of underlying dementia. Recently hospitalized in March 2019 with atrial flutter rapid ventricular response. During that hospitalization patient diagnosed with intermittent rate related left bundle branch block. Serial troponins mildly elevated. He is chronically anticoagulated for history of pulmonary embolus. Carries history of coronary disease with inferolateral myocardial infarction status post thrombolytic therapy. Also carries a history of angioplasty to the first diagonal branch vessel in 1999. Allergies Allergy/AdvReac Type Severity Reaction Status Date / Time morphine AdvReac Severe becomes Unverified 05/17/19 13:33 wild and combative Home Medications Home Medications Medication Instructions Recorded Confirmed Type aspirin [Aspir-81] 81 mg PO QAM 03/17/19 05/17/19 History calcium carbonate [Calcium 600] 600 mg PO QAM 03/17/19 05/17/19 History citalopram 20 mg PO QAM 03/17/19 05/17/19 History clonazepam 0.5 mg PO BID PRN 03/17/19 05/17/19 History clonazepam 1 mg PO QAM 03/17/19 05/17/19 History ipratropium-albuterol 3 ml INHALATION Q6H PRN 03/17/19 05/17/19 History warfarin 2.5 mg PO UD 03/17/19 05/17/19 History warfarin 5 mg PO UD 03/17/19 05/17/19 History trazodone 25 mg PO HS 04/24/19 05/17/19 History atorvastatin 40 mg PO UD 05/17/19 05/17/19 History clonazepam 0.5 mg PO HS 05/17/19 05/17/19 History pantoprazole 40 mg PO QAM 05/17/19 05/17/19 History tramadol 50 mg PO BID 05/17/19 05/17/19 History Patient History Medical History Anticoagulated on Coumadin (Chronic) Anxiety (Chronic) CAD (coronary artery disease) (Chronic) 2000 - inferior lateral wall CT s/p thrombolytic therapy, implantable angioplasty 1st diagonal Chronic diastolic CHF (congestive heart failure) (Chronic) COPD (chronic obstructive pulmonary disease) (Chronic) Dementia (Chronic) DM2 (diabetes mellitus, type 2) (Chronic) Goals of care, counseling/discussion HLD (hyperlipidemia) (Chronic) HTN (hypertension) (Chronic) LBBB (left bundle branch block) Pulmonary embolism (Chronic) Surgical History H/O angioplasty (Chronic) "1999 [facility] " H/O hernia repair (Chronic) S/P surgical manipulation of ankle joint (Chronic) Family History Sister Arthritis Social History Preferred Language: Mohawk Communication Ability: Impaired Space Engineer Required: No Beliefs That Will Affect Care: None marital status: Current Living Situation: Spouse and Family Current Living Situation Comment: LIVES WITH DAUGHTER Other Information That Helps Us Care for You: No Feels Safe at Home: Yes Safety Concerns: Feels Safe At This Time Smoking Status: Current every day smoker Tobacco Type: pipe ; Second Hand Exposure: No ; Hx Alcohol Use: No Hx Substance Use: No Review of Systems Review of Systems: Unobtainable due to cognitive status Physical Exam Constitutional: well developed, well nourished and + obese Respiratory: Auscultation: + rhonchi; no crackles, no rales and no wheezes Cardiovascular: Rate/Rhythm: regular rate and regular rhythm Heart Sounds: + murmur (2/6 holosystolic murmur heard best at the apex.) Gastrointestinal (Abdomen): Inspection/Auscultation: abdomen normal to inspection and normal bowel sounds; abdomen not distended Percussion/Palpation: abdomen soft; abdomen nontender, no guarding and abdomen not rigid Neurologic: moves all extremities; no focal motor deficits Results & Data Vital Signs (Past 12 Hours) Vital Signs Temp Pulse Pulse Resp BP Pulse Ox 05/20/19 15:14 36.4 C L 67 80 19 119/77 95 05/20/19 15:13 67 18 96 05/20/19 13:08 62 16 95 05/20/19 09:10 75 14 95 (1) Mitral regurgitation Cardiac valve disease etiology: nonrheumatic Qualified Code(s): I34.0 - Nonrheumatic mitral (valve) insufficiency (2) Respiratory failure with hypoxia and hypercapnia Chronicity: acute Qualified Code(s): J96.01 - Acute respiratory failure with hypoxia; J96.02 - Acute respiratory failure with hypercapnia
[2019-05-20] MEDS: METOPROLOL TARTRATE 1 MG/ML VIAL IV SCH ×2 (17:34→23:44)
[2019-05-20] MEDS ORDERED: WARFARIN SOD 5 MG TAB PO ONE (17:40)
--- NOTE | 2019-05-20 17:40 | Hospitalist Progress Note ---
Date of Service May 20, 2019 Assessment & Plan (1) Fluid overload: (2) Hypoxia: -Pt is 84 y/o M with PMH COPD, HTN, dyslipidemia, CAD S/P stent, anxiety, dementia, DM II, h/o PE on Coumadin, chronic Blunt catheter presented to ER with complaint of shortness of breath x 2-3 days. O2 sats in 70's per EMS improved with oxygen via NC. Daughter denies increase in chronic nonproductive cough, denies fever/chills, vomiting, choking. -current workup to date is not highly supportive of pneumonia or a congestive heart failure -patient has been during this hospital stay to have had mores respiratory distress at night. Likely there is an undiagnosed obstructive sleep apnea with contributing obesity hypoventilation syndrome. there are some infiltrates on lung X ray concerning of Interval progression of the asymmetric pulmonary edema and small bilateral pleural effusions and may be from acute diastolic heart failure 05/20/19: Met with patient's family in AM. Patient's family (his daughter and his [phone]) did not want patient to be on comfort care. They understand that patient's prognosis is poor if he does not tolerate BIPAP. Patient seen and examined this AM and tolerating BIPAP since that time. The family also allows for trial of medication and labs to be drawn. Code status continues to be DNR/DNI (3) Pneumonia: -while pneumonia has delmi less supported, patient may benefit for the time being on empiric antibiotics of Zosyn (4) Elevated troponin: acute diastolic heart failure -echocardiogram does not show any wall motion abnormalities despite rising troponins which cardiology evaluates as likely a demand ischemia -cardiology has increased diuretics and started IV metoprolol as of 05/20/19 (5) LBBB (left bundle branch block): -cardiovascular management as above (6) Supratherapeutic INR: Anticoagulated by anticoagulation therapy History of pulmonary embolism in the past (over 1 year ago) -INR of 8 on admission and was reversed with vitamin on admission -patient's Coumadin dose, takes 5 mg Saturday/ Saturday/ Saturday, and 2.5 mg Saturday/ / Saturday/ Saturday (per anticoagulation clinic) -currently on heparin drip IV, continue -if patient can take oral coumadin at this time, then will start coumadin 5 mg daily starting on 05/20/19 (7) Pulmonary embolism: History of pulmonary embolism in the past (over 1 year ago) -management as above in regards to INR (8) CAD (coronary artery disease): s/p angioplasty -Continue statin, aspirin (9) DM2 (diabetes mellitus, type 2): A1c: 6.1 on 02/16/19 -Novolog sliding scale per protocol (10) Chronic indwelling Blunt catheter: History indwelling Blunt, changed monthly with last reported change 04/27/19 -In ER noted decreased urinary output in Blunt bag after lasix given and pt had c/o some abdominal pain. CT abd/pelvis obtained showing Small focus of gas within the bladder, may be due to prior catheterization. -New Blunt cath placed in ER. -urine culture appears to be contaminate Acute Kidney Injury -likely from use of diuretics (11) Anxiety: -Continue citalopram, clonazepam (12) Dementia: -Monitor for delirium DVT Prophylaxis -On Coumadin with supratherapeutic INR on admission, then INR 1.5, home coumadin restarted and currently on IV heparin DNR/DNI as per discussion with pt Subjective Met with patient's family in AM. Patient's family (his daughter and his [phone]) did not want patient to be on comfort care. They understand that patient's prognosis is poor if he does not tolerate BIPAP. Patient seen and examined this AM and tolerating BIPAP since that time. The family also allows for trial of medication and labs to be drawn. Code status continues to be DNR/DNI Review of Systems Review of Systems: All systems reviewed & are unremarkable except as noted in HPI & below Physical Exam Constitutional: comfortable Eyes: PERRL, conjunctivae normal, anicteric sclerae EOM intact bilaterally ENMT: external ear and nose normal, oropharynx normal Neck: normal visual inspection Respiratory: on BIPAP Gastrointestinal (Abdomen): Inspection/Auscultation: abdomen normal to inspection Percussion/Palpation: abdomen soft Musculoskeletal: Head/Neck/Chest: normocephalic and head atraumatic Neurologic: PERRL, EOMI, accommodation nl, no face palsy, no dysarthria Results & Data Vital Signs (Past 12 Hours) Vital Signs Temp Pulse Pulse Resp BP BP Pulse Ox 05/20/19 17:34 74 119/77 05/20/19 15:14 36.4 C L 67 80 19 119/77 95 05/20/19 15:13 67 18 96 05/20/19 13:08 62 16 95 05/20/19 09:10 75 14 95 (1) Pneumonia Laterality: unspecified laterality Lung location: unspecified part of lung Pneumonia type: due to unspecified organism Qualified Code(s): J18.9 - Pneumonia, unspecified organism
[2019-05-20 19:04] LABS: pH VBG 7.34 (7.36-7.41)
[2019-05-20 19:22] LABS: Albumin Level 2.8 gm/dl (3.4-5.0); BUN Creatinine Ratio 20.9 (10-20); Calcium 8.4 mg/dl (8.5-10.1); Creatinine Clr Calc Pharmacy 41.1 ml/min; Est GFR (African American) 38.7; Est GFR (Non-African American) 33.4; Magnesium 2.4 mg/dl (1.8-2.4); Potassium 3.8 mmol/L (3.5-5.1)
[2019-05-20 19:25] LABS: Albumin Globulin Ratio 0.7 (0.9-2); Bilirubin,Total 0.4 mg/dl (0.2-1); Globulin 4.3 gm/dl (2.5-4.0); Total Protein 7.1 gm/dl (6.4-8.2)
[2019-05-20 20:12] LABS: Partial Thromboplastin Ratio 2.7
[2019-05-20 20:14] LABS: Partial Thromboplastin Time 73.9 Seconds (21.0-31.0)
[2019-05-20] MEDS: FUROSEMIDE 60 MG in SYRINGE 0 ML IV SCH (20:31)
[2019-05-21] MEDS: CHECK SCOPOLAMINE PATCH PLACEMENT SCH ×3 (00:16→16:55)
[2019-05-21] MEDS: PIPERACILLIN/TAZOBACTAM 4.5 GM in DEXTROSE 5% 100 ML IV SCH ×3 (02:01→17:26)
[2019-05-21] MEDS: HEPARIN SODIUM/DEXTROSE 25,000 UNITS/500 ML BAG IV SCH (02:01)
[2019-05-21 03:14] LABS: Partial Thromboplastin Ratio 1.8
[2019-05-21 03:19] LABS: Partial Thromboplastin Time 48.1 Seconds (21.0-31.0)
[2019-05-21] MEDS: METOPROLOL TARTRATE 1 MG/ML VIAL IV SCH ×2 (05:28→11:50)
[2019-05-21] MEDS: HYDROmorphone INJ 1 MG/ML SYRINGE IV PRN ×4 (06:24→23:08)
[2019-05-21 07:17] LABS: Base Excess VBG 9.2 mEq/L; pH VBG 7.4 (7.36-7.41)
[2019-05-21] MEDS: ALBUT/IPRATROP 3MG/0.5MG NEB 3 ML VIAL NEB SCH ×2 (07:18→15:01)
[2019-05-21 07:36] LABS: INR 2.1 (0.9-1.1); Partial Thromboplastin Ratio 1.8; Prothrombin Time 20.3 Seconds (9.0-12.0)
[2019-05-21 07:39] LABS: Partial Thromboplastin Time 48.2 Seconds (21.0-31.0)
[2019-05-21 07:50] LABS: BUN Creatinine Ratio 22.6 (10-20); Calcium 9.5 mg/dl (8.5-10.1); Creatinine Clr Calc Pharmacy 45.8 ml/min; Est GFR (African American) 43.9; Est GFR (Non-African American) 37.8; Magnesium 2.1 mg/dl (1.8-2.4); Potassium 3.4 mmol/L (3.5-5.1)
[2019-05-21 07:53] LABS: Albumin Globulin Ratio 0.7 (0.9-2); Bilirubin,Total 0.6 mg/dl (0.2-1); Globulin 4.4 gm/dl (2.5-4.0); Total Protein 7.4 gm/dl (6.4-8.2)
[2019-05-21] MEDS: FUROSEMIDE 60 MG in SYRINGE 0 ML IV SCH ×2 (08:12→20:46)
[2019-05-21] MEDS: LORazepam 0.25 MG/0.5 ML VIAL IV PRN ×3 (08:18→21:53)
[2019-05-21] MEDS ORDERED: FUROSEMIDE 40 MG in SYRINGE 0 ML IV SCH (09:00)
--- NOTE | 2019-05-21 09:14 | Hospitalist Progress Note ---
Date of Service May 21, 2019 Assessment & Plan (1) Hypoxia: Acute respiratory failure with hypoxia and hypercarbia -Pt is 84 y/o M with PMH COPD, HTN, dyslipidemia, CAD S/P stent, anxiety, dementia, DM II, h/o PE on Coumadin, chronic Blunt catheter presented to ER with complaint of shortness of breath x 2-3 days. O2 sats in 70's per EMS improved with oxygen via [place]. Daughter denies increase in chronic nonproductive cough, denies fever/chills, vomiting, choking. -ABG on 05/19/19 with pH of 7.13 and PCO2 of 93 -patient has been during this hospital stay to have had mores respiratory distress during night times x 2 nights on 05/18/19 and 05/19/19. Likely there is an undiagnosed obstructive sleep apnea with contributing obesity hypoventilation syndrome. there are some infiltrates on lung X ray concerning of Interval progression of the asymmetric pulmonary edema and small bilateral pleural effusions and may be from acute diastolic heart failure 05/20/19: Met with patient's family in AM. Patient's family (his daughter and his [phone]) did not want patient to be on comfort care. They understand that patient's prognosis is poor if he does not tolerate BIPAP. Patient seen and examined this AM and tolerating BIPAP since that time. The family also allows for trial of medication and labs to be drawn. Code status continues to be DNR/DNI 05/21/19: Patient seen and examined at bedside this AM. Patient had uneventful night and was able to tolerate the BIPAP. Patient appears more energetic this AM when seen on oxymask. will continue BIPAP as tolerated but blood gases showing some improvements of pH and CO2 (2) Pneumonia: -while pneumonia has edlmi less supported, patient may benefit for the time being on empiric antibiotics of Zosyn -continue antibiotics (3) Fluid overload: from Acute on chronic diastolic (congestive) heart failure -on Lasix 40 mg IV BID (4) Elevated troponin: acute diastolic heart failure -echocardiogram does not show any wall motion abnormalities despite rising troponins which cardiology evaluates as likely a demand ischemia -cardiology has increased diuretics and started IV metoprolol as of 05/20/19 (5) LBBB (left bundle branch block): -cardiovascular management as above (6) Supratherapeutic INR: Anticoagulated by anticoagulation therapy History of pulmonary embolism in the past (over 1 year ago) -INR of 8 on admission and was reversed with vitamin on admission -patient's Coumadin dose, takes 5 mg Saturday/ Saturday/ Saturday, and 2.5 mg Saturday/ / Saturday/ Saturday (per anticoagulation clinic) -patient was on heparin drip IV, coumadin 5 mg daily starting on 05/20/19, INR is 2.1 on 05/21/19 and heparin drip stopped (7) Pulmonary embolism: History of pulmonary embolism in the past (over 1 year ago) -management as above in regards to INR (8) CAD (coronary artery disease): s/p angioplasty -Continue statin, aspirin (9) DM2 (diabetes mellitus, type 2): A1c: 6.1 on 02/16/19 -Novolog sliding scale per protocol (10) Chronic indwelling Blunt catheter: History indwelling Blunt, changed monthly with last reported change 04/27 -In ER noted decreased urinary output in Blunt bag after lasix given and pt had c/o some abdominal pain. CT abd/pelvis obtained showing Small focus of gas within the bladder, may be due to prior catheterization. -New Blunt cath placed in ER. -urine culture appears to be contaminate Acute Kidney Injury -likely from use of diuretics -monitor renal function (11) Anxiety: -Continue citalopram, clonazepam (12) Dementia: -Monitor for delirium DVT Prophylaxis -On Coumadin DNR/DNI as per discussion with pt Subjective Patient seen and examined at bedside this AM. Patient had uneventful night and was able to tolerate the BIPAP. Patient appears more energetic this AM when seen on oxymask. Patient denies acute pain. Patient does not report of any new symptoms. Review of Systems Review of Systems: All systems reviewed & are unremarkable except as noted in HPI & below Physical Exam Constitutional: comfortable Eyes: PERRL, conjunctivae normal, anicteric sclerae EOM intact bilaterally ENMT: external ear and nose normal, oropharynx normal Neck: normal visual inspection Respiratory: normal respiratory effort Cardiovascular: Rate/Rhythm: regular rate Gastrointestinal (Abdomen): Inspection/Auscultation: abdomen normal to inspection Percussion/Palpation: abdomen soft Musculoskeletal: Head/Neck/Chest: normocephalic and head atraumatic Neurologic: PERRL, EOMI, accommodation nl, no face palsy, no dysarthria Psychiatric: Orientation: alert and cooperative Results & Data Vital Signs (Past 12 Hours) Vital Signs Temp Pulse Pulse Resp BP BP Pulse Ox 05/21/19 08:27 36.8 C 80 20 110/72 91 05/21/19 07:18 73 18 94 05/21/19 05:28 77 126/86 05/21/19 03:36 36.4 C L 75 18 126/86 97 05/21/19 00:00 77 05/20/19 23:50 36.4 C L 54 L 22 121/79 95 05/20/19 23:44 77 121/79 05/20/19 22:30 72 22 96 (1) Pneumonia Laterality: unspecified laterality Lung location: unspecified part of lung Pneumonia type: due to unspecified organism Qualified Code(s): J18.9 - Pneumonia, unspecified organism
--- NOTE | 2019-05-21 12:51 | Cardiology Progress Note ---
Date of Service May 21, 2019 Assessment & Plan (1) Respiratory failure with hypoxia and hypercapnia: (2) Acute diastolic (congestive) heart failure: (3) Elevated troponin: (4) Hypoxia: (5) SAI (acute kidney injury): (6) Mitral regurgitation: Continue Lasix 60 mg IV every 12 hours. Repeat basic metabolic panel in a.m. INR is therapeutic today. Discontinue intravenous heparin. Dose Coumadin daily for goal INR 2.0-3.0. Transition IV metoprolol to oral metoprolol tartrate 12.5 mg twice daily. Transition to oral diuretic therapy in the next 24 to 48 hours. Subjective Patient seen and examined at bedside. More alert today. is present today as well. Patient denies chest pain or shortness of breath. Fluid balance -2.2 L since admission. Weight unchanged. Telemetry demonstrates sinus rhythm. INR is therapeutic today. And trending downward. Review of Systems Review of Systems: All systems reviewed & are unremarkable except as noted in HPI & below Physical Exam Constitutional: well developed, well nourished and + obese Respiratory: Auscultation: + wheezes (Expiratory); no crackles, no rales and no rhonchi Cardiovascular: Rate/Rhythm: regular rate and regular rhythm Heart Sounds: + murmur (2/6 holosystolic murmur heard best at the apex.) Gastrointestinal (Abdomen): Inspection/Auscultation: abdomen normal to inspection and normal bowel sounds; abdomen not distended Percussion/Palpation: abdomen soft; abdomen nontender, no guarding and abdomen not rigid Neurologic: moves all extremities; no focal motor deficits Results & Data Vital Signs (Past 12 Hours) Vital Signs Temp Pulse Pulse Resp BP BP Pulse Ox 05/21/19 11:50 97 H 05/21/19 11:42 36.3 C L 82 18 132/82 93 05/21/19 08:27 36.8 C 80 20 110/72 91 05/21/19 07:18 73 18 94 05/21/19 05:28 77 126/86 05/21/19 03:36 36.4 C L 75 18 126/86 97 (1) Respiratory failure with hypoxia and hypercapnia Chronicity: acute Qualified Code(s): J96.01 - Acute respiratory failure with hypoxia; J96.02 - Acute respiratory failure with hypercapnia (2) Mitral regurgitation Cardiac valve disease etiology: nonrheumatic Qualified Code(s): I34.0 - Nonrheumatic mitral (valve) insufficiency
[2019-05-21] MEDS: METOPROLOL TARTRATE 25 MG TAB PO SCH ×2 (13:27→20:46)
[2019-05-21] MEDS ORDERED: WARFARIN SOD 5 MG TAB PO SCH (16:00)
[2019-05-22] MEDS: CHECK SCOPOLAMINE PATCH PLACEMENT SCH ×4 (00:24→23:59)
[2019-05-22] MEDS: ALBUT/IPRATROP 3MG/0.5MG NEB 3 ML VIAL NEB SCH ×4 (00:49→22:49)
[2019-05-22] MEDS: PIPERACILLIN/TAZOBACTAM 4.5 GM in DEXTROSE 5% 100 ML IV SCH (01:50)
[2019-05-22] MEDS: HYDROmorphone INJ 1 MG/ML SYRINGE IV PRN (04:12)
--- NOTE | 2019-05-22 07:57 | XRay Report ---
XR chest 1V portable CLINICAL HISTORY: follow lung infiltrates COMPARISON STUDY: 05/19/2019 FINDINGS: Improving findings of pulmonary edema. Bilateral parenchymal infiltrative change if this si milar is also improved. There is a mild increase in consolidative change left base which may represent small superimposed eff usion. IMPRESSION: Improving pulmonary edema and/or bilateral infiltrative change. Slightly progressive con solidative and/or effusion change left base. The above report was generated using voice recognition software. It may contain grammatical, syntax or spelling errors. Electronically signed by: Vito Mcgregor M.D. 05/22/2019 7:55 AM
[2019-05-22 08:23] LABS: Basophils # (auto) 0.02 K/uL (0-0.2); Basophils % (auto) 0.2 %; Eosinophils # (auto) 0.62 K/uL (0-0.5); Eosinophils % (auto) 5.5 %; Hematocrit (blood only) 40.7 % (42-52); Hemoglobin 12.7 g/dL (14.0-18.0); Immature Granulocytes # (auto) 0.01 K/uL (0.00-0.02); Immature Granulocytes % (auto) 0.1 %; Lymphocytes # (auto) 3.47 K/uL (1.2-3.4); Mean Corpuscular Hemoglobin 28.7 pg (25-34); Mean Corpuscular Hgb Conc 31.2 g/dL (32-36); Mean Corpuscular Volume 91.9 fL (80-100); Mean Platelet Volume 11.1 fL (7.4-10.4); Monocytes # (auto) 1.16 K/uL (0.11-0.59); Monocytes % (auto) 10.3 %; Neutrophils # (auto) 5.93 K/uL (1.4-6.5); Neutrophils % (auto) 52.9 %; Platelet Count 220 K/uL (130-400); RDW Coefficient of Variation 17.3 % (11.5-14.5); RDW Standard Deviation 58.8 fL (36.4-46.3); Red Blood Count 4.43 M/uL (4.7-6.1); White Blood Count 11.21 K/uL (4.8-10.8)
[2019-05-22 08:33] LABS: INR 2.6 (0.9-1.1); Prothrombin Time 24.5 Seconds (9.0-12.0)
[2019-05-22 08:51] LABS: Albumin Level 3.4 gm/dl (3.4-5.0); Calcium 10.3 mg/dl (8.5-10.1); Creatinine Clr Calc Pharmacy 43.7 ml/min; Est GFR (African American) 41.4; Est GFR (Non-African American) 35.7; Potassium 3.2 mmol/L (3.5-5.1)
[2019-05-22 08:54] LABS: Albumin Globulin Ratio 0.7 (0.9-2); Bilirubin,Total 0.9 mg/dl (0.2-1); Globulin 4.6 gm/dl (2.5-4.0)
--- NOTE | 2019-05-22 09:21 | Palliative Care Progress Note ---
Date of Service May 22, 2019 Assessment & Plan (1) Goals of care, counseling/discussion: -Patient is much better today. He is on nasal cannula, no labored breathing or SOB. -His creatinine is 1.72 today. He has been receiving IV Furosemide and is now 6.5L negative since admission. -Patient appears to be back to his baseline mental status. At home, he really is not ambulatory, only able to occasionally get out bed and take a few steps. Sometimes is bedbound for weeks at a time. -No family at bedside this morning. Plan will likely be for patient to return home on discharge. Will call his today. Update: Spoke with patient's Magaly and daughter Judy. Patient is awake but getting more tired as the day goes on. Family agrees he is at his baseline. -We are working to get patient approved for bipap.The issue is that they have not been able to complete the overnight pulse ox study-- patient wakes in the night with agitation, pulls pulse ox off. Patient does tolerate bipap pretty well after he receives lorazepam, however he still wakes up during the night. -Daughter asked if they were able to give something to make him sleep better at home as well. WE talked about secondary side effects of those types of medications and that they can cause CO2 retention, etc. She verbalized understanding. However, if they are able to get bipap approved, this could help with the problem. -Trying to get bipap approved for home. If unable, changes of patient declining and this occurring again is high. At that point, it may be time to bring hospice in again. We will see how the weekend goes and reconvene on Saturday. Family is very open to discussing goals of care, as he has been on hospice several times in the past. -We will continue to follow closely. (2) Respiratory failure with hypoxia and hypercapnia: (3) Fluid overload: (4) COPD (chronic obstructive pulmonary disease): Subjective Patient looks much better today. He is back to his baseline mental status, which is alert and oriented to person and place. Poor insight into condition or why he is in hospital. No family at bedside. Review of Systems Review of Systems: Patient denies SOB, pain, N/V. Physical Exam Constitutional: + ill appearing and + obese; no acute distress ENMT: external ear and nose normal, oropharynx normal Respiratory: no labored breathing Auscultation: + diminished lung sounds Cardiovascular: Rate/Rhythm: regular rate Extremities: + edema (trace BLE) Gastrointestinal (Abdomen): Inspection/Auscultation: + abdomen distended (obesely distended) and normal bowel sounds Percussion/Palpation: abdomen soft; abdomen nontender Neurologic: moves all extremities and awake Psychiatric: Orientation: oriented to person and oriented to place; + not oriented to time Insight: + impaired insight Judgement: + impaired judgement Results & Data Vital Signs (Past 12 Hours) Vital Signs Temp Pulse Pulse Resp BP BP Pulse Ox 05/22/19 08:20 36.5 C 84 18 100/70 90 05/22/19 07:20 79 18 87 L 05/22/19 03:50 58 L 05/22/19 02:54 36.9 C 84 20 125/83 94 05/22/19 01:30 68 05/22/19 00:53 36.8 C 81 20 130/83 87 L 05/22/19 00:50 75 05/21/19 21:40 75 Pulse Ox 05/22/19 08:20 05/22/19 07:20 05/22/19 03:50 93 05/22/19 02:54 05/22/19 01:30 88 L 05/22/19 00:53 05/22/19 00:50 96 05/21/19 21:40 93 Time Spent Midlevel 35 minutes with >50% of the time spent at bedside with patient and family di scussing condition and GOC. (1) Respiratory failure with hypoxia and hypercapnia Chronicity: acute Qualified Code(s): J96.01 - Acute respiratory failure with hypoxia; J96.02 - Acute respiratory failure with hypercapnia
[2019-05-22] MEDS ORDERED: POTASSIUM CHLORIDE 20 MEQ TABCR PO STA (09:41)
[2019-05-22] MEDS ORDERED: MAGNESIUM HYDROXIDE SUSP 30 ML UDC PO ONE (09:45)
[2019-05-22] MEDS ORDERED: POLYETHYLENE (MIRALAX) 17 GM PACK PO PRN (09:45)
[2019-05-22] MEDS ORDERED: AMOXICILLIN/CLAVULANATE 875 MG TAB PO ONE (09:45)
[2019-05-22] MEDS: FUROSEMIDE 60 MG in SYRINGE 0 ML IV SCH ×2 (09:48→22:34)
[2019-05-22] MEDS: METOPROLOL TARTRATE 25 MG TAB PO SCH ×2 (09:49→22:35)
--- NOTE | 2019-05-22 09:52 | Hospitalist Progress Note ---
Date of Service May 22, 2019 Assessment & Plan (1) Hypoxia: Acute respiratory failure with hypoxia and hypercarbia -Pt is 84 y/o M with PMH COPD, HTN, dyslipidemia, CAD S/P stent, anxiety, dementia, DM II, h/o PE on Coumadin, chronic Blunt catheter presented to ER with complaint of shortness of breath x 2-3 days. O2 sats in 70's per EMS improved with oxygen via NC. Daughter denies increase in chronic nonproductive cough, denies fever/chills, vomiting, choking. -ABG on 05/19/19 with pH of 7.13 and PCO2 of 93 -patient has been during this hospital stay to have had mores respiratory distress during night times x 2 nights on 05/18/19 and 05/19/19. Likely there is an undiagnosed obstructive sleep apnea with contributing obesity hypoventilation syndrome. there are some infiltrates on lung X ray concerning of Interval progression of the asymmetric pulmonary edema and small bilateral pleural effusions and may be from acute diastolic heart failure 05/20/19: Met with patient's family in AM. Patient's family (his daughter and his [phone]) did not want patient to be on comfort care. They understand that patient's prognosis is poor if he does not tolerate BIPAP. Patient seen and examined this AM and tolerating BIPAP since that time. The family also allows for trial of medication and labs to be drawn. Code status continues to be DNR/DNI 05/21/19: Patient seen and examined at bedside this AM. Patient had uneventful night and was able to tolerate the BIPAP. Patient appears more energetic this AM when seen on oxymask. will continue BIPAP as tolerated but blood gases showing some improvements of pH and CO2 05/22/19: Patient could not cooperate overnight for pulse oximetry testing. Patient did not have acute overnight events. Patient seen and examined while breathing on 5 liters/min nasal cannula oxygen. Chest X ray shows some improvements in the pulmonary infiltrates. ABG to be obtained as medical doctor feels that a prescription of BIPAP or CPAP on discharge may be necessary to prevent future respiratory distress. IV Zosyn is switched to Augmentin. Patient benefits from further diuresis (2) Pneumonia: -while pneumonia has delmi less supported, patient may benefit for the time being on respiratory antibiotic course -management as above (3) Fluid overload: from Acute on chronic diastolic (congestive) heart failure -on Lasix 60 mg IV BID -supplement potassium to maintain serum potassium 3.5 to 4 while on diuretic (4) Elevated troponin: acute diastolic heart failure -echocardiogram does not show any wall motion abnormalities despite rising troponins which cardiology evaluates as likely a demand ischemia -Furosemide, metoprolol 12.5 mg BID (5) LBBB (left bundle branch block): -cardiovascular management as above (6) Supratherapeutic INR: Anticoagulated by anticoagulation therapy History of pulmonary embolism in the past (over 1 year ago) -INR of 8 on admission and was reversed with vitamin on admission -patient's Coumadin dose, takes 5 mg Saturday/ Saturday/ Saturday, and 2.5 mg Saturday/ / Saturday/ Saturday (per anticoagulation clinic) -patient was on heparin drip IV, coumadin 5 mg daily starting on 05/20/19, INR is 2.1 on 05/21/19 and heparin drip stopped -INR 2.6 on 05/22/19, continue coumadin as 3 mg daily (7) Pulmonary embolism: History of pulmonary embolism in the past (over 1 year ago) -management as above in regards to INR (8) CAD (coronary artery disease): s/p angioplasty -Continue statin, aspirin (9) DM2 (diabetes mellitus, type 2): A1c: 6.1 on 02/16/19 -Novolog sliding scale per protocol (10) Chronic indwelling Blunt catheter: History indwelling Blunt, changed monthly with last reported change 04/27/19 -In ER noted decreased urinary output in Blunt bag after lasix given and pt had c/o some abdominal pain. CT abd/pelvis obtained showing Small focus of gas within the bladder, may be due to prior catheterization. -New Blunt cath placed in ER. -urine culture appears to be contaminate Acute Kidney Injury -likely from use of diuretics -monitor renal function (11) Anxiety: -Continue citalopram, clonazepam (12) Dementia: -Monitor for delirium DVT Prophylaxis -On Coumadin DNR/DNI as per discussion with pt Subjective Patient could not cooperate overnight for pulse oximetry testing. Patient did not have acute overnight events. Patient seen and examined while breathing on 5 liters/min nasal cannula oxygen. Patient able to talk and converse with medical doctor. Patient denies of being in acute pain or other medical symptoms. Review of Systems Review of Systems: All systems reviewed & are unremarkable except as noted in HPI & below Physical Exam Constitutional: comfortable Eyes: PERRL, conjunctivae normal, anicteric sclerae EOM intact bilaterally ENMT: external ear and nose normal, oropharynx normal Neck: normal visual inspection Respiratory: normal respiratory effort Cardiovascular: Rate/Rhythm: regular rate Gastrointestinal (Abdomen): Inspection/Auscultation: abdomen normal to inspection Percussion/Palpation: abdomen soft Musculoskeletal: Head/Neck/Chest: normocephalic and head atraumatic Neurologic: PERRL, EOMI, accommodation nl, no face palsy, no dysarthria Psychiatric: Orientation: alert and cooperative Results & Data Vital Signs (Past 12 Hours) Vital Signs Temp Pulse Pulse Resp BP BP Pulse Ox 05/22/19 08:20 36.5 C 84 18 100/70 90 05/22/19 07:20 79 18 87 L 05/22/19 03:50 58 L 05/22/19 02:54 36.9 C 84 20 125/83 94 05/22/19 01:30 68 05/22/19 00:53 36.8 C 81 20 130/83 87 L 05/22/19 00:50 75 Pulse Ox 05/22/19 08:20 05/22/19 07:20 05/22/19 03:50 93 05/22/19 02:54 05/22/19 01:30 88 L 05/22/19 00:53 05/22/19 00:50 96 (1) Pneumonia Laterality: unspecified laterality Lung location: unspecified part of lung Pneumonia type: due to unspecified organism Qualified Code(s): J18.9 - Pneumonia, unspecified organism
[2019-05-22 10:30] LABS: HCO3 ABG 38 mmol/L (19-24); Oxygen Saturation ABG 89.3 % (90-95); PCO2 ABG 56 mmHg (35-46); PO2 ABG 56 mm/Hg (80-95); pH ABG 7.45 (7.35-7.45)
[2019-05-22 10:31] LABS: Allen Test Pos (Pos)
[2019-05-22] MEDS: WARFARIN SOD 3 MG TAB PO SCH (17:20)
[2019-05-22] MEDS: AMOXICILLIN/CLAVULANATE 875 MG TAB PO SCH (17:20)
[2019-05-22] MEDS ORDERED: LORazepam 1 MG/2 ML VIAL IV STA (19:00)
[2019-05-23] MEDS: LORazepam 0.25 MG/0.5 ML VIAL IV PRN (00:07)
[2019-05-23] MEDS: ALBUT/IPRATROP 3MG/0.5MG NEB 3 ML VIAL NEB SCH ×2 (07:10→15:14)
[2019-05-23 07:59] LABS: Hematocrit (blood only) 40.9 % (42-52); Hemoglobin 12.9 g/dL (14.0-18.0); Lymphocytes % (auto) 34.8 %; Mean Corpuscular Hemoglobin 28.5 pg (25-34); Mean Corpuscular Hgb Conc 31.5 g/dL (32-36); Mean Corpuscular Volume 90.5 fL (80-100); Mean Platelet Volume 11.1 fL (7.4-10.4); Monocytes % (auto) 12.4 %; Neutrophils % (auto) 45.5 %; Platelet Count 185 K/uL (130-400); RDW Coefficient of Variation 17.6 % (11.5-14.5); RDW Standard Deviation 58.3 fL (36.4-46.3); Red Blood Count 4.52 M/uL (4.7-6.1); White Blood Count 8.61 K/uL (4.8-10.8)
[2019-05-23 08:00] LABS: Basophils # (auto) 0.01 K/uL (0-0.2); Basophils % (auto) 0.1 %; Immature Granulocytes # (auto) 0.02 K/uL (0.00-0.02); Immature Granulocytes % (auto) 0.2 %; Monocytes # (auto) 1.07 K/uL (0.11-0.59); Neutrophils # (auto) 3.91 K/uL (1.4-6.5)
[2019-05-23 08:13] LABS: INR 2.5 (0.9-1.1); Prothrombin Time 24.1 Seconds (9.0-12.0)
[2019-05-23 08:37] LABS: Albumin Level 3.2 gm/dl (3.4-5.0); BUN Creatinine Ratio 21.1 (10-20); Calcium 10.5 mg/dl (8.5-10.1); Creatinine Clr Calc Pharmacy 46.2 ml/min; Est GFR (African American) 45.5; Est GFR (Non-African American) 39.3; Magnesium 2.3 mg/dl (1.8-2.4); Potassium 3.2 mmol/L (3.5-5.1)
[2019-05-23 08:40] LABS: Albumin Globulin Ratio 0.7 (0.9-2); Bilirubin,Total 0.6 mg/dl (0.2-1); Globulin 4.8 gm/dl (2.5-4.0)
[2019-05-23] MEDS: CHECK SCOPOLAMINE PATCH PLACEMENT SCH ×2 (09:50→16:27)
[2019-05-23] MEDS: METOPROLOL TARTRATE 25 MG TAB PO SCH (09:51)
[2019-05-23] MEDS: AMOXICILLIN/CLAVULANATE 875 MG TAB PO SCH ×2 (09:51→16:27)
[2019-05-23] MEDS: FUROSEMIDE 60 MG in SYRINGE 0 ML IV SCH (09:51)
[2019-05-23] MEDS ORDERED: POTASSIUM CHLORIDE 20 MEQ TABCR PO STA (11:26)
--- NOTE | 2019-05-23 14:13 | Hospitalist Progress Note ---
Date of Service May 23, 2019 Assessment & Plan (1) Hypoxia: Acute respiratory failure with hypoxia and hypercarbia -Pt is 84 y/o M with PMH COPD, HTN, dyslipidemia, CAD S/P stent, anxiety, dementia, DM II, h/o PE on Coumadin, chronic Blunt catheter presented to ER with complaint of shortness of breath x 2-3 days. O2 sats in 70's per EMS improved with oxygen via [place]. Daughter denies increase in chronic nonproductive cough, denies fever/chills, vomiting, choking. -ABG on 05/19/19 with pH of 7.13 and PCO2 of 93 -patient has been during this hospital stay to have had mores respiratory distress during night times x 2 nights on 05/18/19 and 05/19/19. Likely there is an undiagnosed obstructive sleep apnea with contributing obesity hypoventilation syndrome. there are some infiltrates on lung X ray concerning of Interval progression of the asymmetric pulmonary edema and small bilateral pleural effusions and may be from acute diastolic heart failure 05/20/19: Met with patient's family in AM. Patient's family (his daughter and his [phone]) did not want patient to be on comfort care. They understand that patient's prognosis is poor if he does not tolerate BIPAP. Patient seen and examined this AM and tolerating BIPAP since that time. The family also allows for trial of medication and labs to be drawn. Code status continues to be DNR/DNI 05/21/19: Patient seen and examined at bedside this AM. Patient had uneventful night and was able to tolerate the BIPAP. Patient appears more energetic this AM when seen on oxymask. will continue BIPAP as tolerated but blood gases showing some improvements of pH and CO2 05/22/19: Patient could not cooperate overnight for pulse oximetry testing. Patient did not have acute overnight events. Patient seen and examined while breathing on 5 liters/min nasal cannula oxygen. Chest X ray shows some improvements in the pulmonary infiltrates. ABG to be obtained as medical doctor feels that a prescription of BIPAP or CPAP on discharge may be necessary to prevent future respiratory distress. IV Zosyn is switched to Augmentin. Patient benefits from further diuresis 05/23/19: Patient again failed to cooperate with the overnight pulse oximetry test. On 5 liters/min nasal cannula at rest this AM Discussed with patient and patient's family members that patient cannot cooperate with respiratory testing to qualify for BIPAP due to his inability to cooperate for testing and dementia and that currently has relatively improved blood gases. But that likely that without use of BIPAP the patient will be high risk for hospital re-admission. Patient also insisting on hospital discharge and Patient's family members would also like patient to return home under hospice care. As per welfare case worker, [facility] would need to do a face to face evaluation with [phone] because of previous revoked services in the past and that this evaluation will not be available until Saturday05/25/19. Patient and family members preferred to be discharged with plans for hospice care even without established services in place. regional business manager suggests that then hospice evaluation can be done at home. Hospitalist have submitted to welfare case worker home oxygen with portability as 5 liter/ minute and that oxygen can be adjusted for oxygen saturation to maintain between 90 to 92%. Hospitalist also emphasized with patient and patient's family members that generally the goal of home hospice is to focus on patient's comfort rather than continue life prolonging treatments. Hospitalist offered to update home medication list with new discharge medication changes should patient and his family members later decide against hospice treatment new prescriptions sent electronically to [facility] [id number] [facility] [place] [address] of: furosemide (also called Lasix) of 40 mg daily for heart failure. Usually when this medication is being taken under non-hospice situations: periodic basic metabolic panel labs would need to be drawn by family medical doctor for check electrolytes and renal function, or a future Chest X ray could be done metoprolol succinated 25 mg daily (to be started on 05/23/19) for heart failure lisinopril 2.5 mg daily for heart failure and blood pressure coumadin (also called warfarin) as 3 mg daily (INR levels would need to be maintained between 2 to 3 when on coumadin medication, discharge day INR on 05/23/19 is 2.5) Amoxicillin Clavulanate (875mg/125mg) twice a day for 5 more days to complete 10 day course of total antibiotics for suspected pneumonia (2) Pneumonia: -while pneumonia has delmi less supported, patient may benefit for the time being on respiratory antibiotic course -management as above (3) Fluid overload: from Acute on chronic diastolic (congestive) heart failure -had been treated with Lasix 60 mg IV BID on the hospital stay -oral Lasix on discharge if patient and patoent's family chooses to have these medications to be taken (4) Elevated troponin: acute diastolic heart failure -admission troponin of 0.2 ranges from 05/17/19 to 05/19/19 before trending up further on 05/19/19 and was 1.26 by -05/20/19 echocardiogram does not show any wall motion abnormalities despite rising troponins which cardiology evaluates as a demand ischemia and advised further diuresis and beta blockers -Furosemide diuretic, metoprolol (5) LBBB (left bundle branch block): -cardiovascular management as above (6) Supratherapeutic INR: Anticoagulated by anticoagulation therapy History of pulmonary embolism in the past (over 1 year ago) -INR of 8 on admission and was reversed with vitamin on admission -patient's Coumadin dose, takes 5 mg Saturday/ Saturday/ Saturday, and 2.5 mg Saturday/ / Saturday/ Saturday (per anticoagulation clinic) -patient was on heparin drip IV, coumadin 5 mg daily starting on 05/20/19, INR is 2.1 on 05/21/19 and heparin drip stopped -INR 2.6 on 05/22/19, continue coumadin as 3 mg daily. INR 2.5 on 05/23/19 and coumadin can be continued (7) Pulmonary embolism: History of pulmonary embolism in the past (over 1 year ago) -management as above in regards to INR (8) CAD (coronary artery disease): s/p angioplasty -Continue statin, aspirin (9) DM2 (diabetes mellitus, type 2): A1c: 6.1 on 02/16/19 -Novolog sliding scale per protocol while inpatient -no diabetes medication recommended on discharge given patient's sometimes waxing/waning behaviors and therefor could be at risk of hypoglycemia of on long term care pharmacist diabetes medications (10) Chronic indwelling Blunt catheter: History indwelling Blunt, changed monthly with last reported change 04/27/19 -In ER noted decreased urinary output in Blunt bag after lasix given and pt had c/o some abdominal pain. CT abd/pelvis obtained showing Small focus of gas within the bladder, may be due to prior catheterization. -New Blunt cath placed in ER. -urine culture appears to be contaminate Acute Kidney Injury -admission creatinine is around the 1.2 ranges of baseline -creatinine had risen to as high as 1.8 likely from use of diuretics -creatinine 1.5 on 05/23/19 (11) Anxiety: -Continue citalopram, clonazepam (12) Dementia: -dementia inhibits patient from being medically optimized with respiratory tests DVT Prophylaxis -On Coumadin DNR/DNI Subjective Patient again failed to cooperate with the overnight pulse oximetry test. On 5 liters/min nasal cannula at rest this AM Discussed with patient and patient's family members that patient cannot cooperate with respiratory testing to qualify for BIPAP due to his inability to cooperate for testing and dementia and that currently has relatively improved blood gases. But that likely that without use of BIPAP the patient will be high risk for hospital re-admission. Patient also insisting on hospital discharge and Patient's family members would also like patient to return home under hospice care. As per welfare case worker, [facility] would need to do a face to face evaluation with 244 because of previous revoked services in the past and that this evaluation will not be available until Saturday05/25/19. Patient and family members preferred to be discharged with plans for hospice care even without established services in place. regional business manager suggests that then hospice evaluation can be done at home. Hospitalist have submitted to welfare case worker home oxygen with portability as 5 liter/ minute and that oxygen can be adjusted for oxygen saturation to maintain between 90 to 92%. Hospitalist also emphasized with patient and patient's family members that generally the goal of home hospice is to focus on patient's comfort rather than continue life prolonging treatments. Hospitalist offered to update home medication list with new discharge medication changes should patient and his family members later decide against hospice treatment Review of Systems Review of Systems: All systems reviewed & are unremarkable except as noted in HPI & below Physical Exam Constitutional: comfortable Eyes: PERRL, conjunctivae normal, anicteric sclerae EOM intact bilaterally ENMT: external ear and nose normal, oropharynx normal Neck: normal visual inspection Respiratory: normal respiratory effort Cardiovascular: Rate/Rhythm: regular rate Gastrointestinal (Abdomen): Inspection/Auscultation: abdomen normal to inspection Percussion/Palpation: abdomen soft Musculoskeletal: Head/Neck/Chest: normocephalic and head atraumatic Neurologic: PERRL, EOMI, accommodation nl, no face palsy, no dysarthria Psychiatric: Orientation: alert and cooperative Results & Data Vital Signs (Past 12 Hours) Vital Signs Temp Pulse Pulse Resp BP Pulse Ox 05/23/19 11:54 36.4 C L 67 20 120/81 94 05/23/19 07:45 74 05/23/19 07:12 36.7 C 83 18 150/80 H 96 05/23/19 07:10 73 18 97 (1) Pneumonia Laterality: unspecified laterality Lung location: unspecified part of lung Pneumonia type: due to unspecified organism Qualified Code(s): J18.9 - Pneumonia, unspecified organism
--- NOTE | 2019-05-23 14:29 | Discharge Summary ---
Date of Service May 23, 2019 Admission HPI Per Admitting Provider Pt is 84 y/o M with PMH COPD, HTN, dyslipidemia, CAD S/P stent, anxiety, dementia, DM II, h/o PE on Coumadin, chronic Blunt catheter presented to ER with complaint of shortness of breath x 2-3 days. History obtained from patient's daughter secondary to patient's dementia and altered mental status. Reports patient is primarily bedbound. Patient's daughter reports has noticed patient with increased shortness of breath for the past 2 to 3 days. She thinks there has been some weight gain. Reports patient with chronic BLE edema however thinks that has been improved since he has had a hospital bed at home. Reports chronic nonproductive cough and does not believe there is been increasing cough. Denies any known choking or aspiration. Patient had not been complaining of any chest pain however today he did request to go to ER secondary to shortness of breath. She reports patient with confusion at baseline however increased confusion past couple of days. Today oxygen saturations reported in the 70s per EMS and improved with oxygen via NC and duoneb. Daughter reports is been trying to get patient home oxygen and recently did home night pulse ox study however do not have results yet. Daughter reports that patient recently had his INR checked outpatient and was to have his Coumadin dosing adjusted however she reports did not get message until today and had been continuing his higher doses of Coum salma. Denies any noted epistaxis, hematuria, melena, hematochezia. Patient with chronic indwelling Blunt catheter. She reports that was last changed around 04/27/2019. Reports patient with BM last night which was small hard BM. States patient has been eating and drinking normally. Patient with recent admission to hospital 03/17/2019-03/24/2019 for sepsis, gram-negative bacteremia, Klebsiella UTI with indwelling catheter, SAI. Denies any noted fever/chills, diaphoresis, N/V/D, syncope, rhinorrhea, abdominal pain, rashes. In ER noted decreased urinary output in Blunt bag after lasix given and pt had c/o some abdominal pain. CT abd/pelvis obtained showing Small focus of gas within the bladder, may be due to prior catheterization. New Blunt cath placed in ER. Admission Exam Per Admitting Provider General: chronic ill appearing, obese, +lethargic elderly male Head: normocephalic, atraumatic Eyes: PERRL, EOM's intact, conjunctiva non-injected, anicteric ENT: normal inspection external ears, nose, mucous membranes moist Neck: supple, trachea midline Lungs: On 4L O2 via NC with O2 sats: 91%, no retractions or accessory muscle use, +rales bases CV: RRR, no murmur, 1-2+ pretibial edema BLE Abd: normal BS, soft, no apparnet tenderness to palpation; Blunt cath in place Ext: no cyanosis, no apparent calf tenderness Neuro: Alert but somnolent, oriented to person and place, no focal deficits noted, cooperative, pleasant Skin: warm, dry Principal Diagnosis Acute respiratory failure with hypoxia and hypercarbia; Pneumonia suspected, supratherapeutic INR (resolved), Elevated troponin, acute diastolic heart failure, Chronic indwelling Blunt catheter, acute kidney injury, Dementia Discharge Exam Constitutional comfortable Eyes PERRL, conjunctivae normal, anicteric sclerae EOM intact bilaterally ENMT external ear and nose normal, oropharynx normal Neck normal visual inspection Respiratory normal respiratory effort Cardiovascular Rate/Rhythm: regular rate Gastrointestinal (Abdomen) Inspection/Auscultation: abdomen normal to inspection Percussion/Palpation: abdomen soft Musculoskeletal Head/Neck/Chest: normocephalic and head atraumatic Neurologic PERRL, EOMI, accommodation nl, no face palsy, no dysarthria Psychiatric Orientation: alert and cooperative Discharge Data Allergies Allergy/AdvReac Type Severity Reaction Status Date / Time morphine AdvReac Severe becomes Unverified 05/17/19 13:33 wild and combative Consultations 05/17/19 14:42 ED Decision to Admit Stat 05/20/19 10:58 Consult Palliative Care Routine 05/20/19 11:42 Consult Cardiology Routine Ordered Studies 05/17/19 14:35 CT abd pelvis wo con Stat Hospital Course (1) Hypoxia: Acute respiratory failure with hypoxia and hypercarbia -Pt is 84 y/o M with PMH COPD, HTN, dyslipidemia, CAD S/P stent, anxiety, dementia, DM II, h/o PE on Coumadin, chronic Blunt catheter presented to ER with complaint of shortness of breath x 2-3 days. O2 sats in 70's per EMS improved with oxygen via NC. Daughter denies increase in chronic nonproductive cough, denies fever/chills, vomiting, choking. -ABG on 05/19/19 with pH of 7.13 and PCO2 of 93 -patient has been during this hospital stay to have had mores respiratory distress during night times x 2 nights on 05/18/19 and 05/19/19. Likely there is an undiagnosed obstructive sleep apnea with contributing obesity hypoventilation syndrome. there are some infiltrates on lung X ray concerning of Interval progression of the asymmetric pulmonary edema and small bilateral pleural effusions and may be from acute diastolic heart failure 05/20/19: Met with patient's family in AM. Patient's family (his daughter and his [phone]) did not want patient to be on comfort care. They understand that patient's prognosis is poor if he does not tolerate BIPAP. Patient seen and examined this AM and tolerating BIPAP since that time. The family also allows for trial of medication and labs to be drawn. Code status continues to be DNR/DNI 05/21/19: Patient seen and examined at bedside this AM. Patient had uneventful night and was able to tolerate the BIPAP. Patient appears more energetic this AM when seen on oxymask. will continue BIPAP as tolerated but blood gases showing some improvements of pH and CO2 05/22/19: Patient could not cooperate overnight for pulse oximetry testing. Patient did not have acute overnight events. Patient seen and examined while breathing on 5 liters/min nasal cannula oxygen. Chest X ray shows some improvements in the pulmonary infiltrates. ABG to be obtained as medical doctor feels that a prescription of BIPAP or CPAP on discharge may be necessary to prevent future respiratory distress. IV Zosyn is switched to Augmentin. Patient benefits from further diuresis 05/23/19: Patient again failed to cooperate with the overnight pulse oximetry test. On 5 liters/min nasal cannula at rest this AM Discussed with patient and patient's family members that patient cannot cooperate with respiratory testing to qualify for BIPAP due to his inability to cooperate for testing and dementia and that currently has relatively improved blood gases. But that likely that without use of BIPAP the patient will be high risk for hospital re-admission. Patient also insisting on hospital discharge and Patient's family members would also like patient to return home under hospice care. As per human services case manager, [facility] would need to do a face to face evaluation with 244 because of previous revoked services in the past and that this evaluation will not be available until Saturday05/25/19. Patient and family members preferred to be discharged with plans for hospice care even without established services in place. investment banking manager suggests that then hospice evaluation can be done at home. Hospitalist have submitted to human services case manager home oxygen with portability as 5 liter/ minute and that oxygen can be adjusted for oxygen saturation to maintain between 90 to 92%. Hospitalist also emphasized with patient and patient's family members that generally the goal of home hospice is to focus on patient's comfort rather than continue life prolonging treatments. Hospitalist offered to update home medication list with new disch arge medication changes should patient and his family members later decide against hospice treatment new prescriptions sent electronically to [facility] [id number] [place] [address] of: furosemide (also called Lasix) of 40 mg daily for heart failure. Usually when this medication is being taken under non-hospice situations: periodic basic metabolic panel labs would need to be drawn by family medical doctor for check electrolytes and renal function, or a future Chest X ray could be done metoprolol succinated 25 mg daily (to be started on 05/23/19) for heart failure lisinopril 2.5 mg daily for heart failure and blood pressure coumadin (also called warfarin) as 3 mg daily (INR levels would need to be maintained between 2 to 3 when on coumadin medication, discharge day INR on 05/10 09/26 is 2.5) Amoxicillin Clavulanate (875mg/125mg) twice a day for 5 more days to complete 10 day course of total antibiotics for suspected pneumonia (2) Pneumonia: -while pneumonia has delmi less supported, patient may benefit for the time being on respiratory antibiotic course -management as above (3) Fluid overload: from Acute on chronic diastolic (congestive) heart failure -had been treated with Lasix 60 mg IV BID on the hospital stay -oral Lasix on discharge if patient and patoent's family chooses to have these medications to be taken (4) Elevated troponin: acute diastolic heart failure -admission troponin of 0.2 ranges from 05/17/19 to 05/19/19 before trending up further on 05/19/19 and was 1.26 by -05/20/19 echocardiogram does not show any wall motion abnormalities despite rising troponins which cardiology evaluates as a demand ischemia and advised further diuresis and beta blockers -Furosemide diuretic, metoprolol (5) LBBB (left bundle branch block): -cardiovascular management as above (6) Supratherapeutic INR: Anticoagulated by anticoagulation therapy History of pulmonary embolism in the past (over 1 year ago) -INR of 8 on admission and was reversed with vitamin on admission -patient's Coumadin dose, takes 5 mg Saturday/ Saturday/ Saturday, and 2.5 mg Saturday/ / Saturday/ Saturday (per anticoagulation clinic) -patient was on heparin drip IV, coumadin 5 mg daily starting on 05/20/19, INR is 2.1 on 05/21/19 and heparin drip stopped -INR 2.6 on 05/22/19, continue coumadin as 3 mg daily. 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 CT abd/pelvis obtained showing Small focus of gas within the bladder, may be due to prior catheterization. -New Blunt cath placed in ER. -urine culture appears to be contaminate Acute Kidney Injury -admission creatinine is around the 1.2 ranges of baseline -creatinine had risen to as high as 1.8 likely from use of diuretics -creatinine 1.5 on 05/23/19 (11) Anxiety: -Continue citalopram, clonazepam (12) Dementia: -dementia inhibits patient from being medically optimized with respiratory tests DVT Prophylaxis -On Coumadin DNR/DNI Total Time Total Time Spent Total Time Spent (In Minutes): 40 minutes Total Time Includes: Examination of the Patient, Discharge Planning, Medication Reconciliation and Communication With Other Providers Discharge Plan Discharge Items Patient Disposition: Hospice - Home Reason For Visit: HYPOXIA, CHF, PNEUMONIA Discharge Diagnosis: Acute respiratory failure with hypoxia and hypercarbia; Pneumonia suspected, supratherapeutic INR (resolved), Elevated troponin, acute diastolic heart chucky lure, Chronic indwelling Blunt catheter, acute kidney injury, Dementia Activity: Per Instructions section Non-emergency contact: Primary Care Provider Call non-emergency contact if: you have any medication questions Follow-up/Referrals: Marco Schofield MD [Primary Care Provider] - Diet: Regular Addtl Attending Provider Instructions: Discussed with patient and patient's family members that patient cannot cooperate with respiratory testing to qualify for BIPAP due to his inability to cooperate for testing and dementia and that currently has relatively improved blood gases. But that likely that without use of BIPAP the patient will be high risk for hospital re-admission. Patient also insisting on hospital discharge and Patient's family members would also like patient to return home under hospice care. As per human services case manager, [facility] would need to do a face to face evaluation with 244 because of previous revoked services in the past and that this evaluation will not be available until Saturday05/25/19. Patient and family members preferred to be discharged with plans for hospice care even without established services in place. investment banking manager suggests that then hospice evaluation can be done at home. Hospitalist have submitted to human services case manager home oxygen with portability as 5 liter/ minute and that oxygen can be adjusted for oxygen saturation to maintain between 90 to 92%. Hospitalist also emphasized with patient and patient's family members that generally the goal of home hospice is to focus on patient's comfort rather than continue life prolonging treatments. Hospitalist offered to update home medication list with new discharge medication changes should patient and his family members later decide against hospice treatment new prescriptions sent electronically to [facility] [address] [facility], [place] [address] of: furosemide (also called Lasix) of 40 mg daily for heart failure. Usually when this medication is being taken under non-hospice situations: periodic basic metabolic panel labs would need to be drawn by family medical doctor for check electrolytes and renal function, or a future Chest X ray could be done metoprolol succinated 25 mg daily (to be started on 05/23/19) for heart failure lisinopril 2.5 mg daily for heart failure and blood pressure coumadin (also called warfarin) as 3 mg daily (INR levels would need to be maintained between 2 to 3 when on coumadin medication, discharge day INR on 05/23/19 is 2.5) Amoxicillin Clavulanate (875mg/125mg) twice a day for 5 more days to complete 10 day course of total antibiotics for suspected pneumonia Pending Studies at Discharge: No Stand-Alone Forms: [facility] Medications and DC Order Prescriptions: New warfarin [Coumadin] 3 mg Tablet 3 mg PO DAILY 30 Days Qty: 30 RF: 0 metoprolol succinate 25 mg Tablet Extended Release 24 Hr 25 mg PO QAM 30 Days Qty: 30 RF: 0 lisinopril 2.5 mg Tablet 2.5 mg PO QAM 30 Days Qty: 30 RF: 0 amoxicillin-pot clavulanate [Augmentin] 875-125 mg Tablet 1 tab PO BIDM 5 Days Qty: 10 RF: 0 furosemide 40 mg tablet 40 mg PO DAILY 30 Days Qty: 30 RF: 0 Continued ipratropium-albuterol 0.5 mg-3 mg(2.5 mg base)/3 mL solution for nebulization 3 ml inhalation Q6H PRN (Reason: Shortness Of Breath) RF: 0 clonazepam 1 mg tablet 0.5 mg PO BID PRN (Reason: Anxiety) RF: 0 clonazepam 1 mg tablet 1 mg PO QAM RF: 0 aspirin [Aspir-81] 81 mg Tablet,Delayed Release (Dr/Ec) 81 mg PO QAM RF: 0 calcium carbonate [Calcium 600] 600 mg calcium (1,500 mg) Tablet 600 mg PO QAM RF: 0 citalopram 20 mg tablet 20 mg PO QAM RF: 0 trazodone 50 mg Tablet 25 mg PO HS RF: 0 clonazepam 1 mg tablet 0.5 mg PO HS RF: 0 tramadol 50 mg Tablet 50 mg PO BID RF: 0 pantoprazole 40 mg tablet,delayed release (DR/EC) 40 mg PO QAM RF: 0 atorvastatin 80 mg Tablet 40 mg PO UD RF: 0 Discontinued warfarin 5 mg tablet 2.5 mg PO UD RF: 0 warfarin 5 mg tablet 5 mg PO UD RF: 0 Discharge Orders: Discharge Order (Routine); Ordered 05/23/19 Ordered By: Isra Olivares Admission Data Admit Date/Time: 05/17/19 14:34 Attending Provider: Isra Olivares Admit Provider: Muna Donovan Primary Care Provider: Marco Schofield Other Providers: Muna Donovan ; [facility] ; Maranda Sandoval ; Chavez Burt
[2019-05-23 15:50] VITALS: PULSE 79; TEMP 97.7; O2SAT 96
[2019-05-23] MEDS: WARFARIN SOD 3 MG TAB PO SCH (16:26)
[2019-05-23 16:37] VITALS: BP 121/81
[2019-05-24] MEDS ORDERED: METOPROLOL SUCC 25MG EXT REL TAB PO SCH (09:00)
== END 2019-05-23 18:26 | disposition hospice, home (50) | DRG 189 ==
LOC: ED 12:53 → 2S 14:34 → SUATTDRO 14:34 → 2S 15:26